=== PATIENT | female | born 1945 | race Caucasian/White ===

== ENCOUNTER → 2020-04-13 13:41 | Outpatient (BNVA) | payer MEDICARE, SELFPAY | PROVIDERS: PCP Internal Medicine; Visit Provider Surgery | DX: K81.1 Chronic cholecystitis (principal) | CPT/HCPCS: 99203 ==

== ENCOUNTER 2020-04-15 09:53 | Outpatient (REF) | payer MEDICARE, SELFPAY ==
--- NOTE | 2020-04-15 | US_ITS ---
EXAMINATION: US THYROID CLINICAL INFORMATION: Nontoxic multinodular goiter. COMPARISON: Ultrasound soft tissue head/neck thyroid dated 02/13/2019 and 07/10/2017. TECHNIQUE: Linear transducer valencia-scale and color Doppler examination with attention to the region of the thyroid. FINDINGS: SIZE: Measurements of the thyroid lobes and nodules are given in sagittal, anteroposterior and transverse dimensions respectively. Right Thyroid Lobe: 4.3 x 1.2 x 1.2 cm, volume 3.4 mL. Previously 4.1 x 1.2 x 1.6 cm, volume 4.1 mL. Parenchyma: The gland echotexture is slightly heterogeneous. Thyroid vascularity is normal. Left Thyroid Lobe: 6.8 x 2.2 x 2.5 cm, volume 19.7 mL. Previously 6.1 x 2.1 x 2.3 cm, volume 15.4 mL. Parenchyma: The gland echotexture is heterogeneous. Thyroid vascularity is increased. Isthmus: 0.1 cm in maximum AP dimension. Previously 0.1 cm. RIGHT THYROID LOBE: There are 3 nodules seen. 1. Location: Middle. Size: 0.8 x 0.3 x 0.4 cm. Previous: 0.8 x 0.3 x 0.3 cm. Nodule characteristics: Calcification. 2. Location: Inferior. Size: 0.6 x 0.3 x 0.3 cm. Previous: 0.6 x 0.3 x 0.3 cm. Nodule characteristics: Hyperechoic, irregular margin, no calcification and positive intranodular flow.. 3. Location: Inferior. Size: 0.7 x 0.4 x 0.6 cm. Previous: 0.7 x 0.4 x 0.6 cm. Nodule characteristics: Hyperechoic, smooth margin, no calcification and positive intranodular flow. ISTHMUS: No nodules. LEFT THYROID LOBE: There are 3 nodules seen. 1. Location: Middle. Size: 2.8 x 1.8 x 2.2 cm. Previous: 2.6 x 1.5 x 2.1 cm. Nodule characteristics: Hyperechoic and predominately solid with small cystic component, smooth margin, no calcification and positive intranodular flow. 2. Location: Inferior. Size: 2.4 x 1.6 x 2.5 cm. Previous: 3.5 x 1.6 x 2.4 cm. Nodule characteristics: Isoechoic, smooth margin, no calcification and positive intranodular flow. This appears decreased in size from previous exam. 3. Location: Inferior. Size: 0.3 x 0.1 x 0.5 cm. Previous: 0.8 x 0.3 x 0.6 cm. Nodule characteristics: Calcification. NODES: No lymphadenopathy is seen in the tissue surrounding the thyroid gland. IMPRESSION: Heterogeneous thyroid gland with enlarged left lobe. Interval decrease in size in the heterogeneous nodule in the inferior left lobe. Otherwise bilateral thyroid nodules do not appear appreciably changed..
== END 2020-04-15 09:54 | disposition home or self-care (01) ==
LOC: HO.US 09:53
PROVIDERS: Visit Provider Internal Medicine Endocrinology, Diabetes & Metabolism
DX: E04.2 Nontoxic multinodular goiter (principal)
CPT/HCPCS: 76536

== ENCOUNTER → 2020-04-30 11:25 | Outpatient (BNVA) | payer MEDICARE, SELFPAY | PROVIDERS: PCP Internal Medicine; Referring Provider Internal Medicine; Visit Provider Internal Medicine Endocrinology, Diabetes & Metabolism | DX: E04.2 Nontoxic multinodular goiter (principal); E06.3 Autoimmune thyroiditis | CPT/HCPCS: 99214 ==

== ENCOUNTER → 2020-07-23 10:36 | Outpatient (BNVA) | payer MEDICARE, SELFPAY | PROVIDERS: PCP Internal Medicine; Visit Provider Internal Medicine Gastroenterology | DX: K80.20 Calculus of gallbladder without cholecystitis without obstruction (principal); R94.5 Abnormal results of liver function studies; R63.4 Abnormal weight loss | CPT/HCPCS: 99212 ==

== ENCOUNTER 2020-12-17 10:15 | Outpatient (REF) | payer MEDICARE, SELFPAY ==
[2020-12-17 11:45] LABS: MANUAL DIFF FLAG NO
[2020-12-17 11:50] LABS: Basophils Percent Auto 0.4 % (0-2); Eosinophils Absolute Auto 0.1 X10*3/uL (0.0-0.4); Eosinophils Percent Auto 2.5 % (0-4); Hematocrit 40.3 % (37-47); Hemoglobin 12.9 g/dl (12.0-16.0); Imm Gran Abs Auto 0.01 X10*3/uL (0.00-0.03); Imm Gran Pct Auto 0.2 % (0.0-0.4); Lymphocytes Absolute Auto 1.7 X10*3/uL (1.2-4.9); Lymphocytes Percent Auto 30.1 % (20-40); Mean Corpuscular Hemoglobin 29.1 pg (27.0-33.0); Mean Corpuscular Volume 90.8 fL (80-98); Mean Platelet Volume 10.3 fL (9.4-12.3); Monocytes Absolute Auto 0.7 X10*3/uL (0.1-1.2); Monocytes Percent Auto 11.8 % (2-11); Platelet Count 263 X10*3/uL (160-400); Red Blood Count 4.44 X10*6/uL (4.20-5.50); White Blood Count 5.5 X10*3/uL (4.8-10.8)
[2020-12-17 13:25] LABS: Alanine Aminotransferase 9 U/L (0-31); Albumin Level 4.3 g/dL (3.5-5.0); Alkaline Phosphatase 131 U/L (39-117); Anion Gap 13 (12-20); Aspartate Amino Transferase 20 U/L (5-31); Bilirubin Total 0.5 mg/dL (0.0-1.0); Blood Urea Nitrogen 18 mg/dL (9-16); Calcium 9.7 mg/dL (8.4-10.2); Carbon Dioxide 29 mmol/L (22-29); Chloride 103 mmol/L (96-108); Estimated Glomerular Filt Rate > 60; Gamma Glutamyl Transpeptidase 19 U/L (7-33); Glucose Random 92 mg/dL (60-115); Potassium 4.6 mmol/L (3.3-5.1); Sodium 140 mmol/L (135-145); Total Protein 7.1 g/dL (6.5-8.0)
== END 2020-12-17 10:16 | disposition home or self-care (01) ==
LOC: HO.LAB 10:15
PROVIDERS: PCP Internal Medicine; Referring Provider Internal Medicine; Visit Provider Internal Medicine Gastroenterology
DX: K75.81 Nonalcoholic steatohepatitis (NASH) (principal); R63.4 Abnormal weight loss; R94.5 Abnormal results of liver function studies; K80.20 Calculus of gallbladder without cholecystitis without obstruction
CPT/HCPCS: 36415; 80053; 82977; 85025; 85610; 99212

== ENCOUNTER → 2021-03-18 09:39 | Outpatient (BNVA) | payer MEDICARE, SELFPAY | PROVIDERS: PCP Internal Medicine; Referring Provider Internal Medicine; Visit Provider Internal Medicine Gastroenterology | DX: K80.20 Calculus of gallbladder without cholecystitis without obstruction (principal); R94.5 Abnormal results of liver function studies; Z23 Encounter for immunization | CPT/HCPCS: 90471; 90472; 90632; 90746; 99212 ==

== ENCOUNTER 2021-03-19 09:56 | Outpatient (REF) | payer MEDICARE, SELFPAY ==
[2021-03-19 10:27] LABS: MANUAL DIFF FLAG NO
[2021-03-19 10:33] LABS: Basophils Percent Auto 0.5 % (0-2); Eosinophils Absolute Auto 0.2 X10*3/uL (0.0-0.4); Eosinophils Percent Auto 2.7 % (0-4); Hematocrit 38.4 % (37-47); Imm Gran Abs Auto 0.01 X10*3/uL (0.00-0.03); Imm Gran Pct Auto 0.2 % (0.0-0.4); Lymphocytes Absolute Auto 1.8 X10*3/uL (1.2-4.9); Lymphocytes Percent Auto 29.9 % (20-40); Mean Corpuscular HGB Conc 33.9 g/dl (31.0-35.0); Mean Corpuscular Hemoglobin 30.3 pg (27.0-33.0); Mean Corpuscular Volume 89.5 fL (80-98); Mean Platelet Volume 10.3 fL (9.4-12.3); Monocytes Absolute Auto 0.7 X10*3/uL (0.1-1.2); Monocytes Percent Auto 11.9 % (2-11); Neutrophils Absolute Auto 3.2 X10*3/uL (2.0-8.3); Neutrophils Percent Auto 54.8 % (45-73); Platelet Count 243 X10*3/uL (160-400); Red Blood Count 4.29 X10*6/uL (4.20-5.50); Red Cell Distribution Width 12.5 % (11.0-16.0); White Blood Count 5.9 X10*3/uL (4.8-10.8)
[2021-03-19 10:54] LABS: Alanine Aminotransferase 10 U/L (0-31); Albumin Level 4.3 g/dL (3.5-5.0); Alkaline Phosphatase 111 U/L (39-117); Anion Gap 10 (12-20); Aspartate Amino Transferase 21 U/L (5-31); Bilirubin Direct 0.3 mg/dL (0.0-0.5); Bilirubin Total 0.6 mg/dL (0.0-1.0); Blood Urea Nitrogen 15 mg/dL (9-16); Calcium 9.9 mg/dL (8.4-10.2); Carbon Dioxide 29 mmol/L (22-29); Chloride 101 mmol/L (96-108); Estimated Glomerular Filt Rate > 60; Gamma Glutamyl Transpeptidase 16 U/L (7-33); Glucose Random 89 mg/dL (60-115); Potassium 3.8 mmol/L (3.3-5.1); Sodium 136 mmol/L (135-145); Total Protein 7.1 g/dL (6.5-8.0)
[2021-03-19 11:14] LABS: Ferritin 196 ng/mL (10-250); Vitamin D 25-OH Total 72.8 ng/mL (>30)
[2021-03-19 11:33] LABS: Prothrombin Time 11.3 SEC (9.9-13.0)
[2021-03-21 09:46] LABS: Folate 11.9 ng/mL (> or = 4.0); Vitamin B12 642 pg/mL (200-900)
[2021-03-21 13:46] LABS: Immunoglobulin G 1060 mg/dL (600-1540)
[2021-03-22 06:05] LABS: Zinc 75 mcg/dL (60-130)
[2021-03-24 21:57] LABS: Alk.Phos Iso. Macrohepatic 0 % (<=0); Alk.Phos Isoenzymes Bone 32 % (28-66); Alk.Phos Isoenzymes Intest 0 % (1-24); Alk.Phos Isoenzymes Liver 68 % (25-69); Alk.Phos Isoenzymes Placental 0 % (<=0); Alk.Phos Isoenzymes Total 106 U/L (37-153)
== END 2021-03-19 09:57 | disposition home or self-care (01) ==
LOC: HO.LAB 09:56
PROVIDERS: PCP Internal Medicine; Visit Provider Internal Medicine Gastroenterology
DX: R94.5 Abnormal results of liver function studies (principal); K80.20 Calculus of gallbladder without cholecystitis without obstruction; K52.839 Microscopic colitis, unspecified; K75.81 Nonalcoholic steatohepatitis (NASH)
CPT/HCPCS: 36415; 80053; 82248; 82306; 82607; 82728; 82746; 82784; 82977; 84080; 84630; 85025; 85610

== ENCOUNTER 2021-04-19 08:07 | Outpatient (REF) | payer MEDICARE, SELFPAY ==
--- NOTE | ~2021-04-19 | US_ITS ---
EXAMINATION: US THYROID CLINICAL INFORMATION: Nontoxic multinodular goiter. COMPARISON: Ultrasound soft tissue head/neck thyroid dated 04/15/2020 and 02/13/2019. TECHNIQUE: Linear transducer valencia-scale and color Doppler examination with attention to the region of the thyroid. FINDINGS: SIZE: Measurements of the thyroid lobes and nodules are given in sagittal, anteroposterior and transverse dimensions respectively. Right Thyroid Lobe: 4.2 x 1.2 x 1.4 cm, volume 3.4 mL. Previously 4.3 x 1.2 x 1.2 cm, volume 3.4 mL. Parenchyma: The gland echotexture is homogeneous. Thyroid vascularity is increased. Left Thyroid Lobe: 5.6 x 2.1 x 2.3 cm, volume 13.9 mL. Previously 6.8 x 2.2 x 2.5 cm, volume 19.7 mL. Parenchyma: The gland echotexture is homogeneous. Thyroid vascularity is increased. Isthmus: 0.2 cm in maximum AP dimension. Previously 0.1 cm. Estimated total number of nodules greater than or equal to 1 cm: 3. Control Analyst nodules are described as follows: 1. Location: Left inferior. Size: 0.8 x 1.1 x 0.4 cm, volume 0.18 mL. Previously: 0.3 x 0.1 x 0.5 cm, volume 0.01 mL. Nodule characteristics: Composition: Solid (2). Echogenicity: Hyperechoic (1). Shape: Not taller than wide (0). Margins: Cannot be determined (0). Echogenic Foci: Macrocalcifications (1). ACR TI-RADS total points: 4 ACR TI-RADS category: 4 Significant change in size (>/= 20% in 2 dimensions and minimal increase of 2 mm or 50% or greater increase in volume): Yes Change in features: None Change in ACR TI-RADS risk category: Not applicable 2. Location: Left inferior. Size: 1.5 x 2.0 x 1.6 cm, volume 2.44 mL. Previously: 2.4 x 1.6 x 2.5 cm, volume 5.02 mL. Nodule characteristics: Composition: Solid (2). Echogenicity: Isoechoic (1). Shape: Not taller than wide (0). Margins: Smooth (0). Echogenic Foci: None (0). ACR TI-RADS total points: 3 ACR TI-RADS category: 3 Significant change in size (>/= 20% in 2 dimensions and minimal increase of 2 mm or 50% or greater increase in volume): None Change in features: None Change in ACR TI-RADS risk category: Not applicable 3. Location: Left mid. Size: 2.7 x 2.2 x 1.8 cm, volume 5.5 mL. Previously: 2.8 x 1.8 x 2.2 cm, volume 5.8 mL. Nodule characteristics: Composition: Solid (2). Echogenicity: Isoechoic (1). Shape: Not taller than wide (0). Margins: Smooth (0). Echogenic Foci: None (0). ACR TI-RADS total points: 3 ACR TI-RADS category: 3 Significant change in size (>/= 20% in 2 dimensions and minimal increase of 2 mm or 50% or greater increase in volume): None Change in features: None Change in ACR TI-RADS risk category: Not applicable 4. Location: Right inferior. Size: 0.7 x 0.5 x 0.3 cm, volume 0.07 mL. Previously: 0.8 x 0.3 x 0.4 cm, volume 0.05 mL. Nodule characteristics: Composition: Solid (2). Echogenicity: Hyperechoic (1). Shape: Not taller than wide (0). Margins: Smooth (0). Echogenic Foci: None (0). ACR TI-RADS total points: 3 ACR TI-RADS category: 3 Significant change in size (>/= 20% in 2 dimensions and minimal increase of 2 mm or 50% or greater increase in volume): None Change in features: None Change in ACR TI-RADS risk category: Not applicable NODES: No lymphadenopathy is seen in the tissue surrounding the thyroid gland. US/US thyroid IMPRESSION: Multiple thyroid nodules nonsuspicious. The largest thyroid nodule midpole left lobe is stable. Recommend continued followup. ACR TI-RADS RECOMMENDATION REFERENCE: Ultrasound-guided fine-needle aspiration, followup ultrasound, no further followup. * TR1 (0 point) and TR 2 (2 points): No FNA or followup. * TR3 (3 points): FNA if more than or equal to 2.5 cm in maximum dimension, followup ultrasound in 1, 3 and 5 years if 1.5 to 2.4 cm in maximum dimension. * TR4 (4-6 points): FNA if more than or equal to 1.5 cm in maximum dimension, followup ultrasound in 1, 2, 3 and 5 years if 1 to 1.4 cm in maximum dimension. * TR5 (more than or equal to 7 points): FNA if more than or equal to 1 cm in maximum dimension, followup ultrasound every year for 5 years if 0.5 to 0.9 cm in maximum dimension. * TR3, TR4 or TR5 nodules that are below the size threshold for followup receive no followup.
== END 2021-04-19 08:08 | disposition home or self-care (01) ==
LOC: HO.US 08:07
PROVIDERS: PCP Internal Medicine; Visit Provider Internal Medicine
DX: E04.2 Nontoxic multinodular goiter (principal)
CPT/HCPCS: 76536

== ENCOUNTER → 2021-04-22 08:11 | Outpatient (BNVA) | payer MEDICARE, SELFPAY | PROVIDERS: PCP Internal Medicine; Visit Provider Internal Medicine Gastroenterology | DX: Z23 Encounter for immunization (principal) | CPT/HCPCS: 90471; 90746 ==

== ENCOUNTER 2021-09-12 21:14 | Inpatient (IN) | payer MEDICARE, SELFPAY ==
--- NOTE | 2021-09-12 | ECG_ITS ---
Test Reason : ABDOMINAL PAIM Blood Pressure : / mmHG Vent. Rate : 089 BPM Atrial Rate : 089 BPM P-R Int : 184 ms QRS Dur : 088 ms QT Int : 366 ms P-R-T Axes : 074 026 059 degrees QTc Int : 445 ms Sinus rhythm with occasional Premature ventricular complexes and Premature atrial complexes Otherwise normal ECG When compared with ECG of 08-OCT-2019 21:54, Premature ventricular complexes are now Present Premature atrial complexes are now Present Referred By: Generic ED Physician Electronically Signed By:MILADY CELIS MD
--- NOTE | ~2021-09-12 | CT_ITS ---
EXAMINATION: CT ANGIOGRAM OF THE CHEST WITH AND WITHOUT CONTRAST (CT PULMONARY ANGIOGRAM FOR PE) CLINICAL INFORMATION: Reason for Exam syncope, chest pain COMPARISON: CT chest 02/21/2017 TECHNIQUE: Prior to contrast administration, noncontrast localization images were obtained. Subsequently, multidetector volumetric imaging was performed from the thoracic inlet to below the diaphragms following the administration of 55 mL Omnipaque 350 intravenous contrast. No contrast reaction reported Sagittal, coronal, and MIP oblique sagittal reformatted images were obtained on the CT workstation, uploaded to PACS, and reviewed. This CT examination was performed using dose optimization techniques as appropriate, variously including the following: *Automated exposure control *Adjustment of mA and/or kV according to patient size (this includes techniques or standardized protocols for targeted exams where dose is matched to indication/reason for exam; i.e. extremities or head) *Use of iterative reconstruction technique Total exam dose-length product 226 mGy-cm FINDINGS: QUALITY OF STUDY/CONTRAST BOLUS: Satisfactory. PULMONARY ARTERIES: No central or segmental pulmonary emboli. THORACIC AORTA: No aneurysm or dissection. There is a three-vessel branching pattern with common trunk involving the innominate and left carotid. The left vertebral has a separate origin from the aorta. LUNGS AND PLEURA: Biapical pleural-parenchymal scarring is present. Some mosaic areas of air trapping are present at the lung bases. No infiltrates or suspicious lung masses are seen. No pleural effusions. MEDIASTINUM: Normal heart size. No pericardial effusion. No hilar or mediastinal lymphadenopathy. No evidence of septal bowing or right heart strain. CHEST WALL/AXILLA: No axillary or internal mammary lymphadenopathy. OSSEOUS STRUCTURES: No acute or suspicious osseous abnormality. UPPER ABDOMEN: Unremarkable. No reflux of contrast into the hepatic veins to suggest elevated right heart pressures. CT/CT angio chest PE protocol IMPRESSION: No evidence of pulmonary emboli. No aortic dissection seen. No acute intrathoracic disease. VTE: negative
[2021-09-12 21:33] VITALS: BP 150/76; BP 182/71; PULSE 82; PULSE 90; RESP 16; TEMP 37; O2SAT 100; BMI 23.2
--- NOTE | 2021-09-12 21:43 | ED_ITS ---
HPI - Syncope General Chief Complaint: Abdominal Pain Stated Complaint: SYNCOPAL EPISODE PER EMS Time Seen by Provider: 09/12/21 21:36 Source: patient Mode of arrival: EMS History of Present Illness HPI narrative: Patient is 76 years old with no known coronary disease has history of goiter and hypokalemia was at her usual health today came home after meeting around 20 30 suddenly noticed epigastric pain with nausea with cold sweats went to bathroom to attempt to vomit but was unsuccessful then sat down on the chair and had a syncope episode per family patient had a blank stare and slumped to the side after arrival patient denies any pain no shortness of breath feels slight discomfort retrosternal Related Data Home Medications Medication Instructions Recorded Confirmed chlorthalidone 25 mg tablet 25 mg PO QAM 04/10/20 04/30/20 cholecalciferol (vitamin D3) 25 25 mcg PO DAILY 04/10/20 04/30/20 mcg (1,000 unit) capsule potassium chloride 20 mEq 20 meq PO BID 04/10/20 04/30/20 tablet,extended release(part/cryst) polyethylene glycol 3350 17 17 g PO BID 12/17/20 gram/dose oral powder (Miralax) Previous Rx's Medication Instructions Recorded ursodiol 500 mg tablet 500 mg PO BID 90 Days #180 tab 08/10/21 Allergies Allergy/AdvReac Type Severity Reaction Status Date / Time celecoxib [From CELEBREX] Allergy Intermediate RASH Verified 09/12/21 21:31 Sulfa (Sulfonamide Allergy Intermediate RASH Verified 09/12/21 21:31 Antibiotics) tomato Allergy Rash Verified 09/12/21 21:31 From PERCOCET Allergy Intermediate RASH Uncoded 09/12/21 21:31 Review of Systems Review of Systems: Yes all other systems are reviewed and are negative [facility] Past Medical History Medical History Chronic cholecystitis Essential hypertension Rika's disease Nontoxic multinodular goiter Primary osteoarthritis of left knee Surgical History History of back surgery History of bilateral knee arthroplasty History of colonoscopy History of esophagogastroduodenoscopy (EGD) History of thyroid surgery History of tonsillectomy Family History Family History Father No problems noted. Mother No problems noted. Social History Social History Alcohol intake: never Advance Directives: No Advance Directives Information Provided: Yes Physical Exam Vital Signs: Vital Signs: Last Vital Signs Temp 97.7 F 09/12/21 23:23 Pulse 76 09/12/21 23:23 Resp 15 09/12/21 23:23 BP 164/83 H 09/12/21 23:23 Pulse Ox 97 09/12/21 23:23 BMI result Body Mass Index 23.2 Appearance: Alert. Oriented X3. No acute distress. Eyes: No pallor/icterus ENT: Pharynx normal. Oral Mucosa moist Neck: Normal inspection. Neck supple. CVS: Normal heart rate and rhythm. Pulses normal. No murmur rub or gallop Respiratory: No respiratory distress. Equal air entry bilateral, no wheezing/rales/rhonchi Abdomen: Soft and nontender. Bowel sounds are present, no mass palpable, no CVA tenderness Skin: Skin warm and dry. Normal skin color. Normal skin turgor. Extremities: No lower extremity edema. No calf tenderness Neuro: Oriented X 3. No motor deficit. No sensory deficit.No cerebellar signs , cranial nerves II-XII intact MDM - Syncope MDM Narrative Medical decision making narrative: Patient with epigastric pain with syncope episode etiology not clear 2 sets of high sensitive troponin negative no acute ischemic changes. Will admit patient for rule out ACS and syncope Lab Data Attestation: I reviewed the patient's lab results. Result diagrams: 09/12/21 21:52 09/12/21 21:52 Labs: Lab Results 09/12/21 09/12/21 09/12/21 Range/Units 21:52 21:52 21:52 WBC 7.5 (4.8-10.8) X10*3/uL RBC 4.32 (4.20-5.50) X10*6/uL Hgb 12.6 (12.0-16.0) g/dl Hct 38.9 (37.0-47.0) % MCV 90.0 (80.0-98.0) fL MCH 29.2 (27.0-33.0) pg MCHC 32.4 (31.0-35.0) g/dl RDW 12.8 (11.0-16.0) % Plt Count 232 (160-400) X10*3/uL MPV 10.1 (9.4-12.3) fL Immature Gran % (Auto) 0.1 (0.0-0.4) % Neut % (Auto) 54.6 (45-73) % Lymph % (Auto) 29.5 (20-40) % Crook % (Auto) 12.1 H (2-11) % Eos % (Auto) 3.2 (0-4) % Baso % (Auto) 0.5 (0-2) % Lymph # (Auto) 2.2 (1.2-4.9) X10*3/uL Crook # (Auto) 0.9 (0.1-1.2) X10*3/uL Eos # (Auto) 0.2 (0.0-0.4) X10*3/uL Baso # (Auto) 0.0 (0.0-0.2) X10*3/uL Abs Immat Gran (auto) 0.01 (0.00-0.03) X10*3/uL Absolute Neuts (auto) 4.1 (2.0-8.3) x10*3/uL Absolute Nucleated RBC 0.000 (0.0-0.012) X10*3/uL Nucleated RBC % (auto) 0.0 (0.0-0.2) /100WBC PT 10.9 (9.9-13.0) SEC INR 1.0 (0.9-1.1) APTT 32.4 (24.1-38.0) SEC Sodium 141 (135-145) mmol/L Potassium 3.2 L (3.3-5.1) mmol/L Chloride 103 (96-108) mmol/L Carbon Dioxide 30 H (22-29) mmol/L Anion Gap 11 L (12-20) BUN 16 (9-16) mg/dL Creatinine 0.77 (0.5-1.4) mg/dL Estim Creat Clear Calc 50.6 Estimated GFR > 60 Random Glucose 120 H (60-115) mg/dL Lactic Acid (0.5-2.0) mmol/L Calcium 10.0 (8.4-10.2) mg/dL Total Bilirubin 0.2 (0.0-1.0) mg/dL AST 19 (5-31) U/L ALT 7 (0-31) U/L Alkaline Phosphatase 110 (39-117) U/L Troponin I High Sens (<3.5-17.0) ng/L Total Protein 6.8 (6.5-8.0) g/dL Albumin 4.1 (3.5-5.0) g/dL Urine Color Urine Appearance Urine pH (5.0-8.0) Ur Specific [place] (1.005-1.025) Urine Protein (NEG-TRACE) MG/DL Urine Glucose (UA) (NEG) MG/DL Urine Ketones (NEG) MG/DL Urine Blood (NEG) Urine Nitrite (NEG) Ur Leukocyte Esterase (NEG) Urine RBC (0) /HPF Urine WBC (0-4) /HPF Ur Squamous Epith Cells /LPF Urine Bacteria /LPF COVID-19 ([place]) (Negative) COVID-19 Clin Com 09/12/21 09/12/21 09/12/21 Range/Units 21:52 21:53 22:13 WBC (4.8-10.8) X10*3/uL RBC (4.20-5.50) X10*6/uL Hgb (12.0-16.0) g/dl Hct (37.0-47.0) % MCV (80.0-98.0) fL MCH (27.0-33.0) pg MCHC (31.0-35.0) g/dl RDW (11.0-16.0) % Plt Count (160-400) X10*3/uL MPV (9.4-12.3) fL Immature Gran % (Auto) (0.0-0.4) % Neut % (Auto) (45-73) % Lymph % (Auto) (20-40) % Crook % (Auto) (2-11) % Eos % (Auto) (0-4) % Baso % (Auto) (0-2) % Lymph # (Auto) (1.2-4.9) X10*3/uL Crook # (Auto) (0.1-1.2) X10*3/uL Eos # (Auto) (0.0-0.4) X10*3/uL Baso # (Auto) (0.0-0.2) X10*3/uL Abs Immat Gran (auto) (0.00-0.03) X10*3/uL Absolute Neuts (auto) (2.0-8.3) x10*3/uL Absolute Nucleated RBC (0.0-0.012) X10*3/uL Nucleated RBC % (auto) (0.0-0.2) /100WBC PT (9.9-13.0) SEC INR (0.9-1.1) APTT (24.1-38.0) SEC Sodium (135-145) mmol/L Potassium (3.3-5.1) mmol/L Chloride (96-108) mmol/L Carbon Dioxide (22-29) mmol/L Anion Gap (12-20) BUN (9-16) mg/dL Creatinine (0.5-1.4) mg/dL Estim Creat Clear Calc Estimated GFR Random Glucose (60-115) mg/dL Lactic Acid (0.5-2.0) mmol/L Calcium (8.4-10.2) mg/dL Total Bilirubin (0.0-1.0) mg/dL AST (5-31) U/L ALT (0-31) U/L Alkaline Phosphatase (39-117) U/L Troponin I High Sens 5.4 (<3.5-17.0) ng/L Total Protein (6.5-8.0) g/dL Albumin (3.5-5.0) g/dL Urine Color STRAW Urine Appearance HAZY Urine pH 6.5 (5.0-8.0) Ur Specific [place] 1.010 (1.005-1.025) Urine Protein NEG (NEG-TRACE) MG/DL Urine Glucose (UA) NEG (NEG) MG/DL Urine Ketones NEG (NEG) MG/DL Urine Blood TRACE (NEG) Urine Nitrite POS H (NEG) Ur Leukocyte Esterase 3+ H (NEG) Urine RBC 0-2 (0) /HPF Urine WBC 10-14 H (0-4) /HPF Ur Squamous Epith Cells TRACE /LPF Urine Bacteria 1+ /LPF COVID-19 ([place]) Negative (Negative) COVID-19 Clin Com See Note 09/13/21 09/13/21 Range/Units 00:02 00:02 WBC (4.8-10.8) X10*3/uL RBC (4.20-5.50) X10*6/uL Hgb (12.0-16.0) g/dl Hct (37.0-47.0) % MCV (80.0-98.0) fL MCH (27.0-33.0) pg MCHC (31.0-35.0) g/dl RDW (11.0-16.0) % Plt Count (160-400) X10*3/uL MPV (9.4-12.3) fL Immature Gran % (Auto) (0.0-0.4) % Neut % (Auto) (45-73) % Lymph % (Auto) (20-40) % Crook % (Auto) (2-11) % Eos % (Auto) (0-4) % Baso % (Auto) (0-2) % Lymph # (Auto) (1.2-4.9) X10*3/uL Crook # (Auto) (0.1-1.2) X10*3/uL Eos # (Auto) (0.0-0.4) X10*3/uL Baso # (Auto) (0.0-0.2) X10*3/uL Abs Immat Gran (auto) (0.00-0.03) X10*3/uL Absolute Neuts (auto) (2.0-8.3) x10*3/uL Absolute Nucleated RBC (0.0-0.012) X10*3/uL Nucleated RBC % (auto) (0.0-0.2) /100WBC PT (9.9-13.0) SEC INR (0.9-1.1) APTT (24.1-38.0) SEC Sodium (135-145) mmol/L Potassium (3.3-5.1) mmol/L Chloride (96-108) mmol/L Carbon Dioxide (22-29) mmol/L Anion Gap (12-20) BUN (9-16) mg/dL Creatinine (0.5-1.4) mg/dL Estim Creat Clear Calc Estimated GFR Random Glucose (60-115) mg/dL Lactic Acid 0.7 (0.5-2.0) mmol/L Calcium (8.4-10.2) mg/dL Total Bilirubin (0.0-1.0) mg/dL AST (5-31) U/L ALT (0-31) U/L Alkaline Phosphatase (39-117) U/L Troponin I High Sens 5.3 (<3.5-17.0) ng/L Total Protein (6.5-8.0) g/dL Albumin (3.5-5.0) g/dL Urine Color Urine Appearance Urine pH (5.0-8.0) Ur Specific [place] (1.005-1.025) Urine Protein (NEG-TRACE) MG/DL Urine Glucose (UA) (NEG) MG/DL Urine Ketones (NEG) MG/DL Urine Blood (NEG) Urine Nitrite (NEG) Ur Leukocyte Esterase (NEG) Urine RBC (0) /HPF Urine WBC (0-4) /HPF Ur Squamous Epith Cells /LPF Urine Bacteria /LPF COVID-19 ([place]) (Negative) COVID-19 Clin Com ECG Data Attestation: I personally reviewed and interpreted this ECG as follows: Interpretation: Heart rate 89 beats per minute sinus rhythm with question premature ventricular complexes normal axis normal intervals no acute ST-T changes no acute ischemia Critical Care Time Critical Care Time Critical Care Time: Yes Total Critical Care Time: 50 Attestation: I spent 50 minutes of critical care, with interventions, assessments, speaking to patient, consultants, Discharge Plan Discharge Clinical Impression: Syncope and collapse, Chest pain Patient Disposition: Admitted As Inpatient
[2021-09-12 21:58] LABS: MANUAL DIFF FLAG NO
[2021-09-12 22:00] LABS: Basophils Percent Auto 0.5 % (0-2); Eosinophils Absolute Auto 0.2 X10*3/uL (0.0-0.4); Eosinophils Percent Auto 3.2 % (0-4); Hematocrit 38.9 % (37.0-47.0); Hemoglobin 12.6 g/dl (12.0-16.0); Imm Gran Abs Auto 0.01 X10*3/uL (0.00-0.03); Imm Gran Pct Auto 0.1 % (0.0-0.4); Lymphocytes Absolute Auto 2.2 X10*3/uL (1.2-4.9); Lymphocytes Percent Auto 29.5 % (20-40); Mean Corpuscular HGB Conc 32.4 g/dl (31.0-35.0); Mean Corpuscular Hemoglobin 29.2 pg (27.0-33.0); Mean Platelet Volume 10.1 fL (9.4-12.3); Monocytes Absolute Auto 0.9 X10*3/uL (0.1-1.2); Monocytes Percent Auto 12.1 % (2-11); Neutrophils Absolute Auto 4.1 x10*3/uL (2.0-8.3); Neutrophils Percent Auto 54.6 % (45-73); Platelet Count 232 X10*3/uL (160-400); Red Blood Count 4.32 X10*6/uL (4.20-5.50); Red Cell Distribution Width 12.8 % (11.0-16.0); White Blood Count 7.5 X10*3/uL (4.8-10.8)
[2021-09-12 22:05] LABS: Prothrombin Time 10.9 SEC (9.9-13.0)
[2021-09-12 22:08] LABS: Partial Thromboplastin Time 32.4 SEC (24.1-38.0)
[2021-09-12 22:16] LABS: Alanine Aminotransferase 7 U/L (0-31); Albumin Level 4.1 g/dL (3.5-5.0); Alkaline Phosphatase 110 U/L (39-117); Aspartate Amino Transferase 19 U/L (5-31); Bilirubin Total 0.2 mg/dL (0.0-1.0); Blood Urea Nitrogen 16 mg/dL (9-16); Creatinine Clr Calc Pharmacy 50.6; Estimated Glomerular Filt Rate > 60; Glucose Random 120 mg/dL (60-115); Total Protein 6.8 g/dL (6.5-8.0)
[2021-09-12 22:20] LABS: Appearance Urine HAZY; Color Urine STRAW; Glucose Urine UA NEG (NEG); Leukocyte Esterase Urine 3+ (NEG); Nitrite Urine POS (NEG); PH 6.5 (5.0-8.0); UACC Culture Trigger YES; Urine Blood TRACE (NEG); Urine Ketones NEG (NEG); Urine Protein NEG (NEG-TRACE)
[2021-09-12 22:20] LABS: Troponin-I High Sensitivity 5.4 ng/L (<3.5-17.0)
[2021-09-12 22:25] LABS: Bacteria Urine 1+ /LPF; RBC Urine 0-2 /HPF (0); Squamous Epithelial Cell Urine TRACE /LPF
[2021-09-12 22:26] LABS: Anion Gap 11 (12-20); Carbon Dioxide 30 mmol/L (22-29); Chloride 103 mmol/L (96-108); Potassium 3.2 mmol/L (3.3-5.1); Sodium 141 mmol/L (135-145)
[2021-09-12 22:27] LABS: COVID-19 Test Negative (Negative)
[2021-09-12] MEDS: iohexoL 350 MG/ML 100 ML INFUS..BTL IV (22:52)
[2021-09-12 23:23] VITALS: BP 164/83; PULSE 76; RESP 15; TEMP 36.5; O2SAT 97
[2021-09-13] MEDS: cefTRIAXone sodium 1 GM in 0.9 % Sodium Chloride 50 ML IV ×2 (00:14→21:43)
[2021-09-13] MEDS: Potassium Chloride Packet 20 MEQ PACKET 40 MEQ PO (00:14)
[2021-09-13 00:30] LABS: Lactic Acid 0.7 mmol/L (0.5-2.0)
[2021-09-13 00:39] LABS: Troponin-I High Sensitivity 5.3 ng/L (<3.5-17.0)
--- NOTE | 2021-09-13 01:50 | P.HPHOSP_ITS ---
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 Patient reports that she was at a meeting earlier that lasted about an hour, she came home, was in her usual state of health, standing in the kitchen talking to her family when all of a sudden she experienced significant epigastric pain radiating bilaterally, then she developed dizziness, she went to sit down and it appears to have had a syncopal episode for less than a minute while sitting down. Patient's family were present in the witness the episode. She apparently was gazing out and not responding to them calling her. Patient does not remember that episode. Patient reports that she has had increased confusion for the past 1 month, and even today while giving history she seemed to be slightly confused. When asked about review of system patient denies any headache, no change in vision, no chest pain, no palpitations, no nausea or vomiting, no diarrhea constipation. Patient does report urinary symptoms including burning and frequency that started few days ago. She has no lower extremity edema. No fever or chills. On arrival to the ED patient hemodynamically stable with no significant abnormal vitals Labs are significant for WBC count of 7.5, potassium of 3.2, UA positive for urine nitrite, LE and WBC . troponin negative. EKG shows sinus rhythm with PVCs, T-wave inversion in lead V1, which is present any previous EKG, no other ST T wave abnormality. Patient started on IV antibiotics and will be admitted for further management Review of Systems Review of Systems: Yes all other systems are reviewed and are negative [facility] Medical History Chronic cholecystitis Essential hypertension Rika's disease Nontoxic multinodular goiter Primary osteoarthritis of left knee Family History Father No problems noted. Mother No problems noted. Surgical History History of back surgery History of bilateral knee arthroplasty History of colonoscopy History of esophagogastroduodenoscopy (EGD) History of thyroid surgery History of tonsillectomy Social History (Updated 09/13/21 @ 06:40 by Panfilo Lucas MD) Alcohol intake: never Patient Tobacco Use Status: Former Tobacco user Use of substances other than those prescribed or required for medical reasons: No Advance Directives: No Advance Directives Information Provided: Yes Meds Allergies Allergy/AdvReac Type Severity Reaction Status Date / Time celecoxib [From CELEBREX] Allergy Intermediate RASH Verified 09/12/21 21:31 Sulfa (Sulfonamide Allergy Intermediate RASH Verified 09/12/21 21:31 Antibiotics) tomato Allergy Rash Verified 09/12/21 21:31 From PERCOCET Allergy Intermediate RASH Uncoded 09/12/21 21:31 Home Medications Medication Instructions Recorded Confirmed Last Taken Type chlorthalidone 25 mg tablet 25 mg PO QAM 04/10/20 04/30/20 Unknown History cholecalciferol (vitamin D3) 25 25 mcg PO DAILY 04/10/20 04/30/20 Unknown History mcg (1,000 unit) capsule potassium chloride 20 mEq 20 meq PO BID 04/10/20 04/30/20 Unknown History tablet,extended release(part/cryst) polyethylene glycol 3350 17 17 g PO BID 12/17/20 Unknown History gram/dose oral powder (Miralax) Physical Exam Vital Signs and Narrative: Vital Signs: Last Vital Signs Temp 97.7 F 09/12/21 23:23 Pulse 76 09/12/21 23:23 Resp 15 09/12/21 23:23 BP 164/83 H 09/12/21 23:23 Pulse Ox 97 09/12/21 23:23 BMI result Body Mass Index 23.2 Results Labs CBC and Chem 7: 09/12/21 21:52 09/12/21 21:52 Labs: Laboratory Results - last 24 hr 09/12/21 09/12/21 09/12/21 21:52 21:52 21:52 MCV 90.0 MCH 29.2 MCHC 32.4 RDW 12.8 Plt Count 232 MPV 10.1 Immature Gran % (Auto) 0.1 Neut % (Auto) 54.6 Lymph % (Auto) 29.5 [place] % (Auto) 12.1 H Eos % (Auto) 3.2 Baso % (Auto) 0.5 Lymph # (Auto) 2.2 [place] # (Auto) 0.9 Eos # (Auto) 0.2 Baso # (Auto) 0.0 Abs Immat Gran (auto) 0.01 Absolute Neuts (auto) 4.1 Absolute Nucleated RBC 0.000 Nucleated RBC % (auto) 0.0 PT 10.9 INR 1.0 APTT 32.4 Anion Gap 11 L Estim Creat Clear Calc 50.6 Estimated GFR > 60 Random Glucose 120 H Lactic Acid Calcium 10.0 Total Bilirubin 0.2 AST 19 ALT 7 Alkaline Phosphatase 110 Total Protein 6.8 Albumin 4.1 Urine Color Urine Appearance Urine pH Ur Specific [place] Urine Protein Urine Glucose (UA) Urine Ketones Urine Blood Urine Nitrite Ur Leukocyte Esterase Urine RBC Urine WBC Ur Squamous Epith Cells Urine Bacteria COVID-19 ([place]) COVID-19 Clin Com 09/12/21 09/12/21 09/13/21 21:53 22:13 00:02 MCV MCH MCHC RDW Plt Count MPV Immature Gran % (Auto) Neut % (Auto) Lymph % (Auto) [place] % (Auto) Eos % (Auto) Baso % (Auto) Lymph # (Auto) [place] # (Auto) Eos # (Auto) Baso # (Auto) Abs Immat Gran (auto) Absolute Neuts (auto) Absolute Nucleated RBC Nucleated RBC % (auto) PT INR APTT Anion Gap Estim Creat Clear Calc Estimated GFR Random Glucose Lactic Acid 0.7 Calcium Total Bilirubin AST ALT Alkaline Phosphatase Total Protein Albumin Urine Color STRAW Urine Appearance HAZY Urine pH 6.5 Ur Specific [place] 1.010 Urine Protein NEG Urine Glucose (UA) NEG Urine Ketones NEG Urine Blood TRACE Urine Nitrite POS H Ur Leukocyte Esterase 3+ H Urine RBC 0-2 Urine WBC 10-14 H Ur Squamous Epith Cells TRACE Urine Bacteria 1+ COVID-19 ([place]) Negative COVID-19 Clin Com See Note Imaging Radiologist's Impressions: Impressions Chest CTA 09/12/21 22:52 IMPRESSION: No evidence of pulmonary emboli. No aortic dissection seen. No acute intrathoracic disease. VTE: negative Assessment and Plan (1) Syncope and collapse: Status: Acute (2) Epigastric pain: Status: Acute (3) UTI (urinary tract infection): Status: Acute (4) Hypokalemia: Status: Acute Plan 76-year-old female with history of hypertension, presents to the hospital with complaints of epigastric pain and syncopal episode # syncope - unclear etiology, possibly in the acute infection versus vasovagal due to severe pain - EKG shows no acute changes - will admit to telemetry - will treat UTI # epigastric abdominal pain - possibly GERD versus esophageal spasm versus other etiology including galls tones given her history of gallstones - does not appear to be cardiac as no EKG changes, troponin negative x2 - will obtain abdominal ultrasound - supportive measures # UTI - symptomatic - will treat with IV antibiotic - follow culture # hypertension - stable - continue home medications # Hypokalemia - repleted - continue home supplement - monitor bmp DVT prophylaxis: Lovenox Quality Stroke Does the patient have a stroke diagnosis?: No VTE Prior VTE?: No VTE Risk Level:: Medical - moderate - high VTE Device Contraindication: Treatment Not Indicated VTE Drug Contraindication: N/A - Med Ordered
[2021-09-13 06:32] LABS: MANUAL DIFF FLAG NO
[2021-09-13] MEDS: Enoxaparin Sodium 40 MG/0.4 ML SYRINGE SUBCUT (06:38)
[2021-09-13 06:39] LABS: Basophils Percent Auto 0.4 % (0-2); Eosinophils Absolute Auto 0.1 X10*3/uL (0.0-0.4); Eosinophils Percent Auto 1.9 % (0-4); Hematocrit 38.7 % (37.0-47.0); Hemoglobin 12.8 g/dl (12.0-16.0); Imm Gran Abs Auto 0.04 X10*3/uL (0.00-0.03); Imm Gran Pct Auto 0.5 % (0.0-0.4); Lymphocytes Absolute Auto 1.6 X10*3/uL (1.2-4.9); Lymphocytes Percent Auto 21.8 % (20-40); Mean Corpuscular HGB Conc 33.1 g/dl (31.0-35.0); Mean Corpuscular Hemoglobin 29.6 pg (27.0-33.0); Mean Corpuscular Volume 89.6 fL (80.0-98.0); Mean Platelet Volume 10.4 fL (9.4-12.3); Monocytes Absolute Auto 0.8 X10*3/uL (0.1-1.2); Monocytes Percent Auto 10.6 % (2-11); Neutrophils Absolute Auto 4.8 x10*3/uL (2.0-8.3); Neutrophils Percent Auto 64.8 % (45-73); Platelet Count 253 X10*3/uL (160-400); Red Blood Count 4.32 X10*6/uL (4.20-5.50); Red Cell Distribution Width 12.8 % (11.0-16.0); White Blood Count 7.4 X10*3/uL (4.8-10.8)
[2021-09-13 06:45] LABS: Anion Gap 12 (12-20); Blood Urea Nitrogen 12 mg/dL (9-16); Calcium 9.7 mg/dL (8.4-10.2); Carbon Dioxide 26 mmol/L (22-29); Chloride 108 mmol/L (96-108); Creatinine Clr Calc Pharmacy 58.1; Estimated Glomerular Filt Rate > 60; Glucose Random 99 mg/dL (60-115); Potassium 3.6 mmol/L (3.3-5.1); Sodium 142 mmol/L (135-145)
--- NOTE | 2021-09-13 07:28 | PHA.MEDREC ---
Pharmacy Consult ? Medication Reconciliation Pharmacy has completed the medication reconciliation. There are no remarkable issues for provider's attention. Jyothi Castillo, SenaD
[2021-09-13] MEDS: 0.9 % Sodium Chloride Flush 3 ML SYRINGE IVFLUSH ×2 (07:40→15:14)
[2021-09-13 11:45] VITALS: BP 146/70; PULSE 70; RESP 18; TEMP 36.1; O2SAT 99
--- NOTE | 2021-09-13 12:15 | MHC.CM.PN ---
met with pt in ed pt reports livivng with her michelbsand she has no servceis she reports being vax x 3 hcp filed and will be placed on emr when pt is transferred to floor dc plan home with family pt arranging own [facility] home
[2021-09-13 16:00] VITALS: BP 152/60; PULSE 72; RESP 16; TEMP 36.5; O2SAT 99
--- NOTE | 2021-09-13 16:35 | PC.NURSE ---
Patient seemed to be confused. Spoke to about confusion that has increased over the past year or so. Scheduled for appointment for confusion to be addressed in October at [facility].
--- NOTE | 2021-09-13 16:40 | PM.EVENT ---
Event Note Date of Service: 09/13/21 Event Note: Patient already seen and examined with the hospitalist team this morning She has intermittent epigastric pain difficult to localize, currently resolved. ? Unclear about urinary complaints Physical exam: Please see H&P note. Assessment and plan already coordinated in H&P note. syncope : possible vasovagal troponins neg orthostatic ordered telemtry epigastric abdominal pain: seems resolved Previous abdominal ultrasound in 2019 showed gallstones. Currently asymptomatic Will check with the surgery in the morning UTI: Continue IV antibiotics, hypokalemia resolved
[2021-09-13 16:48] VITALS: BP 140/61; PULSE 84
[2021-09-13 16:50] VITALS: BP 133/73; PULSE 81
[2021-09-13 16:52] VITALS: BP 127/71; PULSE 100
[2021-09-13 21:40] VITALS: BP 138/67; PULSE 77; RESP 18; TEMP 36.4; O2SAT 97
[2021-09-14 01:14] VITALS: BP 152/69; PULSE 78; RESP 16; O2SAT 99
[2021-09-14 05:20] LABS: Alanine Aminotransferase 8 U/L (0-31); Albumin Level 3.5 g/dL (3.5-5.0); Alkaline Phosphatase 99 U/L (39-117); Aspartate Amino Transferase 16 U/L (5-31); Bilirubin Direct 0.2 mg/dL (0.0-0.5); Bilirubin Total 0.5 mg/dL (0.0-1.0)
[2021-09-14 06:09] VITALS: BP 160/55; PULSE 83; RESP 16; TEMP 36; O2SAT 98
--- NOTE | 2021-09-14 07:30 | CA_ITS ---
Transthoracic Echocardiogram Patient (Last, First, Middle): Whit Fish J Gender: Female Date of : 1945 Age: 76 Procedure Date: 09/14/2021 Procedure Type: Transthoracic Echocardiogram Location: [facility] Height: 160.02 cm Weight: 59.42 kg BSA: 1.62 m2 Heart Rate: bpm BP: 164 / 83 mmHg Credit Charge Authorizer: Referring MD: Mayela Beard MD Cementer Machine: Wally Rudd MD Symptoms: chest pain/syncope Study Quality: Fair ECG Rhythm: Sinus Conclusions: - 1. Normal LV systolic function with impaired relaxation filling pattern 2. Trivial aortic and mild mitral regurgitation 3. Normal RV systolic pressure 4. No pericardial effusion Findings Left Ventricle Normal left ventricular size, thickness, and systolic function. The visually estimated ejection fraction is between 60-65%. Spectral Doppler is indicative of an impaired relaxation filling pattern. E/E prime ratio is between 8 and 15 consistent with indeterminate filling pressures. Right Ventricle Normal right ventricular cavity size and systolic function. Atria Both atria are normal in size. There is a mobile atrial septum noted. Interatrial shunt cannot be excluded. Aortic Valve Normal aortic valve structure and function. There is mild calcification of the aortic valve. There is no aortic valve stenosis. There is trace (trivial) aortic valve regurgitation. Mitral Valve Normal mitral valve structure and function. There is mild mitral valve regurgitation. There is no mitral valve stenosis. Pulmonic Valve The pulmonic valve was not well visualized. Tricuspid Valve Likely normal tricuspid valve structure and function. There is trace tricuspid valve regurgitation. The right ventricular systolic pressure is normal. The right ventricular systolic pressure is 22 mmHg. Normal right atrial pressure. There is no evidence of pulmonary hypertension. Great Vessels All visible segments of the aorta are normal in size. The pulmonary artery was not well visualized. Venous The inferior vena cava is normal in size and collapses greater than 50% with inspiration. Pericardium/Pleural There is no evidence of pericardial effusion. Prior Study Comparison No significant change compared to prior study dated: 08/14/2018. Measurements 2D Linear Measurements IVSd: 1.07 0.6-0.9/0.6-1.0 cm LVIDd: 3.51 3.9-5.3/4.2-5.9 cm LVIDd Index: 2.17 2.4-3.2/2.2-3.1 cm/m2 LVIDs: 2.17 2.0-3.6 cm LVPWd: 1.08 0.7-1.1 cm LA Diam: 2.50 2.7-3.8/3.0-4.0 cm LAIDs Index: 1.54 1.5-2.3 cm/m2 LV Mass: 143.60 67-162/88-224 g LV Mass Index: 88.64 43-95/49-115 g/m2 LVOT Diam: 2.00 3.0+(-)1.3 cm 2D Systolic Function EF 4C: 66.90 >55% EF 2C: 61.00 >55% EF BiP: 63.70 >55% Mitral Valve MV Pk E: 0.69 MV PK A: 1.14 MV Decel Time: 137.00 E/A: 0.60 E'Lateral: 6.42 E'Medial: 5.22 E/E' Med: 13.30 E/E' Lat: 10.80 PHT: 40.00 MVA PHT: 5.50 Decel Wilcox: 5.06 Aortic Valve AoV Pk Ronald: 1.71 AoV Mn Ronald: 1.13 AoV VTI: 0.39 AoV Pk Grad: 12.00 Aov Mn Grad: 6.00 MAURO Cont.VTI: 1.74 LVOT LVOT Pk Ronald: 0.82 LVOT Mn Ronald: 0.56 LVOT VTI: 0.22 LVOT Pk Grad: 3.00 LVOT Mn Grad: 1.00 LVOT Diam: 2.00 LVOT Area: 3.14 Diastolic Function MV Pk E: 0.69 MV Pk A: 1.14 E/A: 0.60 E'Medial: 5.22 E/E' Med: 13.30 E' Laterial: 6.42 E/E' Lat: 10.80 Right Ventricle TAPSE (mm): 26.00 TVS' Ronald: 15.00 Tricuspid Valve TR Pk Ronald: 2.20 TR Pk Grad: 19.00 RA Press: 3.00 RVSP: 22.00 Great Vessels Aorta Ao Asc: 3.10 2.1-3.4 cm Pulmonary Valve PV Pk Ronald: 0.83 Peak PV Grad: 3.00 Updated in Other Vendor System with Status of Final Wally Rudd MD electronically signed on 09/14/2021 12:20:07 PM with status of Final
--- NOTE | 2021-09-14 09:06 | PC.NURSE ---
Pt A&Ox2, unaware of date and situation. confused but easily redirectable. Ambulates independently with steady gait. NSR on monitor, denies any pain or dizziness at this time. Call owens within reach, report to the floor. IV established in R forearm.
[2021-09-14 09:32] VITALS: BP 170/70; PULSE 72; RESP 18; TEMP 36.4; O2SAT 97
[2021-09-14] MEDS: 0.9 % Sodium Chloride Flush 3 ML SYRINGE IVFLUSH (09:50)
[2021-09-14 11:22] VITALS: BP 148/67; PULSE 72; RESP 18; TEMP 37.1; O2SAT 98
--- NOTE | 2021-09-14 11:31 | PM.DS ---
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 Patient reports that she was at a meeting earlier that lasted about an hour, she came home, was in her usual state of health,? standing in the kitchen talking to her family when all of a sudden she experienced significant epigastric pain radiating bilaterally, then she developed dizziness, she went to sit down and it appears to have? had a syncopal episode for less than a minute while sitting down.? Patient's family were present in the witness the episode.? She apparently was gazing out and not responding to them calling her.? Patient does not remember that episode.? Patient reports that she has had increased confusion for the past 1 month, and even today while? giving history she seemed to be slightly confused.? When asked about review of system patient denies any headache, no change in vision, no chest pain, no palpitations, no nausea or vomiting,? no diarrhea constipation.? Patient does report urinary symptoms including burning and frequency that started few days ago.? She has no lower extremity edema.? No fever or chills.? On arrival to the ED patient hemodynamically stable with no significant abnormal vitals Labs are significant for? WBC count of 7.5, potassium of 3.2, UA positive for urine nitrite,? LE and WBC .? troponin negative.? EKG shows? sinus rhythm with PVCs, T-wave inversion in lead V1,? which is present any previous EKG, no other ST T wave abnormality. Hospital course: Patient was admitted for UTI: Started on IV antibiotics seems to be improving urine cultures reviewed preliminary with microlab-coagulase negative Staph aureus, blood culture preliminary negative at 24 hours. Patient is asymptomatic: Going home with p.o. Augmentin, please complete the course. Patient has possible episode of syncope: UTI might have contributed, also decreased oral intake: Encouraged for p.o. hydration, complete antibiotic, echo seems ef fine ( please see below in imaging section) Orthostasis negative. Above management discussed with the patient in detail length with her and her Mr Forbes -they understand and in agreement with the above plan, time spent 50 minutes and 50% time spent on counseling. Significant findings: As above. Procedures performed: None. Treatment and response: As above. Complications: None. Time Spent with Patient Time attestation: Total time spent providing and/or coordinating discharge services: Discharge coordination time: Greater than 30 minutes Quality: Stroke Does the patient have a stroke diagnosis?: No Physical Exam Vital Signs: Vital Signs: Last Vital Signs Temp 98.8 F 09/14/21 11:22 Pulse 72 09/14/21 11:22 Resp 18 09/14/21 11:22 BP 148/67 H 09/14/21 11:22 Pulse Ox 98 09/14/21 11:22 BMI result Body Mass Index 23.2 Appearance: Alert.? Oriented X3.? not in distress.? Eyes: Pupils equal, round and reactive to light.? Sclera nonicteric.? ENT: Pharynx normal.? Moist mucous membranes. cvs: rrr, [id number] . res: clear to auscultation ,no rhonchii or wheezing abd: no rebound or guarding ,nt, bs present. ext pulses present , no cyanosis . neuro: axo3 , nonfocal. DS: Data Data Completed and Pending Labs on day of discharge: Laboratory Results - last 24 hr 09/14/21 04:10 Total Bilirubin 0.5 Direct Bilirubin 0.2 AST 16 ALT 8 Alkaline Phosphatase 99 Total Protein 6.0 L Albumin 3.5 Preliminary micro results at discharge 09/12/21 22:22 Urine Culture - Preliminary Urine clean catch - Urine valencia top Staphylococcus species 09/13/21 02:26 Blood Culture - Preliminary Blood - Venous No growth after 24 hours. 09/13/21 02:49 Blood Culture - Preliminary Blood - Venous No growth after 24 hours. Additional Comments Additional comments: CT/CT angio chest PE protocol IMPRESSION: No evidence of pulmonary emboli. No aortic dissection seen. No acute intrathoracic disease. ? VTE: negative echo: Conclusions: - 1.? Normal LV systolic function with impaired relaxation ? ? ? filling pattern? 2. Trivial aortic and mild mitral regurgitation? 3.? Normal RV systolic pressure? 4.? No pericardial effusion? Findings Left Ventricle Normal left ventricular size, thickness, and systolic function. The visually estimated ejection fraction is between 60-65%.? Spectral Doppler is indicative of an impaired relaxation filling pattern.? E/E prime ratio is between 8 and 15 consistent with indeterminate filling pressures. Discharge Plan Discharge Patient Disposition: Home, Self-Care Discharge Diagnosis: uti, possible vasovagal syncope. Referrals: Juma Gong MD [Primary Care Provider] - 1 Week Discharge Medications: New amoxicillin-pot clavulanate [Augmentin] 500-125 mg tablet 1 tab PO BID Qty: 10 0RF Continued ursodiol 500 mg tablet 500 mg PO BID 90 Days Qty: 180 1RF chlorthalidone 25 mg tablet 25 mg PO QAM 0RF potassium chloride 20 mEq tablet,ER particles/crystals 20 meq PO BID 0RF cholecalciferol (vitamin D3) 25 mcg (1,000 unit) capsule 25 mcg PO ANTON 0RF polyethylene glycol 3350 [Miralax] 17 gram/dose powder 17 g PO BID 0RF Discharge Orders: Discharge Order (Routine); Ordered 09/14/21 Ordered By: Mayela Beard Diet: advance to usual diet, low fat, low cholesterol and low salt diet Activity on Discharge: As tolerated Stand Alone Forms: Patient Portal Discharge page Care Plan Goals: Patient was admitted for UTI: Started on IV antibiotics seems to be improving urine cultures reviewed preliminary, blood culture preliminary negative at 24 hours. Patient is asymptomatic: Going home with p.o. Augmentin, please complete the course. Patient has possible episode of syncope: UTI might have contributed, also decreased oral intake: Encouraged for p.o. hydration, complete antibiotic, her echo seems fine , telemetry is also fine. Further syncope workup outpatient with PCP. Health Concerns: As above. Plan of Treatment: As above. Assessment: As above.
--- NOTE | 2021-09-14 12:32 | MHC.CM.PN ---
Patient has been medically cleared for dc to home today, no services. Last IMM addressed yesterday.
[2021-09-14] MEDS: polyethylene glycoL 3350 17 GM POWD.PACK PO (13:46)
[2021-09-14] MEDS: Amoxicillin/Potassium Clav 500 MG TABLET PO (13:46)
== END 2021-09-14 14:11 | disposition home or self-care (01) | DRG 690 ==
LOC: HO.ED 22:37 → HO.EDOVER 09-13 01:56 → HO.IMC 09-14 07:53
PROVIDERS: Admitting Provider Internal Medicine; Emergency Provider Internal Medicine; PCP Internal Medicine; Visit Provider Internal Medicine
DX: N39.0 Urinary tract infection, site not specified (principal); E87.6 Hypokalemia; R55 Syncope and collapse; I10 Essential (primary) hypertension; Z20.822 Contact with and (suspected) exposure to COVID-19; Z88.2 Allergy status to sulfonamides; Z88.5 Allergy status to narcotic agent; Z88.6 Allergy status to analgesic agent; Z79.899 Other long term (current) drug therapy
CPT/HCPCS: 36415; 71275; 80048; 80053; 80076; 81001; 83605; 84484; 85025; 85610; 85730; 87040; 87086; 87088; 87186; 87635; 93005; 93306; 99285; J0696; J1650; Q9967

== ENCOUNTER → 2021-09-16 09:06 | Outpatient (BNVA) | payer MEDICARE, SELFPAY | PROVIDERS: PCP Internal Medicine; Visit Provider Internal Medicine Gastroenterology | DX: Z23 Encounter for immunization (principal); R10.11 Right upper quadrant pain; K59.00 Constipation, unspecified | CPT/HCPCS: 90471; 90472; 90632; 90746; 99212 ==

== ENCOUNTER → 2021-10-12 13:51 | Outpatient (BNVA) | payer MEDICARE, SELFPAY | PROVIDERS: PCP Internal Medicine; Visit Provider Internal Medicine Endocrinology, Diabetes & Metabolism | DX: E04.2 Nontoxic multinodular goiter (principal) | CPT/HCPCS: 99212 ==

== ENCOUNTER 2022-03-20 08:51 | Outpatient (REF) | payer MEDICARE, SELFPAY ==
[2022-03-20 09:57] LABS: MANUAL DIFF FLAG NO
[2022-03-20 10:27] LABS: Basophils Percent Auto 0.6 % (0-2); Eosinophils Absolute Auto 0.1 X10*3/uL (0.0-0.4); Eosinophils Percent Auto 1.5 % (0-4); Hematocrit 38.3 % (37.0-47.0); Hemoglobin 12.6 g/dl (12.0-16.0); Imm Gran Abs Auto 0.01 X10*3/uL (0.00-0.03); Imm Gran Pct Auto 0.2 % (0.0-0.4); Lymphocytes Absolute Auto 1.4 X10*3/uL (1.2-4.9); Lymphocytes Percent Auto 27.5 % (20-40); Mean Corpuscular HGB Conc 32.9 g/dl (31.0-35.0); Mean Corpuscular Hemoglobin 29.6 pg (27.0-33.0); Mean Corpuscular Volume 90.1 fL (80.0-98.0); Mean Platelet Volume 10.9 fL (9.4-12.3); Monocytes Absolute Auto 0.5 X10*3/uL (0.1-1.2); Monocytes Percent Auto 9.9 % (2-11); Neutrophils Absolute Auto 3.1 x10*3/uL (2.0-8.3); Neutrophils Percent Auto 60.3 % (45-73); Platelet Count 231 X10*3/uL (160-400); Red Blood Count 4.25 X10*6/uL (4.20-5.50); Red Cell Distribution Width 13.1 % (11.0-16.0); White Blood Count 5.2 X10*3/uL (4.8-10.8)
[2022-03-20 10:33] LABS: Prothrombin Time 11.1 SEC (10.0-13.1)
[2022-03-20 10:41] LABS: Alanine Aminotransferase 14 U/L (0-31); Albumin Level 4.3 g/dL (3.5-5.0); Alkaline Phosphatase 103 U/L (39-117); Anion Gap 12 (12-20); Aspartate Amino Transferase 21 U/L (5-31); Bilirubin Total 0.6 mg/dL (0.0-1.0); Blood Urea Nitrogen 13 mg/dL (9-16); Calcium 9.7 mg/dL (8.4-10.2); Carbon Dioxide 30 mmol/L (22-29); Chloride 103 mmol/L (96-108); Estimated Glomerular Filt Rate > 60; Glucose Random 81 mg/dL (60-115); Potassium 3.7 mmol/L (3.3-5.1); Sodium 141 mmol/L (135-145); Total Protein 7.2 g/dL (6.5-8.0)
[2022-03-20 11:04] LABS: Vitamin D 25-OH Total 71.3 ng/mL (>30)
[2022-03-20 11:26] LABS: Folate > 20.0 ng/mL (> or = 4.0); Vitamin B12 727 pg/mL (200-900)
[2022-03-23 06:26] LABS: Zinc 90 mcg/dL (60-130)
[2022-03-24 02:36] LABS: Vitamin A 41 mcg/dL (38-98)
[2022-03-25 22:47] LABS: Nicotinamide <20 ng/mL; Vit B3 - Nicotinic Acid <20 ng/mL
== END 2022-03-20 08:52 | disposition home or self-care (01) ==
LOC: HO.LAB 08:51
PROVIDERS: PCP Internal Medicine; Visit Provider Internal Medicine Gastroenterology
DX: K75.81 Nonalcoholic steatohepatitis (NASH) (principal); R94.5 Abnormal results of liver function studies; K80.20 Calculus of gallbladder without cholecystitis without obstruction; R63.4 Abnormal weight loss
CPT/HCPCS: 36415; 80053; 82306; 82607; 82746; 84590; 84591; 84630; 85025; 85610; 99212

== ENCOUNTER 2022-07-08 17:26 | Observation (INO) | payer MEDICARE, SELFPAY ==
--- NOTE | ~2022-07-08 | CT_ITS ---
CT head/brain wo IV con CLINICAL INFORMATION: Reason for Exam fall COMPARISON: No prior CT scan available for comparison. TECHNIQUE: Department standard protocol. This CT examination was performed using dose optimization techniques as appropriate, variously including the following: *Automated exposure control *Adjustment of mA and/or kV according to patient size (this includes techniques or standardized protocols for targeted exams where dose is matched to indication/reason for exam; i.e. extremities or head) *Use of iterative reconstruction technique DLP: 956 mGy-cm FINDINGS: CEREBRAL HEMISPHERES: There is no evidence of intra-axial or extra-axial mass, hemorrhage or acute infarct. BRAIN PARENCHYMA: Normal valencia-white matter differentiation. SUBDURAL SPACE: No bleed. BASAL GANGLIA AND PINEAL GLAND: Unremarkable VENTRICLES: Symmetric and normal in size. CEREBELLUM AND BRAINSTEM: No space-occupying mass, hemorrhage or acute infarct. CEREBELLOPONTINE ANGLES: No lesion found. ORBITS: No intraorbital mass. VESSELS: Unremarkable SKULL BASE: Unremarkable INCLUDED SINUSES AT SKULL BASE: Clear SKULL AND SKIN: Subcutaneous soft tissue structure right parieto-occipital region 0.9 cm likely sebaceous cyst. Bony calvarium is intact. CT/CT head/brain wo IV con IMPRESSION: No CT evidence of intracranial space-occupying mass, bleed or infarct.
--- NOTE | ~2022-07-08 | CT_ITS ---
EXAMINATION: CT CERVICAL SPINE noncontrasted study. CLINICAL INFORMATION: Reason for Exam right sided neck pain s/p fall COMPARISON: Status post fall, right-sided neck pain. TECHNIQUE: Computed axial sagittal and coronal images acquired using department's standard protocol. This CT examination was performed using dose optimization techniques as appropriate, variously including the following: *Automated exposure control *Adjustment of mA and/or kV according to patient size (this includes techniques or standardized protocols for targeted exams where dose is matched to indication/reason for exam; i.e. extremities or head) *Use of iterative reconstruction technique CONTRAST: None DLP: 956 mGy-cm FINDINGS: SKULL BASE: Visualized structures at skull base are normal, Included facial sinuses are clear, CERVICAL VERTEBRAE: Seven cervical vertebrae identified maintaining proper height and alignment, DISCS: Loss of disc height suggest underlying degenerative disc disease at C2-C3 through C6-C7. C1-C2: There is no CT evidence of significant osseous narrowing of the central canal or neural foramen. C2-C3: There is no CT evidence of significant osseous narrowing of the central canal or neural foramen. C3-C4: Developed osteophyte from the edges of endplates encroaching on the right foramen causing right foraminal stenosis at this level. There is no central stenosis. C4-C5: Developed osteophyte from the edges of endplates protruding into the neural foramen causing foraminal stenosis on the right. Left foramen and central canal are patent. C5-C6: There is no CT evidence of significant osseous narrowing of the central canal or neural foramen. C6-C7: There is no CT evidence of significant osseous narrowing of the central canal or neural foramen. C7-T1: There is no CT evidence of significant osseous narrowing of the central canal or neural foramen. PARAVERTEBRAL SOFT TISSUE: There is left thyroid hypodense area 1.6 cm concerning for left thyroid nodule. This was better visualized and described on prior ultrasound from April 2021. At the margin of the study there is nodule in the left upper lobe 0.8 cm this is more prominent on today's exam compared to prior study of 09/12/2021. Correlation with follow-up chest CT recommended. CT/CT cervical spine wo IV con IMPRESSION: * No CT evidence of cervical spine fracture. * Loss of disc height suggest underlying degenerative disc disease at multiple levels. * Developed osteophytes developed from the edges of endplates encroaching on the neural foramen on the right at C3-C4 and C4-C5 causing foraminal stenosis. * Left thyroid nodule better visualized and described on prior ultrasound from April 2021. * At the margin of the study there is a 0.8 cm long nodule in the left upper lobe more prominent on today's exam compared to prior study of 09/12/2021. Attention to follow-up CT scan chest recommended. (Referring physician staff is being called, to be alerted of the above findings and recommendations.) PSA Tc
--- NOTE | 2022-07-08 17:37 | ED.SYNCOPE ---
HPI - Syncope General Chief Complaint: Syncope Stated Complaint: syncope Time Seen by Provider: 07/08/22 17:37 Source: patient, EMS, RN notes reviewed and old records reviewed Mode of arrival: EMS Limitations: no limitations History of Present Illness HPI narrative: 77 yo female with history of HTN, Rika's disease, UTI, hypokalemia, hx syncope (admitted last September for it) who presents to the ER from home via EMS for evaluation of a syncopal episode. She states she was at [employer] today, standing up at the [employer] when she states she was staring at the roller operator and feeling like she did when she last passed out. She was lightheaded. She says her daughter sat her down and she passed out for an unknown amount of time. She does not remember losing consciousness. She denies any changes in vision or hearing prior to the event. No chest pain or SOB. She did not hit her head or actually fall down. Earlier today when the patient was walking down the stairs with her bathroom she missed the last step and fell down. She hit the right side of her neck and has and had some pain at the base of her skull in her right neck since then. She denies losing consciousness. She is not on anticoagulation. MD complaint: loss of consciousness and felt faint Onset (ago): minute(s) -: second(s) Description of event: post-event confusion Prodromal symptoms: lightheaded Witnessed: Yes - by Bystander Context: standing up Injuries sustained associated with event: none Current symptoms: back to baseline History: previous syncopal episode Treatments prior to arrival: none Related Data Home Medications Medication Instructions Recorded Confirmed chlorthalidone 25 mg tablet 25 mg PO QAM 04/10/20 10/12/21 cholecalciferol (vitamin D3) 25 25 mcg PO ANTON 04/10/20 10/12/21 mcg (1,000 unit) capsule potassium chloride 20 mEq 20 meq PO BID 04/10/20 10/12/21 tablet,extended release(part/cryst) polyethylene glycol 3350 17 17 g PO BID 12/17/20 10/12/21 gram/dose oral powder (Miralax) donepezil 5 mg tablet 5 mg PO BEDTIME 03/20/22 Previous Rx's Medication Instructions Recorded ursodiol 500 mg tablet 500 mg PO BID #180 tabs 03/21/22 Allergies Allergy/AdvReac Type Severity Reaction Status Date / Time celecoxib [From CELEBREX] Allergy Intermediate RASH Verified 03/20/22 08:56 Sulfa (Sulfonamide Allergy Intermediate RASH Verified 03/20/22 08:56 Antibiotics) tomato Allergy Rash Verified 03/20/22 08:56 From PERCOCET Allergy Intermediate RASH Uncoded 03/20/22 08:56 Review of Systems Review of Systems: Constitutional: No Fever, No Chills ENT/Mouth: No sore throat, No Rhinorrhea, No Swallowing Difficulty Eyes: No Eye Pain, No Swelling, No Redness, No vision changes Cardiovascular: No Chest Pain, No SOB, No Orthopnea, No Edema Respiratory: No Cough, No Sputum, No Wheezing, No dyspnea Gastrointestinal: No Nausea, No Vomiting, No Diarrhea, No abdominal Pain Genitourinary: No Dysuria, No Urinary Frequency, No Hematuria Musculoskeletal: No joint pain, + Myalgias Skin: No Skin Lesions, No rash Neuro: No Weakness, No Numbness, + Dizziness, No Headache Psych: No Anxiety/Panic, No Depression Heme/Lymph: No Bruising, No Lymphadenopathy PMFSH Past Medical History Medical History Chronic cholecystitis Essential hypertension Rika's disease Nontoxic multinodular goiter Primary osteoarthritis of left knee Surgical History History of back surgery History of bilateral knee arthroplasty History of colonoscopy History of esophagogastroduodenoscopy (EGD) History of thyroid surgery History of tonsillectomy Family History Family History Father No problems noted. Mother No problems noted. Social History Social History Household Members: Spouse Housing: House Do you presently have visiting nurse or other home services: No Alcohol intake: former Patient Tobacco Use Status: Former Tobacco user Smoked in Last 30 Days: No Use of substances other than those prescribed or required for medical reasons: No Advance Directives: No Advance Directives Information Provided: No service: No Physical Exam Vital Signs: Vital Signs: Last Vital Signs Temp 98.0 F 07/08/22 20:20 Pulse 80 07/08/22 20:20 Resp 16 07/08/22 20:20 BP 114/43 L 07/08/22 20:20 Pulse Ox 96 07/08/22 20:20 O2 Del Method 07/08/22 20:20 BMI result Body Mass Index 19.3 Appearance: Alert. Oriented X3. No acute distress. Head: normocephalic atraumatic. Eyes: Pupils equal, round and reactive to light. ENT: Pharynx normal. Neck: Normal inspection. Neck supple. soft tissue tenderness on the right lateral neck and base of the skull on the right. CVS: Normal heart rate and rhythm. Pulses normal. Respiratory: No respiratory distress. Breath sounds normal. Abdomen: Soft and nontender. +BS x4 Skin: Skin warm and dry. Normal skin color. Normal skin turgor. No rashes. Extremities: No lower extremity edema. Atraumatic x4. Neuro: Oriented X 3. No motor deficit. No sensory deficit. Course Course Course Narrative: 77-year-old female with a history of HTN, Rika's disease, UTI, hypokalemia, hx syncope (admitted last September for it) who presents with syncopal episode while at [employer]. No fall but did have a mechanical fall earlier today and c/o neck pain. VSS on arrival. Will get CT scan head/neck, orthostatic VS, labs, UA. Anticipate admission. Reevaluation(s) Reevaluation #1: CBC normal. Electrolytes showing hypokalemia with potassium of 2.8. EKG with first-degree AV block (new). Given oral and IV replacement of her potassium. She is found to be COVID positive. She has minimal symptoms. No cough or respiratory complaints. She is vaccinated, unknown how many vaccines she did receive. Orthostatics are negative. Will plan to admit for further management and workup. ECHO 09/27: 1.? Normal LV systolic function with impaired relaxation filling pattern? 2. Trivial aortic and mild mitral regurgitation? 3.? Normal RV systolic pressure? 4.? No pericardial effusion? Medications Administered Generic Name Dose Route Start Last Admin Trade Name Freq PRN Reason Stop Dose Admin Potassium Chloride 10 meq in 100 mls @ 100 mls/hr 07/08/22 19:45 07/08/22 20:26 Potassium Chloride/H20 IV 07/08/22 21:44 100 mls/hr Q1H [facility] Administration Discontinued Medications Generic Name Dose Route Start Last Admin Trade Name Fredanie PRN Reason Stop Dose Admin Sodium Chloride 1,000 mls @ 999 mls/hr 07/08/22 18:00 07/08/22 19:03 Ns IVCONT 07/08/22 19:00 Infused .Q1H1M MOSHE Infusion Potassium Chloride 40 meq 07/08/22 19:24 07/08/22 20:21 Potassium Chloride Er 20 Meq Tab.Er.Prt PO 07/08/22 19:25 40 meq ONCE ONE Administration Medical Decision Making Differential Diagnosis Differential Diagnoses: The differential diagnosis associated with the presentation includes vasovagal syncope, dehydration, anemia, electrolyte abnormality, orthostatic hypotension, arrhythmia Admission/Observation Consideration of admission/observation: Escalation of care including admission/observation considered admit for syncope Consult Healthcare Provider Management of the patient was discussed with: Hospitalist admit for recurrent syncope Lab Data MDM Lab Attestation statement: I reviewed the patient's lab results. Result Diagrams: 07/08/22 18:54 07/08/22 18:54 Labs: Lab Results 07/08/22 07/08/22 07/08/22 Range/Units 18:54 18:54 18:54 WBC 10.2 (4.8-10.8) X10*3/uL RBC 4.21 (4.20-5.50) X10*6/uL Hgb 12.5 (12.0-16.0) g/dl Hct 38.0 (37.0-47.0) % MCV 90.3 (80.0-98.0) fL MCH 29.7 (27.0-33.0) pg MCHC 32.9 (31.0-35.0) g/dl RDW 12.8 (11.0-16.0) % Plt Count 221 (160-400) X10*3/uL MPV 10.2 (9.4-12.3) fL Immature Gran % (Auto) 0.4 (0.0-0.4) % Neut % (Auto) 78.5 H (45-73) % Lymph % (Auto) 10.8 L (20-40) % Butts % (Auto) 9.3 (2-11) % Eos % (Auto) 0.7 (0-4) % Baso % (Auto) 0.3 (0-2) % Lymph # (Auto) 1.1 L (1.2-4.9) X10*3/uL Butts # (Auto) 1.0 (0.1-1.2) X10*3/uL Eos # (Auto) 0.1 (0.0-0.4) X10*3/uL Baso # (Auto) 0.0 (0.0-0.2) X10*3/uL Abs Immat Gran (auto) 0.04 H (0.00-0.03) X10*3/uL Absolute Neuts (auto) 8.0 (2.0-8.3) x10*3/uL Absolute Nucleated RBC 0.000 (0.0-0.012) X10*3/uL Nucleated RBC % (auto) 0.0 (0.0-0.2) /100WBC Sodium 139 (135-145) mmol/L Potassium 2.8 L D (3.3-5.1) mmol/L Chloride 104 (96-108) mmol/L Carbon Dioxide 25 (22-29) mmol/L Anion Gap 13 (12-20) BUN 13 (9-16) mg/dL Creatinine 0.74 (0.5-1.4) mg/dL Estim Creat Clear Calc 53.8 Estimated GFR > 60 Random Glucose 109 (60-115) mg/dL Calcium 9.0 D (8.4-10.2) mg/dL Magnesium 1.9 (1.6-2.6) mg/dL Total Bilirubin 0.4 (0.0-1.0) mg/dL Direct Bilirubin < 0.2 (0.0-0.5) mg/dL AST 21 (5-31) U/L ALT 11 (0-31) U/L Alkaline Phosphatase 105 (39-117) U/L Troponin I High Sens 6.8 (<3.5-17.0) ng/L Total Protein 6.3 L (6.5-8.0) g/dL Albumin 3.9 (3.5-5.0) g/dL COVID-19 ([place]) (Negative) COVID-19 Clin Com 07/08/22 Range/Units 18:54 WBC (4.8-10.8) X10*3/uL RBC (4.20-5.50) X10*6/uL Hgb (12.0-16.0) g/dl Hct (37.0-47.0) % MCV (80.0-98.0) fL MCH (27.0-33.0) pg MCHC (31.0-35.0) g/dl RDW (11.0-16.0) % Plt Count (160-400) X10*3/uL MPV (9.4-12.3) fL Immature Gran % (Auto) (0.0-0.4) % Neut % (Auto) (45-73) % Lymph % (Auto) (20-40) % Butts % (Auto) (2-11) % Eos % (Auto) (0-4) % Baso % (Auto) (0-2) % Lymph # (Auto) (1.2-4.9) X10*3/uL Butts # (Auto) (0.1-1.2) X10*3/uL Eos # (Auto) (0.0-0.4) X10*3/uL Baso # (Auto) (0.0-0.2) X10*3/uL Abs Immat Gran (auto) (0.00-0.03) X10*3/uL Absolute Neuts (auto) (2.0-8.3) x10*3/uL Absolute Nucleated RBC (0.0-0.012) X10*3/uL Nucleated RBC % (auto) (0.0-0.2) /100WBC Sodium (135-145) mmol/L Potassium (3.3-5.1) mmol/L Chloride (96-108) mmol/L Carbon Dioxide (22-29) mmol/L Anion Gap (12-20) BUN (9-16) mg/dL Creatinine (0.5-1.4) mg/dL Estim Creat Clear Calc Estimated GFR Random Glucose (60-115) mg/dL Calcium (8.4-10.2) mg/dL Magnesium (1.6-2.6) mg/dL Total Bilirubin (0.0-1.0) mg/dL Direct Bilirubin (0.0-0.5) mg/dL AST (5-31) U/L ALT (0-31) U/L Alkaline Phosphatase (39-117) U/L Troponin I High Sens (<3.5-17.0) ng/L Total Protein (6.5-8.0) g/dL Albumin (3.5-5.0) g/dL COVID-19 ([place]) Positive A (Negative) COVID-19 Clin Com See Note Independent Interpretation I performed an independent interpretation of an: EKG Interpretation: sinus rhythm, 1st degree AV block, MA interval prolonged 220ms, no ST segment elevations or depressions. 1st degree AV block is new Discharge Plan Discharge Clinical Impression: Syncope, Acute hypokalemia, COVID-19 Patient Disposition: Admitted As Inpatient
[2022-07-08 17:38] VITALS: BP 128/78; PULSE 78; RESP 18; TEMP 36.7; O2SAT 99; BMI 19.3
[2022-07-08 17:40] VITALS: O2SAT 98
--- NOTE | 2022-07-08 17:42 | PC.NURSE ---
77 y/o F BIBA from [employer] s/p syncopal episode in [employer]. daughter caught patient. -HS, -LOC. VSS, pt denies any sx at this time. awaiting recs
--- NOTE | 2022-07-08 17:47 | ECG_ITS ---
Test Reason : SYNCOPY Blood Pressure : / mmHG Vent. Rate : 081 BPM Atrial Rate : 081 BPM P-R Int : 220 ms QRS Dur : 094 ms QT Int : 412 ms P-R-T Axes : 073 013 065 degrees QTc Int : 478 ms Sinus rhythm with 1st degree A-V block Septal infarct , age undetermined Abnormal ECG When compared with ECG of 12-SEP-2021 21:36, Premature ventricular complexes are no longer Present Premature atrial complexes are no longer Present AK interval has increased Referred By: Maryam Guerra Electronically Signed By:MILADY CELIS MD
[2022-07-08] MEDS: 0.9 % Sodium Chloride 1,000 ML 999 ML IVCONT (18:02)
[2022-07-08 18:58] VITALS: BP 144/68; PULSE 78; RESP 18; TEMP 36.7; O2SAT 99
[2022-07-08 19:01] LABS: MANUAL DIFF FLAG NO
[2022-07-08 19:11] LABS: Basophils Percent Auto 0.3 % (0-2); Eosinophils Absolute Auto 0.1 X10*3/uL (0.0-0.4); Eosinophils Percent Auto 0.7 % (0-4); Hemoglobin 12.5 g/dl (12.0-16.0); Imm Gran Abs Auto 0.04 X10*3/uL (0.00-0.03); Imm Gran Pct Auto 0.4 % (0.0-0.4); Lymphocytes Absolute Auto 1.1 X10*3/uL (1.2-4.9); Lymphocytes Percent Auto 10.8 % (20-40); Mean Corpuscular HGB Conc 32.9 g/dl (31.0-35.0); Mean Corpuscular Hemoglobin 29.7 pg (27.0-33.0); Mean Corpuscular Volume 90.3 fL (80.0-98.0); Mean Platelet Volume 10.2 fL (9.4-12.3); Monocytes Percent Auto 9.3 % (2-11); Neutrophils Percent Auto 78.5 % (45-73); Platelet Count 221 X10*3/uL (160-400); Red Blood Count 4.21 X10*6/uL (4.20-5.50); Red Cell Distribution Width 12.8 % (11.0-16.0); White Blood Count 10.2 X10*3/uL (4.8-10.8)
[2022-07-08 19:19] LABS: Alanine Aminotransferase 11 U/L (0-31); Albumin Level 3.9 g/dL (3.5-5.0); Alkaline Phosphatase 105 U/L (39-117); Anion Gap 13 (12-20); Aspartate Amino Transferase 21 U/L (5-31); Bilirubin Direct < 0.2 mg/dL (0.0-0.5); Bilirubin Total 0.4 mg/dL (0.0-1.0); Blood Urea Nitrogen 13 mg/dL (9-16); COVID-19 Test Positive (Negative); Carbon Dioxide 25 mmol/L (22-29); Chloride 104 mmol/L (96-108); Creatinine Clr Calc Pharmacy 53.8; Estimated Glomerular Filt Rate > 60; Glucose Random 109 mg/dL (60-115); IDNOW Serial# 55D5AD1C; Magnesium 1.9 mg/dL (1.6-2.6); Potassium 2.8 mmol/L (3.3-5.1); Sodium 139 mmol/L (135-145); Total Protein 6.3 g/dL (6.5-8.0)
[2022-07-08 19:44] VITALS: BP 127/43; BP 136/66; BP 141/55; PULSE 71; PULSE 77; PULSE 89
[2022-07-08 19:53] LABS: Troponin-I High Sensitivity 6.8 ng/L (<3.5-17.0)
[2022-07-08 20:20] VITALS: BP 114/43; PULSE 80; RESP 16; TEMP 36.7; O2SAT 96
[2022-07-08] MEDS: Potassium Chloride ER 20 MEQ TAB.ER.PRT 40 MEQ PO (20:21)
[2022-07-08] MEDS: Potassium Chloride/H20 10 MEQ/100 ML PIGGYBACK 100 MEQ IV ×2 (20:26→22:39)
--- NOTE | 2022-07-08 20:40 | PM.IMHP ---
History of Present Illness Date of Service: 07/08/22 Chief Complaint: passed out 77-year-old female with past medical history of HTN, chronic hypokalemia, hypothyroidism, nontoxic multinodular goiter, and chronic cholecystitis presents to the hospital with complaints of episodes of passing out. Patient reports that she was at [employer], he was at the end of mass, she was standing for about 5 minutes, felt hot and sweaty, and her daughter reported to her that she passed out. Her daughter sat her down, she had no head trauma. This lasted few seconds, and patient regained consciousness with no postictal symptoms. Patient herself reports that she did not feel like she passed out although her daughter was very adamant that she syncopized. Patient reports no palpitations, no chest pain, reports that she had a fall at home earlier after missing 1 step of her stairs, did not have any head trauma, but pulled a muscle in her neck otherwise reports no recent acute illness, denies any nausea or vomiting, no decreased appetite, no diarrhea constipation, no urinary symptoms and no lower extremity edema. Patient had 1 syncopal episode in September of this year which was thought to be secondary to UTI. On arrival to the ED vitals are unremarkable Labs are significant for WBC count of 10.2, labs otherwise unremarkable, potassium 2.8 Troponin negative Urine shows trace leukocyte Estrace some WBC patient asymptomatic. COVID-19 positive, patient asymptomatic EKG shows first-degree AV block which is new, Orthostatic vitals negative Review of Systems Review of Systems: Yes all other systems are reviewed and are negative FOR[facility]LY [facility] Medical History Chronic cholecystitis Essential hypertension Rika's disease Nontoxic multinodular goiter Primary osteoarthritis of left knee Family History Father No problems noted. Mother No problems noted. Surgical History History of back surgery History of bilateral knee arthroplasty History of colonoscopy History of esophagogastroduodenoscopy (EGD) History of thyroid surgery History of tonsillectomy Social History Household Members: Spouse Housing: House Do you presently have visiting nurse or other home services: No Alcohol intake: former Patient Tobacco Use Status: Former Tobacco user Smoked in Last 30 Days: No Use of substances other than those prescribed or required for medical reasons: No Advance Directives: No Advance Directives Information Provided: No service: No Meds Allergies Allergy/AdvReac Type Severity Reaction Status Date / Time celecoxib [From CELEBREX] Allergy Intermediate RASH Verified 03/20/22 08:56 Sulfa (Sulfonamide Allergy Intermediate RASH Verified 03/20/22 08:56 Antibiotics) tomato Allergy Rash Verified 03/20/22 08:56 From PERCOCET Allergy Intermediate RASH Uncoded 03/20/22 08:56 Active Medications: Current Medications Acetaminophen (Acetaminophen 325 Mg Tablet) 650 mg PO Q6H PRN PRN Reason: Pain, Mild (Pain Scale 1-3) Docusate Sodium (Docusate Sodium 100 Mg Capsule) 100 mg PO DAILY PRN PRN Reason: Constipation Potassium Chloride (Potassium Chloride/H20) 10 meq in 100 mls @ 100 mls/hr IV Q1H [facility] Stop: 07/08/22 21:44 Last Admin: 07/08/22 20:26 Dose: 100 mls/hr Ondansetron HCl (Ondansetron Hcl 4 Mg/2 Ml Vial) 4 mg IVPUSH Q8H PRN PRN Reason: Nausea and Vomiting Pharmacy Consult (Consult Rx Perform Med Rec) 1 each MISCELLANE ONCE PRN PRN Reason: Consult order Sodium Chloride (0.9 % Sodium Chloride Flush 3 Ml Syringe) 3 ml IVFLUSH QSHIFT [facility] Home Medications Medication Instructions Recorded Confirmed Last Taken Type chlorthalidone 25 mg tablet 25 mg PO QAM 04/10/20 10/12/21 Unknown History cholecalciferol (vitamin D3) 25 25 mcg PO ANTON 04/10/20 10/12/21 Unknown History mcg (1,000 unit) capsule potassium chloride 20 mEq 20 meq PO BID 04/10/20 10/12/21 Unknown History tablet,extended release(part/cryst) polyethylene glycol 3350 17 17 g PO BID 12/17/20 10/12/21 Unknown History gram/dose oral powder (Miralax) donepezil 5 mg tablet 5 mg PO BEDTIME 03/20/22 Unknown History Physical Exam Vital Signs and Narrative: Vital Signs: Last Vital Signs Temp 98.0 F 07/08/22 20:20 Pulse 80 07/08/22 20:20 Resp 16 07/08/22 20:20 BP 114/43 L 07/08/22 20:20 Pulse Ox 96 07/08/22 20:20 O2 Del Method 07/08/22 20:20 BMI result Body Mass Index 19.3 Const: General: cooperative and no acute distress Orientation/consciousness: patient oriented x3 Eyes: General: appearance normal, both eyes and all related structures Resp: Effort & Inspection: normal respiratory effort Auscultation: clear to auscultation bilaterally Cardio: Rate: regular rate Rhythm: regular rhythm GI: Palpation (GI): Soft to palpation Auscultation: normal bowel sounds Skin: General skin exam: no rashes or lesions noted Neuro: General: patient oriented x3 Cognition (Neuro): normal cognition Extrem: General: Yes normal to inspection and Yes no pedal edema Results Labs CBC and Chem 7: 07/08/22 18:54 07/08/22 18:54 Labs: Laboratory Results - last 24 hr 07/08/22 07/08/22 07/08/22 18:54 18:54 18:54 MCV 90.3 MCH 29.7 MCHC 32.9 RDW 12.8 Plt Count 221 MPV 10.2 Immature Gran % (Auto) 0.4 Neut % (Auto) 78.5 H Lymph % (Auto) 10.8 L [place] % (Auto) 9.3 Eos % (Auto) 0.7 Baso % (Auto) 0.3 Lymph # (Auto) 1.1 L [place] # (Auto) 1.0 Eos # (Auto) 0.1 Baso # (Auto) 0.0 Abs Immat Gran (auto) 0.04 H Absolute Neuts (auto) 8.0 Absolute Nucleated RBC 0.000 Nucleated RBC % (auto) 0.0 Anion Gap 13 Estim Creat Clear Calc 53.8 Estimated GFR > 60 Random Glucose 109 Calcium 9.0 D Magnesium 1.9 Total Bilirubin 0.4 Direct Bilirubin < 0.2 AST 21 ALT 11 Alkaline Phosphatase 105 Troponin I High Sens 6.8 Total Protein 6.3 L Albumin 3.9 COVID-19 ([place]) COVID-19 Clin Com 07/08/22 18:54 MCV MCH MCHC RDW Plt Count MPV Immature Gran % (Auto) Neut % (Auto) Lymph % (Auto) [place] % (Auto) Eos % (Auto) Baso % (Auto) Lymph # (Auto) [place] # (Auto) Eos # (Auto) Baso # (Auto) Abs Immat Gran (auto) Absolute Neuts (auto) Absolute Nucleated RBC Nucleated RBC % (auto) Anion Gap Estim Creat Clear Calc Estimated GFR Random Glucose Calcium Magnesium Total Bilirubin Direct Bilirubin AST ALT Alkaline Phosphatase Troponin I High Sens Total Protein Albumin COVID-19 ([place]) Positive A COVID-19 Clin Com See Note Imaging Radiologist's Impressions: Impressions Cervical Spine CT 07/08/22 19:01 IMPRESSION: * No CT evidence of cervical spine fracture. * Loss of disc height suggest underlying degenerative disc disease at multiple levels. * Developed osteophytes developed from the edges of endplates encroaching on the neural foramen on the right at C3-C4 and C4-C5 causing foraminal stenosis. * Left thyroid nodule better visualized and described on prior ultrasound from April 2021. * At the margin of the study there is a 0.8 cm long nodule in the left upper lobe more prominent on today's exam compared to prior study of 09/12/2021. Attention to follow-up CT scan chest recommended. (Referring physician staff is being called, to be alerted of the above findings and recommendations.) PSA Tc Head CT 07/08/22 19:01 IMPRESSION: No CT evidence of intracranial space-occupying mass, bleed or infarct. Assessment and Plan (1) Syncope: Status: Acute (2) COVID-19: Status: Acute (3) Acute hypokalemia: Status: Acute (4) UTI (urinary tract infection): Status: Acute Plan 77-year-old female with past medical history of hypokalemia on potassium supplement presents to the hospital with syncopal episode # syncope - vasovagal versus cardiogenic less likely - EKG shows first-degree AV block - patient also hypokalemic - potassium repleted - has evidence of UTI although similar episode about a year ago with positive UA will admit to telemetry - cardiology concert to it given recurrent episodes and age as well as new AV block # hypokalemia - repleted - continue home supplement - follow BMP # COVID-19 infection - asymptomatic - reports vaccinated but does not remember which vaccine - monitor for symptoms # UTI - asymptomatic - previously grew Staph epidermidis - will treat with p.o. antibiotics - follow cultures # hypertension - continue antihypertensives DVT prophylaxis: early ambulation Time Spent With Patient Time: Total time managing care of this patient today ____ minutes. Quality Stroke Does the patient have a stroke diagnosis?: No VTE Prior VTE?: No VTE Risk Level:: Medical - low VTE Device Contraindication: Treatment Not Indicated VTE Drug Contraindication: Treatment Not Indicated
--- OUTSIDE RECORDS SUMMARY | 2022-07-08 20:48 | XMS_ITS ---
:1945 Author Name Juma Gong Care Team Providers Name Role Phone Juma Gong Unavailable Unavailable PROBLEMS Type Condition ICD9-CM Code AMV29-PE Code Onset Condition SNO MED Code Dates Status Problem Tinea unguium B35.1 Active 265576 005 Problem Plantar wart B07.0 Active 0400668 8 ALLERGIES Substance Reaction Event Type Date Status Bactrim rash Drug Allergy Apr, Active Peanut (Diagnostic) ichtyness Drug Allergy Apr, Active Tomatoes ichtyness Drug Allergy Apr, Active ENCOUNTERS Encounter Location Date Diagnosis [address] Apr, Tin ea unguium B35.1 ; [facility] [place] Pain in right t oe(s) [address] M79.674 ; Pain i n left toe(s) M79.675 ; Plantar wart B07.0 and P ain in left foot M79.67 2 [facility] [address] Jan, Tin ea unguium B35.1 ; [place]ost [place] Pain in right t oe(s) [address] M79.674 ; Pain i n left toe(s) M79.675 ; Plantar wart B07.0 and P ain in left foot M79.67 2 [facility] [address] Oct, Tin ea unguium B35.1 ; [place] Pain in right t oe(s) [address] M79.674 ; Pain i n left toe(s) M79.675 ; Plantar wart B07.0 and P ain in left foot M79.67 2 [facility] [address] Jun, Tin ea unguium B35.1 ; [place] Pain in right t oe(s) [address] M79.674 ; Pain i n left toe(s) M79.675 ; Plantar wart B07.0 and P ain in left foot M79.67 2 [facility] [address] Apr, [place] [address] Jan, Tin ea unguium B35.1 ; [place]ost [place] Pain in right t oe(s) [address] M79.674 and Pain in left toe(s) M79.[address] [facility] Oct, Tin ea unguium B35.1 ; [place]ost [place] Pain in right t oe(s) [address] M79.674 and Pain in left toe(s) M79.[address] Oct, [place] [address] Aug, [place] [address] [facility] [address] Jul, [place] [address] Jul, Tin ea unguium B35.1 ; [facility] [place]ost [place] Pain in right t oe(s) [address] M79.674 and Pain in left toe(s) M79.[address] [facility] Apr, Tin ea unguium B35.1 ; [place] Pain in right t oe(s) [address] M79.674 and Pain in left toe(s) M79.[address] Apr, [place] [address] [facility] [address] November, Tin ea unguium B35.1 ; [place] Pain in right t oe(s) [address] M79.674 and Pain in left toe(s) M79.[address] Aug, Tin ea unguium B35.1 ; [place] Pain in right t oe(s) [address] M79.674 and Pain in left toe(s) M79.[address] May, Tin ea unguium B35.1 ; [place] Pain in [place] t oe(s) [address] M79.674 and Pain in left toe(s) M79.[address] Feb, Tin ea unguium B35.1 ; [place] Pain in [place] t oe(s) [address] M79.674 and Pain in left toe(s) M79.[address] November, Ing rowing nail L60.0 ; [place]ost [place] Tinea unguium B 35.1 ; [address] Pain in right to e(s) M79.674 and Pain in left toe(s) M79.[address] Aug, Tin ea unguium B35.1 ; [place] Pain in [place] t oe(s) [address] M79.674 and Pain in left toe(s) M79.[address] Mar, Tin ea unguium B35.1 ; [place] Pain in [place] t oe(s) [address] M79.674 and Pain in left toe(s) M79.[address] Jan, [place] [address] Dec, Tin ea unguium B35.1 ; [facility] [place] Pain in right t oe(s) [address] M79.674 and Pain in left toe(s) M79.[address] Sep, Tin ea unguium B35.1 ; [place] Pain in right t oe(s) [address] M79.674 and Pain in left toe(s) M79.[address] [facility] Jun, Tin ea unguium B35.1 ; [place] Pain in right t oe(s) [address] M79.674 and Pain in left toe(s) M79.[address] [facility] Mar, Tin ea unguium B35.1 ; [place] Pain in right t oe(s) [address] M79.674 and Pain in left toe(s) M79.[address] [facility] November, Tin ea unguium B35.1 ; [place] Pain in right t oe(s) [address] M79.674 and Pain in left toe(s) M79.[address] November, [place] [address] Aug, Tin ea unguium B35.1 ; [place] [place] Other viral war ts B07.8 ; [address] Pain in right to e(s) M79.674 ; Pain i n right foot M79.671 and Pain in left toe(s) M79. 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 ; [facility] [place] Ingrowing Nail 703.0 and [address] Pain in Limb 729 .5 [facility] [address] Dec, 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 and [facility] [place] Pain in Limb 72 9.5 [address] [facility] [address] Aug, 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 and [facility] [place] [facility] Limb 72 9.5 [address] [facility] [address] May, 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 and [facility] [place] [facility] 72 9.5 [address] [facility] [address] Apr, [place] [address] [facility] [address] Jan, 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 and [facility] [place] Pain in Limb 72 9.5 [address] [facility] [address] Oct, 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 and [facility] [place] Pain in Limb 72 9.5 [address] [facility] [address] Jul, 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 ; [facility] [place] [facility] 72 9.5 and [address] Ingrowing Nail 7 03.0 [facility] [address] May, 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 ; [facility] [place] Pain in Limb 72 9.5 and [address] Ingrowing Nail 7 03.0 [facility] [address] Feb, 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 and [facility] Pain in Limb 72 9.5 [address] 11 Nov, 2011 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 ; [facility] [place] Pain in Limb 72 9.5 [place] [address] Foot [address]25[address] 10 Aug, 2011 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 and [facility] Pain in Limb 72 9.5 [address] 11 May, 2011 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 and [facility] Pain in Limb 72 9.5 [address] IMMUNIZATIONS Vaccine Route Administration Date Status COVID-19 Pfizer BioNTech Vaccine Unknown May 09, 2021 Administered Influenza Unknown May 13, 2021 Administered SOCIAL HISTORY Qualifiers Date Former Smoker REASON FOR REFERRAL FUNCTIONAL STATUS PLAN OF CARE Activity Details Follow Up prn Reason: Future Appointment Provider Name:Ambrocio Weaver , 2022-07-21 12:30:00 AM, [address] [place] [address], [address], Pending Test X ray : Foot, right 3V Future/Pending Procedure 39517-SHOYYFK NAIL, 6 OR MOR E Future/Pending Procedure 19908-Mzib Destruction, 1-14 Future/Pending Procedure 91179-QYFAGTU NAIL, 6 OR MOR E Future/Pending Procedure 04797-Yogl Destruction, 1-14 Future/Pending Procedure 36870-JCOPXYZ NAIL, 6 OR MOR E Future/Pending Procedure 78407-Rgav Destruction, 1-14 Future/Pending Procedure 18128-AICTLAH NAIL, 6 OR MOR E Future/Pending Procedure 31650-Rvjv Destruction, 1-14 Future/Pending Procedure 84521-YFTDSTX NAIL, 6 OR MOR E Future/Pending Procedure 47070-AXYMWFV NAIL, 6 OR MOR E Future/Pending Procedure 89659-HYUMKTO NAIL, 6 OR MOR E Future/Pending Procedure 23963-VHLUUMQ NAIL, 6 OR MOR E Future/Pending Procedure 21754-QXXEGQH NAIL, 6 OR MOR E Future/Pending Procedure 53680-WSNVLZW NAIL, 6 OR MOR E Future/Pending Procedure 14052-WRDFYDP NAIL, 6 OR MOR E Future/Pending Procedure 53026-ZCZYSXS NAIL, 6 OR MOR E Future/Pending Procedure 41707-DRHJOUF NAIL, 6 OR MOR E Future/Pending Procedure 40478-Vqclgajt Plate Future/Pending Procedure 32517-BDLQIGI NAIL, 6 OR MOR E Future/Pending Procedure 03703-YAMBYCM NAIL, 6 OR MOR E Future/Pending Procedure 16776-OLTWCRK NAIL, 6 OR MOR E Future/Pending Procedure 81458-PVCFVOP NAIL, 6 OR MOR E Future/Pending Procedure 90415-PCEWXLQ NAIL, 6 OR MOR E Future/Pending Procedure 48889-IQMLHCV NAIL, 6 OR MOR E Future/Pending Procedure 05865-VOYQFTK NAIL, 6 OR MOR E Future/Pending Procedure 17126-YUQZODJ NAIL, 6 OR MOR E Future/Pending Procedure 04037-Copv Destruction, 1-14 Future/Pending Procedure 32618-LVLXESV NAIL, 6 OR MOR E Future/Pending Procedure 55766-APTHBYR NAIL, 6 OR MOR E Future/Pending Procedure 51402-SFYXQXC NAIL, 6 OR MOR E Future/Pending Procedure 79961-LEJFQUH NAIL, 6 OR MOR E Future/Pending Procedure 90771-Ejbglsmr Plate Future/Pending Procedure 26908-PKHALZI NAIL, 6 OR MOR E Future/Pending Procedure 00096-YVFZKAK NAIL, 6 OR MOR E Future/Pending Procedure 12368-BNLZVSP NAIL, 6 OR MOR E Future/Pending Procedure 74627-JFGIGYL NAIL, 6 OR MOR E Future/Pending Procedure 29271-QCOZTWQ NAIL, 6 OR MOR E Future/Pending Procedure 82838-MPHRVGZ NAIL, 6 OR MOR E Future/Pending Procedure 99291-Uptrolbq Plate Future/Pending Procedure 28594-FZHYKVJ NAIL, 6 OR MOR E Future/Pending Procedure 62700-Bmhzdqiy Plate Future/Pending Procedure 33356-FCSZWAH NAIL, 6 OR MOR E Future/Pending Procedure 86353-FESVQBU NAIL, 6 OR MOR E Future/Pending Procedure 88806-UJUWHHD NAIL, 6 OR MOR E Future/Pending Procedure 06562-HMLIFBP NAIL, 6 OR MOR E VITAL SIGNS Height 5 ft 6 in in 2022-04-14 Weight 122 lbs 2022-04-14 BMI 19.69 kg/m2 2022-04-14 Heart Rate 81 /min 2018-11-29 Temperature 97.3 degrees Fahrenheit 2020-10-26 Blood pressure systolic 120 mm Hg 2022-04-14 Blood pressure diastolic 69 mm Hg 2022-04-14 MEDICATIONS Medication Instructions Dosage Frequency Start End Duration Statu s Date Date Potassium 75 MG Orally Once a 1 tablet 24h N ot-Taki day ng Ibuprofen 200 MG Orally every 6 1 tablet 6h Not-Taki hrs as needed ng Ursodiol 500 MG TAKE 1 30 Active TABLET BY MOUTH TWICE DAILY Vitamin D Active Ivermectin 3 MG 2 Active Klor-Con Active Potassium TAKE 1 90 Active Chloride Shakira ER TABLET BY 20 MEQ MOUTH TWICE DAILY Mupirocin 2 % APPLY TO 10 Active BIOPSY SITE TWICE DAILY UNTIL HEALED Aleve Not-Taki ng Chlorthalidone Orally Once a 1 tablet 24h 30 day(s) Active 100 MG day in the morning Triamcinolone 14 Active Acetonide 0.1 % PROCEDURES Procedure Date Ordered Result Body Site DEBRIDE NAIL, 6 OR MORE Aug 05, 2019 DEBRIDE NAIL, 6 OR MORE Jun 16, 2016 DEBRIDE NAIL, 6 OR MORE November 29, 2018 DEBRIDE NAIL, 6 OR MORE Apr 29, 2019 DEBRIDE NAIL, 6 OR MORE November 01, 2012 DEBRIDE NAIL, 6 OR MORE Aug 23, 2018 DEBRIDE NAIL, 6 OR MORE Feb 20, 2012 DEBRIDE NAIL, 6 OR MORE Feb 12, 2018 DEBRIDE NAIL, 6 OR MORE January 31, 2013 DEBRIDE NAIL, 6 OR MORE Aug 21, 2017 DEBRIDE NAIL, 6 OR MORE Apr 14, 2022 DEBRIDE NAIL, 6 OR MORE November 20, 2017 DEBRIDE NAIL, 6 OR MORE December 22, 2016 DEBRIDE NAIL, 6 OR MORE October 07, 2021 Avulsion Plate November 20, 2017 DEBRIDE NAIL, 6 OR MORE Mar 17, 2016 DEBRIDE NAIL, 6 OR MORE January 28, 2021 DEBRIDE NAIL, 6 OR MORE Jun 17, 2021 DEBRIDE NAIL, 6 OR MORE December 07, 2015 DEBRIDE NAIL, 6 OR MORE October 26, 2020 DEBRIDE NAIL, 6 OR MORE September 22, 2016 DEBRIDE NAIL, 6 OR MORE May 30, 2013 X-RAY EXAM OF RIGHT FOOT 3V November 17, 2011 DEBRIDE NAIL, 6 OR MORE Aug 18, 2011 Wart Destruction, 1-14 Jun 17, 2021 DEBRIDE NAIL, 6 OR MORE May 19, 2011 Wart Destruction, 1-14 October 07, 2021 DEBRIDE NAIL, 6 OR MORE 2015 DEBRIDE NAIL, 6 OR MORE November 27, 2014 Avulsion Plate May 21, 2012 DEBRIDE NAIL, 6 OR MORE May 17, 2018 Avulsion Plate Mar 24, 2014 DEBRIDE NAIL, 6 OR MORE Mar 24, 2014 Wart Destruction, -Aug 17, 2015 DEBRIDE NAIL, 6 OR MORE December 12, 2013 Avulsion Plate Jul 30, 2012 Wart Destruction, -January 13, 2022 DEBRIDE NAIL, 6 OR MORE January 13, 2022 AT LEAST 1 RX TRANSMIT ERX SYS November 17, 2011 DEBRIDE NAIL, 6 OR MORE May 21, 2012 DEBRIDE NAIL, 6 OR MORE Jul 30, 2012 Wart Destruction, -Apr 14, 2022 DEBRIDE NAIL, 6 OR MORE Aug 17, 2015 DEBRIDE NAIL, 6 OR MORE November 17, 2011 DEBRIDE NAIL, 6 OR MORE Sep 05, 2013 DEBRIDE NAIL, 6 OR MORE Jun 23, 2014 DEBRIDE NAIL, 6 OR MORE Mar 30, 2017 PT VISIT DOCUM W/NON-CCHIT C November 17, 2011 RESULTS No Results REASON FOR VISIT Insurance Providers [facility] Member Patient Patient Patient Patient Patient Subscriber Subscriber Subscriber Group Insurance Plan Plan Plan Plan ID Relationship Address Phone Name Date of ID Name Date of No Type Insurance Insurance Insurance Coverage to Subscriber Address Phone Name Dates Medicare National [id number] Medicare self Whit [id number] [facility] [address] [facility] [address] [place] [address] [employer] [phone] [employer] self Whit [phone] [id number] [facility] [phone] [address] MEDICAL (GENERAL) HISTORY Type Description Date Medical History chicken pox Medical History sciatica Medical History hypertension Medical History back, hip, knee pain Medical History Arthritis Medical History reflux Surgical History thyroidectomy Surgical History tonsillectomy Surgical History back surgery 1990 Surgical History bunionectomy 1991 Surgical History right knee arthroscopy 2006 Surgical History left knee arthroscopy 2008 Surgical History endoscopy 2020 Surgical History colonoscopy 2020 Hospitalization History [facility], passed out due to low po tassium 10/2014 Hospitalization History [facility] [place] 08/2015 Hospitalization History [facility] [place] Fell stitches on chin 7 Hospitalization History [facility] [place] chest pain 07/2018 Hospitalization History [facility] [place] - Fainted - infection/Back pain 3 days 08/2021
[2022-07-08 21:02] LABS: Appearance Urine Clear; Color Urine Yellow; Glucose Urine UA Negative (Negative); Leukocyte Esterase Urine Trace (Negative); Nitrite Urine Negative (Negative); Specific Gravity - Urine <= 1.005 (1.005-1.025); UMIC TRIGGER UACC YES; Urine Blood Negative (Negative); Urine Ketones Negative (Negative); Urine Protein Negative (Neg-Trace)
[2022-07-08 21:11] LABS: Bacteria Urine None Seen (None Seen); Hyaline Casts Urine 0-2 /LPF (0-2); RBC Urine 0-2 /HPF (0-2); Squamous Epithelial Cell Urine 0-2 /HPF (0-2); WBC Urine 0-5 /HPF (0-5)
--- NOTE | 2022-07-08 22:15 | PC.NURSE ---
Rounds: Pt's K+is still running slow d/t pts arm movement.
[2022-07-08 23:49] VITALS: BP 141/60; PULSE 75; RESP 18; TEMP 36.8; O2SAT 98
[2022-07-09 07:28] LABS: Alanine Aminotransferase 10 U/L (0-31); Anion Gap 10 (12-20); Aspartate Amino Transferase 18 U/L (5-31); Blood Urea Nitrogen 10 mg/dL (9-16); Carbon Dioxide 25 mmol/L (22-29); Chloride 111 mmol/L (96-108); Creatinine Clr Calc Pharmacy 61.3; Estimated Glomerular Filt Rate > 60; Glucose Random 98 mg/dL (60-115); Potassium 3.5 mmol/L (3.3-5.1); Sodium 142 mmol/L (135-145); Total Protein 5.8 g/dL (6.5-8.0)
[2022-07-09 07:29] LABS: Albumin Level 3.6 g/dL (3.5-5.0); Alkaline Phosphatase 96 U/L (39-117)
[2022-07-09 08:04] VITALS: BP 130/56; PULSE 92; RESP 16; TEMP 36.7; O2SAT 98
--- NOTE | 2022-07-09 09:55 | PHA.MEDREC ---
Pharmacy Consult ? Medication Reconciliation Pharmacy has completed the medication reconciliation.
[2022-07-09] MEDS: 0.9 % Sodium Chloride Flush 3 ML SYRINGE IVFLUSH ×2 (10:06)
--- NOTE | 2022-07-09 10:21 | PC.NURSE ---
Pt ambulating with steady gait to bathroom. Alert and oriented
--- NOTE | 2022-07-09 11:21 | MHC.CM.PN ---
spoke with pyts with whom she lives they had no servceisprior to admisison is [place] x 5 [place] home no servcies
--- NOTE | 2022-07-09 11:27 | PM.DS ---
DS: Providers Provider Date of Service: 07/09/22 Date of admission: 07/08/22 20:33 Primary care physician: Hollis Gong MD Consults: 07/08/22 20:33 Consult to Cardiology Routine Consulting Provider: Wally Rudd Reason for consultation: Syncope Has provider been notified: No DS: Diagnosis Discharge Diagnosis (1) Syncope: Status: Acute (2) COVID-19: Status: Acute (3) Acute hypokalemia: Status: Acute (4) UTI (urinary tract infection): Status: Acute DS: Summary Hospital Course Hospital Course: Date of Service: 07/08/22 Chief Complaint:? passed out ?77-year-old female with past medical history of HTN, chronic hypokalemia, hypothyroidism, nontoxic multinodular goiter, and chronic cholecystitis presents to the hospital with complaints of episodes of passing out.? Patient reports that she was at buddhist, he was at the end of mass, she was standing for about 5 minutes, felt hot and sweaty, and her daughter reported to her that she passed out.? Her daughter sat her down, she had no head trauma.? This lasted few seconds, and patient regained consciousness with no postictal symptoms.? Patient herself reports that she did not feel like she passed out although her daughter was very adamant that she syncopized.? Patient reports no palpitations, no chest pain, reports that she had a fall at home earlier after missing 1 step of her stairs, did not have any head trauma, but pulled a muscle in her neck otherwise reports no recent acute illness, denies any nausea or vomiting, no decreased appetite, no diarrhea constipation, no urinary symptoms and no lower extremity edema.? Patient? had 1 syncopal episode in September of this year which was thought to be secondary to UTI. On arrival to the ED vitals are unremarkable Labs are significant? for WBC count of 10.2, labs otherwise unremarkable, potassium 2.8 Troponin negative Urine shows trace leukocyte Estrace some WBC patient asymptomatic.? COVID-19 positive, patient asymptomatic EKG shows first-degree AV block which is new, Orthostatic vitals negative Hospital course Patient admitted with brief episode of near-syncope/syncope all workup in the ED unremarkable as above, CT head and CT cervical spine negative patient admitted to telemetry to rule out arrhythmia, during course of hospitalization patient remained stable, denies chest pain, no palpitation seen by personnel coordinator Dr. Arriaza syncope was likely vasovagal, with history of similar episodes at a younger age, personnel coordinator recommend outpatient Holter monitor, no evidence of UTI , however patient noted to have COVID infection likely contributing to weakness, since patient is hemodynamically stable she is being discharged home, in regard to hypokalemia patient noted to be and chlorthalidone likely contributing to low-potassium therefore chlorthalidone discontinued and replaced by lisinopril 5 mg by mouth daily. Patient also has dementia on Aricept can reduce dose of Aricept down to 5 mg since it can also contribute to syncope. Time Spent with Patient Time attestation: Total time managing care of this patient today ____ minutes. Discharge coordination time: Greater than 30 minutes Quality: Safe Use of Opioids Does Pt have an Active Cancer Diagnosis on the Problem List?: No Quality: Stroke Does the patient have a stroke diagnosis?: No Physical Exam Vital Signs: Vital Signs: Last Vital Signs Temp 98.1 F 07/09/22 08:04 Pulse 92 07/09/22 08:04 Resp 16 07/09/22 08:04 BP 130/56 L 07/09/22 08:04 Pulse Ox 98 07/09/22 08:04 O2 Del Method 07/09/22 08:04 BMI result Body Mass Index 19.3 Const: Other: General patient resting comfortably in no acute distress. Neck supple no JVD. CVS regular rate rhythm, Respiratory lungs clear to auscultation, no respiratory distress, no wheeze, no rhonchi. Gastrointestinal abdomen soft, nontender, bowel sounds audible, no guarding , no rigidity. Extremities no clubbing cyanosis or edema. Neuro nonfocal patient moving all 4 extremity speech clear. Skin no rash Psych appropriate affect DS: Data Data Completed and Pending Labs on day of discharge: Laboratory Results - last 24 hr 07/08/22 07/08/22 07/08/22 18:54 18:54 18:54 WBC 10.2 RBC 4.21 Hgb 12.5 Hct 38.0 MCV 90.3 MCH 29.7 MCHC 32.9 RDW 12.8 Plt Count 221 MPV 10.2 Immature Gran % (Auto) 0.4 Neut % (Auto) 78.5 H Lymph % (Auto) 10.8 L [place] % (Auto) 9.3 Eos % (Auto) 0.7 Baso % (Auto) 0.3 Lymph # (Auto) 1.1 L [place] # (Auto) 1.0 Eos # (Auto) 0.1 Baso # (Auto) 0.0 Abs Immat Gran (auto) 0.04 H Absolute Neuts (auto) 8.0 Absolute Nucleated RBC 0.000 Nucleated RBC % (auto) 0.0 Sodium 139 Potassium 2.8 L D Chloride 104 Carbon Dioxide 25 Anion Gap 13 BUN 13 Creatinine 0.74 Estim Creat Clear Calc 53.8 Estimated GFR > 60 Random Glucose 109 Calcium 9.0 D Magnesium 1.9 Total Bilirubin 0.4 Direct Bilirubin < 0.2 AST 21 ALT 11 Alkaline Phosphatase 105 Troponin I High Sens 6.8 Total Protein 6.3 L Albumin 3.9 Urine Color Urine Appearance Urine pH Ur Specific [place] Urine Protein Urine Glucose (UA) Urine Ketones Urine Blood Urine Nitrite Ur Leukocyte Esterase Urine RBC Urine WBC Ur Squamous Epith Cells Urine Bacteria Hyaline Casts COVID-19 ([place]) COVID-19 [employer] 07/08/22 07/08/22 07/09/22 18:54 20:54 06:23 WBC RBC Hgb Hct MCV MCH MCHC RDW Plt Count MPV Immature Gran % (Auto) Neut % (Auto) Lymph % (Auto) [place] % (Auto) Eos % (Auto) Baso % (Auto) Lymph # (Auto) [place] # (Auto) Eos # (Auto) Baso # (Auto) Abs Immat Gran (auto) Absolute Neuts (auto) Absolute Nucleated RBC Nucleated RBC % (auto) Sodium 142 Potassium 3.5 D Chloride 111 H Carbon Dioxide 25 Anion Gap 10 L BUN 10 Creatinine 0.65 Estim Creat Clear Calc 61.3 Estimated GFR > 60 Random Glucose 98 Calcium 9.0 Magnesium Total Bilirubin 1.0 Direct Bilirubin AST 18 ALT 10 Alkaline Phosphatase 96 Troponin I High Sens Total Protein 5.8 L Albumin 3.6 Urine Color Yellow Urine Appearance Clear Urine pH 6.0 Ur Specific [place] <= 1.005 Urine Protein Negative Urine Glucose (UA) Negative Urine Ketones Negative Urine Blood Negative Urine Nitrite Negative Ur Leukocyte Esterase Trace H Urine RBC 0-2 Urine WBC 0-5 Ur Squamous Epith Cells 0-2 Urine Bacteria None Seen Hyaline Casts 0-2 COVID-19 ([place]) Positive A COVID-19 Clin Com See Note Discharge Plan Discharge Patient Disposition: Home, Self-Care Discharge Diagnosis: Syncope Hypokalemia Referrals: Hollis Gong MD [Primary Care Provider] - 1 Week Discharge Medications: New lisinopril 5 mg tablet 5 mg PO DAILY Qty: 30 0RF Continued ursodiol 500 mg tablet 500 mg PO BID Qty: 180 0RF multivitamin Tablet 1 tab PO DAILY donepezil 10 mg tablet 1 tab PO BEDTIME acetaminophen 500 mg Tablet 1,000 mg PO Q6H PRN (Reason: Headache) sertraline 25 mg tablet 1 tab PO DAILY Rx Instructions: administer with food cholecalciferol (vitamin D3) 25 mcg (1,000 unit) capsule 25 mcg PO DAILY Discontinued chlorthalidone 25 mg tablet 25 mg PO DAILY potassium chloride 20 mEq tablet,ER particles/crystals 20 meq PO BID Discharge Orders: Discharge Order (Routine); Ordered 07/09/22 Ordered By: Josue Roa Diet: Advance to usual diet Activity on Discharge: As tolerated Stand Alone Forms: Patient Portal Discharge page Care Plan Goals: Syncope likely vasovagal Hypokalemia resolved, stop using chlorthalidone and potassium replacement, started on lisinopril 5 mg daily for blood pressure control, follow blood pressure closely Consider lowering dose of Aricept to 5 mg daily discuss with primary care physician Health Concerns: Take all other home medications as before Plan of Treatment: Outpatient follow-up with PCP Assessment: As above
--- NOTE | 2022-07-09 11:30 | MHC.CM.PN ---
pt expected to dc home today no servceis
--- NOTE | 2022-07-09 11:44 | MHC.CM.PN ---
pt dcd home no skilled servceis ordered by
--- NOTE | 2022-07-09 13:41 | PM.CNCAR ---
History of Present Illness History of Present Illness Date of Service: 07/09/22 Requesting physician: Josue Roa Consult reason: other (Syncope) Chief complaint: Syncope Narrative: I was consulted to see Whit in cardiology consultation today as she passed out yesterday. She was in usual state of health yesterday went to the congregation which usually does. She was standing in the PCU and she was wearing heavy clothing and felt warm and lightheaded and the next thing she knows she passed out. This was witnessed by her daughter was at her side. She said her down and subsequently she came back around. She had no postictal symptoms. No neurologic symptoms. She says she has not been particularly dehydrated. No systemic illness. She came in and was diagnosed with COVID on regular testing. She says she has had no viral symptoms whatsoever. She denies any symptoms of chest pain or shortness of breath. She says when she was much younger in her 29 she had multiple episodes of syncope at that point time. Similar episodes. She also has history of hypokalemia for long time and she is currently on chlorthalidone therapy. Came in with hypokalemia. This has been corrected Review of Systems Review of Systems: Yes all other systems are reviewed and are negative COUNTS INCLUDE 234 BEDS AT THE [facility] Past Medical History Medical History Chronic cholecystitis Essential hypertension Rika's disease Nontoxic multinodular goiter Primary osteoarthritis of left knee Family History Family History Father No problems noted. Mother No problems noted. Surgical History Surgical History History of back surgery History of bilateral knee arthroplasty History of colonoscopy History of esophagogastroduodenoscopy (EGD) History of thyroid surgery History of tonsillectomy Social History Social History Household Members: Spouse Housing: House Do you presently have visiting nurse or other home services: No Alcohol intake: former Patient Tobacco Use Status: Former Tobacco user service: No Meds Allergies Allergy/AdvReac Type Severity Reaction Status Date / Time celecoxib [From CELEBREX] Allergy Intermediate RASH Verified 03/20/22 08:56 Sulfa (Sulfonamide Allergy Intermediate RASH Verified 03/20/22 08:56 Antibiotics) tomato Allergy Rash Verified 03/20/22 08:56 From PERCOCET Allergy Intermediate RASH Uncoded 03/20/22 08:56 Home Medications Medication Instructions Recorded Confirmed Last Taken Type cholecalciferol (vitamin D3) 25 25 mcg PO DAILY 04/10/20 07/09/22 07/08/22 History mcg (1,000 unit) capsule acetaminophen 500 mg tablet 1,000 mg PO Q6H PRN Headache 07/09/22 07/09/22 Unknown History donepezil 10 mg tablet 1 tab PO BEDTIME 07/09/22 07/09/22 07/08/22 History multivitamin 1 tab PO DAILY 07/09/22 07/09/22 07/08/22 History sertraline 25 mg tablet 1 tab PO DAILY 07/09/22 07/09/22 07/08/22 History Physical Exam Vital Signs: Vital Signs: Last Vital Signs Temp 98.1 F 07/09/22 08:04 Pulse 92 07/09/22 08:04 Resp 16 07/09/22 08:04 BP 130/56 L 07/09/22 08:04 Pulse Ox 98 07/09/22 08:04 O2 Del Method 07/09/22 08:04 BMI result Body Mass Index 19.3 Const: General: cooperative, comfortable, no acute distress, alert, awake and Physically active Nutritional Appearance: thin Orientation/consciousness: patient oriented x3 Limitations: no limitations HEENT: Head: Yes normocephalic and Yes atraumatic Neck: Neck: Yes trachea midline, Yes supple and Yes no JVD Resp: Effort & Inspection: normal respiratory effort Auscultation: clear to auscultation bilaterally Cardio: Jugular venous distension: no JVD Palpation: normal PMI Rate: regular rate Rhythm: regular rhythm Heart sounds: S1 normal heart sound present, S2 normal heart sound present, no click, no gallops, no murmurs and no rubs GI: Auscultation: normal bowel sounds Skin: General skin exam: no rashes or lesions noted Neuro: General: patient oriented x3 and no focal motor deficits Extrem: General: Yes no clubbing, cyanosis or edema Objective Labs and Meds Result diagrams: 07/08/22 18:54 07/09/22 06:23 Lab results: Laboratory Results - last 24 hr 07/08/22 07/08/22 07/08/22 18:54 18:54 18:54 WBC 10.2 RBC 4.21 Hgb 12.5 Hct 38.0 MCV 90.3 MCH 29.7 MCHC 32.9 RDW 12.8 Plt Count 221 MPV 10.2 Immature Gran % (Auto) 0.4 Neut % (Auto) 78.5 H Lymph % (Auto) 10.8 L [place] % (Auto) 9.3 Eos % (Auto) 0.7 Baso % (Auto) 0.3 Lymph # (Auto) 1.1 L [place] # (Auto) 1.0 Eos # (Auto) 0.1 Baso # (Auto) 0.0 Abs Immat Gran (auto) 0.04 H Absolute Neuts (auto) 8.0 Absolute Nucleated RBC 0.000 Nucleated RBC % (auto) 0.0 Sodium 139 Potassium 2.8 L D Chloride 104 Carbon Dioxide 25 Anion Gap 13 BUN 13 Creatinine 0.74 Estim Creat Clear Calc 53.8 Estimated GFR > 60 Random Glucose 109 Calcium 9.0 D Magnesium 1.9 Total Bilirubin 0.4 Direct Bilirubin < 0.2 AST 21 ALT 11 Alkaline Phosphatase 105 Troponin I High Sens 6.8 Total Protein 6.3 L Albumin 3.9 Urine Color Urine Appearance Urine pH Ur Specific [place] Urine Protein Urine Glucose (UA) Urine Ketones Urine Blood Urine Nitrite Ur Leukocyte Esterase Urine RBC Urine WBC Ur Squamous Epith Cells Urine Bacteria Hyaline Casts COVID-19 ([place]) COVID-19 Clin Com 07/08/22 07/08/22 07/09/22 18:54 20:54 06:23 WBC RBC Hgb Hct MCV MCH MCHC RDW Plt Count MPV Immature Gran % (Auto) Neut % (Auto) Lymph % (Auto) [place] % (Auto) Eos % (Auto) Baso % (Auto) Lymph # (Auto) [place] # (Auto) Eos # (Auto) Baso # (Auto) Abs Immat Gran (auto) Absolute Neuts (auto) Absolute Nucleated RBC Nucleated RBC % (auto) Sodium 142 Potassium 3.5 D Chloride 111 H Carbon Dioxide 25 Anion Gap 10 L BUN 10 Creatinine 0.65 Estim Creat Clear Calc 61.3 Estimated GFR > 60 Random Glucose 98 Calcium 9.0 Magnesium Total Bilirubin 1.0 Direct Bilirubin AST 18 ALT 10 Alkaline Phosphatase 96 Troponin I High Sens Total Protein 5.8 L Albumin 3.6 Urine Color Yellow Urine Appearance Clear Urine pH 6.0 Ur Specific [place] <= 1.005 Urine Protein Negative Urine Glucose (UA) Negative Urine Ketones Negative Urine Blood Negative Urine Nitrite Negative Ur Leukocyte Esterase Trace H Urine RBC 0-2 Urine WBC 0-5 Ur Squamous Epith Cells 0-2 Urine Bacteria None Seen Hyaline Casts 0-2 COVID-19 ([place]) Positive A COVID-19 Clin Com See Note EKG shows normal sinus rhythm first-degree AV block with QS pattern in lead V1 and V2. Imaging Radiologist's impression: Impressions Cervical Spine CT 07/08/22 19:01 IMPRESSION: * No CT evidence of cervical spine fracture. * Loss of disc height suggest underlying degenerative disc disease at multiple levels. * Developed osteophytes developed from the edges of endplates encroaching on the neural foramen on the right at C3-C4 and C4-C5 causing foraminal stenosis. * Left thyroid nodule better visualized and described on prior ultrasound from April 2021. * At the margin of the study there is a 0.8 cm long nodule in the left upper lobe more prominent on today's exam compared to prior study of 09/12/2021. Attention to follow-up CT scan chest recommended. (Referring physician staff is being called, to be alerted of the above findings and recommendations.) PSA Tc Head CT 07/08/22 19:01 IMPRESSION: No CT evidence of intracranial space-occupying mass, bleed or infarct. Assessment and Plan (1) Syncope: Status: Acute Syncope which appears to be highly consistent with vasovagal/reflex syncope from her symptoms. She had the symptoms when she was much younger. They are not recurred for a long time. We discussed about pathophysiology of vasovagal syncope. However given her age I would suggest her to undergo a Holter monitor and with first-degree block to assess for any Tony cardia. Will schedule that as outpatient. Will also advise an echocardiogram to evaluate for cardiac structure and function. Importance of adequate hydration was discussed. I would avoid hydrochlorothiazide/chlorthalidone in her given hypokalemia. Advise potassium rich food. Can switch lisinopril/Diovan as outpatient. Advised to monitor blood pressure at home and maintain a log. Orthostatic precautions and identifying or symptoms early was discussed with her. She understands agrees. Will follow up in the clinic after above-mentioned test. Patient can be discharged home today. Time Spent With Patient Time: Total time managing care of this patient today ____ minutes. Procedures Date of Service Date of Service: 07/09/22
== END 2022-07-09 11:57 | disposition home or self-care (01) ==
LOC: HO.ED 20:22 → HO.EDOVER 20:39 → HO.IMC 07-09 11:28 → HO.EDOVER 07-09 11:36
PROVIDERS: Physician Assistant; Admitting Provider Internal Medicine; Emergency Provider Internal Medicine; PCP Radiology Diagnostic Radiology; Visit Provider Hospitalist
DX: U07.1 COVID-19 (principal); R55 Syncope and collapse; N39.0 Urinary tract infection, site not specified; E87.6 Hypokalemia; M54.2 Cervicalgia; Z79.899 Other long term (current) drug therapy
CPT/HCPCS: 36415; 70450; 72125; 80048; 80053; 80076; 81001; 81003; 83735; 84484; 85025; 87635; 93005; 96361; 96374; 99219; 99222; 99285

== ENCOUNTER → 2022-07-27 12:58 | Outpatient (REF) | payer MEDICARE, SELFPAY ==
--- NOTE | 2022-07-27 13:13 | HM_ITS ---
* Total monitoring time about 7 days. * Underlying rhythm is sinus. Average ventricular rate 76/Min. Range 51 to 124/Min. * Frequent PACs. Walters 1%. * Occasional PVCs. [place] of less than 1%. 2 morphologies. Short runs noted. 28 episodes. Longest run 5 beats. * No significant pauses or AV blocks. * No patient diary. No markers. MTDD
--- NOTE | 2022-07-27 13:13 | CA_ITS ---
Transthoracic Echocardiogram Patient (Last, First, Middle): Whit Fish J Gender: Female Date of : 1945 Age: 77 Procedure Date: 07/27/2022 Procedure Type: Transthoracic Echocardiogram Location: OP Height: 160.02 cm Weight: 54.43 kg BSA: 1.56 m2 Heart Rate: bpm BP: 148 / 68 mmHg [employer] Senior Manager: KRISTAL Referring MD: Wally Rudd MD Zipper Machine Operator: Wally Rudd MD Symptoms: R55 - Syncope and collapse Study Quality: Adequate ECG Rhythm: Sinus Conclusions: - 1. Normal LV systolic function with impaired relaxation filling pattern 2. Mild aortic regurgitation 3. Normal RV systolic pressure 4. No gross pericardial effusion Findings Left Ventricle Normal left ventricular size, thickness, and systolic function. The visually estimated ejection fraction is between 60-65%. Spectral Doppler is indicative of an impaired relaxation filling pattern. E/E prime ratio is between 8 and 15 consistent with indeterminate filling pressures. Peak GLS is -18.7%, within normal limits. Right Ventricle Normal right ventricular cavity size and systolic function. Atria Both atria are normal in size. Interatrial shunt cannot be excluded. Aortic Valve There is mild calcification of the aortic valve. There is mild aortic valve regurgitation. Mitral Valve There is mild anterior and posterior mitral leaflet thickening. There is mild mitral annular calcification. There is trace mitral valve regurgitation. There is no mitral valve stenosis. Pulmonic Valve The pulmonic valve was not well visualized. Tricuspid Valve Likely normal tricuspid valve structure and function. There is trace tricuspid valve regurgitation. The right ventricular systolic pressure is normal. The right ventricular systolic pressure is 24 mmHg. Normal right atrial pressure. There is no evidence of pulmonary hypertension. Great Vessels All visible segments of the aorta are normal in size. The pulmonary artery was not well visualized. Venous The inferior vena cava is normal in size and collapses greater than 50% with inspiration. Pericardium/Pleural There is no evidence of pericardial effusion. Prior Study Comparison No significant change compared to prior study dated: 09/14/2021. Measurements 2D Linear Measurements IVSd: 1.07 0.6-0.9/0.6-1.0 cm LVIDd: 3.36 3.9-5.3/4.2-5.9 cm LVIDd Index: 2.15 2.4-3.2/2.2-3.1 cm/m2 LVIDs: 2.22 2.0-3.6 cm LVPWd: 1.06 0.7-1.1 cm LA Diam: 2.10 2.7-3.8/3.0-4.0 cm LAIDs Index: 1.35 1.5-2.3 cm/m2 LV Mass: 132.64 67-162/88-224 g LV Mass Index: 85.02 43-95/49-115 g/m2 LVOT Diam: 2.10 3.0+(-)1.3 cm 2D Systolic Function EF 4C: 55.40 >55% EF 2C: 61.90 >55% EF BiP: 60.20 >55% Mitral Valve MV Pk E: 0.92 MV PK A: 1.19 MV Decel Time: 268.00 E/A: 0.80 E'Lateral: 8.81 E'Medial: 5.66 E/E' Med: 16.20 E/E' Lat: 10.40 PHT: 78.00 MVA PHT: 2.82 Decel [place]: 3.43 Aortic Valve AoV Pk Ronald: 1.70 AoV Mn Ronald: 1.15 AoV VTI: 0.37 AoV Pk Grad: 12.00 Aov Mn Grad: 6.00 MAURO Cont.VTI: 2.03 AI Pk Ronald: 4.33 AI [place]: 2.76 LVOT LVOT Pk Ronald: 0.93 LVOT Mn Ronald: 0.57 LVOT VTI: 0.22 LVOT Pk Grad: 3.00 LVOT Mn Grad: 2.00 LVOT Diam: 2.10 LVOT Area: 3.46 Diastolic Function MV Pk E: 0.92 MV Pk A: 1.19 E/A: 0.80 E'Medial: 5.66 E/E' Med: 16.20 E' Laterial: 8.81 E/E' Lat: 10.40 Right Ventricle TAPSE (mm): 23.30 TVS' Ronald: 16.00 Tricuspid Valve TR Pk Ronald: 2.28 TR Pk Grad: 21.00 RA Press: 3.00 RVSP: 24.00 Great Vessels Aorta Sinus of Valsalva: 3.19 2.0-3.[address] [place]: 2.13 1.7-3.4 cm Ao Asc: 2.90 2.1-3.4 cm Updated in Other Vendor System with Status of Final Wally Rudd MD electronically signed on 07/28/2022 9:31:39 AM with status of Final
== END ==
LOC: HO.CARD 12:58
PROVIDERS: PCP Radiology Diagnostic Radiology; Visit Provider Internal Medicine Cardiovascular Disease
DX: R55 Syncope and collapse (principal)
CPT/HCPCS: 93242; 93306; 93356

== ENCOUNTER → 2022-08-17 14:37 | Outpatient (BNVA) | payer MEDICARE, SELFPAY | PROVIDERS: PCP Radiology Diagnostic Radiology; Referring Provider Radiology Diagnostic Radiology; Visit Provider Nurse Practitioner Family | DX: I10 Essential (primary) hypertension (principal); R55 Syncope and collapse; E87.6 Hypokalemia; U07.1 COVID-19; Z09 Encounter for follow-up examination after completed treatment for conditions other than malignant neoplasm | CPT/HCPCS: 99212 ==

== ENCOUNTER → 2022-09-11 08:59 | Outpatient (BNVA) | payer MEDICARE, SELFPAY | PROVIDERS: PCP Internal Medicine; Visit Provider Internal Medicine Gastroenterology | DX: M81.0 Age-related osteoporosis without current pathological fracture (principal); R94.5 Abnormal results of liver function studies; R63.4 Abnormal weight loss | CPT/HCPCS: 99212 ==

== ENCOUNTER 2022-10-16 08:19 | Outpatient (REF) | payer MEDICARE, SELFPAY | END 2022-10-16 08:20 | disposition home or self-care (01) | LOC: HO.US 08:19 | PROVIDERS: PCP Internal Medicine; Visit Provider Internal Medicine Gastroenterology | DX: Z13.89 Encounter for screening for other disorder (principal) ==

== ENCOUNTER 2022-10-20 07:41 | Outpatient (REF) | payer MEDICARE, SELFPAY ==
--- NOTE | ~2022-10-20 | US_ITS ---
EXAMINATION: US ABDOMEN LIMITED WITH LIVER ELASTOGRAPHY CLINICAL INFORMATION: [place] COMPARISON: Previous CT and abdominal ultrasound February 2020 TECHNIQUE: Real-time imaging of the abdominal viscera. Noninvasive ultrasound liver fibrosis assessment is performed using Mohan ElastPQ point quantification shear wave elastography (2D-SWE) with a C5-2 MHz transducer. Multiple elastography samples are obtained. FINDINGS: PANCREAS: Normal. LIVER: Normal. The liver demonstrates normal size, contour and echogenicity. No focal lesion or intrahepatic biliary duct dilatation. The right lobe measures 12 cm in length. The left lobe measures 8 cm in length. Portal flow is normal Shear wave liver elastography median stiffness is 1.5 m/s (reference: normal median stiffness is 1.3 m/s or less). IQR/median stiffness to assess sampling precision is 0.17 (reference: good quality data set is IQR/median stiffness of 0.15 or less). GALLBLADDER: Wall echo shadow complex suggestive of gallbladder filled with gallstones. COMMON BILE DUCT: Normal in caliber measuring 0.5 cm in diameter. RIGHT KIDNEY: Lower pole cyst measuring 9 x 5 x 11 mm. No hydronephrosis. No renal calculi or suspicious focal parenchymal lesions. The kidney measures 9.6 cm in maximum dimension. FREE FLUID: None. US/US abdomen mclean w elastography IMPRESSION: 1. Impression: Normal-appearing liver. Wall echo shadow complex suggestive of gallbladder filled with gallstones. Small right renal cyst. 2. Liver elastography: Adequate liver sampling. In the absence of other known clinical signs, rules out compensated advanced chronic liver disease. Findings similar to 2020 exam. REFERENCE: Society of Radiologists in Ultrasound Liver Stiffness Thresholds (2020): LIVER STIFFNESS THRESHOLDS: *Liver Stiffness equal or less than 1.3 m/s: High probability of being normal. *Liver Stiffness less than 1.7 m/s: In the absence of other known clinical signs, rules out compensated advanced chronic liver disease. *Liver Stiffness 1.7-2.1 m/s: Suggestive of compensated advanced chronic liver disease but need further test for confirmation. *Liver Stiffness over 2.1 m/s: Rules in compensated advanced chronic liver disease. *Liver Stiffness over 2.4 m/s: Suggestive of clinically significant portal hypertension. QUALITY OF DATA SET: *IQR/Median value equal or less than 0.15 implies a quality data set. *IQR/Median value over 0.15 implies a poor quality data set. SIGNIFICANT CHANGE FROM PRIOR EXAM: Significant change if liver stiffness measurement is 10% or greater from prior exam. OTHER CONSIDERATIONS: The stage of liver fibrosis may be overestimated in the setting of acute hepatitis, liver inflammation, elevated liver function tests, hepatic vascular congestion, obstructive cholestasis, non-fasting state, and infiltrative diseases such as amyloidosis and lymphoma. In some patients with NAFLD, the liver stiffness thresholds for compensated advanced chronic liver disease may be lower. In causes other than viral hepatitis and NAFLD, liver stiffness thresholds are not well established.
== END 2022-10-20 07:42 | disposition home or self-care (01) ==
LOC: HO.US 07:41
PROVIDERS: PCP Internal Medicine; Visit Provider Internal Medicine Gastroenterology
DX: K75.81 Nonalcoholic steatohepatitis (NASH) (principal); K74.60 Unspecified cirrhosis of liver
CPT/HCPCS: 76705; 76981

== ENCOUNTER 2022-11-17 08:39 | Outpatient (REF) | payer MEDICARE, SELFPAY ==
--- NOTE | ~2022-11-17 | CT_ITS ---
EXAMINATION: CT HEAD WITHOUT CONTRAST CLINICAL INFORMATION: Skull mass. COMPARISON: None available. TECHNIQUE: Contiguous axial imaging was performed from the skull base to vertex without intravenous administration of contrast. This CT examination was performed using dose optimization techniques as appropriate, variously including the following: *Automated exposure control *Adjustment of mA and/or kV according to patient size (this includes techniques or standardized protocols for targeted exams where dose is matched to indication/reason for exam; i.e. extremities or head) *Use of iterative reconstruction technique DLP: 797 mGy-cm FINDINGS: There is no acute intra-axial, extra-axial bleed, masses or midline shift. There is no acute infarction evolution. There is no edema. There is mild periventricular hypodensity in both cerebral hemispheres suggestive of chronic small vessel ischemic changes. The lateral ventricles are symmetrical in size and configuration without enlargement. Bone windows reveal no calvarial abnormality. There is small mucosal polyp or retention cyst right maxillary sinus. Rest of the paranasal sinuses and mastoid air cells are well-aerated. CT/CT head/brain wo IV con IMPRESSION: No acute intracranial process seen.
== END 2022-11-17 08:40 | disposition home or self-care (01) ==
LOC: HO.CT 08:39
PROVIDERS: PCP Internal Medicine; Visit Provider Internal Medicine
DX: M89.8X8 Other specified disorders of bone, other site (principal)
CPT/HCPCS: 70450

== ENCOUNTER → 2022-12-19 13:26 | Outpatient (BNVA) | payer MEDICARE, SELFPAY | PROVIDERS: PCP Internal Medicine; Referring Provider Internal Medicine; Visit Provider Nurse Practitioner Family | DX: R55 Syncope and collapse (principal); E87.6 Hypokalemia | CPT/HCPCS: 99212 ==

== ENCOUNTER 2023-02-19 09:37 | Outpatient (REF) | payer MEDICARE, SELFPAY ==
--- NOTE | ~2023-02-19 | XR_ITS ---
EXAMINATION: XR CHEST CLINICAL INFORMATION: Abnormal weight loss Unintended weight loss, ex-smoker COMPARISON: Chest 02/21/2017 TECHNIQUE: 2 views of the chest were obtained. FINDINGS: Stable mild biapical pleural thickening. The lungs are hyperinflated. There is minimal atelectasis and/or pneumonia in the left lung base. No significant abnormality is noted involving the heart, mediastinum or soft tissues. No acute osseous abnormality. XR/XR chest 2V IMPRESSION: Minimal left lower lobe atelectasis and/or pneumonia.
[2023-02-19 10:26] LABS: MANUAL DIFF FLAG NO
[2023-02-19 10:40] LABS: Basophils Percent Auto 0.6 % (0-2); Eosinophils Absolute Auto 0.1 X10*3/uL (0.0-0.4); Eosinophils Percent Auto 2.1 % (0-4); Hematocrit 37.1 % (37.0-47.0); Imm Gran Abs Auto 0.01 X10*3/uL (0.00-0.03); Imm Gran Pct Auto 0.2 % (0.0-0.4); Lymphocytes Absolute Auto 1.5 X10*3/uL (1.2-4.9); Lymphocytes Percent Auto 27.5 % (20-40); Mean Corpuscular HGB Conc 32.3 g/dl (31.0-35.0); Mean Corpuscular Hemoglobin 29.9 pg (27.0-33.0); Mean Corpuscular Volume 92.3 fL (80.0-98.0); Monocytes Absolute Auto 0.6 X10*3/uL (0.1-1.2); Monocytes Percent Auto 11.4 % (2-11); Neutrophils Absolute Auto 3.1 x10*3/uL (2.0-8.3); Neutrophils Percent Auto 58.2 % (45-73); Platelet Count 219 X10*3/uL (160-400); Red Blood Count 4.02 X10*6/uL (4.20-5.50); Red Cell Distribution Width 13.2 % (11.0-16.0); White Blood Count 5.3 X10*3/uL (4.8-10.8)
[2023-02-19 10:45] LABS: INTERNATIONAL NORM RATIO 0.9 (0.9-1.1); Prothrombin Time 11.3 SEC (11.1-13.3)
[2023-02-19 11:43] LABS: Alanine Aminotransferase 10 U/L (0-31); Albumin Level 4.3 g/dL (3.5-5.0); Alkaline Phosphatase 88 U/L (39-117); Anion Gap 9 (12-20); Aspartate Amino Transferase 17 U/L (5-31); Bilirubin Total 0.6 mg/dL (0.0-1.0); Blood Urea Nitrogen 14 mg/dL (9-16); C Reactive Protein < 0.10 mg/dL (< or = 0.50); Carbon Dioxide 30 mmol/L (22-29); Chloride 105 mmol/L (96-108); Estimated Glomerular Filt Rate 54; Glucose Random 91 mg/dL (60-115); Sodium 140 mmol/L (135-145); Total Protein 7.3 g/dL (6.5-8.0)
[2023-02-19 12:11] LABS: Ferritin 318 ng/mL (10-250); TSH reflex Free T4 0.83 uIU/mL (0.32-4.0)
[2023-02-19 12:16] LABS: Folate 15.8 ng/mL (> or = 4.0); Vitamin B12 1482 pg/mL (200-900)
== END 2023-02-19 09:38 | disposition home or self-care (01) ==
LOC: HO.XRAY 09:37
PROVIDERS: PCP Internal Medicine; Visit Provider Internal Medicine Gastroenterology
DX: K80.20 Calculus of gallbladder without cholecystitis without obstruction (principal); R11.0 Nausea; R63.4 Abnormal weight loss; R94.5 Abnormal results of liver function studies; K75.81 Nonalcoholic steatohepatitis (NASH); M81.0 Age-related osteoporosis without current pathological fracture
CPT/HCPCS: 36415; 71046; 80053; 82607; 82728; 82746; 84443; 85025; 85610; 86140; 99212

== ENCOUNTER 2023-02-19 09:37 | Outpatient (AMB) | payer MEDICARE, SELFPAY ==
--- NOTE | 2023-02-19 09:43 | A.OFFVIS_ITS ---
Intake Vital Signs 02/19/23 09:44 Height 5 ft 2 in Weight 97 lb 0.054 oz BMI 17.7 BP 145/65 H Blood Pressure Location Lt brachial Position Sitting Pulse 62 Intake Visit Reasons: 5 month follow up Intake Note: Whit presents in the office as a 5 month follow up. CC: Concerned of her weight loss - loss of appetite. Unable to eat and if she eats TOO much she will vomit. She is not sure if it is medications. Allergies celecoxib [From CELEBREX] Allergy (Intermediate, Verified 02/19/23 09:46) RASH Sulfa (Sulfonamide Antibiotics) Allergy (Intermediate, Verified 02/19/23 09:46) RASH tomato Allergy (Verified 02/19/23 09:46) Rash From PERCOCET Allergy (Intermediate, Uncoded 02/19/23 09:46) RASH HPI 5 month follow up HPI Details 78 yr old f with goiter and HTN being seen for f/u?RECAP--seen index visit 07/2019 ? she had good appetite but felt her weight was down unintentionally, 150-->142--->132 --->128#(thinks she was more active as well) ? denied dysphagia don;t know what heartburn feels like ? denied abdominal pain ? did have sudden onset ches tpain last year after dinner, was checked out and cardiac eval was neg incl stress test ? does come on with food every so often, and takes tums which helps ? can get attacks once a month now, lasts until tums kicks in ? joint pain from OA ? she had colonoscopy with randy, ?5 yrs not sure if anything found ? she has left breast nodule and being followed she was referred to Dr Briggs for consideration for cholecystectomy, but she held off as she was feeling better I gave her urosdiol and miralax for her complaints ? TESTS: ? CT 2016--spinal degen, thyroid nodules ? US; 10/2019--stones, sludge GB, liver nml, she was tender over GB ? GES: 01/2020 nml ? CT 02/2020--uterin efibroids, moderate constipation, spondylosis, Gb unremarkable, liver ok ? EGD: 09/2019-mild gastritis, bile refluxate ? colonoscopy 12/2019--adenoma removed US 10/29-- gallstones, nml appearing liver ? LABS: 12/2019-02/2020 ? cbc--nml mild raised eos ? BMP nml ? LFT--nml ? TSH--nml ? CALE- pos 1:320, AMa--pos 1:80 (checked due to intermittent high alk phos) ? SLa, SMA, neg ? LKm-neg ? igG--nml ? hep serologies--neg alk phos minimally elevated to 130 ---12/2020 labs 09/27--- nml LFt, nml HGB ? INTERIM: she is compliant with ursodiol 500 mg only once daily, not taking BID as evening dose makes her go to the bathroom more she has been having ongoing weight loss occ attacks fo nausea and vomiting, poor appetite weight from 112----> 97 kg no skin rash ? no fevers or chills no rectal bleeding, or melena ? EXAM: GENERAL: The patient is thin and nontoxic. VITAL SIGNS:see workflow HEENT: Nonicteric sclerae, PERRLA, EOMI. Oropharynx clear. Moist mucous membranes. Conjunctivae appear well perfused. No thyroid mass. CHEST: Chest wall is nontender. HEART: Regular rate and rhythm without murmurs. LUNGS: Clear to auscultation bilaterally. ABDOMEN: Soft, positive bowel sounds, nontender, no organomegaly.no flank tenderness SKIN: No rash, no excessive bruising, petechiae, or purpura. NEUROLOGIC: Cranial nerves II-XII intact without motor/sensory deficit. PSYCH: normal affect MS: slight kyphotic spine Assessments ? 1. pos AMA, may have PBC- on urosdiol, low level AMA, ursodiol also being used to reduce gallstone formation 2. unintended weight loss, many possibilities, clinically sounds like gastroparesis or GOO, could be from her gallstones as well PLAN: 1/ cont ursodiol-- 2/ cont with Vit D medciation and take a multi vitamin 3/ CT A/P and CXR 4/ labs, incl TSH 5/ if neg then EGD and maybe [facility] Medical History Chronic cholecystitis Essential hypertension Rika's disease Nontoxic multinodular goiter Primary osteoarthritis of left knee UTI (urinary tract infection) Surgical History History of back surgery History of bilateral knee arthroplasty History of colonoscopy History of esophagogastroduodenoscopy (EGD) History of thyroid surgery History of tonsillectomy Family History Father No problems noted. Mother No problems noted. Social History Household Members: Spouse Housing: House Do you presently have visiting nurse or other home services: No Alcohol intake: former Patient Tobacco Use Status: Former Tobacco user service: No Physical Exam Vital Signs: Last Vital Signs Pulse 62 02/19/23 09:44 BP 145/65 H 02/19/23 09:44 BMI result Body Mass Index 17.7 Assessment & Plan Assessment & Plan (1) Weight loss, abnormal: Code(s): R63.4 - Abnormal weight loss (2) Nausea: Code(s): R11.0 - Nausea (3) Gallstones: Code(s): K80.20 - Calculus of gallbladder without cholecystitis without obstruction (4) Abnormal LFTs: Code(s): R94.5 - Abnormal results of liver function studies Orders: Orders CT abdomen pelvis w IV con Today R63.4 - Abnormal weight loss XR chest 2V Today R11.0 - Nausea, R63.4 - Abnormal weight loss Vitamin B12 and Folate Today K80.20 - Calculus of gallbladder without cholecystitis without obstruction, R11.0 - Nausea, R63.4 - Abnormal weight loss, R94.5 - Abnormal results of liver function studies Comprehensive Met. Panel Today K75.81 - Nonalcoholic steatohepatitis ([place]), K80.20 - Calculus of gallbladder without cholecystitis without obstruction, R11.0 - Nausea, R63.4 - Abnormal weight loss, R94.5 - Abnormal results of liver function studies C Reactive Protein Today K80.20 - Calculus of gallbladder without cholecystitis without obstruction, R11.0 - Nausea, R63.4 - Abnormal weight loss, R94.5 - Abnormal results of liver function studies Ferritin Today K80.20 - Calculus of gallbladder without cholecystitis without obstruction, R11.0 - Nausea, R63.4 - Abnormal weight loss, R94.5 - Abnormal results of liver function studies Complete Blood Count Auto Diff Today K80.20 - Calculus of gallbladder without cholecystitis without obstruction, R11.0 - Nausea, R63.4 - Abnormal weight loss, R94.5 - Abnormal results of liver function studies TSH reflex Free T4 Today R63.4 - Abnormal weight loss Coding Level of Care Code Est Pt Level 4 (31774) Diagnoses Weight loss, abnormal R63.4 Nausea R11.0 Gallstones K80.20 Abnormal LFTs R94.5
[2023-02-19 09:44] VITALS: BP 145/65; PULSE 62; BMI 17.7
== END 2023-02-19 10:14 | disposition home or self-care (01) ==
PROVIDERS: PCP Internal Medicine; Visit Provider Internal Medicine Gastroenterology
DX: R63.4 Abnormal weight loss (principal); R11.0 Nausea; K80.20 Calculus of gallbladder without cholecystitis without obstruction; R94.5 Abnormal results of liver function studies
CPT/HCPCS: 99214

== ENCOUNTER 2023-03-10 14:01 | Inpatient (IN) | payer MEDICARE, SELFPAY ==
[2023-03-10] VITALS (11 sets, daily range): BP systolic 90–124; BP diastolic 35–58; PULSE 84–117; RESP 14–27; TEMP 36.6–36.7; O2SAT 94–100; BMI 17.1; BMI 17.4
--- NOTE | ~2023-03-10 | CT_ITS ---
EXAMINATION: CT HEAD WITHOUT CONTRAST CLINICAL INFORMATION: Weakness CT head from 11/17/2022 COMPARISON: None available. TECHNIQUE: Contiguous axial imaging was performed from the skull base to vertex without intravenous administration of contrast. This CT examination was performed using dose optimization techniques as appropriate, variously including the following: *Automated exposure control *Adjustment of mA and/or kV according to patient size (this includes techniques or standardized protocols for targeted exams where dose is matched to indication/reason for exam; i.e. extremities or head) *Use of iterative reconstruction technique DLP: 697 mGy-cm FINDINGS: There is no evidence of acute intracranial hemorrhage or territorial infarction. No abnormal mass effect or midline shift is seen. [place] to white matter differentiation is well preserved. No extra-axial fluid collections are identified. The ventricles are normal in size. There is no abnormal attenuation within the brain parenchyma. Stable soft tissue nodular focus with peripheral calcification overlying the right posterior parietal bone measuring 1.3 cm. The osseous structures and soft tissues are normal. Right maxillary sinus mucosal retention cysts. The mastoid air cells and visualized portions of the paranasal sinuses are well aerated. CT/CT head/brain wo IV con IMPRESSION: No acute intracranial pathology.
--- NOTE | ~2023-03-10 | XR_ITS ---
EXAMINATION: XR CHEST CLINICAL INFORMATION: Cough and weakness COMPARISON: Chest radiograph 02/19/2023 TECHNIQUE: Frontal view of the chest was obtained. FINDINGS: Right middle lobe consolidation. No pleural effusion. The heart is normal in size. No pneumothorax. XR/XR chest 1V IMPRESSION: Right middle lobe consolidation.
--- NOTE | 2023-03-10 14:07 | ECG_ITS ---
Test Reason : WEAKNESS Blood Pressure : / mmHG Vent. Rate : 109 BPM Atrial Rate : 109 BPM P-R Int : 184 ms QRS Dur : 090 ms QT Int : 362 ms P-R-T Axes : 075 023 074 degrees QTc Int : 487 ms Sinus tachycardia with Premature atrial complexes with Aberrant conduction Septal infarct (cited on or before 08-JUL-2022) Abnormal ECG When compared with ECG of 08-JUL-2022 18:45, Aberrant conduction is now Present GA interval has decreased Referred By: Namrata Ragsdale Electronically Signed By:PIETRO SCHULTE
--- NOTE | 2023-03-10 14:20 | ED.WEAKNESS ---
HPI - Weakness General Chief complaint: General Medical Stated complaint: N/V/D weakness Time Seen by Provider: 03/10/23 14:06 Source: patient and EMS Mode of arrival: EMS Limitations: no limitations History of Present Illness HPI Narrative: 78-year-old female with history of dementia, hypertension, Rika's disease presents the ER with multiple complaints. Her son is the patient over the last week has been generally weak, feeling lightheaded and dizzy when she is walking, increased confusion from baseline. She has had a cough and congestion. She tells also had some intermittent nausea and vomiting that seems more around taking her medication. She did have 1 episode of diarrhea today but there has been no associated abdominal pain, urinary symptoms or fevers. She denies any shortness of breath, chest pain, leg swelling or leg pain. She did tell the son a few days ago that her upper vision on her right eye was blurry but states today its been like that a long time. No eye pain, headache, photophobia, discharge. Related Data Home Medications Medication Instructions Recorded Confirmed cholecalciferol (vitamin D3) 25 25 mcg PO DAILY 04/10/20 12/19/22 mcg (1,000 unit) capsule acetaminophen 500 mg tablet 1,000 mg PO Q6H PRN Headache 07/09/22 12/19/22 multivitamin 1 tab PO DAILY 07/09/22 12/19/22 donepezil 10 mg tablet 10 mg PO BEDTIME 08/17/22 12/19/22 sertraline 25 mg tablet 25 mg PO DAILY 08/17/22 12/19/22 chlorthalidone 25 mg tablet 25 mg PO DAILY 09/11/22 12/19/22 potassium chloride 20 mEq 20 meq PO BID 09/11/22 12/19/22 tablet,extended release(part/cryst) (Klor-Con M) memantine 5 mg tablet 5 mg PO BID 02/19/23 Previous Rx's Medication Instructions Recorded ursodiol 500 mg tablet 500 mg PO BID #60 tabs 09/11/22 Allergies Allergy/AdvReac Type Severity Reaction Status Date / Time celecoxib [From CELEBREX] Allergy Intermediate RASH Verified 02/19/23 09:46 Sulfa (Sulfonamide Allergy Intermediate RASH Verified 02/19/23 09:46 Antibiotics) tomato Allergy Rash Verified 02/19/23 09:46 From PERCOCET Allergy Intermediate RASH Uncoded 02/19/23 09:46 Review of Systems Review of Systems: Yes all other systems are reviewed and are negative Constitutional: Constitutional: Reports no additional constitutional complaints, Denies body ache(s), Denies chills, Denies fever(s), Denies headache(s) and Reports weakness Eyes: Eyes: Reports no additional eye complaints and Reports change in vision ENT: Reports system reviewed and no additional complaints, except as documented, Reports dizziness, Denies headache(s), Denies nasal congestion, Denies nasal discharge and Denies neck pain Cardiovascular: Cardiovascular: Reports no additional cardiovascular complaints, Denies chest pain, Denies leg edema and Denies dyspnea Respiratory: Respiratory: Reports no additional respiratory complaints, Reports cough and Denies dyspnea Gastrointestinal: Gastrointestinal: Reports no additional gastrointestinal complaints, Denies abdominal pain, Reports diarrhea, Reports nausea and Reports vomiting Genitourinary: Genitourinary: Reports no additional female genitourinary complaints and Denies urinary incontinence Musculoskeletal: Musculoskeletal: Reports no additional musculoskeletal complaints, Denies back pain, Denies arthralgias, Denies joint swelling, Denies neck pain, Denies numbness and Denies tingling Integumentary/Breasts: Skin/Breast: Reports system reviewed and no additional complaints, except as docu and Denies rash Neurologic: Reports system reviewed and no additional complaints, except as documented, Denies Abnormal speech present, Reports dizziness, Denies headache(s), Denies numbness, Denies tingling and Reports weakness PMFSH Past Medical History Attestation statement: The following information was validated with the patient. Source: old records reviewed and nursing notes reviewed Medical History Chronic cholecystitis Essential hypertension Rika's disease Nontoxic multinodular goiter Primary osteoarthritis of left knee UTI (urinary tract infection) Surgical History History of back surgery History of bilateral knee arthroplasty History of colonoscopy History of esophagogastroduodenoscopy (EGD) History of thyroid surgery History of tonsillectomy Family History Family History Father No problems noted. Mother No problems noted. Social History Social History Household Members: Spouse Housing: House Do you presently have visiting nurse or other home services: No Alcohol intake: former Patient Tobacco Use Status: Former Tobacco user Smoked in Last 30 Days: No Use of substances other than those prescribed or required for medical reasons: No Advance Directives: No Advance Directives Information Provided: No service: No Physical Exam Vital Signs: Vital Signs: Last Vital Signs Temp 98.1 F 03/10/23 14:17 Pulse 106 H 03/10/23 15:49 Resp 14 03/10/23 16:00 BP 95/41 L 03/10/23 15:49 Pulse Ox 94 03/10/23 16:00 O2 Del Method Room Air 03/10/23 16:00 O2 Flow Rate 3 03/10/23 15:24 Oxygen Flow Rate 2 03/10/23 14:17 BMI result Body Mass Index 17.1 Const: General: cooperative, healthy appearing, comfortable and no acute distress Orientation/consciousness: patient oriented x3 Limitations: no limitations HEENT: Head: Yes normal to inspection Ears: hearing grossly normal bilaterally and TM's normal bilaterally General nose exam: Normal external nose present Face and sinus: Yes normal facial exam Mouth: Normal oral and palatal mucosa present Throat: Yes posterior oropharynx normal, Yes tonsils normal and Yes uvula midline Eyes: General: appearance normal, both eyes and all related structures Visual Henderson: normal visual henderson by confrontation Alignment and Position: alignment normal Periorbital: periorbital findings normal Eyelids: Yes eyelids normal Conjunctivae: conjunctivae normal Sclerae: sclerae normal Corneas: corneas normal Pupils: Equal, round and reactive pupils present EOM: EOMs intact bilaterally Direct Ophthalmoscopy: normal light reflex Neck: Neck: Yes normal visual inspection, Yes full ROM, Yes no lymphadenopathy and Yes no meningeal signs Chest: Chest palpation & inspection: normal inspection of the chest Resp: Other: coarse BS Effort & Inspection: normal respiratory effort Auscultation: clear to auscultation bilaterally Cardio: Rate: regular rate Rhythm: regular rhythm Peripheral pulses: Peripheral pulses 2+ throughout GI: Inspection: Yes normal to inspection Palpation (GI): Soft to palpation and nontender Auscultation: normal bowel sounds Back/Spine/Pelvis: Thoracic/Lumbar Spine: thoracic and lumbar spine normal to inspection Skin: General skin exam: no rashes or lesions noted Neuro: General: patient oriented x3, moves all extremities, no meningeal signs, no focal motor deficits, normal sensation to monofilament and Unable to assess gait Cranial nerves: Yes CN's II-XII intact bilaterally, Yes Equal, round and reactive pupils present, Yes Bilaterally intact EOM present, Yes Nystagmus not present and Yes Midline tongue present Cognition (Neuro): normal cognition Speech: No Abnormal speech present Gait exam (Neuro): Unable to assess gait Motor exam (neuro): 5/5 motor strength present throughout Sensory Exam: Normal double simultaneous stimulation for sensation Extrem: General: Yes normal to inspection, Yes no pedal edema and Yes no calf tenderness Course Course Course Narrative: 1550-Orthos +. Will give IVF. Labs show leukocytosis unclear source. At this time infection suspected. Antibiotics ordered. Reevaluation(s) Reevaluation #1: 1630-troponin is indeterminate. No chest pain or EKG changes. Plan for repeat 3 hour troponin. Additional labs show mild hypokalemia otherwise unremarkable. Patient's chest x-ray and CT head are pending. Her orthostatics are positive. Sign out to Maryam REYNOSO pending above Reevaluation #2: Found to have right middle lobe pneumonia. CT head CT is okay. Repeat troponin is pending. Will plan for admission for pneumonia, orthostatic hypotension. Hospitalist arian rivers and who accepts admission. Time: 17:34 Medications Administered Discontinued Medications Generic Name Dose Route Start Last Admin Trade Name Freq PRN Reason Stop Dose Admin Sodium Chloride 1,000 mls @ 999 mls/hr 03/10/23 15:48 03/10/23 17:06 Ns IV 03/10/23 16:48 Infused .Q1H1M STA Infusion Ceftriaxone Sodium 1 gm/ 50 mls @ 100 mls/hr 03/10/23 15:49 03/10/23 17:06 Sodium Chloride IV 03/10/23 16:18 Infused ONCE ONE Infusion Ondansetron HCl 4 mg 03/10/23 14:07 03/10/23 15:17 Ondansetron Hcl 4 Mg/2 Ml Vial IVPUSH 03/10/23 14:08 Not Given ONCE ONE Potassium Chloride 40 meq 03/10/23 15:57 03/10/23 16:04 Potassium Chloride Er 20 Meq Tab.Er.Prt PO 03/10/23 15:58 40 meq ONCE ONE Administration Medical Decision Making Medical Decision Making [facility] Narrative: 78-year-old female with history of dementia, hypertension, Rika's disease presents the ER with multiple complaints.? Her son is the patient over the last week has been generally weak, feeling lightheaded and dizzy when she is walking, increased confusion from baseline.? She has had a cough and congestion.? She tells also had some intermittent nausea and vomiting that seems more around taking her medication.? She did have 1 episode of diarrhea today but there has been no associated abdominal pain, urinary symptoms or fevers.? She denies any shortness of breath, chest pain, leg swelling or leg pain. She did tell the son a few days ago that her upper vision on her right eye was blurry but states today its been like that a long time. No eye pain, headache, photophobia, discharge. Exam patient is alert, oriented. No focal neurological deficits. She has coarse breath sounds. She has a frequent congested cough. Will obtain labs, UA, EKG, chest x-ray, COVID screen, CT head, orthostatics Differential Diagnosis Differential Diagnoses: The differential diagnosis associated with the presentation includes Pneumonia, dehydration, electrolyte abnormality Low concern for PE, ACS, acute abdominal pathology, CVA Admission/Observation Consideration of admission/observation: Escalation of care including admission/observation considered Consult Healthcare Provider Management of the patient was discussed with: Hospitalist Dr. Jil PINTO for admit Lab Data [facility] Lab Attestation statement: I reviewed the patient's lab results. 03/10/23 15:15 03/10/23 15:15 Labs: Lab Results 03/10/23 03/10/23 03/10/23 Range/Units 15:15 15:15 15:15 WBC 17.0 H (4.8-10.8) X10*3/uL RBC 3.98 L (4.20-5.50) X10*6/uL Hgb 11.9 L (12.0-16.0) g/dl Hct 35.3 L (37.0-47.0) % MCV 88.7 (80.0-98.0) fL MCH 29.9 (27.0-33.0) pg MCHC 33.7 (31.0-35.0) g/dl RDW 13.2 (11.0-16.0) % Plt Count 218 (160-400) X10*3/uL MPV 11.1 (9.4-12.3) fL Immature Gran % (Auto) 0.8 H (0.0-0.4) % Neut % (Auto) 82.7 H (45-73) % Lymph % (Auto) 5.9 L (20-40) % Galax % (Auto) 9.9 (2-11) % Eos % (Auto) 0.5 (0-4) % Baso % (Auto) 0.2 (0-2) % Lymph # (Auto) 1.0 L (1.2-4.9) X10*3/uL Galax # (Auto) 1.7 H (0.1-1.2) X10*3/uL Eos # (Auto) 0.1 (0.0-0.4) X10*3/uL Baso # (Auto) 0.0 (0.0-0.2) X10*3/uL Abs Immat Gran (auto) 0.14 H (0.00-0.03) X10*3/uL Absolute Neuts (auto) 14.1 H (2.0-8.3) x10*3/uL Absolute Nucleated RBC 0.000 (0.0-0.012) X10*3/uL Nucleated RBC % (auto) 0.0 (0.0-0.2) /100WBC PT (11.1-13.3) SEC INR (0.9-1.1) Sodium 137 (135-145) mmol/L Potassium 3.2 L (3.3-5.1) mmol/L Chloride 97 (96-108) mmol/L Carbon Dioxide 27 (22-29) mmol/L Anion Gap 16 (12-20) BUN 12 (9-16) mg/dL Creatinine 0.84 (0.5-1.4) mg/dL Estim Creat Clear Calc 40.0 Estimated GFR > 60 Random Glucose 97 (60-115) mg/dL Lactic Acid (0.5-2.0) mmol/L Calcium 10.1 (8.4-10.2) mg/dL Magnesium 2.0 (1.6-2.6) mg/dL Total Bilirubin 1.2 H (0.0-1.0) mg/dL Direct Bilirubin 0.4 (0.0-0.5) mg/dL AST 28 (5-31) U/L ALT 13 (0-31) U/L Alkaline Phosphatase 112 (39-117) U/L Troponin I High Sens 54.4 H* (<3.5-17.0) ng/L Total Protein 7.3 (6.5-8.0) g/dL Albumin 3.8 (3.5-5.0) g/dL COVID-19 ([place]) (Negative) COVID-19 Clin Com 03/10/23 03/10/23 03/10/23 Range/Units 15:15 15:15 15:41 WBC (4.8-10.8) X10*3/uL RBC (4.20-5.50) X10*6/uL Hgb (12.0-16.0) g/dl Hct (37.0-47.0) % MCV (80.0-98.0) fL MCH (27.0-33.0) pg MCHC (31.0-35.0) g/dl RDW (11.0-16.0) % Plt Count (160-400) X10*3/uL MPV (9.4-12.3) fL Immature Gran % (Auto) (0.0-0.4) % Neut % (Auto) (45-73) % Lymph % (Auto) (20-40) % Galax % (Auto) (2-11) % Eos % (Auto) (0-4) % Baso % (Auto) (0-2) % Lymph # (Auto) (1.2-4.9) X10*3/uL [place]ax # (Auto) (0.1-1.2) X10*3/uL Eos # (Auto) (0.0-0.4) X10*3/uL Baso # (Auto) (0.0-0.2) X10*3/uL Abs Immat Gran (auto) (0.00-0.03) X10*3/uL Absolute Neuts (auto) (2.0-8.3) x10*3/uL Absolute Nucleated RBC (0.0-0.012) X10*3/uL Nucleated RBC % (auto) (0.0-0.2) /100WBC PT 14.2 H D (11.1-13.3) SEC INR 1.2 H (0.9-1.1) Sodium (135-145) mmol/L Potassium (3.3-5.1) mmol/L Chloride (96-108) mmol/L Carbon Dioxide (22-29) mmol/L Anion Gap (12-20) BUN (9-16) mg/dL Creatinine (0.5-1.4) mg/dL Estim Creat Clear Calc Estimated GFR Random Glucose (60-115) mg/dL Lactic Acid 2.0 (0.5-2.0) mmol/L Calcium (8.4-10.2) mg/dL Magnesium (1.6-2.6) mg/dL Total Bilirubin (0.0-1.0) mg/dL Direct Bilirubin (0.0-0.5) mg/dL AST (5-31) U/L ALT (0-31) U/L Alkaline Phosphatase (39-117) U/L Troponin I High Sens (<3.5-17.0) ng/L Total Protein (6.5-8.0) g/dL Albumin (3.5-5.0) g/dL COVID-19 ([place]) Negative (Negative) COVID-19 Clin Com See Note Independent Interpretation I performed an independent interpretation of an: EKG, Plain X-Ray and CT Scan Interpretation: I independently reviewed the EKG which shows sinus tachycardia with a rate of 109, normal RI, normal QRS, normal QT Radiology Impression Discussion of test interpretation with radiology: I have reviewed the radiologist's reading. Radiologist Impression: EXAMINATION: CT HEAD WITHOUT CONTRAST CLINICAL INFORMATION: Weakness CT head from 11/17/2022? COMPARISON: None available. TECHNIQUE: Contiguous axial imaging was performed from the skull base to vertex without intravenous administration of contrast. This CT examination was performed using dose optimization techniques as appropriate, variously including the following: *Automated exposure control *Adjustment of mA and/or kV according to patient size (this includes techniques or standardized protocols for targeted exams where dose is matched to indication/reason for exam; i.e. extremities or head) *Use of iterative reconstruction technique DLP: 697 mGy-cm FINDINGS: There is no evidence of acute intracranial hemorrhage or territorial infarction. No abnormal mass effect or midline shift is seen. Dunham to white matter differentiation is well preserved. No extra-axial fluid collections are identified. The ventricles are normal in size. There is no abnormal attenuation within the brain parenchyma. Stable soft tissue nodular focus with peripheral calcification overlying the right posterior parietal bone measuring 1.3 cm. The osseous structures and soft tissues are normal. Right maxillary sinus mucosal retention cysts. The mastoid air cells and visualized portions of the paranasal sinuses are well aerated. ? CT/CT head/brain wo IV con IMPRESSION: No acute intracranial pathology. EXAMINATION: XR CHEST CLINICAL INFORMATION: Cough and weakness COMPARISON: Chest radiograph 02/19/2023 TECHNIQUE: Frontal view of the chest was obtained. FINDINGS: Right middle lobe consolidation. No pleural effusion. The heart is normal in size. No pneumothorax. XR/XR chest 1V IMPRESSION: Right middle lobe consolidation. ? Independent Historian Clinical information obtained from an independent historian. History obtained from or confirmed by: EMS Son at the bedside External Record Review External record reviewed: Inpatient record, Outpatient record and Prior outpatient labs Prescription Management I considered prescription management with: Antibiotic Discharge Plan Discharge Clinical Impression: Orthostatic hypotension, Leukocytosis, Hypokalemia, Right middle lobe pneumonia Patient Disposition: Admitted As Inpatient
[2023-03-10 15:31] LABS: MANUAL DIFF FLAG NO
[2023-03-10 15:33] LABS: Basophils Percent Auto 0.2 % (0-2); Eosinophils Absolute Auto 0.1 X10*3/uL (0.0-0.4); Eosinophils Percent Auto 0.5 % (0-4); Hematocrit 35.3 % (37.0-47.0); Hemoglobin 11.9 g/dl (12.0-16.0); Imm Gran Abs Auto 0.14 X10*3/uL (0.00-0.03); Imm Gran Pct Auto 0.8 % (0.0-0.4); Lymphocytes Percent Auto 5.9 % (20-40); Mean Corpuscular HGB Conc 33.7 g/dl (31.0-35.0); Mean Corpuscular Hemoglobin 29.9 pg (27.0-33.0); Mean Corpuscular Volume 88.7 fL (80.0-98.0); Mean Platelet Volume 11.1 fL (9.4-12.3); Monocytes Absolute Auto 1.7 X10*3/uL (0.1-1.2); Monocytes Percent Auto 9.9 % (2-11); Neutrophils Absolute Auto 14.1 x10*3/uL (2.0-8.3); Neutrophils Percent Auto 82.7 % (45-73); Platelet Count 218 X10*3/uL (160-400); Red Blood Count 3.98 X10*6/uL (4.20-5.50); Red Cell Distribution Width 13.2 % (11.0-16.0); SCAN SMEAR FLAG 1
[2023-03-10 15:52] LABS: Alanine Aminotransferase 13 U/L (0-31); Albumin Level 3.8 g/dL (3.5-5.0); Alkaline Phosphatase 112 U/L (39-117); Anion Gap 16 (12-20); Aspartate Amino Transferase 28 U/L (5-31); Bilirubin Direct 0.4 mg/dL (0.0-0.5); Bilirubin Total 1.2 mg/dL (0.0-1.0); Blood Urea Nitrogen 12 mg/dL (9-16); Calcium 10.1 mg/dL (8.4-10.2); Carbon Dioxide 27 mmol/L (22-29); Chloride 97 mmol/L (96-108); Estimated Glomerular Filt Rate > 60; Glucose Random 97 mg/dL (60-115); Potassium 3.2 mmol/L (3.3-5.1); Sodium 137 mmol/L (135-145); Total Protein 7.3 g/dL (6.5-8.0)
[2023-03-10 15:53] LABS: INTERNATIONAL NORM RATIO 1.2 (0.9-1.1); Prothrombin Time 14.2 SEC (11.1-13.3)
[2023-03-10] MEDS: 0.9 % Sodium Chloride 1,000 ML 999 ML IV (16:00)
[2023-03-10] MEDS: cefTRIAXone sodium 1 GM in 0.9 % Sodium Chloride 50 ML IV (16:00)
[2023-03-10] MEDS: Potassium Chloride ER 20 MEQ TAB.ER.PRT 40 MEQ PO (16:04)
[2023-03-10 16:14] LABS: COVID-19 Test Negative (Negative); IDNOW Serial# 08D9AD1C
--- NOTE | 2023-03-10 16:14 | PC.NURSE ---
pt a&o, with some confusion, hx of dementia. pt changed over to hospital attire, 20G IV placed to the LAC, labs drawn and sent to lab. pt presented to the ED wearing 4L NO2, sating around 98%. pt taken off NC and sating on room air around 89-94%. currently resting quietly on stretcher in no apparent distress, with son at bedside. call owens within reach. rr even/unlabored.
[2023-03-10 16:18] LABS: Troponin-I High Sensitivity 54.4 ng/L (<3.5-17.0)
--- NOTE | 2023-03-10 17:41 | PHA.MEDREC ---
Pharmacy Consult ? Medication Reconciliation Pharmacy has completed the medication reconciliation.
--- NOTE | 2023-03-10 18:07 | P.HPHOSP_ITS ---
History of Present Illness Date of Service: 03/10/23 Attending physician on admission: Lonnie Ley Chief Complaint: cough, confusion, dizziness 78-year-old female his story of Rika's disease, hypertension, chronic cholecystitis, and unspecified dementia presents to the ED via EMS for evaluation of multiple complaints. She reports for the last week, she has had cough, congestion, anorexia, sweats, fatigue. Her son also reports she has been disoriented from baseline. She also had an episode of vomiting and diarrhea this morning. Denies any fevers or chills. No sick contacts known. This morning she also had an episode of near syncope while sitting on her bed and she fell backwards onto the pillows. There is no loss of consciousness. He states these near syncopal episodes have happened in the past. On arrival, blood pressure soft, but otherwise stable. Felice developed mild tachycardia to 106 tachypnea to 25. Orthostatic vital signs were positive. She has a leukocytosis of 17.0. Renal function baseline, electrolyte levels normal except for mild hypokalemia of 3.2. Initial troponin 54.4. Repeat pending. Negative for COVID-19. Head CT negative for any acute intracranial pathology. Chest x-ray shows right middle lobe consolidation. In the ED given 1 L IVF, 1 g IV ceftriaxone, and 40 mEq potassium chloride. Her son, Hollis, is present in the exam room and assists with history. Review of Systems Review of Systems: General: No fevers, malaise, unintentional weight loss HEENT: No sore throat, rhinorrhea, sinus pain, ear pain Cardiovascular: No chest pain, palpitations, or leg edema Respiratory: +cough, +congestion. No shortness of breath, wheezing GI: +vomiting, +diarrhea, +nausea. No abdominal pain, constipation, melena, hematochezia : No dysuria, hematuria, increased urinary frequency, decreased urinary output MSK: No myalgia, back pain Neuro: No headaches, weakness, paresthesias. +near syncope Skin: No rashes or lesions [facility] Medical History Chronic cholecystitis Dementia Essential hypertension Rika's disease Nontoxic multinodular goiter Primary osteoarthritis of left knee UTI (urinary tract infection) Family History Father No problems noted. Mother No problems noted. Surgical History History of back surgery History of bilateral knee arthroplasty History of colonoscopy History of esophagogastroduodenoscopy (EGD) History of thyroid surgery History of tonsillectomy Social History Household Members: Spouse Housing: House Do you presently have visiting nurse or other home services: No Alcohol intake: former Patient Tobacco Use Status: Former Tobacco user Smoked in Last 30 Days: No Use of substances other than those prescribed or required for medical reasons: No Advance Directives: No Advance Directives Information Provided: No service: No Meds Allergies Allergy/AdvReac Type Severity Reaction Status Date / Time celecoxib [From CELEBREX] Allergy Intermediate RASH Verified 02/19/23 09:46 Sulfa (Sulfonamide Allergy Intermediate RASH Verified 02/19/23 09:46 Antibiotics) tomato Allergy Rash Verified 02/19/23 09:46 From PERCOCET Allergy Intermediate RASH Uncoded 02/19/23 09:46 Active Medications: Current Medications Acetaminophen (Acetaminophen 325 Mg Tablet) 650 mg PO Q6H PRN PRN Reason: Pain, Mild (Pain Scale 1-3) Docusate Sodium (Docusate Sodium 100 Mg Capsule) 100 mg PO DAILY PRN PRN Reason: Constipation Donepezil HCl (Donepezil Hcl 10 Mg Tablet) 10 mg PO BEDTIME [facility] Enoxaparin Sodium (Enoxaparin Sodium 40 Mg/0.4 Ml Syringe) 40 mg SUBCUT Q24H [facility] Azithromycin 500 mg/ Sodium (Chloride) 250 mls @ 125 mls/hr IV Q24H [facility] Ceftriaxone Sodium 1 gm/ (Sodium Chloride) 50 mls @ 100 mls/hr IV Q24H [facility] Sodium Chloride (Ns) 1,000 mls @ 100 mls/hr IVCONT .Q10H [facility] Memantine (Memantine Hcl 5 Mg Tablet) 5 mg PO BID [facility] Multivitamins/Vitamin C (Multivitamin Tablet) 1 tab PO DAILY [facility] Non-Formulary Medication (Ursodiol) 500 mg PO DAILY [facility] Ondansetron HCl (Ondansetron Hcl 4 Mg/2 Ml Vial) 4 mg IVPUSH Q8H PRN PRN Reason: Nausea and Vomiting Potassium Chloride (Potassium Chloride Er 20 Meq Tab.Er.Prt) 20 meq PO BID [facility] Sertraline HCl (Sertraline Hcl 25 Mg Tablet) 25 mg PO DAILY [facility] Sodium Chloride (0.9 % Sodium Chloride Flush 3 Ml Syringe) 3 ml IVFLUSH QSHIFT [facility] Vitamin D (Cholecalciferol (Vitamin D3) 25 Mcg Tablet) 25 mcg PO DAILY [facility] Home Medications Medication Instructions Recorded Confirmed Last Taken Type cholecalciferol (vitamin D3) 25 25 mcg PO DAILY 04/10/20 03/10/23 07/08/22 History mcg (1,000 unit) capsule acetaminophen 500 mg tablet 1,000 mg PO Q6H PRN Headache 07/09/22 03/10/23 Unknown History multivitamin 1 tab PO DAILY 07/09/22 03/10/23 07/08/22 History donepezil 10 mg tablet 10 mg PO BEDTIME 08/17/22 03/10/23 Unknown History sertraline 25 mg tablet 25 mg PO DAILY 08/17/22 03/10/23 Unknown History chlorthalidone 25 mg tablet 25 mg PO DAILY 09/11/22 03/10/23 Unknown History potassium chloride 20 mEq 20 meq PO BID 09/11/22 03/10/23 Unknown History tablet,extended release(part/cryst) (Klor-Con M) memantine 5 mg tablet 5 mg PO BID 02/19/23 03/10/23 Unknown History ursodiol 500 mg tablet 500 mg PO DAILY 03/10/23 03/10/23 Unknown History Physical Exam Vital Signs and Narrative: Vital Signs: Last Vital Signs Temp 98.1 F 03/10/23 14:17 Pulse 91 03/10/23 18:00 Resp 27 H 03/10/23 18:00 BP 119/54 L 03/10/23 18:00 Pulse Ox 97 03/10/23 18:00 O2 Del Method Room Air 03/10/23 18:00 O2 Flow Rate 3 03/10/23 15:24 Oxygen Flow Rate 2 03/10/23 14:17 BMI result Body Mass Index 17.1 Constitutional - Awake and Alert, No apparent distress Eyes - PERRLA, EOMI Cardiovascular - S1S2, RRR, No edema Respiratory - Normal lung expansion, Normal respiratory effort, No respiratory distress, Rhonchi RML/RLL, diminished bases bilaterally Gastrointestinal - NT / ND; +BS; No rebound or guarding Extremities - no calf tenderness bilaterally, no swelling Skin - Warm/Dry Neurological - Alert & oriented x3, but requires redirection and answering questions appropriately. CN II-XII in tact, 5/5 strength BUE and BLE Psychological - Appropriate affect Results Labs 03/10/23 15:15 03/10/23 15:15 Labs: Laboratory Results - last 24 hr 03/10/23 03/10/23 03/10/23 15:15 15:15 15:15 MCV 88.7 MCH 29.9 MCHC 33.7 RDW 13.2 Plt Count 218 MPV 11.1 Immature Gran % (Auto) 0.8 H Neut % (Auto) 82.7 H Lymph % (Auto) 5.9 L Mcd[place] % (Auto) 9.9 Eos % (Auto) 0.5 Baso % (Auto) 0.2 Lymph # (Auto) 1.0 L [place]cd[place] # (Auto) 1.7 H Eos # (Auto) 0.1 Baso # (Auto) 0.0 Abs Immat Gran (auto) 0.14 H Absolute Neuts (auto) 14.1 H Absolute Nucleated RBC 0.000 Nucleated RBC % (auto) 0.0 PT 14.2 H D INR 1.2 H Anion Gap 16 Estim Creat Clear Calc 40.0 Estimated GFR > 60 Random Glucose 97 Lactic Acid Calcium 10.1 Magnesium 2.0 Total Bilirubin 1.2 H Direct Bilirubin 0.4 AST 28 ALT 13 Alkaline Phosphatase 112 Total Protein 7.3 Albumin 3.8 COVID-19 ([place]) COVID-19 Clin Com 03/10/23 03/10/23 15:15 15:41 MCV MCH MCHC RDW Plt Count MPV Immature Gran % (Auto) Neut % (Auto) Lymph % (Auto) [place]cd[place] % (Auto) Eos % (Auto) Baso % (Auto) Lymph # (Auto) [place] # (Auto) Eos # (Auto) Baso # (Auto) Abs Immat Gran (auto) Absolute Neuts (auto) Absolute Nucleated RBC Nucleated RBC % (auto) PT INR Anion Gap Estim Creat Clear Calc Estimated GFR Random Glucose Lactic Acid 2.0 Calcium Magnesium Total Bilirubin Direct Bilirubin AST ALT Alkaline Phosphatase Total Protein Albumin COVID-19 ([place]) Negative COVID-19 Clin Com See Note Imaging Radiologist's Impressions: Impressions Head CT 03/10/23 14:55 IMPRESSION: No acute intracranial pathology. Chest X-Ray 03/10/23 14:58 IMPRESSION: Right middle lobe consolidation. Assessment and Plan (1) Orthostatic hypotension: Status: Acute (2) Right middle lobe pneumonia: Status: Acute (3) Sepsis: Status: Acute (4) Acute metabolic encephalopathy: Status: Acute Plan 78-year-old female his story of Rika's disease, hypertension, chronic cholecystitis, and unspecified dementia admitted for pneumonia with sepsis and metabolic encephalopathy #Acute RML pneumonia with sepsis -Leukocytosis 17.0, tachycardic, tachypneic. Lactic acid normal, no end organ damage. No severe sepsis/shock -IV ceftriaxone and IV azithromycin (initiated 03/10) -sputum culture, strep pneumo antigen, Legionella antigen pending -symptomatic management -follow CBC, cultures # acute metabolic encephalopathy -secondary to infection -head CT negative # acute hypokalemia -repleted in the ED, follow BMP # orthostatic hypotension -given 1 L IVF bolus in the ED, continue IVF at 80 mL/hr -repeat orthostatics a.m. #Elevated troponin -Initial 54.4, repeat pending -EKG nonischemic -No anginal chest pain. -Consider echo if needed # hypertension -blood pressure soft -hold antihypertensives in the setting of sepsis # Rika's disease -not on medication # unspecified dementia -continue memantine and donepezil DVT prophylaxis-Lovenox Full code Patient requires inpatient stay at least 2 midnights for management of acute pneumonia with sepsis and metabolic encephalopathy requiring IV antibiotics and close monitoring of vital signs in mentation Time Spent With Patient Time: Total time managing care of this patient today ____ minutes. Quality Stroke Does the patient have a stroke diagnosis?: No VTE Prior VTE?: No VTE Risk Level:: Medical - moderate - high VTE Device Contraindication: Treatment Not Indicated VTE Drug Contraindication: N/A - Med Ordered
--- NOTE | 2023-03-10 18:27 | MHC.EDTECH ---
Spoke to ANGELES Francisco she states only to draw 1800 Troponin. Jasper Sharif R.N. domenic SG
[2023-03-10 18:35] LABS: Troponin-I High Sensitivity 52.3 ng/L (<3.5-17.0)
[2023-03-10] MEDS: 0.9 % Sodium Chloride 1,000 ML 80 ML IVCONT (18:46)
[2023-03-10] MEDS: Enoxaparin Sodium 40 MG/0.4 ML SYRINGE SUBCUT (18:46)
[2023-03-10] MEDS: Azithromycin 500 MG in 0.9 % Sodium Chloride 250 ML 125 MG IV (18:58)
[2023-03-10 19:02] LABS: Troponin-I High Sensitivity 57.1 ng/L (<3.5-17.0)
[2023-03-10] MEDS: Donepezil HCl 10 MG TABLET PO (21:35)
[2023-03-10] MEDS: Memantine HCl 5 MG TABLET PO (21:35)
[2023-03-10] MEDS: Potassium Chloride ER 20 MEQ TAB.ER.PRT PO (21:36)
[2023-03-10] MEDS: 0.9 % Sodium Chloride Flush 3 ML SYRINGE IVFLUSH (21:36)
[2023-03-11] VITALS (7 sets, daily range): BP systolic 112–141; BP diastolic 50–64; PULSE 76–97; RESP 14–22; TEMP 36.6–37.6; O2SAT 94–97
[2023-03-11 01:36] LABS: Appearance Urine Clear; Color Urine Yellow; Glucose Urine UA Negative (Negative); Leukocyte Esterase Urine Trace (Negative); Nitrite Urine Negative (Negative); PH 5.5 (5.0-9.0); Specific Gravity - Urine 1.015 (1.005-1.025); UMIC TRIGGER UACC YES; Urine Blood Negative (Negative); Urine Ketones Trace mg/dL (Negative); Urine Protein Trace mg/dL (Neg-Trace)
[2023-03-11 01:47] LABS: Bacteria Urine None Seen (None Seen); Granular Casts Urine Present; Squamous Epithelial Cell Urine 0-2 /HPF (0-2); WBC Urine 0-5 /HPF (0-5)
[2023-03-11] MEDS: 0.9 % Sodium Chloride 1,000 ML 80 ML IVCONT ×2 (05:47→20:05)
[2023-03-11 06:54] LABS: Basophils Percent Auto 0.2 % (0-2); Hemoglobin 10.6 g/dl (12.0-16.0); Imm Gran Abs Auto 0.08 X10*3/uL (0.00-0.03); Imm Gran Pct Auto 0.5 % (0.0-0.4); Lymphocytes Absolute Auto 1.1 X10*3/uL (1.2-4.9); Lymphocytes Percent Auto 6.7 % (20-40); MANUAL DIFF FLAG SCAN; Mean Corpuscular HGB Conc 33.1 g/dl (31.0-35.0); Mean Corpuscular Hemoglobin 29.9 pg (27.0-33.0); Mean Corpuscular Volume 90.4 fL (80.0-98.0); Mean Platelet Volume 10.9 fL (9.4-12.3); Monocytes Absolute Auto 1.6 X10*3/uL (0.1-1.2); Neutrophils Absolute Auto 13.2 x10*3/uL (2.0-8.3); Neutrophils Percent Auto 82.6 % (45-73); Platelet Count 213 X10*3/uL (160-400); Red Blood Count 3.54 X10*6/uL (4.20-5.50); Red Cell Distribution Width 13.2 % (11.0-16.0); SCAN SMEAR FLAG 1
[2023-03-11 07:16] LABS: Anion Gap 13 (12-20); Blood Urea Nitrogen 12 mg/dL (9-16); Calcium 9.1 mg/dL (8.4-10.2); Carbon Dioxide 23 mmol/L (22-29); Chloride 108 mmol/L (96-108); Creatinine Clr Calc Pharmacy 46.8; Estimated Glomerular Filt Rate > 60; Glucose Random 79 mg/dL (60-115); Potassium 2.8 mmol/L (3.3-5.1); Sodium 141 mmol/L (135-145)
[2023-03-11 07:33] LABS: SLIDE REVIEW VERIFIED
[2023-03-11] MEDS: Cholecalciferol (Vitamin D3) 25 MCG TABLET PO (08:47)
[2023-03-11] MEDS: Memantine HCl 5 MG TABLET PO ×2 (08:47→20:05)
[2023-03-11] MEDS: Potassium Chloride ER 20 MEQ TAB.ER.PRT PO ×2 (08:48→20:05)
[2023-03-11] MEDS: Sertraline HCL 25 MG TABLET PO (08:48)
[2023-03-11] MEDS: Multivitamin TABLET 1 TAB PO (08:48)
--- NOTE | 2023-03-11 09:42 | HO.PM.IMPN ---
Subjective Subjective Date of Service: 03/11/23 Interval History: confused, no complaints Physical Exam Vital Signs: Vital Signs: Last Vital Signs Temp 97.8 F 03/11/23 07:42 Pulse 97 03/11/23 08:26 Resp 14 03/11/23 07:42 BP 132/51 L 03/11/23 08:26 Pulse Ox 96 03/11/23 07:42 O2 Del Method Room Air 03/11/23 07:42 O2 Flow Rate 3 03/10/23 15:24 Oxygen Flow Rate 2 03/10/23 14:17 BMI result Body Mass Index 17.4 General: AO X 1, frail appearing Resp: CTA bilateral, no accessory muscles used CVS: S1,S2,RRR GI: soft, non tender, non distended Neuro: motor grossly intact, alert Psych: appropriate affect, impaired insight Objective Data Active Medications Acetaminophen (Acetaminophen 325 Mg Tablet) 650 mg PO Q6H PRN PRN Reason: Pain, Mild (Pain Scale 1-3) Docusate Sodium (Docusate Sodium 100 Mg Capsule) 100 mg PO DAILY PRN PRN Reason: Constipation Donepezil HCl (Donepezil Hcl 10 Mg Tablet) 10 mg PO BEDTIME [facility] Last Admin: 03/10/23 21:35 Dose: 10 mg Documented By: EVAN Enoxaparin Sodium (Enoxaparin Sodium 40 Mg/0.4 Ml Syringe) 40 mg SUBCUT Q24H [facility] Last Admin: 03/10/23 18:46 Dose: 40 mg Documented By: MILIND Guaifenesin (Guaifenesin 200 Mg/10 Ml 10 Ml Liquid) 10 ml PO Q6H PRN PRN Reason: Cough Azithromycin 500 mg/ Sodium (Chloride) 250 mls @ 125 mls/hr IV Q24H [facility] Last Infusion: 03/10/23 21:06 Dose: 0 mls/hr Documented By: EVAN Ceftriaxone Sodium 1 gm/ (Sodium Chloride) 50 mls @ 100 mls/hr IV Q24H [facility] Sodium Chloride (Ns) 1,000 mls @ 80 mls/hr IVCONT .[id number] [facility] Last Admin: 03/11/23 05:47 Dose: 80 mls/hr Documented By: EVAN Memantine (Memantine Hcl 5 Mg Tablet) 5 mg PO BID [facility] Last Admin: 03/11/23 08:47 Dose: 5 mg Documented By: MATI Multivitamins/Vitamin C (Multivitamin Tablet) 1 tab PO DAILY [facility] Last Admin: 03/11/23 08:48 Dose: 1 tab Documented By: MATI Non-Formulary Medication (Ursodiol) 500 mg PO DAILY [facility] Ondansetron HCl (Ondansetron Hcl 4 Mg/2 Ml Vial) 4 mg IVPUSH Q8H PRN PRN Reason: Nausea and Vomiting Potassium Chloride (Potassium Chloride Er 20 Meq Tab.Er.Prt) 20 meq PO BID [facility] Last Admin: 03/11/23 08:48 Dose: 20 meq Documented By: MATI Sertraline HCl (Sertraline Hcl 25 Mg Tablet) 25 mg PO DAILY [facility] Last Admin: 03/11/23 08:48 Dose: 25 mg Documented By: AMTI Sodium Chloride (0.9 % Sodium Chloride Flush 3 Ml Syringe) 3 ml IVFLUSH QSHIFT [facility] Last Admin: 03/11/23 08:48 Dose: Not Given Documented By: MATI Non-Admin Reason: IV Running Vitamin D (Cholecalciferol (Vitamin D3) 25 Mcg Tablet) 25 mcg PO DAILY [facility] Last Admin: 03/11/23 08:47 Dose: 25 mcg Documented By: MATI Labs 03/11/23 06:30 03/11/23 06:30 Labs: Laboratory Results - last 24 hr 03/10/23 03/10/23 03/10/23 15:15 15:15 15:15 MCV 88.7 MCH 29.9 MCHC 33.7 RDW 13.2 Plt Count 218 MPV 11.1 Immature Gran % (Auto) 0.8 H Neut % (Auto) 82.7 H Lymph % (Auto) 5.9 L [place] % (Auto) 9.9 Eos % (Auto) 0.5 Baso % (Auto) 0.2 Lymph # (Auto) 1.0 L [place] # (Auto) 1.7 H Eos # (Auto) 0.1 Baso # (Auto) 0.0 Abs Immat Gran (auto) 0.14 H Absolute Neuts (auto) 14.1 H Absolute Nucleated RBC 0.000 Nucleated RBC % (auto) 0.0 Smear Tech's Comments PT 14.2 H D INR 1.2 H Anion Gap 16 Estim Creat Clear Calc 40.0 Estimated GFR > 60 Random Glucose 97 Lactic Acid Calcium 10.1 Magnesium 2.0 Total Bilirubin 1.2 H Direct Bilirubin 0.4 AST 28 ALT 13 Alkaline Phosphatase 112 Total Protein 7.3 Albumin 3.8 Urine Color Urine Appearance Urine pH Ur Specific [place] Urine Protein Urine Glucose (UA) Urine Ketones Urine Blood Urine Nitrite Ur Leukocyte Esterase Urine RBC Urine WBC Ur Squamous Epith Cells Urine Bacteria Hyaline Casts Granular Casts COVID-19 ([place]) COVID-19 Clin Com 03/10/23 03/10/23 03/11/23 15:15 15:41 01:18 MCV MCH MCHC RDW Plt Count MPV Immature Gran % (Auto) Neut % (Auto) Lymph % (Auto) [place] % (Auto) Eos % (Auto) Baso % (Auto) Lymph # (Auto) [place] # (Auto) Eos # (Auto) Baso # (Auto) Abs Immat Gran (auto) Absolute Neuts (auto) Absolute Nucleated RBC Nucleated RBC % (auto) Smear Tech's Comments PT INR Anion Gap Estim Creat Clear Calc Estimated GFR Random Glucose Lactic Acid 2.0 Calcium Magnesium Total Bilirubin Direct Bilirubin AST ALT Alkaline Phosphatase Total Protein Albumin Urine Color Yellow Urine Appearance Clear Urine pH 5.5 Ur Specific [place] 1.015 Urine Protein Trace Urine Glucose (UA) Negative Urine Ketones Trace Urine Blood Negative Urine Nitrite Negative Ur Leukocyte Esterase Trace H Urine RBC 3-5 H Urine WBC 0-5 Ur Squamous Epith Cells 0-2 Urine Bacteria None Seen Hyaline Casts 6-10 Granular Casts Present COVID-19 ([place]) Negative COVID-19 Clin Com See Note 03/11/23 03/11/23 06:30 06:30 MCV 90.4 MCH 29.9 MCHC 33.1 RDW 13.2 Plt Count 213 MPV 10.9 Immature Gran % (Auto) 0.5 H Neut % (Auto) 82.6 H Lymph % (Auto) 6.7 L [place] % (Auto) 10.0 Eos % (Auto) 0.0 Baso % (Auto) 0.2 Lymph # (Auto) 1.1 L [place] # (Auto) 1.6 H Eos # (Auto) 0.0 Baso # (Auto) 0.0 Abs Immat Gran (auto) 0.08 H Absolute Neuts (auto) 13.2 H Absolute Nucleated RBC 0.000 Nucleated RBC % (auto) 0.0 Smear Tech's Comments VERIFIED PT INR Anion Gap 13 Estim Creat Clear Calc 46.8 Estimated GFR > 60 Random Glucose 79 Lactic Acid Calcium 9.1 D Magnesium Total Bilirubin Direct Bilirubin AST ALT Alkaline Phosphatase Total Protein Albumin Urine Color Urine Appearance Urine pH Ur Specific [place] Urine Protein Urine Glucose (UA) Urine Ketones Urine Blood Urine Nitrite Ur Leukocyte Esterase Urine RBC Urine WBC Ur Squamous Epith Cells Urine Bacteria Hyaline Casts Granular Casts COVID-19 ([place]) COVID-19 Clin Com Assessment and Plan (1) Right middle lobe pneumonia: Status: Acute Plan 78F PMH htn, dementia, presented with ams, found to have sepsis, pna sepsis due to RML pna compllicated by acute metabolic encephalopathy continue isabelle anderson follow up cultures hypokalemia replaced orthostatic hypotension resolved with fluids htn holding bp meds with soft bp dementia - likley alzheimers aricept, memantine moderate protein calorie malnutrition encourage po nutrition dvt prophlaxis - lovenox full code reason for continued hospitalization:awaiting cultures, defervesence Time Spent With Patient Time: Total time managing care of this patient today ____ minutes. Quality Stroke Does the patient have a stroke diagnosis?: No VTE Prior VTE?: No VTE Risk Level:: Medical - moderate - high VTE Device Contraindication: Treatment Not Indicated VTE Drug Contraindication: N/A - Med Ordered
--- NOTE | 2023-03-11 13:25 | MHC.CM.PN ---
met with pt and son pt lives with family do not currently have services ,but do have an appt with [facility] sept 8 ,pt has own ride home when dcd dc plan home w/family and [facility] in the near future
[2023-03-11] MEDS: cefTRIAXone sodium 1 GM in 0.9 % Sodium Chloride 50 ML IV (16:12)
[2023-03-11] MEDS: Enoxaparin Sodium 40 MG/0.4 ML SYRINGE SUBCUT (17:06)
[2023-03-11] MEDS: Azithromycin 500 MG in 0.9 % Sodium Chloride 250 ML 125 MG IV (17:11)
[2023-03-11] MEDS: Donepezil HCl 10 MG TABLET PO (20:05)
[2023-03-11] MEDS: OLANZapine 10 MG VIAL 5 MG IM (22:09)
--- NOTE | 2023-03-11 22:52 | PC.NURSE ---
Pt AO to self only. became increasingly aggitated as the evening progressed and didn't know she was at the hospital trying to get up as if she was home. Pt able to get out of bed after several attempts of redirection from SAND SYSTEM OPERATOR, Nurse, Camera. 1 time dose of Zyprexa given to pt and sitter order placed since pt forgets redirection. pt currently safe and comfortable in bed.
[2023-03-12] VITALS (7 sets, daily range): BP systolic 125–148; BP diastolic 50–89; PULSE 58–86; RESP 18–20; TEMP 36.3–37.7; O2SAT 95–97; BMI 17.4
[2023-03-12 07:04] LABS: Hematocrit 35.3 % (37.0-47.0); Hemoglobin 11.7 g/dl (12.0-16.0); Mean Corpuscular HGB Conc 33.1 g/dl (31.0-35.0); Mean Corpuscular Hemoglobin 29.8 pg (27.0-33.0); Mean Corpuscular Volume 90.1 fL (80.0-98.0); Mean Platelet Volume 10.6 fL (9.4-12.3); Platelet Count 273 X10*3/uL (160-400); Red Blood Count 3.92 X10*6/uL (4.20-5.50); Red Cell Distribution Width 13.2 % (11.0-16.0); White Blood Count 14.3 X10*3/uL (4.8-10.8)
[2023-03-12 07:25] LABS: Anion Gap 12 (12-20); Blood Urea Nitrogen 6 mg/dL (9-16); Calcium 9.4 mg/dL (8.4-10.2); Carbon Dioxide 27 mmol/L (22-29); Chloride 110 mmol/L (96-108); Creatinine Clr Calc Pharmacy 52.6; Estimated Glomerular Filt Rate > 60; Glucose Fasting 109 mg/dL (60-99); Potassium 2.7 mmol/L (3.3-5.1); Sodium 146 mmol/L (135-145)
[2023-03-12 08:49] LABS: Adenovirus PCR Not Detected (Not Detect.); Bordetella parapertussis PCR Not Detected (Not Detect.); Bordetella pertussis PCR Not Detected (Not Detect.); Chlamydia pneumoniae PCR Not Detected (Not Detect.); Coronavirus 229E PCR Not Detected (Not Detect.); Coronavirus HKU1 PCR Not Detected (Not Detect.); Coronavirus NL63 PCR Not Detected (Not Detect.); Coronavirus OC43 PCR Not Detected (Not Detect.); Human metapneumovirus PCR Not Detected (Not Detect.); Influenza A PCR Not Detected (Not Detect.); Influenza B PCR Not Detected (Not Detect.); Mycoplasma pneumoniae PCR Not Detected (Not Detect.); Parainfluenza 1 PCR Not Detected (Not Detect.); Parainfluenza 2 PCR Not Detected (Not Detect.); Parainfluenza 3 PCR Not Detected (Not Detect.); Parainfluenza 4 PCR Not Detected (Not Detect.); RSV PCR Not Detected (Not Detect.); Rhino/Enterovirus PCR Detected (Not Detect.); SARS-CoV-2 PCR Not Detected (Not Detect.)
[2023-03-12] MEDS: Multivitamin TABLET 1 TAB PO (09:04)
[2023-03-12] MEDS: Cholecalciferol (Vitamin D3) 25 MCG TABLET PO (09:04)
[2023-03-12] MEDS: Potassium Chloride ER 20 MEQ TAB.ER.PRT PO ×3 (09:04→21:31)
[2023-03-12] MEDS: 0.9 % Sodium Chloride 1,000 ML 80 ML IVCONT (09:04)
[2023-03-12] MEDS: Memantine HCl 5 MG TABLET PO ×2 (09:04→21:30)
[2023-03-12] MEDS: Sertraline HCL 25 MG TABLET PO (09:04)
--- NOTE | 2023-03-12 09:26 | P.PNIM_ITS ---
Subjective Subjective Date of Service: 03/12/23 Interval History: confused, no complaints Physical Exam Vital Signs: Vital Signs: Last Vital Signs Temp 97.3 F 03/12/23 07:54 Pulse 86 03/12/23 07:57 Resp 18 03/12/23 07:54 BP 144/68 H 03/12/23 07:57 Pulse Ox 97 03/12/23 07:54 O2 Del Method Room Air 03/12/23 07:54 O2 Flow Rate 3 03/10/23 15:24 Oxygen Flow Rate 2 03/10/23 14:17 BMI result Body Mass Index 17.4 General: AO X 1, frail appearing Resp: CTA bilateral, no accessory muscles used CVS: S1,S2,RRR GI: soft, non tender, non distended Neuro: motor grossly intact, alert Psych: appropriate affect, impaired insight Objective Data Active Medications Acetaminophen (Acetaminophen 325 Mg Tablet) 650 mg PO Q6H PRN PRN Reason: Pain, Mild (Pain Scale 1-3) Docusate Sodium (Docusate Sodium 100 Mg Capsule) 100 mg PO DAILY PRN PRN Reason: Constipation Donepezil HCl (Donepezil Hcl 10 Mg Tablet) 10 mg PO BEDTIME [facility] Last Admin: 03/11/23 20:05 Dose: 10 mg Documented By: DARYL Enoxaparin Sodium (Enoxaparin Sodium 40 Mg/0.4 Ml Syringe) 40 mg SUBCUT Q24H [facility] Last Admin: 03/11/23 17:06 Dose: 40 mg Documented By: MATI Guaifenesin (Guaifenesin 200 Mg/10 Ml 10 Ml Liquid) 10 ml PO Q6H PRN PRN Reason: Cough Azithromycin 500 mg/ Sodium (Chloride) 250 mls @ 125 mls/hr IV Q24H [facility] Last Infusion: 03/11/23 19:27 Dose: 0 mls/hr Documented By: DARYL Ceftriaxone Sodium 1 gm/ (Sodium Chloride) 50 mls @ 100 mls/hr IV Q24H [facility] Last Infusion: 03/11/23 16:45 Dose: 0 mls/hr Documented By: MATI Sodium Chloride (Ns) 1,000 mls @ 80 mls/hr IVCONT .[id number] [facility] Last Admin: 03/12/23 09:04 Dose: 80 mls/hr Documented By: SAUL Memantine (Memantine Hcl 5 Mg Tablet) 5 mg PO BID [facility] Last Admin: 03/12/23 09:04 Dose: 5 mg Documented By: SAUL Multivitamins/Vitamin C (Multivitamin Tablet) 1 tab PO DAILY [facility] Last Admin: 03/12/23 09:04 Dose: 1 tab Documented By: SAUL Non-Formulary Medication (Ursodiol) 500 mg PO DAILY [facility] Ondansetron HCl (Ondansetron Hcl 4 Mg/2 Ml Vial) 4 mg IVPUSH Q8H PRN PRN Reason: Nausea and Vomiting Potassium Chloride (Potassium Chloride Er 20 Meq Tab.Er.Prt) 20 meq PO BID [facility] Last Admin: 03/12/23 09:04 Dose: 20 meq Documented By: SAUL Sertraline HCl (Sertraline Hcl 25 Mg Tablet) 25 mg PO DAILY [facility] Last Admin: 03/12/23 09:04 Dose: 25 mg Documented By: SAUL Sodium Chloride (0.9 % Sodium Chloride Flush 3 Ml Syringe) 3 ml IVFLUSH QSHIFT [facility] Last Admin: 03/12/23 07:27 Dose: Not Given Documented By: SAUL Non-Admin Reason: See Note Vitamin D (Cholecalciferol (Vitamin D3) 25 Mcg Tablet) 25 mcg PO DAILY [facility] Last Admin: 03/12/23 09:04 Dose: 25 mcg Documented By: SAUL Labs 03/12/23 06:47 03/12/23 06:47 Labs: Laboratory Results - last 24 hr 03/11/23 03/12/23 03/12/23 19:37 06:47 06:47 MCV 90.1 MCH 29.8 MCHC 33.1 RDW 13.2 Plt Count 273 D MPV 10.6 Absolute Nucleated RBC 0.000 Nucleated RBC % (auto) 0.0 Anion Gap 12 Estim Creat Clear Calc 52.6 Estimated GFR > 60 Fasting Glucose 109 H Calcium 9.4 Respiratory Panel [place] See Note Adenovirus (Rapid PCR) Not Detected B.pert (TEM-PCR) Not Detected B.parapertussis DNA PCR Not Detected C. pneumoniae DNA (PCR) Not Detected Coronavirus OC43 (PCR) Not Detected Coronavirus HKU1 (PCR) Not Detected Coronavirus 229E (PCR) Not Detected Coronavirus NL63 (PCR) Not Detected Human Metapneumovir PCR Not Detected Influenza A (RT-PCR) Not Detected Influenza B (RT-PCR) Not Detected M. pneumoniae (PCR) Not Detected Parainfluenza 1 (PCR) Not Detected Parainfluenza 2 (PCR) Not Detected Parainfluenza 3 (PCR) Not Detected Parainfluenza 4 (PCR) Not Detected RSV (PCR) Not Detected Entero/Rhino (PCR) Detected A SARS-CoV-2 RNA (RT-PCR) Not Detected Microbiology Microbiology Results: Microbiology 03/10/23 15:41 Blood Culture - Preliminary Blood - Venous No growth after 24 hours. 03/10/23 15:15 Blood Culture - Preliminary Blood - Venous No growth after 24 hours. Assessment and Plan (1) Right middle lobe pneumonia: Status: Acute Plan 78F PMH htn, dementia, presented with ams, found to have sepsis, pna sepsis due to RML pna compllicated by acute metabolic encephalopathy continue rocephin, azithro negative cultures hypokalemia replace monitor hypernatremia d5w, monitor orthostatic hypotension resolved with fluids htn holding bp meds with soft bp dementia - irvingley alzheimers aricept, memantine moderate protein calorie malnutrition encourage po nutrition dvt prophlaxis - lovenox full code reason for continued hospitalization:electrolyte abnormalities Time Spent With Patient Time: Total time managing care of this patient today ____ minutes. Quality Stroke Does the patient have a stroke diagnosis?: No VTE Prior VTE?: No VTE Risk Level:: Medical - moderate - high VTE Device Contraindication: Treatment Not Indicated VTE Drug Contraindication: N/A - Med Ordered
[2023-03-12] MEDS: Potassium Chloride ER 20 MEQ TAB.ER.PRT 40 MEQ PO (10:15)
[2023-03-12] MEDS: Dextrose 5 % 1,000 ML 75 ML IVCONT ×2 (10:15→22:30)
[2023-03-12] MEDS: cefTRIAXone sodium 1 GM in 0.9 % Sodium Chloride 50 ML IV (15:52)
--- NOTE | 2023-03-12 16:13 | MHC.CLN ---
NUTRITION DIET=REGULAR. ADDING ENSURE TID TO PROMOTE NUTRITIONAL INTAKE. PROVIDES 1050 KCALS, 60 G PROTEIN. INTAKE 0-50%. SIGNIFICANT WEIGHT LOSS X 6 MONTHS. NON SEVERE MALNUTRITION IN THE CONTEXT OF CHRONIC ILLNESS. MILD DEPLETION OF BODY FAT AND MODERATE DEPLETION OF MUSCLE MASS NOTED. SKIN WITH REDNESS TO BUTTOCKS. FOLLOW FOR INTAKE AND DIET TOLERANCE. SEE CLINICAL NUTRITION ASSESSMENT 03/12/23.
[2023-03-12] MEDS: Azithromycin 500 MG in 0.9 % Sodium Chloride 250 ML 125 MG IV (17:02)
[2023-03-12] MEDS: Enoxaparin Sodium 40 MG/0.4 ML SYRINGE SUBCUT (17:02)
[2023-03-12] MEDS: Donepezil HCl 10 MG TABLET PO (21:30)
[2023-03-12] MEDS: 0.9 % Sodium Chloride Flush 3 ML SYRINGE IVFLUSH (23:55)
[2023-03-13 03:44] VITALS: BP 126/60; PULSE 79; RESP 18; TEMP 36.6; O2SAT 98
--- NOTE | 2023-03-13 04:26 | PC.NURSE ---
CARE ASSUMED 23:15...AWAKE...CONVERSES AND JAEGER BUT ORIENTED TO PERSON ONLY..RE-ORIENTED W/O EFFECT...RESPIRATIONS EASY....D5W 75 CC/HR...PURWIK EXTERNAL CATHETER WITH SMALL AMOUNT YELLOW URINE BUT PATIENT DISLODGES CATHETER AND INCONTINANT YELLOW URINE...DENIED DISCOMFORT
[2023-03-13 07:07] VITALS: BP 141/62; PULSE 78; RESP 15; TEMP 36.5; O2SAT 92
[2023-03-13 07:10] LABS: Hematocrit 33.1 % (37.0-47.0); Hemoglobin 10.9 g/dl (12.0-16.0); Mean Corpuscular HGB Conc 32.9 g/dl (31.0-35.0); Mean Corpuscular Hemoglobin 29.8 pg (27.0-33.0); Mean Corpuscular Volume 90.4 fL (80.0-98.0); Mean Platelet Volume 10.9 fL (9.4-12.3); Platelet Count 304 X10*3/uL (160-400); Red Blood Count 3.66 X10*6/uL (4.20-5.50); Red Cell Distribution Width 13.1 % (11.0-16.0); White Blood Count 11.5 X10*3/uL (4.8-10.8)
[2023-03-13 07:27] LABS: Anion Gap 9 (12-20); Blood Urea Nitrogen 4 mg/dL (9-16); Calcium 9.5 mg/dL (8.4-10.2); Carbon Dioxide 27 mmol/L (22-29); Chloride 109 mmol/L (96-108); Creatinine Clr Calc Pharmacy 53.4; Estimated Glomerular Filt Rate > 60; Glucose Fasting 109 mg/dL (60-99); Magnesium 1.6 mg/dL (1.6-2.6); Potassium 3.3 mmol/L (3.3-5.1); Sodium 142 mmol/L (135-145)
[2023-03-13] MEDS: Sertraline HCL 25 MG TABLET PO (08:59)
[2023-03-13] MEDS: Multivitamin TABLET 1 TAB PO (08:59)
[2023-03-13] MEDS: 0.9 % Sodium Chloride Flush 3 ML SYRINGE IVFLUSH ×3 (09:00→22:48)
[2023-03-13] MEDS: Memantine HCl 5 MG TABLET PO ×2 (09:00→22:45)
[2023-03-13] MEDS: Potassium Chloride ER 20 MEQ TAB.ER.PRT PO ×2 (09:00→22:45)
[2023-03-13] MEDS: Cholecalciferol (Vitamin D3) 25 MCG TABLET PO (09:00)
[2023-03-13] MEDS: Magnesium Oxide 400 MG TABLET 800 MG PO (09:00)
--- NOTE | 2023-03-13 10:09 | P.PNIM_ITS ---
Subjective Subjective Date of Service: 03/13/23 Review of Systems Review of Systems: Yes Unobtainable due to mental condition Physical Exam Vital Signs: Vital Signs: Last Vital Signs Temp 97.7 F 03/13/23 07:07 Pulse 78 03/13/23 07:07 Resp 15 03/13/23 07:07 BP 141/62 H 03/13/23 07:07 Pulse Ox 92 03/13/23 07:07 O2 Del Method Room Air 03/13/23 07:07 O2 Flow Rate 3 03/10/23 15:24 Oxygen Flow Rate 2 03/10/23 14:17 BMI result Body Mass Index 17.4 General: obtunded, frail appearing Resp: CTA bilateral, no accessory muscles used CVS: S1,S2,RRR GI: soft, non tender, non distended Neuro: motor grossly intact, alert Psych: appropriate affect, impaired insight Objective Data Active Medications Acetaminophen (Acetaminophen 325 Mg Tablet) 650 mg PO Q6H PRN PRN Reason: Pain, Mild (Pain Scale 1-3) Docusate Sodium (Docusate Sodium 100 Mg Capsule) 100 mg PO DAILY PRN PRN Reason: Constipation Donepezil HCl (Donepezil Hcl 10 Mg Tablet) 10 mg PO BEDTIME [facility] Last Admin: 03/12/23 21:30 Dose: 10 mg Documented By: DARYL Enoxaparin Sodium (Enoxaparin Sodium 40 Mg/0.4 Ml Syringe) 40 mg SUBCUT Q24H [facility] Last Admin: 03/12/23 17:02 Dose: 40 mg Documented By: SAUL Guaifenesin (Guaifenesin 200 Mg/10 Ml 10 Ml Liquid) 10 ml PO Q6H PRN PRN Reason: Cough Azithromycin 500 mg/ Sodium (Chloride) 250 mls @ 125 mls/hr IV Q24H [facility] Last Infusion: 03/12/23 21:10 Dose: 0 mls/hr Documented By: DARYL Ceftriaxone Sodium 1 gm/ (Sodium Chloride) 50 mls @ 100 mls/hr IV Q24H [facility] Last Infusion: 03/12/23 16:25 Dose: 0 mls/hr Documented By: SAUL Dextrose (D5w) 1,000 mls @ 75 mls/hr IVCONT .[id number] [facility] Last Admin: 03/12/23 22:30 Dose: 75 mls/hr Documented By: PERLA Memantine (Memantine Hcl 5 Mg Tablet) 5 mg PO BID [facility] Last Admin: 03/13/23 09:00 Dose: 5 mg Documented By: JENNIFER Multivitamins/Vitamin C (Multivitamin Tablet) 1 tab PO DAILY [facility] Last Admin: 03/13/23 08:59 Dose: 1 tab Documented By: JENNIFER Non-Formulary Medication (Ursodiol) 500 mg PO DAILY [facility] Ondansetron HCl (Ondansetron Hcl 4 Mg/2 Ml Vial) 4 mg IVPUSH Q8H PRN PRN Reason: Nausea and Vomiting Potassium Chloride (Potassium Chloride Er 20 Meq Tab.Er.Prt) 20 meq PO BID [facility] Last Admin: 03/13/23 09:00 Dose: 20 meq Documented By: JENNIFER Sertraline HCl (Sertraline Hcl 25 Mg Tablet) 25 mg PO DAILY [facility] Last Admin: 03/13/23 08:59 Dose: 25 mg Documented By: JENNIFER Sodium Chloride (0.9 % Sodium Chloride Flush 3 Ml Syringe) 3 ml IVFLUSH QSHIFT [facility] Last Admin: 03/13/23 09:00 Dose: 3 ml Documented By: JENNIFER Vitamin D (Cholecalciferol (Vitamin D3) 25 Mcg Tablet) 25 mcg PO DAILY [facility] Last Admin: 03/13/23 09:00 Dose: 25 mcg Documented By: JENNIFER Labs 03/13/23 06:36 03/13/23 06:36 Labs: Laboratory Results - last 24 hr 03/13/23 03/13/23 06:36 06:36 MCV 90.4 MCH 29.8 MCHC 32.9 RDW 13.1 Plt Count 304 MPV 10.9 Absolute Nucleated RBC 0.000 Nucleated RBC % (auto) 0.0 Anion Gap 9 L Estim Creat Clear Calc 53.4 Estimated GFR > 60 Fasting Glucose 109 H Calcium 9.5 Magnesium 1.6 Microbiology Microbiology Results: Microbiology 03/10/23 15:41 Blood Culture - Preliminary Blood - Venous No growth after 48 hours. 03/10/23 15:15 Blood Culture - Preliminary Blood - Venous No growth after 48 hours. Assessment and Plan (1) Right middle lobe pneumonia: Status: Acute Plan 78F PMH htn, dementia, presented with ams, found to have sepsis, pna sepsis due to RML pna compllicated by acute metabolic encephalopathy continue rocephin, azithro negative cultures hypokalemia replace monitor hypomagnesemia replace and monitor hypernatremia resolved orthostatic hypotension resolved with fluids htn holding bp meds with soft bp dementia - likley alzheimers aricept, memantine moderate protein calorie malnutrition encourage po nutrition dvt prophlaxis - lovenox full code reason for continued hospitalization:worsening encephalopathy Time Spent With Patient Time: Total time managing care of this patient today ____ minutes. Quality Stroke Does the patient have a stroke diagnosis?: No VTE Prior VTE?: No VTE Risk Level:: Medical - moderate - high VTE Device Contraindication: Treatment Not Indicated VTE Drug Contraindication: N/A - Med Ordered
[2023-03-13 14:59] VITALS: BP 159/74; PULSE 94; RESP 24; TEMP 37.1; O2SAT 98
--- NOTE | 2023-03-13 14:59 | MHC.CM.PN ---
EMR reviewed and per MD rounds, pt is not medically cleared for D/C due to worsening encephalopathy. CM will continue to follow.
[2023-03-13] MEDS: Enoxaparin Sodium 40 MG/0.4 ML SYRINGE SUBCUT (17:16)
[2023-03-13] MEDS: cefTRIAXone sodium 1 GM in 0.9 % Sodium Chloride 50 ML IV (17:17)
[2023-03-13] MEDS: Azithromycin 500 MG in 0.9 % Sodium Chloride 250 ML 125 MG IV (17:17)
[2023-03-13 19:07] VITALS: BP 119/56; PULSE 87; RESP 24; TEMP 36.8; O2SAT 95
[2023-03-13] MEDS: Donepezil HCl 10 MG TABLET PO (22:45)
[2023-03-14] VITALS (10 sets, daily range): BP systolic 118–144; BP diastolic 58–67; PULSE 72–102; RESP 18–28; TEMP 36.1–37.9; O2SAT 93–97
[2023-03-14 06:59] LABS: Hematocrit 34.3 % (37.0-47.0); Hemoglobin 11.2 g/dl (12.0-16.0); Mean Corpuscular HGB Conc 32.7 g/dl (31.0-35.0); Mean Corpuscular Hemoglobin 29.3 pg (27.0-33.0); Mean Corpuscular Volume 89.8 fL (80.0-98.0); Mean Platelet Volume 10.3 fL (9.4-12.3); Platelet Count 339 X10*3/uL (160-400); Red Blood Count 3.82 X10*6/uL (4.20-5.50); Red Cell Distribution Width 13.3 % (11.0-16.0); White Blood Count 13.8 X10*3/uL (4.8-10.8)
[2023-03-14 07:21] LABS: Blood Urea Nitrogen 10 mg/dL (9-16); Calcium 9.5 mg/dL (8.4-10.2); Creatinine Clr Calc Pharmacy 48.1; Estimated Glomerular Filt Rate > 60; Glucose Fasting 101 mg/dL (60-99)
[2023-03-14 07:37] LABS: Anion Gap 10 (12-20); Carbon Dioxide 25 mmol/L (22-29); Chloride 111 mmol/L (96-108); Potassium 4.1 mmol/L (3.3-5.1); Sodium 142 mmol/L (135-145)
[2023-03-14] MEDS: Cholecalciferol (Vitamin D3) 25 MCG TABLET PO (09:23)
[2023-03-14] MEDS: Memantine HCl 5 MG TABLET PO ×2 (09:23→21:29)
[2023-03-14] MEDS: Multivitamin TABLET 1 TAB PO (09:23)
[2023-03-14] MEDS: Sertraline HCL 25 MG TABLET PO (09:23)
[2023-03-14] MEDS: 0.9 % Sodium Chloride Flush 3 ML SYRINGE IVFLUSH ×3 (09:24→21:29)
[2023-03-14] MEDS: Potassium Chloride ER 20 MEQ TAB.ER.PRT PO ×2 (09:24→21:29)
--- NOTE | 2023-03-14 11:59 | MHC.CM.PN ---
Addendum entered by Elisha Fisher 03/14/23 14:24: This CM spoke with pts son Felice, he states [facility]nd preference for [facility], and [facility] is #3, referral updated accordingly. Addendum entered by Elisha Fisher 03/14/23 13:09: [facility] unable to offer pt a bed as they do not have one available. Message left for eileen Viveros at [phone] to relay this information and discuss next choices for facilities. Awaiting return phone call. Original Note: EMR reviewed and per MD rounds, pt is not medically cleared for D/C today, will likely D/C tomorrow. PT recommends pt go to STR. This CM spoke with pts son Felice who states that [facility] their #1 preference in [facility]. Referral place and [facility] is reviewing. CM will continue to follow.
--- NOTE | 2023-03-14 13:44 | HO.PM.IMPN ---
Subjective Subjective Date of Service: 03/14/23 Interval History: Seen and evaluated this morning More alert and interactive son at the bedside, concerned about her safety at home Patient denies fever or chills Review of Systems Review of Systems: Yes all other systems are reviewed and are negative Physical Exam Vital Signs: Vital Signs: Last Vital Signs Temp 96.9 F 03/14/23 07:32 Pulse 94 03/14/23 10:31 Resp 18 03/14/23 07:32 BP 134/64 03/14/23 10:31 Pulse Ox 97 03/14/23 07:32 O2 Del Method Room Air 03/14/23 07:32 O2 Flow Rate 3 03/10/23 15:24 Oxygen Flow Rate 2 03/10/23 14:17 BMI result Body Mass Index 17.4 Const: Other: Constitutional : Awake, interactive, not in distress Neck : Normal inspection, Supple Cardiovascular : RRR, no JVP, no lower extremity edema Respiratory : good bilateral air entry, basal fine crackles Gastrointestinal: soft, lax, Normal bowel sounds, Non tender Skin : Warm, Dry Neurological : Alert & oriented to self and time, No focal deficit Objective Data Active Medications Acetaminophen (Acetaminophen 325 Mg Tablet) 650 mg PO Q6H PRN PRN Reason: Pain, Mild (Pain Scale 1-3) Docusate Sodium (Docusate Sodium 100 Mg Capsule) 100 mg PO DAILY PRN PRN Reason: Constipation Donepezil HCl (Donepezil Hcl 10 Mg Tablet) 10 mg PO BEDTIME [facility] Last Admin: 03/13/23 22:45 Dose: 10 mg Documented By: DEVORA Enoxaparin Sodium (Enoxaparin Sodium 40 Mg/0.4 Ml Syringe) 40 mg SUBCUT Q24H [facility] Last Admin: 03/13/23 17:16 Dose: 40 mg Documented By: JENNIFER Guaifenesin (Guaifenesin 200 Mg/10 Ml 10 Ml Liquid) 10 ml PO Q6H PRN PRN Reason: Cough Azithromycin 500 mg/ Sodium (Chloride) 250 mls @ 125 mls/hr IV Q24H [facility] Last Infusion: 03/13/23 19:25 Dose: 0 mls/hr Documented By: DEVORA Ceftriaxone Sodium 1 gm/ (Sodium Chloride) 50 mls @ 100 mls/hr IV Q24H [facility] Last Infusion: 03/13/23 17:50 Dose: 0 mls/hr Documented By: JENNIFER Memantine (Memantine Hcl 5 Mg Tablet) 5 mg PO BID [facility] Last Admin: 03/14/23 09:23 Dose: 5 mg Documented By: JOSTIN Multivitamins/Vitamin C (Multivitamin Tablet) 1 tab PO DAILY [facility] Last Admin: 03/14/23 09:23 Dose: 1 tab Documented By: JOSTIN Non-Formulary Medication (Ursodiol) 500 mg PO DAILY [facility] Ondansetron HCl (Ondansetron Hcl 4 Mg/2 Ml Vial) 4 mg IVPUSH Q8H PRN PRN Reason: Nausea and Vomiting Potassium Chloride (Potassium Chloride Er 20 Meq Tab.Er.Prt) 20 meq PO BID [facility] Last Admin: 03/14/23 09:24 Dose: 20 meq Documented By: JOSTIN Sertraline HCl (Sertraline Hcl 25 Mg Tablet) 25 mg PO DAILY [facility] Last Admin: 03/14/23 09:23 Dose: 25 mg Documented By: JOSTIN Sodium Chloride (0.9 % Sodium Chloride Flush 3 Ml Syringe) 3 ml IVFLUSH QSHIFT [facility] Last Admin: 03/14/23 09:24 Dose: 3 ml Documented By: JOSTIN Vitamin D (Cholecalciferol (Vitamin D3) 25 Mcg Tablet) 25 mcg PO DAILY [facility] Last Admin: 03/14/23 09:23 Dose: 25 mcg Documented By: JOSTIN Labs 03/14/23 06:37 03/14/23 06:37 Labs: Laboratory Results - last 24 hr 03/14/23 03/14/23 06:37 06:37 MCV 89.8 MCH 29.3 MCHC 32.7 RDW 13.3 Plt Count 339 MPV 10.3 Absolute Nucleated RBC 0.000 Nucleated RBC % (auto) 0.0 Anion Gap 10 L Estim Creat Clear Calc 48.1 Estimated GFR > 60 Fasting Glucose 101 H Calcium 9.5 Assessment and Plan (1) Right middle lobe pneumonia: Status: Acute (2) Acute metabolic encephalopathy: Status: Acute (3) Sepsis: Status: Acute (4) Physical deconditioning: Status: Acute Plan 78F PMH htn, dementia, presented with ams, found to have sepsis, pna sepsis due to RML pna compllicated by acute metabolic encephalopathy negative cultures recurrent reorientation continue silverepisabelle najera Physical deconditioning PT rec SNF placement hypokalemia replaced hypomagnesemia replaced hypernatremia resolved orthostatic hypotension resolved with fluids htn holding bp meds with soft bp dementia - likley alzheimers aricept, memantine moderate protein calorie malnutrition encourage po nutrition dvt prophlaxis - lovenox full code reason for continued hospitalization: pending safe DC plan to SNF Time Spent With Patient Time: Total time managing care of this patient today ____ minutes. Quality Stroke Does the patient have a stroke diagnosis?: No VTE Prior VTE?: No VTE Risk Level:: Medical - moderate - high VTE Device Contraindication: Treatment Not Indicated VTE Drug Contraindication: N/A - Med Ordered
--- NOTE | 2023-03-14 13:49 | MHC.CLN ---
F/U PT IS MODERATELY MALNOURISHED SEE CLINICAL NUTRITION ASSESSMENT 03/12/23 PO INTAKE POOR DIET RX:REGULAR -APPROPRIATE PT RECEIVING ENSURE TID TO PROMOTE NUTRITIONAL INTAKE PROVIDES 1050 KCALS, 60 G PROTEIN PT IS NOT DRINKING SUPPLEMENT WILL REDUCE TO BID AND ADD THRIVE FORTIFIED ICE CREAM TO INCREASE KCALS SKIN WITH REDNESS TO BUTTOCKS FOLLOW FOR INTAKE AND ENCOURAGE NUTRITION SUPPLEMENTS
[2023-03-14] MEDS: Azithromycin 500 MG in 0.9 % Sodium Chloride 250 ML 125 MG IV (16:50)
[2023-03-14] MEDS: Acetaminophen 325 MG TABLET 650 MG PO (16:50)
[2023-03-14] MEDS: Enoxaparin Sodium 40 MG/0.4 ML SYRINGE SUBCUT (16:50)
[2023-03-14] MEDS: cefTRIAXone sodium 1 GM in 0.9 % Sodium Chloride 50 ML IV (16:51)
[2023-03-14] MEDS: Donepezil HCl 10 MG TABLET PO (21:29)
[2023-03-15] VITALS: BP 142/73; PULSE 87; RESP 14; TEMP 37.1; O2SAT 96
--- NOTE | 2023-03-15 03:18 | PC.NURSE ---
Patient alert, awake last evening and oriented to self only. Pt. with Tmasx of 99.6 oral at 1900 last evening and afebrile remainder of the night thus far. Pt. rambling nonsensical about people not present in room. Reoriented pt. to her surroundings frequently. Bed exit alarm in use and Carera in use as well Purposeful hourly rounding performed. Pt. redirectable. Purewick in place for voiding. Droplet precautions maintained.
[2023-03-15 03:48] VITALS: BP 155/69; PULSE 95; RESP 15; TEMP 36.6; O2SAT 96
[2023-03-15 07:29] VITALS: BP 133/63; PULSE 75; RESP 18; TEMP 36.2; O2SAT 97
[2023-03-15 08:00] VITALS: BP 130/55; PULSE 88
[2023-03-15 09:26] VITALS: BP 121/62; BP 141/69; PULSE 97; PULSE 98
[2023-03-15] MEDS: Cholecalciferol (Vitamin D3) 25 MCG TABLET PO (09:39)
[2023-03-15] MEDS: Sertraline HCL 25 MG TABLET PO (09:39)
[2023-03-15] MEDS: Potassium Chloride ER 20 MEQ TAB.ER.PRT PO (09:39)
[2023-03-15] MEDS: Multivitamin TABLET 1 TAB PO (09:39)
[2023-03-15] MEDS: 0.9 % Sodium Chloride Flush 3 ML SYRINGE IVFLUSH (09:39)
[2023-03-15] MEDS: Memantine HCl 5 MG TABLET PO (09:39)
--- NOTE | 2023-03-15 11:28 | PM.DS ---
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 She reports for the last week, she has had cough, congestion, anorexia, sweats, fatigue. Her son also reports she has been disoriented from baseline. She also had an episode of vomiting and diarrhea this morning. Denies any fevers or chills. No sick contacts known. This morning she also had an episode of near syncope while sitting on her bed and she fell backwards onto the pillows. There is no loss of consciousness. He states these near syncopal episodes have happened in the past. On arrival, blood pressure soft, but otherwise stable. Felice developed mild tachycardia to 106 tachypnea to 25. Orthostatic vital signs were positive. She has a leukocytosis of 17.0. Renal function baseline, electrolyte levels normal except for mild hypokalemia of 3.2. Initial troponin 54.4. Repeat pending. Negative for COVID-19. Head CT negative for any acute intracranial pathology. Chest x-ray shows right middle lobe consolidation. In the ED given 1 L IVF, 1 g IV ceftriaxone, and 40 mEq potassium chloride. Her son, Hollis, is present in the exam room and assists with history. Hospital course Admitted for # sepsis due to RML pna compllicated by acute metabolic encephalopathy Treated with IV antibiotics of Azithromycin and Ceftriaxone with good response as blood cultures remained negative and she was weaned off Oxygen supplement. Mental status improved back to baseline with recurrent reorientation. # Physical deconditioning PT recommended SNF placement # Electrolytes imbalance. hypokalemia, hypomagnesemia and hypernatremia. All replaced and corrected. Sodium level improved with IV fluids. replaced. # orthostatic hypotension Noted on admission. resolved with fluids as she was able to participate with PT with no reported lightheadedness or dizziness. Continue antibiotics as prescribed increase physical activity as tolerated with physical therapy Time Spent with Patient Time attestation: Total time managing care of this patient today ____ minutes. Discharge coordination time: Greater than 30 minutes Quality: Safe Use of Opioids Does Pt have an Active Cancer Diagnosis on the Problem List?: No Quality: Stroke Does the patient have a stroke diagnosis?: No Physical Exam Vital Signs: Vital Signs: Last Vital Signs Temp 97.1 F 03/15/23 07:29 Pulse 98 03/15/23 09:26 Resp 18 03/15/23 07:29 BP 141/69 H 03/15/23 09:26 Pulse Ox 97 03/15/23 07:29 O2 Del Method Room Air 03/15/23 07:29 O2 Flow Rate 3 03/10/23 15:24 Oxygen Flow Rate 2 03/10/23 14:17 BMI result Body Mass Index 17.4 Const: Other: Constitutional : Awake, interactive, not in distress Neck : Normal inspection, Supple Cardiovascular : RRR, no JVP, no lower extremity edema Respiratory : good bilateral air entry, no significant crackles Gastrointestinal: soft, lax, Normal bowel sounds, Non tender Skin : Warm, Dry Neurological : Alert & oriented to self and time, No focal deficit DS: Data Data Completed and Pending Labs on day of discharge: Preliminary micro results at discharge 03/10/23 15:41 Blood Culture - Preliminary Blood - Venous No growth after 48 hours. 03/10/23 15:15 Blood Culture - Preliminary Blood - Venous No growth after 48 hours. Imaging Chest x-ray: Radiologist's impression: ITS Impressions Head CT 03/10/23 14:55 IMPRESSION: No acute intracranial pathology. Chest X-Ray 03/10/23 14:58 IMPRESSION: Right middle lobe consolidation. Discharge Plan Discharge Anticipated Discharge Date/Time: 03/15/23 11:12 Patient Disposition: [facility] Discharge Diagnosis: Sepsis from Pneumonia Altered mental status physical deconditioning Referrals: Juma Gong MD [Primary Care Provider] - 1 Week Discharge Medications: New azithromycin 500 mg tablet 500 mg PO DAILY 5 Days Qty: 5 0RF cefuroxime axetil 500 mg tablet 500 mg PO BID Qty: 10 0RF Continued multivitamin Tablet 1 tab PO DAILY acetaminophen 500 mg Tablet 1,000 mg PO Q6H PRN (Reason: Headache) donepezil 10 mg tablet 10 mg PO BEDTIME sertraline 25 mg tablet 25 mg PO DAILY Rx Instructions: administer with food ursodiol 500 mg tablet 500 mg PO DAILY cholecalciferol (vitamin D3) 25 mcg (1,000 unit) capsule 25 mcg PO DAILY chlorthalidone 25 mg tablet 25 mg PO DAILY potassium chloride [Klor-Con M20] 20 mEq tablet,ER particles/crystals 20 meq PO BID memantine 5 mg tablet 5 mg PO BID Discharge Orders: Discharge Order (Routine); Ordered 03/15/23 Ordered By: Tao Caamrena Diet: Advance to usual diet Activity on Discharge: As tolerated Stand Alone Forms: Patient Portal Discharge page Care Plan Goals: Read below Health Concerns: Read below Plan of Treatment: Read below Assessment: You were admitted for treatment of altered mentation, difficulties breathing and electrolytes imbalance with evidence of sepsis from pneumonia. Responded well to IV antibiotics, electrolytes replacement and IV fluids with good response over the course of hospital stay as you were weaned down O2 to room air and improved your mental status back to baseline. Participated with physical therapy team who recommended rehablitation. Continue antibiotics as prescribed increase physical activity as tolerated with physical therapy
--- NOTE | 2023-03-15 11:52 | MHC.CM.PN ---
Addendum entered by Elisha Fisher 03/15/23 13:13: Second IMM 03/15 given verbally to pts son Felice via telephone call. Copy sent via certified mail to pts home. Original Note: Pt is medically cleared for D/C to [facility], pt and son have accepted bed offer at [facility]. Transport set up for 1:30pm today via BLS/[facility].
== END 2023-03-15 13:12 | disposition skilled nursing facility (03) | DRG 871 ==
LOC: HO.ED 15:56 → HO.EDOVER 18:15 → HO.IMC 19:43
PROVIDERS: Internal Medicine; Nurse Practitioner Family; Physician Assistant; Admitting Provider Physician Assistant; Emergency Provider Emergency Medicine; PCP Internal Medicine; Visit Provider Student in an Organized Health Care Education/Training Program
DX: A41.9 Sepsis, unspecified organism (principal); G93.41 Metabolic encephalopathy; J18.9 Pneumonia, unspecified organism; E87.0 Hyperosmolality and hypernatremia; E44.0 Moderate protein-calorie malnutrition; Z68.1 Body mass index [BMI] 19.9 or less, adult; I10 Essential (primary) hypertension; G30.9 Alzheimer's disease, unspecified; I95.1 Orthostatic hypotension; E83.42 Hypomagnesemia; E87.6 Hypokalemia; F02.80 Dementia in other diseases classified elsewhere, unspecified severity, without behavioral disturbance, psychotic disturbance, mood disturbance, and anxiety; E06.3 Autoimmune thyroiditis; Z20.822 Contact with and (suspected) exposure to COVID-19; Z87.891 Personal history of nicotine dependence; Z79.899 Other long term (current) drug therapy
CPT/HCPCS: 36415; 70450; 71045; 80048; 80076; 81001; 83605; 83735; 84484; 85025; 85027; 85610; 87040; 87633; 87635; 93005; 97162; 99285; J0456; J0696; J1650

== ENCOUNTER → 2023-03-10 17:56 | Outpatient (BNV) | payer MEDICARE, SELFPAY | PROVIDERS: Admitting Provider Physician Assistant; Emergency Provider Emergency Medicine; Visit Provider Physician Assistant | DX: J18.9 Pneumonia, unspecified organism (principal); G93.41 Metabolic encephalopathy; A41.9 Sepsis, unspecified organism; R53.81 Other malaise; I95.1 Orthostatic hypotension; D72.829 Elevated white blood cell count, unspecified | CPT/HCPCS: 99223; 99232; 99239 ==

== ENCOUNTER 2023-04-11 08:18 | Outpatient (REF) | payer MEDICARE, SELFPAY ==
[2023-04-11 08:46] LABS: MANUAL DIFF FLAG NO
[2023-04-11 08:55] LABS: Basophils Percent Auto 0.6 % (0-2); Eosinophils Absolute Auto 0.2 X10*3/uL (0.0-0.4); Eosinophils Percent Auto 3.9 % (0-4); Hematocrit 35.7 % (37.0-47.0); Hemoglobin 11.4 g/dl (12.0-16.0); Lymphocytes Absolute Auto 1.4 X10*3/uL (1.2-4.9); Lymphocytes Percent Auto 29.4 % (20-40); Mean Corpuscular HGB Conc 31.9 g/dl (31.0-35.0); Mean Corpuscular Hemoglobin 29.8 pg (27.0-33.0); Mean Corpuscular Volume 93.2 fL (80.0-98.0); Mean Platelet Volume 10.7 fL (9.4-12.3); Monocytes Absolute Auto 0.4 X10*3/uL (0.1-1.2); Monocytes Percent Auto 9.1 % (2-11); Neutrophils Absolute Auto 2.8 x10*3/uL (2.0-8.3); Platelet Count 216 X10*3/uL (160-400); Red Blood Count 3.83 X10*6/uL (4.20-5.50); Red Cell Distribution Width 14.6 % (11.0-16.0); White Blood Count 4.9 X10*3/uL (4.8-10.8)
[2023-04-11 09:09] LABS: Estimated Average Glucose 94 mg/dL; Hemoglobin A1c % 4.9 % (<6.0)
[2023-04-11 09:28] LABS: Alanine Aminotransferase 6 U/L (0-31); Albumin Level 3.9 g/dL (3.5-5.0); Alkaline Phosphatase 85 U/L (39-117); Anion Gap 11 (12-20); Aspartate Amino Transferase 18 U/L (5-31); Bilirubin Total 0.6 mg/dL (0.0-1.0); Blood Urea Nitrogen 16 mg/dL (9-16); Calcium 9.7 mg/dL (8.4-10.2); Carbon Dioxide 30 mmol/L (22-29); Chloride 106 mmol/L (96-108); Estimated Glomerular Filt Rate > 60; Glucose Random 90 mg/dL (60-115); Magnesium 2.2 mg/dL (1.6-2.6); Potassium 3.8 mmol/L (3.3-5.1); Sodium 143 mmol/L (135-145); Total Protein 6.8 g/dL (6.5-8.0)
[2023-04-11 09:51] LABS: Vitamin B12 1390 pg/mL (200-900)
[2023-04-11 09:56] LABS: TSH reflex Free T4 1.34 uIU/mL (0.32-4.0)
== END 2023-04-11 08:19 | disposition home or self-care (01) ==
LOC: HO.LAB 08:18
PROVIDERS: PCP Internal Medicine; Visit Provider Internal Medicine
DX: J18.8 Other pneumonia, unspecified organism (principal); I10 Essential (primary) hypertension; R73.01 Impaired fasting glucose; R41.3 Other amnesia
CPT/HCPCS: 36415; 80053; 82607; 83036; 83735; 84443; 85025

== ENCOUNTER 2023-04-26 11:46 | Outpatient (REF) | payer MEDICARE, SELFPAY ==
--- NOTE | ~2023-04-26 | XR_ITS ---
EXAMINATION: XR CHEST CLINICAL INFORMATION: Pneumonia follow-up COMPARISON: 03/10/2023 TECHNIQUE: 2 views of the chest were obtained. FINDINGS: Lungs are well-inflated. Heart size is normal. Stable cardiomediastinal silhouette. There is no gross pneumothorax. No pleural effusion. Decreased right middle lobe opacity. XR/XR chest 2V IMPRESSION: Decreased right middle lobe opacity. Recommend follow-up to resolution.
== END 2023-04-26 11:47 | disposition home or self-care (01) ==
LOC: HO.XRAY 11:46
PROVIDERS: PCP Internal Medicine; Visit Provider Internal Medicine
DX: J18.8 Other pneumonia, unspecified organism (principal)
CPT/HCPCS: 71046

== ENCOUNTER 2023-06-14 12:45 | Outpatient (REF) | payer MEDICARE, SELFPAY ==
--- NOTE | ~2023-06-14 | XR_ITS ---
EXAMINATION: XR CHEST CLINICAL INFORMATION: Pneumonia. COMPARISON: 04/26/2023, 03/10/2023, 02/19/2023 TECHNIQUE: 2 views of the chest were obtained. FINDINGS: The lungs remain well-inflated. There is no gross pneumothorax. Redemonstration of biapical pleural thickening and hyperinflated lungs. Degenerative changes in the thoracic spine. No pleural effusion. No new focal consolidation to suggest pneumonia. XR/XR chest 2V IMPRESSION: No new focal consolidation to suggest pneumonia.
== END 2023-06-14 12:46 | disposition home or self-care (01) ==
LOC: HO.XRAY 12:45
PROVIDERS: PCP Internal Medicine; Visit Provider Internal Medicine
DX: J18.8 Other pneumonia, unspecified organism (principal)
CPT/HCPCS: 71046

== ENCOUNTER 2023-06-21 12:54 | Outpatient (AMB) | payer MEDICARE, SELFPAY ==
[2023-06-21 12:57] VITALS: BP 114/62; PULSE 60; BMI 18.5
--- NOTE | 2023-06-21 12:57 | A.OFFVIS_ITS ---
Intake Vital Signs 06/21/23 12:57 Height 5 ft 5 in Weight 111 lb 1.808 oz BMI 18.5 BP 114/62 Pulse 60 Pulse Source Pulse Oximeter Intake Visit Reasons: 6 mth f/up Painter Decorator Required: No Tmr Teacher: Tmr Teacher Present Allergies celecoxib [From CELEBREX] Allergy (Intermediate, Verified 06/21/23 13:00) RASH Sulfa (Sulfonamide Antibiotics) Allergy (Intermediate, Verified 06/21/23 13:00) RASH tomato Allergy (Verified 06/21/23 13:00) Rash From PERCOCET Allergy (Intermediate, Uncoded 02/19/23 09:46) RASH Medication List - Last Reconciled 06/21/23 by LOIS Peter acetaminophen 1,000 mg PO Q6H PRN chlorthalidone 25 mg PO DAILY cholecalciferol (vitamin D3) 25 mcg PO DAILY donepezil 10 mg PO BEDTIME memantine 5 mg PO BID multivitamin 1 tab PO DAILY potassium chloride ER (Klor-Con M) 20 mEq PO BID sertraline 25 mg PO DAILY ursodiol 500 mg PO DAILY HPI 6 mth f/up HPI Details Whit is a 77-year-old female with past medical history of hypertension, remote history of syncope who was admitted to [facility]22 after having a syncopal episode in pentecostalism.? She did test positive to COVID however had no clinical symptoms.? She was noted to have hypokalemia with potassium down to 2.8.? She was given supplement.? No other acute findings identified.? Her syncope was thought to be vasovagal in nature. Today she reports that she had been admitted to [facility] with pneumonia back in March. During her admission her Lasix was stopped. Then following her discharge she developed swelling in her body and was readmitted to [facility]. She was restarted on Lasix. Upon discharge she was sent to rehab where she spent 20 days. She now continues to recover and has home PT and OT. She has some mild generalized weakness but states she is almost back to her normal state of health. No concerning shortness of breath, palpitations, presyncope, falls. No recurrent syncopal events. No chest discomfort at rest or with activity. Has been doing only light activities. Takes all meds as directed. Daughter is present. 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 Mother No problems noted. Social History Household Members: Family Housing: House Do you presently have visiting nurse or other home services: No Alcohol intake: former Patient Tobacco Use Status: Former Tobacco user service: No Review of Systems Const All systems reviewed & are unremarkable except as noted in HPI and below ENT Denies dizziness Card Denies chest pain, Denies chest pain at rest, Denies chest pain with activity, Denies rapid heart rate, Denies pedal edema, Denies edema, Denies leg edema, Denies lightheadedness, Denies palpitations, Denies dyspnea, Denies dyspnea on exertion and Denies orthopnea Resp Denies cough, Denies dyspnea and Denies dyspnea on exertion GI Denies hematochezia and Denies change in stool character Musc Denies abnormal gait, Denies limited range of motion, Denies muscle cramps, Denies muscle weakness, Denies numbness, Denies radiating pain into limb, Denies stiffness and Denies tingling Neuro Denies abnormal gait, Denies dizziness, Denies numbness and Denies tingling Endo Denies palpitations Physical Exam Vital Signs: Last Vital Signs Pulse 60 06/21/23 12:57 BP 114/62 06/21/23 12:57 BMI result Body Mass Index 18.5 Const Other: frail elderly General: cooperative, healthy appearing, comfortable and no acute distress Orientation/consciousness: patient oriented x3 Neck Neck: Yes normal visual inspection Resp Effort & Inspection: normal respiratory effort Auscultation: clear to auscultation bilaterally, no crackles, no rales, no rhonchi and no wheezes Cardio Jugular venous distension: no JVD Rate: regular rate Rhythm: regular rhythm Heart sounds: S1 normal heart sound present, S2 normal heart sound present, no murmurs and no rubs Neuro General: patient oriented x3 Extrem General: Yes normal to inspection Psych Appearance: grossly normal Mental Status: mental status grossly normal Speech and movement: Normal speech and movement present Assessment & Plan Assessment & Plan (1) Syncope and collapse: Code(s): R55 - Syncope and collapse Plan: [facility] admission on 07/08/2022 after having syncopal event while in pentecostalism. She described feeling hot then became lightheaded. Daughter was present and describes brief loss of consciousness. ED evaluation positive for COVID and hypokalemia, with potassium as low as 2.8. She did receive supplement. EKG showed sinus rhythm with first-degree AV block, rate 81. She was monitored on telemetry without any noted arrhythmia. She has a history of having syncope remotely. She tells me it was usually in setting of hypokalemia and she takes a potassium supplement. She did have a recurrent syncopal episode back in December 2022 which had the same scenario as described in June 2022. She became hot then had brief loss of consciousness. She continues to take a daily potassium supplement. Echocardiogram done 07/27/2022 shows EF 60-65%, mild aortic regurgitation, normal RV. Holter monitor done on 07/27/2022 for 7 days showed sinus rhythm with average heart rate 76, heart rate range 51 to 124, occasional PVCs and PACs. Her syncope sounds like vasovagal syncope. On last visit I discussed further testing options including cardiac event monitor, tilt-table test and she declined. Her daughter is in agreement. Now she has had no recurrent episodes since December. She will continue to work on good hydration and recognizes the symptoms prior to her events. Daughter will call if she has concerns and would like further tests. Signs of presyncope reviewed and instructed on sitting or laying down if she becomes symptomatic. If she continues to have recurrent events in the future then she mayconsider further cardiac testing. Cardiology follow-up as needed. (2) Hypokalemia: Code(s): E87.6 - Hypokalemia Plan: Labs 03/12/2023 showed potassium 2.7. She is on potassium supplement, dose increased. Rechecks showed potassium in the normal range. Last labs 04/11/2023 showed potassium 3.8. (3) Hospital discharge follow-up: Code(s): Z09 - Encounter for follow-up examination after completed treatment for conditions other than malignant neoplasm Plan: As above Patient Instructions: Time spent on chart review, documentation, interview and assessment Coding Level of Care Code Est Pt Level 3 (81888) Diagnoses Syncope and collapse R55 Hypokalemia E87.6 Hospital discharge follow-up Z09 Time Spent (min) 24
== END 2023-06-21 13:38 | disposition home or self-care (01) ==
PROVIDERS: PCP Internal Medicine; Visit Provider Nurse Practitioner Family
DX: R55 Syncope and collapse (principal); E87.6 Hypokalemia; Z09 Encounter for follow-up examination after completed treatment for conditions other than malignant neoplasm
CPT/HCPCS: 99213

== ENCOUNTER → 2023-06-21 12:54 | Outpatient (BNVA) | payer MEDICARE, SELFPAY | PROVIDERS: PCP Internal Medicine; Visit Provider Nurse Practitioner Family | DX: Z09 Encounter for follow-up examination after completed treatment for conditions other than malignant neoplasm (principal); R55 Syncope and collapse; E87.6 Hypokalemia | CPT/HCPCS: 99212 ==

== ENCOUNTER 2023-09-10 13:20 | Outpatient (REF) | payer MEDICARE, SELFPAY ==
[2023-09-10 14:18] LABS: MANUAL DIFF FLAG NO
[2023-09-10 14:53] LABS: Basophils Percent Auto 0.7 % (0-2); Eosinophils Absolute Auto 0.3 X10*3/uL (0.0-0.4); Eosinophils Percent Auto 5.5 % (0-4); Hematocrit 35.1 % (37.0-47.0); Hemoglobin 11.2 g/dl (12.0-16.0); Imm Gran Abs Auto 0.02 X10*3/uL (0.00-0.03); Imm Gran Pct Auto 0.3 % (0.0-0.4); Lymphocytes Absolute Auto 1.7 X10*3/uL (1.2-4.9); Lymphocytes Percent Auto 28.8 % (20-40); Mean Corpuscular HGB Conc 31.9 g/dl (31.0-35.0); Mean Corpuscular Hemoglobin 29.3 pg (27.0-33.0); Mean Corpuscular Volume 91.9 fL (80.0-98.0); Mean Platelet Volume 10.4 fL (9.4-12.3); Monocytes Absolute Auto 0.8 X10*3/uL (0.1-1.2); Monocytes Percent Auto 14.4 % (2-11); Neutrophils Absolute Auto 2.9 x10*3/uL (2.0-8.3); Neutrophils Percent Auto 50.3 % (45-73); Platelet Count 267 X10*3/uL (160-400); Red Blood Count 3.82 X10*6/uL (4.20-5.50); White Blood Count 5.8 X10*3/uL (4.8-10.8)
[2023-09-10 15:58] LABS: Alanine Aminotransferase 8 U/L (0-31); Alkaline Phosphatase 118 U/L (39-117); Anion Gap 9 (12-20); Aspartate Amino Transferase 16 U/L (5-31); Bilirubin Total 0.5 mg/dL (0.0-1.0); Blood Urea Nitrogen 18 mg/dL (9-16); Calcium 9.8 mg/dL (8.4-10.2); Carbon Dioxide 31 mmol/L (22-29); Chloride 107 mmol/L (96-108); Estimated Glomerular Filt Rate 56; Glucose Random 83 mg/dL (60-115); Potassium 4.2 mmol/L (3.3-5.1); Sodium 143 mmol/L (135-145); TSH reflex Free T4 0.63 uIU/mL (0.32-4.0); Total Protein 7.2 g/dL (6.5-8.0)
== END 2023-09-10 13:21 | disposition home or self-care (01) ==
LOC: HO.LAB 13:20
PROVIDERS: PCP Internal Medicine; Visit Provider Internal Medicine Gastroenterology
DX: R63.4 Abnormal weight loss (principal); K80.10 Calculus of gallbladder with chronic cholecystitis without obstruction; R94.5 Abnormal results of liver function studies; I10 Essential (primary) hypertension; K75.81 Nonalcoholic steatohepatitis (NASH); R11.0 Nausea
CPT/HCPCS: 36415; 80053; 84443; 85025; 99212

== ENCOUNTER 2023-09-10 13:20 | Outpatient (AMB) | payer MEDICARE, SELFPAY ==
--- NOTE | 2023-09-10 13:22 | A.OFFVIS_ITS ---
Intake Vital Signs 09/10/23 13:27 Height 5 ft 5 in Weight 108 lb 0.424 oz BMI 18.0 BP 136/64 Blood Pressure Location Lt brachial Position Sitting Pulse 79 Intake Visit Reasons: 3 month follow up Intake Note: Whit presents in the office as a 3 month follow up. CC: Raker Buffing Wheel Required: No Allergies celecoxib [From CELEBREX] Allergy (Intermediate, Verified 09/10/23 13:28) RASH Sulfa (Sulfonamide Antibiotics) Allergy (Intermediate, Verified 09/10/23 13:28) RASH tomato Allergy (Verified 09/10/23 13:28) Rash From PERCOCET Allergy (Intermediate, Uncoded 09/10/23 13:28) RASH HPI 3 month follow up HPI Details 78 yr old f with goiter and HTN being se en for f/u RECAP--seen index visit 07/2019 she had good appetite but felt her weight was down unintentionally, 150-->142--->132 --->128#(thinks she was more active as well) denied dysphagia don;t know what heartburn feels like denied abdominal pain did have sudden onset ches tpain last year after dinner, was checked out and cardiac eval was neg incl stress test does come on with food every so often, and takes tums which helps can get attacks once a month now, lasts until tums kicks in joint pain from OA she had colonoscopy with pleet, ?5 yrs not sure if anything found she has left breast nodule and being followed she was referred to Dr Briggs for consideration for cholecystectomy, but she held off as she was feeling better I gave her urosdiol and miralax for her complaints TESTS: CT 2016--spinal degen, thyroid nodules US; 10/2019--stones, sludge GB, liver nml, she was tender over GB GES: 01/[address] 02/2020--uterin efibroids, moderate constipation, spondylosis, Gb unremarkable, liver ok EGD: 09/2019-mild gastritis, bile refluxate colonoscopy 12/2019--adenoma removed US 10/29-- gallstones, nml appearing liver LABS: 12/2019-02/2020 cbc--nml mild raised eos BMP nml LFT--nml TSH--nml CALE- pos 1:320, AMa--pos 1:80 (checked due to intermittent high alk phos) SLa, SMA, neg LKm-neg igG--nml hep serologies--neg alk phos minimally elevated to 130 ---12/2020 labs 09/27--- nml LFt, nml HGB INTERIM: she is compliant with ursodiol 500 mg only once daily, she has been having weight gain but still poor appetite denies nausea or vomiting no abdominal pain no skin rash no fevers or chills no rectal bleeding, or melena EXAM: GENERAL: The patient is thin and nontoxic. VITAL SIGNS:see workflow HEENT: Nonicteric sclerae, PERRLA, EOMI. Oropharynx clear. Moist mucous membranes. Conjunctivae appear well perfused. No thyroid mass. CHEST: Chest wall is nontender. HEART: Regular rate and rhythm without murmurs. LUNGS: Clear to auscultation bilaterally. ABDOMEN: Soft, positive bowel sounds, nontender, no organomegaly.no flank tenderness SKIN: No rash, no excessive bruising, petechiae, or purpura. NEUROLOGIC: Cranial nerves II-XII intact without motor/sensory deficit. PSYCH: normal affect MS: slight kyphotic spine Assessments 1. pos AMA, may have PBC- on urosdiol, l ow level AMA, ursodiol also being used to reduce gallstone formation 2. 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 Mother No problems noted. Social History Household Members: Family Housing: House Do you presently have visiting nurse or other home services: No Alcohol intake: former Patient Tobacco Use Status: Former Tobacco user service: No Physical Exam Vital Signs: Last Vital Signs Pulse 79 09/10/23 13:27 BP 136/64 09/10/23 13:27 BMI result Body Mass Index 18.0 Assessment & Plan Assessment & Plan (1) Abnormal LFTs: Code(s): R94.5 - Abnormal results of liver function studies Plan: 1. pos AMA, may have PBC- on urosdiol, low level AMA, ursodiol also being used to reduce gallstone formation 2. unintended weight loss, but seems to be improving PLAN: 1/ cont ursodiol-- 2/ cont with Vit D medciation and take a multi vitamin 3/ CT A/P liver protocol 4/ labs, incl TSH as before 5/ if neg then EGD and maybe GES (2) Chronic cholecystitis: Code(s): K81.1 - Chronic cholecystitis Plan: 1. pos AMA, may have PBC- on urosdiol, low level AMA, ursodiol also being used to reduce gallstone formation 2. unintended weight loss, but seems to be improving PLAN: 1/ cont ursodiol-- 2/ cont with Vit D medciation and take a multi vitamin 3/ CT A/P liver protocol 4/ labs, incl TSH as before 5/ if neg then EGD and maybe GES Orders: Orders CT abdomen pelvis wo/w IV con Today K81.1 - Chronic cholecystitis, R63.4 - Abnormal weight loss, R94.5 - Abnormal results of liver function studies Coding Level of Care Code Est Pt Level 4 (88425) Diagnoses Abnormal LFTs R94.5 Chronic cholecystitis K81.1
[2023-09-10 13:27] VITALS: BP 136/64; PULSE 79; BMI 18.0
== END 2023-09-10 13:47 | disposition home or self-care (01) ==
PROVIDERS: PCP Internal Medicine; Visit Provider Internal Medicine Gastroenterology
DX: R94.5 Abnormal results of liver function studies (principal); K81.1 Chronic cholecystitis
CPT/HCPCS: 99214

== ENCOUNTER 2023-11-06 15:18 | Outpatient (REF) | payer MEDICARE, SELFPAY ==
--- NOTE | ~2023-11-06 | CT_ITS ---
EXAMINATION: CT ABDOMEN AND PELVIS WITHOUT AND WITH CONTRAST CLINICAL INFORMATION: Abnormal weight loss; malaise; rule out malignancy. COMPARISON: Abdominal ultrasound dated 03/08/2020; CT abdomen and pelvis dated 02/09/2020. TECHNIQUE: Multidetector volumetric imaging was performed of the abdomen and pelvis before and after the IV administration of mL of Omnipaque 300 intravenous contrast. Sagittal and coronal reformatted images were obtained on the technologist's workstation. This CT examination was performed using dose optimization techniques as appropriate, variously including the following: *Automated exposure control *Adjustment of mA and/or kV according to patient size (this includes techniques or standardized protocols for targeted exams where dose is matched to indication/reason for exam; i.e. extremities or head) *Use of iterative reconstruction technique DLP: 501.00 mGy-cm FINDINGS: LUNG BASES: The visualized lung bases are unremarkable. LIVER, GALLBLADDER, AND BILIARY TREE: The liver is normal in size, shape, and generally diminished in attenuation. No focal hepatic lesion or biliary ductal dilatation is present. There are small layering gallstones, without gallbladder wall thickening, or obvious pericholecystic inflammatory changes. PANCREAS: Unremarkable SPLEEN: Unremarkable ADRENAL GLANDS: Unremarkable KIDNEYS AND URETERS: The kidneys are normal in size, shape, and attenuation. No hydronephrosis, hydroureter, or calculi seen. At the lower pole of the right kidney (4:53), a small benign, simple cyst is redemonstrated, for which no imaging follow-up is recommended. No perinephric stranding. BLADDER: Unremarkable GASTROINTESTINAL TRACT: The small and large bowel are unremarkable. There is mild diverticulosis, without acute diverticulitis. No obstruction, free intraperitoneal air or abscess is seen. There is no focal bowel wall thickening. The vermiform appendix is not identified with certainty; however, there is no finding to suggest appendicitis. ABDOMINAL WALL: No significant hernia is appreciated. LYMPH NODES: Normal VASCULAR: There is moderate aortoiliac atherosclerotic calcification. No abdominal aortic aneurysm or dissection is seen. PELVIC VISCERA: Calcified fundal fibroids are noted. The uterus and adnexa are otherwise unremarkable. OSSEOUS STRUCTURES: There is multi-level marked thoracolumbar degenerative disc disease, with vacuum disc phenomenon and endplate arthropathy. No acute or aggressive osseous finding is noted. CT/CT abdomen pelvis wo/w IV con IMPRESSION: 1. There is hepatic steatosis. 2. There is cholelithiasis. 3. There is mild diverticulosis, without acute diverticulitis. 4. No abdominopelvic mass, free fluid lymphadenopathy is seen. 5. No urinary calculus or obstruction is seen. 6. There is uterine fibroid disease. 7. There are multi-level degenerative changes of the spine. No acute or aggressive osseous finding is noted. Fleischner guidelines were followed.
[2023-11-08 09:07] LABS: Creatinine POC 0.7 mg/dL (0.5-1.4); GFR POC > 60
== END 2023-11-06 15:19 | disposition home or self-care (01) ==
LOC: HO.CT 15:18
PROVIDERS: PCP Internal Medicine; Visit Provider Internal Medicine Gastroenterology
DX: R63.4 Abnormal weight loss (principal); R94.5 Abnormal results of liver function studies; K81.1 Chronic cholecystitis
CPT/HCPCS: 74178; 82565

== ENCOUNTER 2023-11-28 14:45 | Inpatient (IN) | payer MEDICARE, SELFPAY ==
--- NOTE | ~2023-11-28 | XR_ITS ---
EXAMINATION: XR CHEST CLINICAL INFORMATION: Fever and altered mental status COMPARISON: Chest radiograph 06/14/2023 CT chest 09/12/2021 TECHNIQUE: Frontal view of the chest was obtained. FINDINGS: Biapical pleural-parenchymal scarring is again seen, best seen on the prior CT. No other significant abnormality is noted involving the heart, lungs, mediastinum, bony thorax or soft tissues. Heart size normal. No CHF. XR/XR chest 1V IMPRESSION: No acute intrathoracic disease. Biapical pleural-parenchymal scarring.
--- NOTE | ~2023-11-28 | CT_ITS ---
EXAMINATION: CT HEAD WITHOUT CONTRAST CLINICAL INFORMATION: Altered mental status. COMPARISON: CT head 03/10/2023 TECHNIQUE: Contiguous axial imaging was performed from the skull base to vertex without intravenous administration of contrast. This CT examination was performed using dose optimization techniques as appropriate, variously including the following: *Automated exposure control *Adjustment of mA and/or kV according to patient size (this includes techniques or standardized protocols for targeted exams where dose is matched to indication/reason for exam; i.e. extremities or head) *Use of iterative reconstruction technique DLP: 904 mGy-cm FINDINGS: Moderate diffuse commensurate prominence of ventricles and sulci is noted with qualitative focal prominence of the temporal horns of the lateral ventricles. Prominent hyperostosis frontalis interna visualized. Mild subcortical and periventricular white matter patchy hypodensities visualized. Bilateral ocular senescent calcifications noted. A mucosal retention cyst is noted posteriorly within the right maxillary sinus similar to findings present 03/10/2023. No mastoid or middle ear cavity effusions visualized. CT/CT head/brain wo IV con IMPRESSION: *No acute intracranial abnormalities. *Moderate diffuse parenchymal volume loss the brain and additional qualitative disproportionate additional volume loss the temporal horns the lateral ventricles which may indicate prominent hippocampal volume loss. *Mild chronic microangiopathic ischemic changes.
[2023-11-28 14:52] VITALS: BP 120/70; PULSE 80; O2SAT 96
[2023-11-28 14:55] VITALS: BP 134/56; PULSE 69; RESP 14; TEMP 36.9; O2SAT 96; BMI 21.7
[2023-11-28 15:15] VITALS: TEMP 38.3
[2023-11-28] MEDS: 0.9 % Sodium Chloride 1,000 ML 250 ML IVCONT (15:19)
[2023-11-28] MEDS: Ibuprofen 800 MG TABLET PO (15:34)
[2023-11-28 15:50] LABS: Appearance Urine Cloudy; Color Urine Yellow; Glucose Urine UA Negative (Negative); Leukocyte Esterase Urine Moderate (2+) (Negative); Nitrite Urine Negative (Negative); PH 6.5 (5.0-9.0); Specific Gravity - Urine 1.015 (1.005-1.025); UMIC TRIGGER UACC YES; Urine Blood Negative (Negative); Urine Ketones Negative (Negative); Urine Protein Negative (Neg-Trace)
--- NOTE | 2023-11-28 15:58 | ED_ITS ---
HPI - Altered Mental Status General Chief Complaint: Altered Mental Status Stated Complaint: Increased confusion over a day, per ems Time Seen by Provider: 11/28/23 14:50 Source: EMS Mode of arrival: EMS Limitations: altered mental status History of Present Illness ED Provider: Dr. Horvath HPI narrative: Patient with decrease in mental status, she has dementia at baseline MD complaint: altered mental status and confusion Onset (ago): day(s) Related Data Home Medications ?Medication ?Instructions ?Recorded ?Confirmed cholecalciferol (vitamin D3) 25 25 mcg PO DAILY 04/10/20 06/21/23 mcg (1,000 unit) capsule acetaminophen 500 mg tablet 1,000 mg PO Q6H PRN Headache 07/09/22 06/21/23 multivitamin 1 tab PO DAILY 07/09/22 06/21/23 donepezil 10 mg tablet 10 mg PO BEDTIME 08/17/22 06/21/23 sertraline 25 mg tablet 25 mg PO DAILY 08/17/22 06/21/23 chlorthalidone 25 mg tablet 25 mg PO DAILY 09/11/22 06/21/23 potassium chloride 20 mEq 20 meq PO BID 09/11/22 06/21/23 tablet,extended release(part/cryst) (Klor-Con M) memantine 5 mg tablet 5 mg PO BID 02/19/23 06/21/23 olanzapine 2.5 mg tablet 2.5 mg PO BEDTIME 09/10/23 Previous Rx's ?Medication ?Instructions ?Recorded ursodiol 500 mg tablet 500 mg PO BID #180 tabs 06/28/23 Allergies Allergy/AdvReac Type Severity Reaction Status Date / Time celecoxib [From CELEBREX] Allergy Intermediate RASH Verified 11/28/23 14:57 Sulfa (Sulfonamide Allergy Intermediate RASH Verified 11/28/23 14:57 Antibiotics) tomato Allergy Rash Verified 11/28/23 14:57 From PERCOCET Allergy Intermediate RASH Uncoded 09/10/23 13:28 Review of Systems 2 Review of Systems: Yes all other systems are reviewed and are negative Neurologic: Denies Sensory deficit (Neuro) PMFSH Past Medical History Medical History Orthostatic hypotension Dementia UTI (urinary tract infection) Chronic cholecystitis Essential hypertension 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 Mother No problems noted. Social History Social History Household Members: Family Housing: House Do you presently have visiting nurse or other home services: No Alcohol intake: former Patient Tobacco Use Status: Former Tobacco user Advance Directives: Yes Advance Directives on File: Yes Advance Directives Date on File: 09/15/21 Do you have a plan to hurt others: No Plan service: No Physical Exam ED Vital Signs: Vital Signs - 24 hr 11/28/23 14:55 Temperature 98.4 F Pulse Rate 69 Respiratory Rate 14 Blood Pressure 134/56 L Pulse Oximetry 96 Oxygen Delivery Method Room Air BMI result Body Mass Index 21.7 Const Other: thin frail, chronically ill female General: healthy appearing Orientation/consciousness: oriented to person Limitations: altered mental status HENMT Head: Yes normal to inspection Ears: external ears normal General nose exam: Normal external nose present Mouth: Normal oral and palatal mucosa present and oropharynx normal Throat: Yes posterior oropharynx normal Eyes General: appearance normal, both eyes and all related structures Neck Neck: Yes normal visual inspection Chest Chest palpation & inspection: normal inspection of the chest Resp Auscultation: clear to auscultation bilaterally Cardio Jugular venous distension: no JVD Rate: regular rate Rhythm: regular rhythm Heart sounds: S1 normal heart sound present and S2 normal heart sound present GI Inspection: Yes normal to inspection Palpation (GI): Soft to palpation, nontender and No hepatosplenomegaly present Auscultation: normal bowel sounds General: Yes no CVA tenderness Back/Spine/Pelvis Back: no CVA tenderness Skin General skin exam: no rashes or lesions noted Neuro General: oriented to person Cranial nerves: Yes CN's II-XII intact bilaterally Motor exam (neuro): 5/5 motor strength present throughout Sensory Exam: No Sensory deficit (Neuro) Extrem General: Yes normal to inspection Psych Other: flat affect Medications Administered Generic Name Dose Route Start Last Admin Trade Name Keyonq PRN Reason Stop Dose Admin Sodium Chloride 1,000 mls @ 250 mls/hr 11/28/23 15:15 11/28/23 15:19 Ns IVCONT 11/28/23 19:14 250 mls/hr .Q4H MOSHE Administration Discontinued Medications Generic Name Dose Route Start Last Admin Trade Name Keyonq PRN Reason Stop Dose Admin Ibuprofen 800 mg 11/28/23 15:12 11/28/23 15:34 Ibuprofen 800 Mg Tablet PO 11/28/23 15:13 800 mg ONCE ONE Administration Medical Decision Making Differential Diagnosis Differential Diagnoses: The differential diagnosis associated with the presentation includes (fever, UTI, electrolyte abnormality, pneumonia were all considered) Admission/Observation Consideration of admission/observation: Escalation of care including admission/observation considered (upon arrival admission was considered) Lab Data 11/28/23 15:55 11/28/23 15:55 Labs: Lab Results 11/28/23 Range/Units 15:41 Urine Color Yellow Urine Appearance Cloudy Urine pH 6.5 (5.0-9.0) Ur Specific [place] 1.015 (1.005-1.025) Urine Protein Negative (Neg-Trace) mg/dL Urine Glucose (UA) Negative (Negative) mg/dL Urine Ketones Negative (Negative) mg/dL Urine Blood Negative (Negative) Urine Nitrite Negative (Negative) Ur Leukocyte Esterase Moderate (2+) H (Negative) Independent Historian Clinical information obtained from an independent historian. History obtained from or confirmed by: EMS Tests considered The following testing was considered but not selected: CT of brain considered but this is likely due to fever and infection Chronic Conditions Patient?s care impacted by: Other (dementia) Discharge Plan Discharge Clinical Impression: Altered mental status, Fever Patient Disposition: Still a Patient Prescriptions: No Action ursodiol 500 mg tablet 500 mg PO BID Qty: 180 2RF multivitamin Tablet 1 tab PO DAILY acetaminophen 500 mg Tablet 1,000 mg PO Q6H PRN (Reason: Headache) donepezil 10 mg tablet 10 mg PO BEDTIME sertraline 25 mg tablet 25 mg PO DAILY Rx Instructions: administer with food cholecalciferol (vitamin D3) 25 mcg (1,000 unit) capsule 25 mcg PO DAILY chlorthalidone 25 mg tablet 25 mg PO DAILY potassium chloride [Klor-Con M20] 20 mEq tablet,ER particles/crystals 20 meq PO BID memantine 5 mg tablet 5 mg PO BID olanzapine 2.5 mg tablet 2.5 mg PO BEDTIME Print Language: [place]
--- NOTE | 2023-11-28 16:42 | PC.NURSE ---
Labs not resulted yet, called lab to see if there was an issue with the specimen, lab is having interface issues, unable to upload results to [facility], nurse charge rn & provider made aware.
[2023-11-28 16:46] LABS: Red Blood Count 3.57 X10*6/uL (4.20-5.50); White Blood Count 5.2 X10*3/uL (4.8-10.8)
[2023-11-28 16:47] LABS: Hematocrit 33.2 % (37.0-47.0); Hemoglobin 10.7 g/dl (12.0-16.0); Mean Corpuscular HGB Conc 32.2 g/dl (31.0-35.0); Mean Platelet Volume 10.5 fL (9.4-12.3); Platelet Count 189 X10*3/uL (160-400); Red Cell Distribution Width 13.9 % (11.0-16.0)
[2023-11-28 17:25] LABS: Alanine Aminotransferase 11 U/L (0-31); Aspartate Amino Transferase 21 U/L (5-31); Potassium 3.7 mmol/L (3.3-5.1); Sodium 138 mmol/L (135-145)
[2023-11-28 17:26] LABS: Alkaline Phosphatase 107 U/L (39-117); Blood Urea Nitrogen 14 mg/dL (9-16); Estimated Glomerular Filt Rate > 60
[2023-11-28 17:27] LABS: Anion Gap 14 (12-20); Bilirubin Total 0.3 mg/dL (0.0-1.0); Carbon Dioxide 23 mmol/L (22-29); Glucose Random 93 mg/dL (60-115); Total Protein 6.5 g/dL (6.5-8.0)
[2023-11-28 17:28] LABS: Albumin Level 3.7 g/dL (3.5-5.0); Calcium 8.7 mg/dL (8.4-10.2); Chloride 105 mmol/L (96-108)
[2023-11-28 17:32] VITALS: BP 122/59; PULSE 79; RESP 15; TEMP 37.2; O2SAT 98
[2023-11-28 17:48] LABS: Lactic Acid 1.1 mmol/L (0.5-2.0)
[2023-11-28 18:08] LABS: Bacteria Urine 4+ (None Seen); Hyaline Casts Urine 0-2 /LPF (0-2); RBC Urine 0-2 /HPF (0-2); Squamous Epithelial Cell Urine 0-2 /HPF (0-2); UACC Culture Trigger YES; WBC Urine 21-50 /HPF (0-5)
[2023-11-28 18:11] LABS: SLIDE REVIEW MANUAL DIFF
[2023-11-28 18:29] LABS: Baso%MD 0.6 %; IG%MD 0.2 %; Lymph%MD 13.8 %; Neut%MD 61.4 %
--- OUTSIDE RECORDS SUMMARY | 2023-11-28 18:29 | XMS_ITS | Continuity of Care Document ---
Author Organization [facility] Address [address] [place] [id number]- Care Team Providers Care Tire Builder Name Role Phone Juma Gong MD Primary Care Physician [phone] [place] [facility] [place] 03/23/23 - 04/22/[address] [address]- Attending Physician: Not on Staff, Attending MD Admitting Physician: Not on Staff, Admitting MD Referring Physician: Not on Staff, Referring MD Immunizations Given and Recorded Vaccine Date Status Refusal Reason SARS-CoV-2 (COVID-19) mRNA BNT-162b2 vac 09/03/20 Given Patient Care team information Care Team Personnel Name: Juma Gong MD Position: [facility] Outreach Member Role: PCP Address: Address: [address] [facility] [place] [address]- Care Team Related Persons Name: MANINDER BROWN Address: home [address] [place] [address]
--- OUTSIDE RECORDS SUMMARY | 2023-11-28 18:29 | XMS_ITS | Continuity of Care Document ---
Author Organization [facility] Address [address] [place] [address]- Care Team Providers Care Sound Technician Supervisor Name Role Phone Juma Gong MD Primary Care Physician Encounter 03/24/23 - 04/24/23 [facility] [address] [place] [address]- Discharge Disposition: CLIENT NO LONGER REQUIRES SKILLED CARE Immunizations Given and Recorded Vaccine Date Status Refusal Reason SARS-CoV-2 (COVID-19) mRNA BNT-162b2 vac 09/03/20 Given Patient Care team information Care Team Personnel Name: Juma Gong MD Position: [facility] Outreach Member Role: PCP Address: Address: [address] [facility] [place] [address]- Care Team Related Persons Name: MANINDER BROWN Address: home [address] [place] [address]
--- OUTSIDE RECORDS SUMMARY | 2023-11-28 18:29 | XMS_ITS | Patient Health Record ---
[facility] Organization [facility] [place] Address [address] [place] [address] Care Team Providers Care Spinning Bath Person Name Role Phone Juma Gong MD Primary Care Provider Ambrocio Chino Unavailable [phone] ALLERGIES Allergen (clinical drug ingredient) Drug/Non Drug Allergy documented on EMR Reaction Allergy Type Onset Date Status sulfamethoxazole / trimethoprim Bactrim rash Drug Allergy Active peanut allergenic extract Peanut (Diagnostic) ichtyness Drug Allergy Active Tomatoes ichtyness Allergy Active REASON FOR REFERRAL No Information MEDICATIONS Medication SIG (Take, Route, Frequency, Duration) Notes Start Date End Date Status Potassium 75 MG 1 tablet Orally Once a day Not-Taking Ibuprofen 200 MG 1 tablet as needed Orally every 6 hrs Not-Taking Aleve Not-Taking Vitamin D Active Ursodiol 500 MG TAKE 1 TABLET BY SCOTT TH TWICE DAILY Oral for 30 Active Triamcinolone Acetonide 0.1 % External for 14 Active Potassium Chloride Shakira ER 20 MEQ TAKE 1 TABLET BY MOUTH TWICE DAILY Oral for 90 Active Mupirocin 2 % APPLY TO BIOPSY SITE TWICE DAILY UNTIL HEALED External for 10 Active Ivermectin 3 MG Oral for 2 Act kelly Klor-Con Active Chlorthalidone 100 MG 1 tablet in the morning Orally Once a day for 30 day(s) Active IMMUNIZATIONS Vaccine Route Administration Date Status Comme nts COVID-19 Pfizer BioNTech Vaccine Unknown 05/09/2021 Administered 1st 08/13/2020 2nd 09/03/2020 Influenza Unknown 05/13/2021 Administered SOCIAL HISTORY Tobacco Use: Social History Observation Description Date Details (start date - stop date) Former Smoker NA - NA Sex Assigned At : Social History Observation Description Sex Assigned At Unknown Tobacco Use/Smoking Question Answer Notes Are you a: former smoker Additional Findings: Tobacco Non-User Current no n-smoker Alcohol Screen Question Answer Notes Did you have a drink containing alcohol in the p ast year? No Points 0 Interpretation Negative Tobacco use other than smoking: Question Answer Notes Are you an other tobacco user? 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, with unspecified presence of clinical manifestation (I70.203) Active confirmed Atherosclerosis of benton arteries of the extremities (529972522844776) VITAL SIGNS Height 5 ft 6 in in 08/17/2023 Weight 114 lbs 08/17/2023 BMI 18.4 kg/m2 08/17/2023 PROCEDURES Procedure Date Ordered Date Performed Result Body Sit e 04980-HUPPXBS NAIL, 6 OR MORE 12/15/2022 N/A 67986-DDFHFZN NAIL, 6 OR MORE 04/20/2023 N/A 21343-TXGFXHM NAIL, 6 OR MORE 08/17/2023 N/A 50867-OQMS SKIN LESIONS, 2 TO 4 08/17/2023 N/A Encounters Encounter Location Date Provider Diagnosis [address] [address] 12/15/2022 Ambrocio Weaver Tinea unguium B35.1 ; Pain in right toe(s) M79.674 and Pain in left toe(s) M79.[address] [address] 03/20/2023 [facility] [address] 03/20/2023 Ambrocio Weaver [address] [address] 04/20/2023 Ambrocio Weaver Tinea unguium B35.1 ; Pain in right toe(s) M79.674 and Pain in left toe(s) M79.[address] [address] 07/06/2023 Ambrocio Weaver [address] [address] 07/20/2023 Ambrocio Weaver [address] [address] 08/17/2023 Ambrocio Weaver 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, with unspecified presence of clinical manifestation I70.203 ; Tinea unguium B35.1 ; Pain in right toe(s) M79.674 and Pain in left toe(s) M79.[address] [address] 11/23/2023 Ambrocio Weaver ASSESSMENTS Encounter Date Diagnosis Assessment Notes Treatment Notes Treatment Clinical Notes 12/15/2022 Tinea unguium (ICD-1 0 - B35.1) 12/15/2022 Pain in right toe(s) (ICD-10 - M79.674) 04/20/2023 Tinea unguium (ICD-1 0 - B35.1) 04/20/2023 Pain in right toe(s) (ICD-10 - M79.674) 08/17/2023 Tinea unguium (ICD-1 0 - B35.1) 08/17/2023 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, with unspecified presence of clinical manifestation (ICD-10 - I70.203) 08/17/2023 Pain in right toe(s) (ICD-10 - M79.674) 04/20/2023 Pain in left toe(s) (ICD-10 - M79.675) 12/15/2022 Pain in left toe(s) (ICD-10 - M79.675) 08/17/2023 Pain in left toe(s) (ICD-10 - M79.675) PLAN OF TREATMENT Pending Test Test Name Order Date X ray : Foot, right 3V 11/17/2011 09049-RLSLFOU NAIL, 6 OR MORE 02/20/2012 65300-ODUOIQQ NAIL, 6 OR MORE 05/21/2012 79009-FRSQRRE NAIL, 6 OR MORE 11/01/2012 96033-HRPFMIV NAIL, 6 OR MORE 01/31/2013 82559-SPTFEXB NAIL, 6 OR MORE 05/30/2013 48783-BXPEAGO NAIL, 6 OR MORE 09/05/2013 50318-YFHDLZY NAIL, 6 OR MORE 12/12/2013 71090-VSIGTHZ NAIL, 6 OR MORE 03/24/2014 49919-XMQTGKF NAIL, 6 OR MORE 05/19/2011 66487-BBLEAAP NAIL, 6 OR MORE 08/18/2011 08445-VKKXDQA NAIL, 6 OR MORE 11/17/2011 16100-NBNQGSM NAIL, 6 OR MORE 07/30/2012 92289-TSYIOTN NAIL, 6 OR MORE 06/23/2014 10814-VQYVXII NAIL, 6 OR MORE 11/27/2014 38905-EQOOVBD NAIL, 6 OR MORE 2015 28155-ZSBGVGG NAIL, 6 OR MORE 08/17/2015 97922-ZITCRKU NAIL, 6 OR MORE 12/07/2015 70514-WRYIAKV NAIL, 6 OR MORE 03/17/2016 98929-UAATGIA NAIL, 6 OR MORE 06/16/2016 69595-LOJIAET NAIL, 6 OR MORE 09/22/2016 93166-CSAYFWK NAIL, 6 OR MORE 12/22/2016 38829-SMUEUPX NAIL, 6 OR MORE 03/30/2017 03489-QDZCZNN NAIL, 6 OR MORE 08/21/2017 20074-PIUDJEL NAIL, 6 OR MORE 11/20/2017 73526-WVSCLOZ NAIL, 6 OR MORE 02/12/2018 49614-YGIERGZ NAIL, 6 OR MORE 05/17/2018 49047-ETMKJEL NAIL, 6 OR MORE 08/23/2018 52478-VIWMOEX NAIL, 6 OR MORE 11/29/2018 17978-WWEIWGL NAIL, 6 OR MORE 04/29/2019 76793-NHVARVB NAIL, 6 OR MORE 08/05/2019 51341-KHRJKJK NAIL, 6 OR MORE 10/26/2020 73080-USXHZVY NAIL, 6 OR MORE 01/28/2021 37597-UXHDNUD NAIL, 6 OR MORE 06/17/2021 97456-SUPAEFA NAIL, 6 OR MORE 10/07/2021 16367-FHQOBGM NAIL, 6 OR MORE 01/13/2022 35278-LXKLKDS NAIL, 6 OR MORE 07/21/2022 77181-BRCVBCX NAIL, 6 OR MORE 12/15/2022 74905-PHSVHON NAIL, 6 OR MORE 04/20/2023 88724-JJPJJVF NAIL, 6 OR MORE 08/17/2023 39495-CQJFMQX NAIL, 6 OR MORE 04/14/2022 65522-Qoyq Destruction, 1-14 04/14/2022 87842-Mjde Destruction, 1-14 01/13/2022 75305-Fiat Destruction, 1-14 10/07/2021 32603-Nbwz Destruction, 1-14 06/17/2021 61376-Nwty Destruction, 1-14 08/17/2015 16669-Gfmesdan Plate 07/30/2012 46440-Pifjbimb Plate 03/24/2014 01322-Ujuladqe Plate 05/21/2012 71993-Blzddsnw Plate 11/20/2017 52461-NOOV SKIN LESIONS, 2 TO 4 08/17/19 24 Next Appt Details Provider Name:Ambrocio Flores Meg , 12/28/2023 11:30:00 AM, [address] [place], [address], Insurance Providers Payer Name Payer Address Payer Phone Subscriber Number Group Number Insured Name Patient Relationship to Insured Coverage Start Date Coverage End Date Medicare National [facility] [address] [facility] [address] [id number] [employer] Self - patient is the insured [employer] [address] [place] [address] [id number] [employer] Self - patient is the insured MEDICAL (GENERAL) HISTORY Medical History History ICD Code chicken pox sciatica hypertension back, hip, knee pain Arthritis reflux Surgical History Surgery Date(Month/Year) thyroidectomy tonsillectomy back surgery 1990 bunionectomy 1991 right knee arthroscopy 2006 left knee arthroscopy 2008 endoscopy 2020 colonoscopy 2020 Hospitalization History Reason Date(Month/Year) [facility] [place]23 [facility] potassium, fainted, overnight s charity 06/2022 [facility] [place] Fainted - infection/Back pain 3 da ys 08/2021 [facility] chest pain 07/2018 [facility] [place] Fell stitches on chin 02/21/2017 [facility] fractured wrist 08/2015 [facility], passed out due to low potass ium 10/2014
[2023-11-28 18:57] LABS: Band Neutrophils Percent 6 % (3-5); Eosinophils Absolute Manual 0.1 X10*3/uL (0.0-0.4); Eosinophils Percent Manual 1 % (0-4); Lymphocytes Absolute Manual 0.6 X10*3/uL (1.2-4.9); Lymphocytes Percent Manual 11 % (20-40); Monocytes Absolute Manual 0.7 X10*3/uL (0.1-1.2); Monocytes Percent Manual 13 % (2-11); Neutrophils Absolute Manual 3.9 X10*3/uL (2.0-8.3); Neutrophils Percent Manual 69 % (45-73)
[2023-11-28 18:58] LABS: Platelet Estimate NORMAL (NORMAL); Platelet Morphology Comment NORMAL; RBC Morphology NORMAL
--- NOTE | 2023-11-28 19:16 | PM.IMHP ---
History of Present Illness Date of Service: 11/28/23 Chief Complaint: AMS This is a 78-year-old female with pertinent history of Alzheimer's dementia, hypertension, mood disorder, chronic cholecystitis, 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 Patient has Alzheimer's dementia and is a poor historian. Unable to obtain history from the patient. Patient does not know why she is in the hospital. She is only oriented to self and place. History obtained with the help of daughter at bedside. As per the daughter, patient was found to be lethargic on the day of presentation. She was very sleepy and with poor p.o. intake. Unclear if any change in urinary habits. Patient was also found to be febrile as per the daughter. She last had a urinary infection about 1 year ago. No cough, nausea, vomiting or complaints of abdominal discomfort. Unable to obtain complete review of systems. In the emergency department, patient was found to be febrile with temperature 101 degrees and urine concerning for UTI. Review of Systems Review of Systems: Yes Unobtainable due to mental condition and Unobtainable due to mental status COUNTS INCLUDE 234 BEDS AT THE [facility] Medical History Orthostatic hypotension Dementia UTI (urinary tract infection) Chronic cholecystitis Essential hypertension Rika's disease Primary osteoarthritis of left knee Nontoxic multinodular goiter Family History Father No problems noted. Mother No problems noted. Surgical History History of esophagogastroduodenoscopy (EGD) History of colonoscopy History of back surgery History of thyroid surgery History of tonsillectomy History of bilateral knee arthroplasty Social History Household Members: Family Housing: House Do you presently have visiting nurse or other home services: No Alcohol intake: former Patient Tobacco Use Status: Former Tobacco user Smoked in Last 30 Days: No Use of substances other than those prescribed or required for medical reasons: No Advance Directives: Yes Advance Directives on File: Yes Advance Directives Date on File: 09/15/21 Do you have a plan to hurt others: No Plan service: No Meds Allergies Allergy/AdvReac Type Severity Reaction Status Date / Time celecoxib [From CELEBREX] Allergy Intermediate RASH Verified 11/28/23 14:57 Sulfa (Sulfonamide Allergy Intermediate RASH Verified 11/28/23 14:57 Antibiotics) tomato Allergy Rash Verified 11/28/23 14:57 From PERCOCET Allergy Intermediate RASH Uncoded 09/10/23 13:28 Home Medications ?Medication ?Instructions ?Recorded ?Confirmed ?Last Taken ?Type cholecalciferol (vitamin D3) 25 25 mcg PO DAILY 04/10/20 06/21/23 07/08/22 History mcg (1,000 unit) capsule acetaminophen 500 mg tablet 1,000 mg PO Q6H PRN Headache 07/09/22 06/21/23 Unknown History multivitamin 1 tab PO DAILY 07/09/22 06/21/23 07/08/22 History donepezil 10 mg tablet 10 mg PO BEDTIME 08/17/22 06/21/23 Unknown History sertraline 25 mg tablet 25 mg PO DAILY 08/17/22 06/21/23 Unknown History chlorthalidone 25 mg tablet 25 mg PO DAILY 09/11/22 06/21/23 Unknown History potassium chloride 20 mEq 20 meq PO BID 09/11/22 06/21/23 Unknown History tablet,extended release(part/cryst) (Klor-Con M) memantine 5 mg tablet 5 mg PO BID 02/19/23 06/21/23 Unknown History olanzapine 2.5 mg tablet 2.5 mg PO BEDTIME 09/10/23 Unknown History Physical Exam Vital Signs and Narrative: Vital Signs: Last Vital Signs Temp 99.0 F 11/28/23 17:32 Pulse 79 11/28/23 17:32 Resp 15 11/28/23 17:32 BP 122/59 L 11/28/23 17:32 Pulse Ox 98 11/28/23 17:32 O2 Del Method Room Air 11/28/23 17:32 BMI result Body Mass Index 21.7 Elderly female lying in bed in no distress Neck supple, no JVD Regular rate and rhythm, S1-S2 heard Regular breath sounds bilaterally, no wheezing or crackles appreciated Abdomen soft nontender, no guarding, no rigidity, no CVA tenderness Patient is awake, alert and oriented to self, place, disoriented to time, no focal motor weakness Psych: Normal mood No pedal edema Results Labs 11/28/23 15:55 11/28/23 15:55 Labs: Laboratory Results - last 24 hr 11/28/23 11/28/23 11/28/23 15:41 15:55 16:30 MCV 93.0 MCH 30.0 MCHC 32.2 RDW 13.9 Plt Count 189 D MPV 10.5 Immature Gran % (Auto) Cancelled Neut % (Auto) Cancelled Lymph % (Auto) Cancelled [place] % (Auto) Cancelled Eos % (Auto) Cancelled Baso % (Auto) Cancelled Lymph # (Auto) Cancelled [place] # (Auto) Cancelled Eos # (Auto) Cancelled Baso # (Auto) Cancelled Abs Immat Gran (auto) Cancelled Absolute Neuts (auto) Cancelled Absolute Nucleated RBC 0.000 Nucleated RBC % (auto) 0.0 Neutrophils % (Manual) 69 Band Neutrophils % 6 H Lymphocytes % (Manual) 11 L Monocytes % (Manual) 13 H Eosinophils % (Manual) 1 Abs Neuts (Manual) 3.9 Lymphocytes # (Manual) 0.6 L Monocytes # (Manual) 0.7 Eosinophils # (Manual) 0.1 Platelet Estimate NORMAL Plt Morphology Comment NORMAL RBC Morphology NORMAL Smear Tech's Comments MANUAL DIFF Anion Gap 14 Estim Creat Clear Calc 46.0 Estimated GFR > 60 Random Glucose 93 Lactic Acid 1.1 Calcium 8.7 D Total Bilirubin 0.3 AST 21 ALT 11 Alkaline Phosphatase 107 Total Protein 6.5 Albumin 3.7 Urine Color Yellow Urine Appearance Cloudy Urine pH 6.5 Ur Specific [place] 1.015 Urine Protein Negative Urine Glucose (UA) Negative Urine Ketones Negative Urine Blood Negative Urine Nitrite Negative Ur Leukocyte Esterase Moderate (2+) H Urine RBC 0-2 Urine WBC 21-50 H Ur Squamous Epith Cells 0-2 Urine Bacteria 4+ Hyaline Casts 0-2 Assessment and Plan (1) UTI (urinary tract infection): Status: Acute (2) Altered mental status: Status: Acute Plan This is a 78-year-old female with pertinent history of Alzheimer's dementia, hypertension, mood disorder, chronic cholecystitis, 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 #. Acute metabolic encephalopathy due to acute UTI: Will admit patient and initiate empiric IV antibiotics. Follow blood culture and urine culture. Monitor mentation #. Alzheimer's dementia with behavioral disturbance: Continue home mood stabilizers and maintain sleep-wake cycle #. Hypertension: Continue home antihypertensives Med rec pending DVT prophylaxis: Lovenox Full code. Discussed with daughter at bedside Admit as inpatient and will require two night minimum hospital stay for IV antibiotics, monitoring of mentation (as above), which is not possible in a lesser acute setting. Quality Stroke Does the patient have a stroke diagnosis?: No VTE Prior VTE?: No VTE Risk Level:: Medical - moderate - high VTE Device Contraindication: Treatment Not Indicated VTE Drug Contraindication: N/A - Med Ordered
--- NOTE | 2023-11-28 19:24 | PHA.MEDREC ---
Pharmacy Consult ? Medication Reconciliation Pharmacy has completed the medication reconciliation.
[2023-11-28] MEDS: cefTRIAXone sodium 1 GM in 0.9 % Sodium Chloride 50 ML IV (19:37)
[2023-11-28] MEDS: Enoxaparin Sodium 40 MG/0.4 ML SYRINGE SUBCUT (19:37)
[2023-11-28 22:59] VITALS: BP 123/57; PULSE 54; RESP 14; TEMP 36.5; O2SAT 96
[2023-11-29] MEDS: 0.9 % Sodium Chloride Flush 3 ML SYRINGE IVFLUSH ×4 (00:20→19:20)
--- NOTE | 2023-11-29 01:26 | PC.NURSE ---
Patient is alert to self, familiar person, confused at times. VSS. Pure wick in place, patent. Patient offers no complaints at this time, call owens in reach, plan of care ongoing.
[2023-11-29 05:23] VITALS: BP 123/57; PULSE 64; RESP 12; TEMP 36.7; O2SAT 100
--- NOTE | 2023-11-29 05:52 | MHC.EDTECH ---
Pt changed into a clean hospital gown and hospital socks. Clean linen put on stretcher and warm blankets given to pt
[2023-11-29 06:16] LABS: MANUAL DIFF FLAG NO
[2023-11-29 06:18] LABS: Basophils Percent Auto 0.4 % (0-2); Eosinophils Percent Auto 0.3 % (0-4); Hematocrit 35.4 % (37.0-47.0); Hemoglobin 11.6 g/dl (12.0-16.0); Imm Gran Abs Auto 0.02 X10*3/uL (0.00-0.03); Imm Gran Pct Auto 0.3 % (0.0-0.4); Lymphocytes Percent Auto 28.8 % (20-40); Mean Corpuscular HGB Conc 32.8 g/dl (31.0-35.0); Mean Corpuscular Hemoglobin 30.3 pg (27.0-33.0); Mean Corpuscular Volume 92.4 fL (80.0-98.0); Mean Platelet Volume 10.8 fL (9.4-12.3); Monocytes Absolute Auto 1.3 X10*3/uL (0.1-1.2); Monocytes Percent Auto 18.9 % (2-11); Neutrophils Absolute Auto 3.5 x10*3/uL (2.0-8.3); Neutrophils Percent Auto 51.3 % (45-73); Platelet Count 190 X10*3/uL (160-400); Red Blood Count 3.83 X10*6/uL (4.20-5.50); Red Cell Distribution Width 13.9 % (11.0-16.0); White Blood Count 6.8 X10*3/uL (4.8-10.8)
--- NOTE | 2023-11-29 06:25 | PC.NURSE ---
Patient is alert and oriented to self only, VSS, patient denies pain at this time. Yanet care provided to hal gustafson re applied. Call owens in place, plan of care ongoing
[2023-11-29 06:40] LABS: Anion Gap 15 (12-20); Blood Urea Nitrogen 15 mg/dL (9-16); Calcium 9.1 mg/dL (8.4-10.2); Carbon Dioxide 23 mmol/L (22-29); Chloride 105 mmol/L (96-108); Creatinine Clr Calc Pharmacy 50.9; Estimated Glomerular Filt Rate > 60; Glucose Random 73 mg/dL (60-115); Potassium 3.1 mmol/L (3.3-5.1); Sodium 140 mmol/L (135-145)
[2023-11-29 08:00] VITALS: BP 149/71; PULSE 65; RESP 14; TEMP 36.6; O2SAT 98
[2023-11-29] MEDS: Potassium Chloride ER 20 MEQ TAB.ER.PRT PO ×2 (10:37→20:13)
[2023-11-29] MEDS: Cholecalciferol (Vitamin D3) 25 MCG TABLET PO (10:37)
[2023-11-29] MEDS: Acetaminophen 325 MG TABLET 650 MG PO (10:37)
[2023-11-29] MEDS: Memantine HCl 5 MG TABLET PO ×2 (10:38→20:13)
[2023-11-29] MEDS: Sertraline HCL 25 MG TABLET PO (10:38)
[2023-11-29] MEDS: Multivitamin TABLET 1 TAB PO (10:38)
--- NOTE | 2023-11-29 11:38 | MHC.CM.PN ---
IMM DELIVERED. DAUGHTER/HCP AT BEDSIDE TO ASSIST WITH INTAKE. PT LIVES WITH SPOUSE AND IS INDEPENDENT WITH MOBILITY AT BASELINE. DAUGHTER/HCP IS ALSO PRESS WORKER HELPER THROUGH [employer]. +HCP ON FILE. PCP DR. LINK. DP: PER DAUGHTER, OPEN TO WHATEVER P.T. RECOMMENDS. IF HOME WITH SERVICES, FIRST CHOICE IS [facility], [facility]. IF REHAB REC, FIRST CHOICE IS [facility]. CM WILL CONTINUE TO FOLLOW FOR DC PLAN. IF HOME, DAUGHTER WILL TRANSPORT.
--- NOTE | 2023-11-29 12:37 | HO.PM.IMPN ---
Subjective Subjective Date of Service: 11/29/23 Interval History: Unable to obtain meaningful history due to dementia/now with acute encephalopathy Daughter at bedside feels mom is not at baseline, appears confused verbalizing but not making sense. Review of Systems All other system reviewed and negative Physical Exam Vital Signs: Vital Signs: Last Vital Signs Temp 97.8 F 11/29/23 08:00 Pulse 65 11/29/23 08:00 Resp 14 11/29/23 08:00 BP 149/71 H 11/29/23 08:00 Pulse Ox 98 11/29/23 08:00 O2 Del Method Room Air 11/29/23 08:00 BMI result Body Mass Index 21.7 Const: Other: General resting comfortably in no acute distress. Neck supple no JVD. CVS regular rate rhythm, Respiratory lungs clear to auscultation, no respiratory distress, no wheeze, no rhonchi. Gastrointestinal abdomen soft, non tender, bowel sounds audible Extremities no edema. Neuro moving all 4 extremity, speech clear. Skin no rash Poor insight Objective Data Active Medications Acetaminophen (Acetaminophen 325 Mg Tablet) 650 mg PO Q6H PRN PRN Reason: Pain, Mild (Pain Scale 1-3) Last Admin: 11/29/23 10:37 Dose: 650 mg Documented By: CHAVA Donepezil HCl (Donepezil Hcl 10 Mg Tablet) 10 mg PO BEDTIME [facility] Enoxaparin Sodium (Enoxaparin Sodium 40 Mg/0.4 Ml Syringe) 40 mg SUBCUT Q24H [facility] Last Admin: 11/28/23 19:37 Dose: 40 mg Documented By: TATIANNA Ceftriaxone Sodium 1 gm/ (Sodium Chloride) 50 mls @ 100 mls/hr IV Q24H [facility] Last Infusion: 11/28/23 20:10 Dose: Infused Documented By: TATIANNA Melatonin (Melatonin 3 Mg Tablet) 6 mg PO BEDTIME PRN PRN Reason: Insomnia Memantine (Memantine Hcl 5 Mg Tablet) 5 mg PO BID [facility] Last Admin: 11/29/23 10:38 Dose: 5 mg Documented By: CHAVA Multivitamins/Vitamin C (Multivitamin Tablet) 1 tab PO DAILY [facility] Last Admin: 11/29/23 10:38 Dose: 1 tab Documented By: CHAVA Olanzapine (Olanzapine 2.5 Mg Tablet) 2.5 mg PO BEDTIME [facility] Ondansetron HCl (Ondansetron Hcl 4 Mg/2 Ml Vial) 4 mg IVPUSH Q8H PRN PRN Reason: Nausea and Vomiting Potassium Chloride (Potassium Chloride Er 20 Meq Tab.Er.Prt) 20 meq PO BID [facility] Last Admin: 11/29/23 10:37 Dose: 20 meq Documented By: CHAVA Sertraline HCl (Sertraline Hcl 25 Mg Tablet) 25 mg PO DAILY [facility] Last Admin: 11/29/23 10:38 Dose: 25 mg Documented By: CHAVA Sodium Chloride (0.9 % Sodium Chloride Flush 3 Ml Syringe) 3 ml IVFLUSH QSHIFT [facility] Last Admin: 11/29/23 10:36 Dose: 3 ml Documented By: CHAVA Vitamin D (Cholecalciferol (Vitamin D3) 25 Mcg Tablet) 25 mcg PO DAILY [facility] Last Admin: 11/29/23 10:37 Dose: 25 mcg Documented By: CHAVA Labs 11/29/23 04:16 11/29/23 04:16 Labs: Laboratory Results - last 24 hr 11/28/23 11/28/23 11/28/23 15:41 15:55 16:30 MCV 93.0 MCH 30.0 MCHC 32.2 RDW 13.9 Plt Count 189 D MPV 10.5 Immature Gran % (Auto) Cancelled Neut % (Auto) Cancelled Lymph % (Auto) Cancelled Brule % (Auto) Cancelled Eos % (Auto) Cancelled Baso % (Auto) Cancelled Lymph # (Auto) Cancelled Brule # (Auto) Cancelled Eos # (Auto) Cancelled Baso # (Auto) Cancelled Abs Immat Gran (auto) Cancelled Absolute Neuts (auto) Cancelled Absolute Nucleated RBC 0.000 Nucleated RBC % (auto) 0.0 Neutrophils % (Manual) 69 Band Neutrophils % 6 H Lymphocytes % (Manual) 11 L Monocytes % (Manual) 13 H Eosinophils % (Manual) 1 Abs Neuts (Manual) 3.9 Lymphocytes # (Manual) 0.6 L Monocytes # (Manual) 0.7 Eosinophils # (Manual) 0.1 Platelet Estimate NORMAL Plt Morphology Comment NORMAL RBC Morphology NORMAL Smear Tech's Comments MANUAL DIFF Anion Gap 14 Estim Creat Clear Calc 46.0 Estimated GFR > 60 Random Glucose 93 Lactic Acid 1.1 Calcium 8.7 D Total Bilirubin 0.3 AST 21 ALT 11 Alkaline Phosphatase 107 Total Protein 6.5 Albumin 3.7 Urine Color Yellow Urine Appearance Cloudy Urine pH 6.5 Ur Specific [place] 1.015 Urine Protein Negative Urine Glucose (UA) Negative Urine Ketones Negative Urine Blood Negative Urine Nitrite Negative Ur Leukocyte Esterase Moderate (2+) H Urine RBC 0-2 Urine WBC 21-50 H Ur Squamous Epith Cells 0-2 Urine Bacteria 4+ Hyaline Casts 0-2 11/29/23 04:16 MCV 92.4 MCH 30.3 MCHC 32.8 RDW 13.9 Plt Count 190 MPV 10.8 Immature Gran % (Auto) 0.3 Neut % (Auto) 51.3 Lymph % (Auto) 28.8 Brule % (Auto) 18.9 H Eos % (Auto) 0.3 Baso % (Auto) 0.4 Lymph # (Auto) 2.0 Brule # (Auto) 1.3 H Eos # (Auto) 0.0 Baso # (Auto) 0.0 Abs Immat Gran (auto) 0.02 Absolute Neuts (auto) 3.5 Absolute Nucleated RBC 0.000 Nucleated RBC % (auto) 0.0 Neutrophils % (Manual) Band Neutrophils % Lymphocytes % (Manual) Monocytes % (Manual) Eosinophils % (Manual) Abs Neuts (Manual) Lymphocytes # (Manual) Monocytes # (Manual) Eosinophils # (Manual) Platelet Estimate Plt Morphology Comment RBC Morphology Smear Tech's Comments Anion Gap 15 Estim Creat Clear Calc 50.9 Estimated GFR > 60 Random Glucose 73 Lactic Acid Calcium 9.1 Total Bilirubin AST ALT Alkaline Phosphatase Total Protein Albumin Urine Color Urine Appearance Urine pH Ur Specific [place] Urine Protein Urine Glucose (UA) Urine Ketones Urine Blood Urine Nitrite Ur Leukocyte Esterase Urine RBC Urine WBC Ur Squamous Epith Cells Urine Bacteria Hyaline Casts Microbiology Microbiology Results: Microbiology 11/28/23 18:09 Urine Culture - Preliminary Urine clean catch - Urine valencia top Culture in progress. 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 #. Acute toxic/metabolic encephalopathy due to acute UTI: Afebrile, normal WBC, Continue IV ceftriaxone started on 11/27, follow urine and blood cultures #. Alzheimer's dementia with behavioral disturbance: Continue home mood stabilizers including Namenda 5 mg b.i.d., Zyprexa 2.5 mg bedtime and Zoloft 25 mg daily and maintain sleep-wake cycle #. Hypertension: BP stable hold chlorthalidone # hypokalemia likely due to chlorthalidone will replace and follow labs. DVT prophylaxis: Lovenox subQ Full code. Patient will require continued inpatient hospitalization for acute encephalopathy, requiring IV antibiotics for UTI treatment can not be provided in less acute setting. Quality Stroke Does the patient have a stroke diagnosis?: No VTE Prior VTE?: No VTE Risk Level:: Medical - moderate - high VTE Device Contraindication: Treatment Not Indicated VTE Drug Contraindication: N/A - Med Ordered
[2023-11-29 15:35] VITALS: BP 144/67; PULSE 53; RESP 18; TEMP 36.2; O2SAT 99
[2023-11-29] MEDS: cefTRIAXone sodium 1 GM in 0.9 % Sodium Chloride 50 ML IV (19:20)
[2023-11-29] MEDS: Enoxaparin Sodium 40 MG/0.4 ML SYRINGE SUBCUT (19:20)
[2023-11-29 19:48] VITALS: BP 155/64; PULSE 67; RESP 18; TEMP 37; O2SAT 98
[2023-11-29] MEDS: Donepezil HCl 10 MG TABLET PO (20:13)
[2023-11-29] MEDS: OLANZapine 2.5 MG TABLET PO (20:13)
[2023-11-30 03:59] VITALS: BP 142/65; PULSE 60; RESP 16; TEMP 36.7; O2SAT 93
[2023-11-30 07:22] LABS: Anion Gap 13 (12-20); Blood Urea Nitrogen 13 mg/dL (9-16); Calcium 9.2 mg/dL (8.4-10.2); Carbon Dioxide 26 mmol/L (22-29); Chloride 105 mmol/L (96-108); Creatinine Clr Calc Pharmacy 53.9; Estimated Glomerular Filt Rate > 60; Glucose Random 74 mg/dL (60-115); Sodium 141 mmol/L (135-145)
[2023-11-30 07:40] VITALS: BP 156/68; PULSE 69; RESP 16; TEMP 36.3; O2SAT 96
[2023-11-30] MEDS: Cholecalciferol (Vitamin D3) 25 MCG TABLET PO (07:52)
[2023-11-30] MEDS: Memantine HCl 5 MG TABLET PO ×2 (07:52→19:28)
[2023-11-30] MEDS: Potassium Chloride ER 20 MEQ TAB.ER.PRT PO (07:52)
[2023-11-30] MEDS: Sertraline HCL 25 MG TABLET PO (07:52)
[2023-11-30] MEDS: 0.9 % Sodium Chloride Flush 3 ML SYRINGE IVFLUSH ×2 (07:52→19:28)
[2023-11-30] MEDS: Multivitamin TABLET 1 TAB PO (07:52)
[2023-11-30 09:07] VITALS: BP 175/75
[2023-11-30] MEDS: amLODIPine Besylate 2.5 MG TABLET PO (09:07)
[2023-11-30] MEDS: Potassium Chloride ER 20 MEQ TAB.ER.PRT 40 MEQ PO (09:08)
--- NOTE | 2023-11-30 10:27 | MHC.CM.PN ---
EMR REVIEWED AND PE MD ROUNDS, PT IS NOT MEDICALLY CLEARED FOR DC. PT REMAINS CONFUSED, CULTURES PENDING. CM WILL CONTINUE TO FOLLOW FOR ANY CHANGE TO DC PLAN.
--- NOTE | 2023-11-30 12:43 | P.PNIM_ITS ---
Subjective Subjective Date of Service: 11/30/23 Interval History: Daughter at bedside feels patient is not yet back to baseline. At baseline patient is able to feed herself, toxin make sense. Today patient is mumbling but not making sense, daughter feeding breakfast patient tolerating without coughing, no nausea, no vomiting, no fevers noted, no other acute issues overnight. Review of Systems All other system reviewed and negative Physical Exam 2 Vital Signs: Vital Signs: Last Vital Signs Temp 97.3 F 11/30/23 07:40 Pulse 69 11/30/23 07:40 Resp 16 11/30/23 07:40 BP 175/75 H 11/30/23 09:07 Pulse Ox 96 11/30/23 07:40 O2 Del Method Room Air 11/30/23 07:40 BMI result Body Mass Index 21.7 Const: Other: General resting comfortably in no acute distress. Neck supple no JVD. CVS regular rate rhythm, Respiratory lungs clear to auscultation, no respiratory distress, no wheeze, no rhonchi. Gastrointestinal abdomen soft, non tender, bowel sounds audible Extremities no edema. Neuro moving all 4 extremity, speech clear, verbalizing not making sense. Skin no rash Poor insight Objective Data Active Medications Acetaminophen (Acetaminophen 325 Mg Tablet) 650 mg PO Q6H PRN PRN Reason: Pain, Mild (Pain Scale 1-3) Last Admin: 11/29/23 10:37 Dose: 650 mg Documented By: CHAVA Amlodipine Besylate (Amlodipine Besylate 2.5 Mg Tablet) 2.5 mg PO DAILY [facility]; Protocol Last Admin: 11/30/23 09:07 Dose: 2.5 mg Documented By: SURESH Donepezil HCl (Donepezil Hcl 10 Mg Tablet) 10 mg PO BEDTIME [facility] Last Admin: 11/29/23 20:13 Dose: 10 mg Documented By: GIANCARLO Enoxaparin Sodium (Enoxaparin Sodium 40 Mg/0.4 Ml Syringe) 40 mg SUBCUT Q24H [facility] Last Admin: 11/29/23 19:20 Dose: 40 mg Documented By: GIANCARLO Ceftriaxone Sodium 1 gm/ (Sodium Chloride) 50 mls @ 100 mls/hr IV Q24H [facility] Last Infusion: 11/29/23 19:50 Dose: Infused Documented By: GIANCARLO Melatonin (Melatonin 3 Mg Tablet) 6 mg PO BEDTIME PRN PRN Reason: Insomnia Memantine (Memantine Hcl 5 Mg Tablet) 5 mg PO BID [facility] Last Admin: 11/30/23 07:52 Dose: 5 mg Documented By: SURESH Multivitamins/Vitamin C (Multivitamin Tablet) 1 tab PO DAILY [facility] Last Admin: 11/30/23 07:52 Dose: 1 tab Documented By: SURESH Olanzapine (Olanzapine 2.5 Mg Tablet) 2.5 mg PO BEDTIME [facility] Last Admin: 11/29/23 20:13 Dose: 2.5 mg Documented By: GIANCARLO Ondansetron HCl (Ondansetron Hcl 4 Mg/2 Ml Vial) 4 mg IVPUSH Q8H PRN PRN Reason: Nausea and Vomiting Sertraline HCl (Sertraline Hcl 25 Mg Tablet) 25 mg PO DAILY [facility] Last Admin: 11/30/23 07:52 Dose: 25 mg Documented By: SURESH Sodium Chloride (0.9 % Sodium Chloride Flush 3 Ml Syringe) 3 ml IVFLUSH QSHIFT [facility] Last Admin: 11/30/23 07:52 Dose: 3 ml Documented By: SURESH Vitamin D (Cholecalciferol (Vitamin D3) 25 Mcg Tablet) 25 mcg PO DAILY [facility] Last Admin: 11/30/23 07:52 Dose: 25 mcg Documented By: SURESH Labs 11/29/23 04:16 11/30/23 05:52 Labs: Laboratory Results - last 24 hr 11/30/23 05:52 Hold Purple Top SEE NOTE Anion Gap 13 Estim Creat Clear Calc 53.9 Estimated GFR > 60 Random Glucose 74 Calcium 9.2 Microbiology Microbiology Results: Microbiology 11/28/23 18:09 Urine Culture - Final Urine clean catch - Urine valencia top 11/28/23 15:54 Blood Culture - Preliminary Blood - Venous No growth after 24 hours. 11/28/23 15:55 Blood Culture - Preliminary Blood - Venous No growth after 24 hours. 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 #. Acute toxic/metabolic encephalopathy Question due to electrolyte abnormality, progression of dementia, initially felt to have acute UTI: Afebrile, normal WBC, on IV ceftriaxone started on 11/27, urine culture grew greater than 100,000 mixed bacterial ata and blood cultures showed no growth, will DC IV antibiotics follow clinical course. #. Alzheimer's dementia with behavioral disturbance: Continue home mood stabilizers including Namenda 5 mg b.i.d., Zyprexa 2.5 mg bedtime and Zoloft 25 mg daily and maintain sleep-wake cycle #. Hypertension: Will DC chlorthalidone patient placed on Norvasc 2.5 mg daily, will adjust dose as per BP # hypokalemia likely due to chlorthalidone will replace and follow labs. DVT prophylaxis: Lovenox subQ Full code. Patient will require continued inpatient hospitalization for acute encephalopathy, requiring IV antibiotics for UTI treatment can not be provided in less acute setting. Quality Stroke Does the patient have a stroke diagnosis?: No VTE Prior VTE?: No VTE Risk Level:: Medical - moderate - high VTE Device Contraindication: Treatment Not Indicated VTE Drug Contraindication: N/A - Med Ordered
[2023-11-30 13:11] VITALS: BP 170/76; PULSE 63
[2023-11-30] MEDS: Dextrose 5 % and Lactated Ring 1,000 ML 80 ML IVCONT (14:57)
[2023-11-30 15:42] VITALS: BP 165/70; PULSE 60; RESP 16; TEMP 36.4; O2SAT 97
[2023-11-30] MEDS: OLANZapine 2.5 MG TABLET PO (19:28)
[2023-11-30] MEDS: Enoxaparin Sodium 40 MG/0.4 ML SYRINGE SUBCUT (19:28)
[2023-11-30] MEDS: Donepezil HCl 10 MG TABLET PO (19:28)
[2023-11-30 20:00] VITALS: BP 142/67; PULSE 66; RESP 18; TEMP 36.4; O2SAT 96
[2023-12-01 03:50] VITALS: BP 175/84; PULSE 56; RESP 16; TEMP 36.3; O2SAT 98
[2023-12-01 06:51] LABS: Anion Gap 14 (12-20); Blood Urea Nitrogen 9 mg/dL (9-16); Calcium 9.3 mg/dL (8.4-10.2); Carbon Dioxide 27 mmol/L (22-29); Chloride 105 mmol/L (96-108); Creatinine Clr Calc Pharmacy 55.4; Estimated Glomerular Filt Rate > 60; Glucose Random 90 mg/dL (60-115); Potassium 3.5 mmol/L (3.3-5.1); Sodium 142 mmol/L (135-145)
[2023-12-01 07:31] VITALS: BP 161/70; PULSE 56; RESP 18; TEMP 36.3; O2SAT 100
[2023-12-01 08:47] LABS: Thyroid Stimulating Hormone 1.91 uIU/mL (0.32-4.0)
[2023-12-01 08:50] VITALS: BP 161/70
[2023-12-01] MEDS: Memantine HCl 5 MG TABLET PO ×2 (08:50→19:20)
[2023-12-01] MEDS: Sertraline HCL 25 MG TABLET PO (08:50)
[2023-12-01] MEDS: Multivitamin TABLET 1 TAB PO (08:50)
[2023-12-01] MEDS: Cholecalciferol (Vitamin D3) 25 MCG TABLET PO (08:50)
[2023-12-01] MEDS: amLODIPine Besylate 2.5 MG TABLET PO (08:50)
[2023-12-01] MEDS: 0.9 % Sodium Chloride Flush 3 ML SYRINGE IVFLUSH ×3 (08:50→19:25)
--- NOTE | 2023-12-01 13:22 | P.PNIM_ITS ---
Subjective Subjective Date of Service: 12/01/23 Interval History: improved PO intake no complaints but history limited by dementia Review of Systems Review of Systems: Yes Unobtainable due to mental status Physical Exam 2 Vital Signs: Vital Signs: Last Vital Signs Temp 97.3 F 12/01/23 07:31 Pulse 56 12/01/23 07:31 Resp 18 12/01/23 07:31 BP 161/70 H 12/01/23 08:50 Pulse Ox 100 12/01/23 07:31 O2 Del Method Room Air 12/01/23 07:31 BMI result Body Mass Index 21.7 Gen: in no acute distress HEENT: sclera anicteric, moist mucus membranes Neck: supple Lungs: clear to auscultation bilaterally Heart: regular rate and rhythm, no murmurs Abd: soft, non-tender, non-distended Ext: no edema Skin: warm/well-perfused Neuro: alert, disoriented, moving all extremities Psych: impaired insight Objective Data Active Medications Acetaminophen (Acetaminophen 325 Mg Tablet) 650 mg PO Q6H PRN PRN Reason: Pain, Mild (Pain Scale 1-3) Last Admin: 11/29/23 10:37 Dose: 650 mg Documented By: CHAVA Amlodipine Besylate (Amlodipine Besylate 2.5 Mg Tablet) 2.5 mg PO DAILY [facility]; Protocol Last Admin: 12/01/23 08:50 Dose: 2.5 mg Documented By: WINSTON Donepezil HCl (Donepezil Hcl 10 Mg Tablet) 10 mg PO BEDTIME [facility] Last Admin: 11/30/23 19:28 Dose: 10 mg Documented By: BO Enoxaparin Sodium (Enoxaparin Sodium 40 Mg/0.4 Ml Syringe) 40 mg SUBCUT Q24H [facility] Last Admin: 11/30/23 19:28 Dose: 40 mg Documented By: BO Guaifenesin/Dextromethorphan (Guaifenesin Dm 100/10/5 Ml 5 Ml Syrup) 10 ml PO Q6H PRN PRN Reason: cough Melatonin (Melatonin 3 Mg Tablet) 6 mg PO BEDTIME PRN PRN Reason: Insomnia Memantine (Memantine Hcl 5 Mg Tablet) 5 mg PO BID [facility] Last Admin: 12/01/23 08:50 Dose: 5 mg Documented By: WINSTON Multivitamins/Vitamin C (Multivitamin Tablet) 1 tab PO DAILY [facility] Last Admin: 12/01/23 08:50 Dose: 1 tab Documented By: WINSTON Olanzapine (Olanzapine 2.5 Mg Tablet) 2.5 mg PO BEDTIME [facility] Last Admin: 11/30/23 19:28 Dose: 2.5 mg Documented By: BO Ondansetron HCl (Ondansetron Hcl 4 Mg/2 Ml Vial) 4 mg IVPUSH Q8H PRN PRN Reason: Nausea and Vomiting Sertraline HCl (Sertraline Hcl 25 Mg Tablet) 25 mg PO DAILY [facility] Last Admin: 12/01/23 08:50 Dose: 25 mg Documented By: WINSTON Sodium Chloride (0.9 % Sodium Chloride Flush 3 Ml Syringe) 3 ml IVFLUSH QSHIFT [facility] Last Admin: 12/01/23 08:50 Dose: 3 ml Documented By: WINSTON Vitamin D (Cholecalciferol (Vitamin D3) 25 Mcg Tablet) 25 mcg PO DAILY [facility] Last Admin: 12/01/23 08:50 Dose: 25 mcg Documented By: WINSTON Labs 11/29/23 04:16 12/01/23 06:03 Labs: Laboratory Results - last 24 hr 12/01/23 06:03 Hold Purple Top SEE NOTE Anion Gap 14 Estim Creat Clear Calc 55.4 Estimated GFR > 60 Random Glucose 90 Calcium 9.3 TSH 1.91 Microbiology Microbiology Results: Microbiology 11/28/23 15:54 Blood Culture - Preliminary Blood - Venous No growth after 48 hours. 11/28/23 15:55 Blood Culture - Preliminary Blood - Venous No growth after 48 hours. 11/28/23 18:09 Urine Culture - Final Urine clean catch - Urine valencia top Assessment and Plan (1) UTI (urinary tract infection): Status: Acute Plan d4 78yo F with Alzheimer's dementia, hypertension, mood disorder, chronic cholecystitis, and 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 for evaluation of altered mentation acute toxic/metabolic encephalopathy vs progression of dementia - initially felt to have acute UTI and started on ceftriaxone 11/27-11/29; UCx grew mixed bacterial ata and blood cultures had no growth - K repleted - continue memantine + donepezil + olanzapine + sertraline hypoK - d/c'ed chlorthalidone, repleted HTN - replaced chlorthalidone with amlodipine VTE ppx - LMWH dispo - PT eval pending In my clinical judgment, the patient requires continued inpatient hospitalization for the following reasons: placement evaluation Total time managing care of this patient today: 35 minutes. Quality Stroke Does the patient have a stroke diagnosis?: No VTE Prior VTE?: No VTE Risk Level:: Medical - moderate - high VTE Device Contraindication: Treatment Not Indicated VTE Drug Contraindication: N/A - Med Ordered
[2023-12-01 15:37] VITALS: BP 136/64; PULSE 65; RESP 12; TEMP 36.3; O2SAT 96
[2023-12-01] MEDS: Donepezil HCl 10 MG TABLET PO (19:20)
[2023-12-01] MEDS: OLANZapine 2.5 MG TABLET PO (19:21)
[2023-12-01] MEDS: Enoxaparin Sodium 40 MG/0.4 ML SYRINGE SUBCUT (19:21)
[2023-12-01 19:23] VITALS: BP 133/60; PULSE 78; RESP 17; TEMP 36.9; O2SAT 98
[2023-12-02 03:18] VITALS: BP 118/57; PULSE 69; RESP 18; TEMP 36.2; O2SAT 96
[2023-12-02 06:50] VITALS: BP 148/67; PULSE 75; RESP 15; TEMP 36.6; O2SAT 96
[2023-12-02 08:59] VITALS: BP 148/67
[2023-12-02] MEDS: Memantine HCl 5 MG TABLET PO ×2 (08:59→21:04)
[2023-12-02] MEDS: 0.9 % Sodium Chloride Flush 3 ML SYRINGE IVFLUSH ×3 (08:59→21:28)
[2023-12-02] MEDS: Sertraline HCL 25 MG TABLET PO (08:59)
[2023-12-02] MEDS: Cholecalciferol (Vitamin D3) 25 MCG TABLET PO (08:59)
[2023-12-02] MEDS: amLODIPine Besylate 2.5 MG TABLET PO (08:59)
[2023-12-02] MEDS: Multivitamin TABLET 1 TAB PO (08:59)
--- NOTE | 2023-12-02 10:49 | P.PNIM_ITS ---
Subjective Subjective Date of Service: 12/02/23 Interval History: confused; denies any complaints, though per family significantly improved from admission though not quite at baseline yet Review of Systems Review of Systems: Yes all other systems are reviewed and are negative Physical Exam 2 Vital Signs: Vital Signs: Last Vital Signs Temp 98 F 12/02/23 06:50 Pulse 75 12/02/23 06:50 Resp 15 12/02/23 06:50 BP 148/67 H 12/02/23 08:59 Pulse Ox 96 12/02/23 06:50 O2 Del Method Room Air 12/02/23 06:50 BMI result Body Mass Index 21.7 Gen: in no acute distress HEENT: sclera anicteric, moist mucus membranes Neck: supple Lungs: clear to auscultation bilaterally Heart: regular rate and rhythm, no murmurs Abd: soft, non-tender, non-distended Ext: no edema Skin: warm/well-perfused Neuro: alert, disoriented, moving all extremities, speaking in short comprehensible sentences Psych: impaired insight Objective Data Active Medications Acetaminophen (Acetaminophen 325 Mg Tablet) 650 mg PO Q6H PRN PRN Reason: Pain, Mild (Pain Scale 1-3) Last Admin: 11/29/23 10:37 Dose: 650 mg Documented By: CHAVA Amlodipine Besylate (Amlodipine Besylate 2.5 Mg Tablet) 2.5 mg PO DAILY [facility]; Protocol Last Admin: 12/02/23 08:59 Dose: 2.5 mg Documented By: WINSTON Donepezil HCl (Donepezil Hcl 10 Mg Tablet) 10 mg PO BEDTIME [facility] Last Admin: 12/01/23 19:20 Dose: 10 mg Documented By: BO Enoxaparin Sodium (Enoxaparin Sodium 40 Mg/0.4 Ml Syringe) 40 mg SUBCUT Q24H [facility] Last Admin: 12/01/23 19:21 Dose: 40 mg Documented By: BO Guaifenesin/Dextromethorphan (Guaifenesin Dm 100/10/5 Ml 5 Ml Syrup) 10 ml PO Q6H PRN PRN Reason: cough Melatonin (Melatonin 3 Mg Tablet) 6 mg PO BEDTIME PRN PRN Reason: Insomnia Memantine (Memantine Hcl 5 Mg Tablet) 5 mg PO BID [facility] Last Admin: 12/02/23 08:59 Dose: 5 mg Documented By: WINSTON Multivitamins/Vitamin C (Multivitamin Tablet) 1 tab PO DAILY [facility] Last Admin: 12/02/23 08:59 Dose: 1 tab Documented By: WINSTON Olanzapine (Olanzapine 2.5 Mg Tablet) 2.5 mg PO BEDTIME [facility] Last Admin: 12/01/23 19:21 Dose: 2.5 mg Documented By: BO Ondansetron HCl (Ondansetron Hcl 4 Mg/2 Ml Vial) 4 mg IVPUSH Q8H PRN PRN Reason: Nausea and Vomiting Sertraline HCl (Sertraline Hcl 25 Mg Tablet) 25 mg PO DAILY [facility] Last Admin: 12/02/23 08:59 Dose: 25 mg Documented By: WINSTON Sodium Chloride (0.9 % Sodium Chloride Flush 3 Ml Syringe) 3 ml IVFLUSH QSHIFT [facility] Last Admin: 12/02/23 08:59 Dose: 3 ml Documented By: WINSTON Vitamin D (Cholecalciferol (Vitamin D3) 25 Mcg Tablet) 25 mcg PO DAILY [facility] Last Admin: 12/02/23 08:59 Dose: 25 mcg Documented By: WINSTON Labs 11/29/23 04:16 12/01/23 06:03 Assessment and Plan (1) UTI (urinary tract infection): Status: Acute Plan d5 78yo F with Alzheimer's dementia, hypertension, mood disorder, chronic cholecystitis, and 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 for evaluation of altered mentation and found to have fever acute toxic/metabolic encephalopathy vs progression of dementia - initially felt to have acute UTI and started on ceftriaxone 11/27-11/29; UCx grew mixed bacterial ata and blood cultures had no growth, so antibiotic was stopped - K repleted - continue memantine + donepezil + olanzapine + sertraline - complete workup with CT head, B12 level hypoK - d/c'ed chlorthalidone, repleted HTN - replaced chlorthalidone with amlodipine VTE ppx - LMWH dispo - PT eval pending In my clinical judgment, the patient requires continued inpatient hospitalization for the following reasons: placement evaluation Total time managing care of this patient today: 35 minutes. Quality Stroke Does the patient have a stroke diagnosis?: No VTE Prior VTE?: No VTE Risk Level:: Medical - moderate - high VTE Device Contraindication: Treatment Not Indicated VTE Drug Contraindication: N/A - Med Ordered
--- NOTE | 2023-12-02 10:52 | MHC.CM.PN ---
CM MET WITH PTS SON AND AT BEDSIDE PTS SON EXPRESSED CONCERN THAT PT IS MORE CONFUSED THAN USUAL AND HE IS UNSURE IF HIS FATHER CAN CARE FOR HER SAFELY HE REPORTS AT BASELINE THE PT IS MOBILE AND HAS NO TROUBLE GETTING AROUND THE HOME ON HER OWN HE SAYS HIS SISTER IS PTS COMPENSATED CAREGIVER, BUT HE IS UNSURE HOW IT IS COVERED CM CALLED PTS DAUGHTER/STUDENT ACCOUNTS COORDINATORCRISTINA [phone] SHE REPORTS SHE GETS 9 HOURS A WEEK FOR EACH OF HER PARENTS PER WEEK SHE SAYS USUALLY SHE HAS NO CONCERNS ABOUT PT BEING HOME HOWEVER SHE [CRISTINA] HAS BEEN ILL AND UNABLE TO ASSIST THEM SHE SAYS SHE EXPECTS SHE WILL BE FINE IN A COUPLE OF DAYS AND THINKS THEY WILL LIKELY BE FINE FOR PT TO RETURN HOME HOWEVER SHE IS ALSO UNSURE IF THE PT HAS DECOMPENSATED DUE TO BEING IN THE HOSPITAL SHE WOULD LIKE A PT EVAL IF PT STAYS UNTIL SUNDAY DCP: HOME, RESUME STUDENT ACCOUNTS COORDINATOR SERVICES VS STR IF PT IS ABLE TO PARTICIPATE WITH PT AND IT IS INDICATED PTS HAS BEEN TO [facility], THAT WOULD BE PREFERRED TRANSPORT TBD BY DISPO
[2023-12-02 11:40] LABS: C Reactive Protein 2.24 mg/dL (< or = 0.50)
[2023-12-02 12:16] LABS: Folate 16.6 ng/mL (> or = 4.0); Vitamin B12 > 2000 pg/mL (200-900)
[2023-12-02 15:16] VITALS: BP 157/69; PULSE 74; RESP 18; TEMP 37; O2SAT 96
[2023-12-02 19:08] VITALS: BP 170/72; PULSE 71; RESP 18; TEMP 37; O2SAT 96
[2023-12-02 20:52] VITALS: BP 162/72; PULSE 73; RESP 18; O2SAT 96
[2023-12-02] MEDS: Enoxaparin Sodium 40 MG/0.4 ML SYRINGE SUBCUT (21:02)
[2023-12-02] MEDS: OLANZapine 2.5 MG TABLET PO (21:03)
[2023-12-02] MEDS: Donepezil HCl 10 MG TABLET PO (21:03)
[2023-12-02] MEDS: UrsodioL 300 MG CAPSULE PO (21:03)
[2023-12-03 03:34] VITALS: BP 144/67; PULSE 73; RESP 16; TEMP 36.2; O2SAT 96
[2023-12-03 07:58] VITALS: BP 154/70; PULSE 64; RESP 16; TEMP 36.7; O2SAT 96
[2023-12-03 08:23] VITALS: BP 154/70
[2023-12-03] MEDS: Multivitamin TABLET 1 TAB PO (08:23)
[2023-12-03] MEDS: Memantine HCl 5 MG TABLET PO ×2 (08:23→21:13)
[2023-12-03] MEDS: UrsodioL 300 MG CAPSULE PO ×2 (08:23→21:12)
[2023-12-03] MEDS: Cholecalciferol (Vitamin D3) 25 MCG TABLET PO (08:23)
[2023-12-03] MEDS: amLODIPine Besylate 2.5 MG TABLET PO (08:23)
[2023-12-03] MEDS: Sertraline HCL 25 MG TABLET PO (08:23)
[2023-12-03] MEDS: 0.9 % Sodium Chloride Flush 3 ML SYRINGE IVFLUSH ×3 (08:23→19:18)
[2023-12-03 10:25] VITALS: BP 154/70
--- NOTE | 2023-12-03 11:51 | HO.PM.IMPN ---
Subjective Subjective Date of Service: 12/03/23 Interval History: no complaints though confused worked with PT today Review of Systems Review of Systems: Yes all other systems are reviewed and are negative Physical Exam Vital Signs: Vital Signs: Last Vital Signs Temp 98.1 F 12/03/23 07:58 Pulse 64 12/03/23 07:58 Resp 16 12/03/23 07:58 BP 154/70 H 12/03/23 10:25 Pulse Ox 96 12/03/23 07:58 O2 Del Method Room Air 12/03/23 07:58 BMI result Body Mass Index 21.7 Gen: in no acute distress HEENT: sclera anicteric, moist mucus membranes Neck: supple Lungs: clear to auscultation bilaterally Heart: regular rate and rhythm, no murmurs Abd: soft, non-tender, non-distended Ext: no edema Skin: warm/well-perfused Neuro: alert, disoriented, moving all extremities, speaking in short comprehensible sentences Psych: impaired insight Objective Data Active Medications Acetaminophen (Acetaminophen 325 Mg Tablet) 650 mg PO Q6H PRN PRN Reason: Pain, Mild (Pain Scale 1-3) Last Admin: 11/29/23 10:37 Dose: 650 mg Documented By: CHAVA Amlodipine Besylate (Amlodipine Besylate 2.5 Mg Tablet) 2.5 mg PO DAILY [facility]; Protocol Last Admin: 12/03/23 08:23 Dose: 2.5 mg Documented By: BERT Donepezil HCl (Donepezil Hcl 10 Mg Tablet) 10 mg PO BEDTIME [facility] Last Admin: 12/02/23 21:03 Dose: 10 mg Documented By: BO Enoxaparin Sodium (Enoxaparin Sodium 40 Mg/0.4 Ml Syringe) 40 mg SUBCUT Q24H [facility] Last Admin: 12/02/23 21:02 Dose: 40 mg Documented By: BO Guaifenesin/Dextromethorphan (Guaifenesin Dm 100/10/5 Ml 5 Ml Syrup) 10 ml PO Q6H PRN PRN Reason: cough Melatonin (Melatonin 3 Mg Tablet) 6 mg PO BEDTIME PRN PRN Reason: Insomnia Memantine (Memantine Hcl 5 Mg Tablet) 5 mg PO BID [facility] Last Admin: 12/03/23 08:23 Dose: 5 mg Documented By: BERT Multivitamins/Vitamin C (Multivitamin Tablet) 1 tab PO DAILY [facility] Last Admin: 12/03/23 08:23 Dose: 1 tab Documented By: BERT Olanzapine (Olanzapine 2.5 Mg Tablet) 2.5 mg PO BEDTIME [facility] Last Admin: 12/02/23 21:03 Dose: 2.5 mg Documented By: BO Ondansetron HCl (Ondansetron Hcl 4 Mg/2 Ml Vial) 4 mg IVPUSH Q8H PRN PRN Reason: Nausea and Vomiting Sertraline HCl (Sertraline Hcl 25 Mg Tablet) 25 mg PO DAILY [facility] Last Admin: 12/03/23 08:23 Dose: 25 mg Documented By: BERT Sodium Chloride (0.9 % Sodium Chloride Flush 3 Ml Syringe) 3 ml IVFLUSH QSHIFT [facility] Last Admin: 12/03/23 08:23 Dose: 3 ml Documented By: BERT Ursodiol (Ursodiol 300 Mg Capsule) 300 mg PO BID [facility] Last Admin: 12/03/23 08:23 Dose: 300 mg Documented By: BERT Vitamin D (Cholecalciferol (Vitamin D3) 25 Mcg Tablet) 25 mcg PO DAILY [facility] Last Admin: 12/03/23 08:23 Dose: 25 mcg Documented By: BERT Labs 11/29/23 04:16 12/01/23 06:03 Labs: Laboratory Results - last 24 hr 12/02/23 11:05 Vitamin B12 > 2000 H Folate 16.6 Assessment and Plan (1) UTI (urinary tract infection): Status: Acute Plan d6 78yo F with Alzheimer's dementia, hypertension, mood disorder, chronic cholecystitis, and 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 for evaluation of altered mentation and found to have fever acute toxic/metabolic encephalopathy vs progression of dementia - initially felt to have acute UTI and started on ceftriaxone 11/27-11/29; UCx grew mixed bacterial ata and blood cultures had no growth, so antibiotic was stopped - K repleted - continue memantine + donepezil + olanzapine + sertraline - complete workup with CT head, B12 level hypoK - d/c'ed chlorthalidone, repleted HTN - replaced chlorthalidone with amlodipine VTE ppx - LMWH dispo - PT eval: STR placement In my clinical judgment, the patient requires continued inpatient hospitalization for the following reasons: placementSTR Total time managing care of this patient today: 35 minutes. Quality Stroke Does the patient have a stroke diagnosis?: No VTE Prior VTE?: No VTE Risk Level:: Medical - moderate - high VTE Device Contraindication: Treatment Not Indicated VTE Drug Contraindication: N/A - Med Ordered
--- NOTE | 2023-12-03 13:59 | MHC.CM.PN ---
PT SEEN BY PT AND HOME WITH SERVICES VS STR WAS RECOMMENDED CM CALLED PTS DAUGHTER, CRISTINA [phone] SHE REPORTS SHE DOES NOT HAVE A PREFERENCE BUT FEELS PT SHOULD RETURN HOME IF THERE IS A CHANCE A NEW ENVIRONMENT MAY INCREASE CONFUSION. SHE SAYS SHE IS STARTING TO FEEL BETTER AND BELIEVES IT WOULD BE SAFE TO PLAN A DISCHARGE TO HOME TOMORROW WITH [facility]. PT WILL DC HOME TOMORROW WITH [facility]UMPTION OF [facility] AND NEW [facility] WILL TRANSPORT
[2023-12-03 16:00] VITALS: BP 158/74; PULSE 88; RESP 16; TEMP 36.7; O2SAT 94
[2023-12-03] MEDS: Enoxaparin Sodium 40 MG/0.4 ML SYRINGE SUBCUT (19:18)
[2023-12-03 19:24] VITALS: BP 158/69; PULSE 77; RESP 18; TEMP 37.4; O2SAT 97
[2023-12-03] MEDS: Donepezil HCl 10 MG TABLET PO (21:13)
[2023-12-03] MEDS: OLANZapine 2.5 MG TABLET PO (21:13)
[2023-12-04 03:56] VITALS: BP 155/69; PULSE 74; RESP 18; TEMP 36.8; O2SAT 97
[2023-12-04 06:55] VITALS: BP 132/62; PULSE 73; RESP 16; TEMP 36.6; O2SAT 97
[2023-12-04] MEDS: Memantine HCl 5 MG TABLET PO (07:24)
[2023-12-04] MEDS: Multivitamin TABLET 1 TAB PO (07:24)
[2023-12-04] MEDS: 0.9 % Sodium Chloride Flush 3 ML SYRINGE IVFLUSH (07:24)
[2023-12-04] MEDS: Sertraline HCL 25 MG TABLET PO (07:24)
[2023-12-04] MEDS: UrsodioL 300 MG CAPSULE PO (07:24)
[2023-12-04] MEDS: amLODIPine Besylate 2.5 MG TABLET PO (07:24)
[2023-12-04] MEDS: Cholecalciferol (Vitamin D3) 25 MCG TABLET PO (07:24)
--- NOTE | 2023-12-04 11:38 | MHC.CM.PN ---
Addendum entered by iLcha Celeste 12/04/23 11:45: IMM 12/04/23 10am filed in chart. Original given to patients daughter. Original Note: Per MD rounds discharge today. PT rec STR vs home with services. The family has decided on STR. Preferences obtained and [facility] A bed offer [facility] from [facility]. Pts dtr accepts the bed. Transport is scheduled for 2pm pick up driver today.
--- NOTE | 2023-12-04 12:08 | PM.DS ---
DS: Providers Provider Date of Service: 12/04/23 Date of admission: 11/28/23 19:15 Date of discharge: 12/04/23 Primary care physician: Juma Gong MD DS: Diagnosis Discharge Diagnosis (1) Weakness: Status: Acute (2) Fever: Status: Acute (3) Altered mental status: Status: Acute (4) Toxic metabolic encephalopathy: Status: Acute (5) Alzheimer's dementia: Status: Acute (6) Hypokalemia: Status: Resolved DS: Summary Hospital Course Hospital Course: From the history and physical by the admitting hospitalist, Sakshi Ayoub, 11/28/23: This is a 78-year-old female with pertinent history of Alzheimer's dementia, hypertension, mood disorder, chronic cholecystitis, 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 Patient has Alzheimer's dementia and is a poor historian. Unable to obtain history from the patient. Patient does not know why she is in the hospital. She is only oriented to self and place. History obtained with the help of daughter at bedside. As per the daughter, patient was found to be lethargic on the day of presentation. She was very sleepy and with poor p.o. intake. Unclear if any change in urinary habits. Patient was also found to be febrile as per the daughter. She last had a urinary infection about 1 year ago. No cough, nausea, vomiting or complaints of abdominal discomfort. Unable to obtain complete review of systems. In the emergency department, patient was found to be febrile with temperature 101 degrees and urine concerning for UTI. 78yo F with Alzheimer's dementia, hypertension, mood disorder, chronic cholecystitis, and 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 for evaluation of altered mentation and found to have fever. Initially felt to have acute UTI and started on ceftriaxone 11/27-11/29; UCx grew mixed bacterial ata and blood cultures had no growth, so antibiotic was stopped. Fever did not recur. Her usual regimen of memantine + donepezil + olanzapine + sertraline was continued. TSH and B12 normal. CT head showed diffuse volume loss with disproportionate atrophy of the hippocampi. Due to hypokalemia, chlorthalidone was stopped and replaced with amlodipine. She was seen by PT and STR was recommended. She was discharged to [facility] for short-term rehabilitation. Time Attestation Discharge Coordination Time (in mins): 35 Quality: Safe Use of Opioids Does Pt have an Active Cancer Diagnosis on the Problem List?: No Quality: Stroke Does the patient have a stroke diagnosis?: No Physical Exam Vital Signs: Vital Signs: Last Vital Signs Temp 97.8 F 12/04/23 06:55 Pulse 73 12/04/23 06:55 Resp 16 12/04/23 06:55 BP 132/62 12/04/23 06:55 Pulse Ox 97 12/04/23 06:55 O2 Del Method Room Air 12/04/23 06:55 BMI result Body Mass Index 21.7 Gen: in no acute distress HEENT: sclera anicteric, moist mucus membranes Neck: supple Lungs: clear to auscultation bilaterally Heart: regular rate and rhythm, no murmurs Abd: soft, non-tender, non-distended Ext: no edema Skin: warm/well-perfused Neuro: alert, disoriented, ambulatory, speaking in short comprehensible sentences Psych: impaired insight DS: Data Data Completed and Pending Completed studies during hospitalization [Text1]: Laboratory Results WBC 6.8 X10*3/uL (4.8-10.8) 11/29/23 04:16 RBC 3.83 X10*6/uL (4.20-5.50) L 11/29/23 04:16 Hgb 11.6 g/dl (12.0-16.0) L 11/29/23 04:16 Hct 35.4 % (37.0-47.0) L 11/29/23 04:16 MCV 92.4 fL (80.0-98.0) 11/29/23 04:16 MCH 30.3 pg (27.0-33.0) 11/29/23 04:16 MCHC 32.8 g/dl (31.0-35.0) 11/29/23 04:16 RDW 13.9 % (11.0-16.0) 11/29/23 04:16 Plt Count 190 X10*3/uL (160-400) 11/29/23 04:16 MPV 10.8 fL (9.4-12.3) 11/29/23 04:16 Immature Gran % (Auto) 0.3 % (0.0-0.4) 11/29/23 04:16 Neut % (Auto) 51.3 % (45-73) 11/29/23 04:16 Lymph % (Auto) 28.8 % (20-40) 11/29/23 04:16 Traill % (Auto) 18.9 % (2-11) H 11/29/23 04:16 Eos % (Auto) 0.3 % (0-4) 11/29/23 04:16 Baso % (Auto) 0.4 % (0-2) 11/29/23 04:16 Lymph # (Auto) 2.0 X10*3/uL (1.2-4.9) 11/29/23 04:16 [place] # (Auto) 1.3 X10*3/uL (0.1-1.2) H 11/29/23 04:16 Eos # (Auto) 0.0 X10*3/uL (0.0-0.4) 11/29/23 04:16 Baso # (Auto) 0.0 X10*3/uL (0.0-0.2) 11/29/23 04:16 Abs Immat Gran (auto) 0.02 X10*3/uL (0.00-0.03) 11/29/23 04:16 Absolute Neuts (auto) 3.5 x10*3/uL (2.0-8.3) 11/29/23 04:16 Absolute Nucleated RBC 0.000 X10*3/uL (0.0-0.012) 11/29/23 04:16 Nucleated RBC % (auto) 0.0 /100WBC (0.0-0.2) 11/29/23 04:16 Neutrophils % (Manual) 69 % (45-73) 11/28/23 15:55 Band Neutrophils % 6 % (3-5) H 11/28/23 15:55 Lymphocytes % (Manual) 11 % (20-40) L 11/28/23 15:55 Monocytes % (Manual) 13 % (2-11) H 11/28/23 15:55 Eosinophils % (Manual) 1 % (0-4) 11/28/23 15:55 Abs Neuts (Manual) 3.9 X10*3/uL (2.0-8.3) 11/28/23 15:55 Lymphocytes # (Manual) 0.6 X10*3/uL (1.2-4.9) L 11/28/23 15:55 Monocytes # (Manual) 0.7 X10*3/uL (0.1-1.2) 11/28/23 15:55 Eosinophils # (Manual) 0.1 X10*3/uL (0.0-0.4) 11/28/23 15:55 Platelet Estimate NORMAL (NORMAL) 11/28/23 15:55 Plt Morphology Comment NORMAL 11/28/23 15:55 RBC Morphology NORMAL 11/28/23 15:55 Smear Tech's Comments MANUAL DIFF 11/28/23 15:55 Hold Purple Top SEE NOTE 12/01/23 06:03 Sodium 142 mmol/L (135-145) 12/01/23 06:03 Potassium 3.5 mmol/L (3.3-5.1) 12/01/23 06:03 Chloride 105 mmol/L (96-108) 12/01/23 06:03 Carbon Dioxide 27 mmol/L (22-29) 12/01/23 06:03 Anion Gap 14 (12-20) 12/01/23 06:03 BUN 9 mg/dL (9-16) 12/01/23 06:03 Creatinine 0.68 mg/dL (0.5-1.4) 12/01/23 06:03 Estim Creat Clear Calc 55.4 12/01/23 06:03 Estimated GFR > 60 12/01/23 06:03 Random Glucose 90 mg/dL (60-115) 12/01/23 06:03 Lactic Acid 1.1 mmol/L (0.5-2.0) 11/28/23 16:30 Calcium 9.3 mg/dL (8.4-10.2) 12/01/23 06:03 Total Bilirubin 0.3 mg/dL (0.0-1.0) 11/28/23 15:55 AST 21 U/L (5-31) 11/28/23 15:55 ALT 11 U/L (0-31) 11/28/23 15:55 Alkaline Phosphatase 107 U/L (39-117) 11/28/23 15:55 C-Reactive Protein 2.24 mg/dL (< or = 0.50) H 12/02/23 11:05 Total Protein 6.5 g/dL (6.5-8.0) 11/28/23 15:55 Albumin 3.7 g/dL (3.5-5.0) 11/28/23 15:55 Vitamin B12 > 2000 pg/mL (200-900) H 12/02/23 11:05 Folate 16.6 ng/mL (> or = 4.0) 12/02/23 11:05 TSH 1.91 uIU/mL (0.32-4.0) 12/01/23 06:03 Urine Color Yellow 11/28/23 15:41 Urine Appearance Cloudy 11/28/23 15:41 Urine pH 6.5 (5.0-9.0) 11/28/23 15:41 Ur Specific [place] 1.015 (1.005-1.025) 11/28/23 15:41 Urine Protein Negative mg/dL (Neg-Trace) 11/28/23 15:41 Urine Glucose (UA) Negative mg/dL (Negative) 11/28/23 15:41 Urine Ketones Negative mg/dL (Negative) 11/28/23 15:41 Urine Blood Negative (Negative) 11/28/23 15:41 Urine Nitrite Negative (Negative) 11/28/23 15:41 Ur Leukocyte Esterase Moderate (2+) (Negative) H 11/28/23 15:41 Urine RBC 0-2 /HPF (0-2) 11/28/23 15:41 Urine WBC 21-50 /HPF (0-5) H 11/28/23 15:41 Ur Squamous Epith Cells 0-2 /HPF (0-2) 11/28/23 15:41 Urine Bacteria 4+ (None Seen) 11/28/23 15:41 Hyaline Casts 0-2 /LPF (0-2) 11/28/23 15:41 Impressions Chest X-Ray 11/28/23 15:43 IMPRESSION: No acute intrathoracic disease. Biapical pleural-parenchymal scarring. Head CT 12/02/23 12:13 IMPRESSION: *No acute intracranial abnormalities. *Moderate diffuse parenchymal volume loss the brain and additional qualitative disproportionate additional volume loss the temporal horns the lateral ventricles which may indicate prominent hippocampal volume loss. *Mild chronic microangiopathic ischemic changes. Discharge Plan Discharge Anticipated Discharge Date/Time: 12/04/23 12:05 Patient Disposition: Xfer SNF Discharge Diagnosis: encephalopathy, dementia, hypokalemia Referrals: Juma Gong MD [Primary Care Provider] - 1 Week Discharge Medications: New amlodipine 2.5 mg Tablet 2.5 mg PO DAILY Qty: 30 0RF Protocol: Hold for SBP< HOLD for SBP < : 90 Continued ursodiol 500 mg tablet 500 mg PO BID Qty: 180 2RF multivitamin Tablet 1 tab PO DAILY donepezil 10 mg tablet 10 mg PO BEDTIME sertraline 25 mg tablet 25 mg PO DAILY Rx Instructions: administer with food cholecalciferol (vitamin D3) 25 mcg (1,000 unit) capsule 25 mcg PO DAILY memantine 5 mg tablet 5 mg PO BID olanzapine 2.5 mg tablet 2.5 mg PO BEDTIME Discontinued chlorthalidone 25 mg tablet 25 mg PO DAILY potassium chloride [Klor-Con M20] 20 mEq tablet,ER particles/crystals 20 meq PO BID Discharge Orders: Discharge Order (Routine); Ordered 12/04/23 Ordered By: Kae Small Diet: Advance to usual diet Activity on Discharge: As tolerated Stand Alone Forms: Patient Portal Discharge page Print Language: French Care Plan Goals: fall prevention Health Concerns: encephalopathy, dementia, hypokalemia Plan of Treatment: transfer to [facility] for short-term rehabilitation stop chlorthalidone; take amlodipine instead Please follow up with your primary care doctor within 1 week of discharge from rehab. Return to the hospital if you experience recurrent or worsening symptoms. Assessment: See Discharge Summary.
== END 2023-12-04 14:38 | disposition skilled nursing facility (03) | DRG 640 ==
LOC: HO.ED 16:21 → HO.EDOVER 19:22 → HO.S3 11-29 07:41
PROVIDERS: Emergency Medicine; Hospitalist; Admitting Provider Student in an Organized Health Care Education/Training Program; Emergency Provider Emergency Medicine; PCP Internal Medicine; Visit Provider Family Medicine
DX: E87.6 Hypokalemia (principal); G92.8 Other toxic encephalopathy; G30.9 Alzheimer's disease, unspecified; F02.80 Dementia in other diseases classified elsewhere, unspecified severity, without behavioral disturbance, psychotic disturbance, mood disturbance, and anxiety; E06.3 Autoimmune thyroiditis; I10 Essential (primary) hypertension; K81.1 Chronic cholecystitis; Z87.891 Personal history of nicotine dependence; Z79.899 Other long term (current) drug therapy
CPT/HCPCS: 36415; 70450; 71045; 80048; 80053; 81001; 81003; 82607; 82746; 83605; 84443; 85007; 85025; 85027; 86140; 87040; 87086; 97162; 99285; J0696; J1650

== ENCOUNTER → 2023-11-28 19:15 | Outpatient (BNV) | payer MEDICARE, SELFPAY | PROVIDERS: Admitting Provider Student in an Organized Health Care Education/Training Program; Emergency Provider Emergency Medicine; Visit Provider Student in an Organized Health Care Education/Training Program | DX: G30.9 Alzheimer's disease, unspecified (principal); F02.83 Dementia in other diseases classified elsewhere, unspecified severity, with mood disturbance; R53.1 Weakness; R50.9 Fever, unspecified; R41.82 Altered mental status, unspecified; G92.8 Other toxic encephalopathy; E87.6 Hypokalemia | CPT/HCPCS: 99222; 99232; 99233; 99239 ==

== ENCOUNTER 2024-03-29 13:52 | Emergency (ER) | payer MEDICARE, SELFPAY ==
--- NOTE | ~2024-03-29 | XR_ITS ---
EXAMINATION: XR HIP, RIGHT CLINICAL INFORMATION: Pain status post fall COMPARISON: None available. TECHNIQUE: Two views of the right hip. FINDINGS: No fracture. Alignment is anatomic. Hip joint space is maintained. Soft tissues are unremarkable. XR/XR hip RT w PEL1V IMPRESSION: Normal right hip. Electronically signed by: Adam Marrero MD 03/29/2024 05:55 PM EDT
[2024-03-29 14:05] VITALS: BP 152/90; BP 161/65; PULSE 75; PULSE 80; RESP 14; TEMP 36.8; O2SAT 98; O2SAT 99; BMI 22.5
--- OUTSIDE RECORDS SUMMARY | 2024-03-29 14:20 | XMS_ITS ---
Author Organization [facility] [place] Address [address] [place] [address] Care Team Providers Care Shipping Point Inspector Name Role Phone Juma Gong MD Primary Care Provider Ambrocio Chino Unavailable [phone] ALLERGIES Allergen (clinical drug ingredient) Drug/Non Drug Allergy documented on EMR Reaction Allergy Type Onset Date Status sulfamethoxazole / trimethoprim Bactrim rash Drug Allergy Active peanut allergenic extract Peanut (Diagnostic) ichtyness Drug Allergy Active Tomatoes ichtyness Allergy Active REASON FOR VISIT At Risk Footcare, Painful Nail(s) aggrevated by shoes and causing difficulty standing/walking. MEDICATIONS Medication SIG (Take, Route, Frequency, Duration) Notes Start Date End Date Status Potassium 75 MG 1 tablet Orally Once a day Not-Taking Mupirocin 2 % APPLY TO BIOPSY SITE TWICE DAILY UNTIL HEALED External for 10 Active Ivermectin 3 MG Oral for 2 Act kelly Klor-Con Active Chlorthalidone 100 MG 1 tablet in the morning Orally Once a day for 30 day(s) Active Ibuprofen 200 MG 1 tablet as needed Orally every 6 hrs Not-Taking Aleve Not-Taking Vitamin D Active Ursodiol 500 MG TAKE 1 TABLET BY TWICE DAILY Oral for 30 Active Triamcinolone Acetonide 0.1 % External for 14 Active Potassium Chloride Shakira ER 20 MEQ TAKE 1 TABLET BY MOUTH TWICE DAILY Oral for 90 Active SOCIAL HISTORY Tobacco Use: Social History Observation [...] Risk SNOMED Code Notes Problem Atherosclerosis of [place] artery of both lower extremities, with unspecified presence of clinical manifestation (I70.203) Active confirmed Atherosclerosis of [place] arteries of the extremities ([id number]) VITAL SIGNS Height 5 ft 6 in in 08/17/2023 Weight 114 lbs 08/17/2023 BMI 18.4 kg/m2 08/17/2023 PROCEDURES Procedure Date Ordered Date Performed Result Body Sit e 84784-RFNCFKF NAIL, 6 OR MORE 08/17/2023 N/A 66735-WJVC SKIN LESIONS, 2 TO 4 08/17/2023 N/A Encounters Encounter Location Date Provider Diagnosis [facility] [address] [address] 08/17/2023 Ambrocio Meg Atherosclerosis of [place] artery of both lower extremities, with unspecified presence of clinical manifestation I70.203 ; Tinea unguium B35.1 ; Pain in right toe(s) M79.674 and Pain in left toe(s) M79.675 ASSESSMENTS Encounter Date Diagnosis Assessment Notes Treatment Notes Treatment Clinical Notes 08/17/2023 Atherosclerosis of [place] artery of both lower extremities, with unspecified presence of clinical manifestation (ICD-10 - I70.203) 08/17/2023 Tinea unguium (ICD-1 0 - B35.1) 08/17/2023 Pain in right toe(s) (ICD-10 - M79.674) 08/17/2023 Pain in left toe(s) (ICD-10 - M79.675) PLAN OF TREATMENT Pending Test Test Name Order Date [id number] NAIL, 6 OR MORE 08/17/2023 61830-JIIS SKIN LESIONS, 2 TO 4 08/17/19 24 Next Appt Details Follow Up: prn, Reason: Provider Name:Ambrocio Weaver , 04/04/2024 12:30:00 PM, [address] [place], [address], Procedure Notes * Category Sub-Category Detail Notes Debride Nail 6-10 Nail debridement Nail debridem ent performed extensively to reduce/remove overall nail length, girth, thickness, subungual debris, and necrotic tissue, by manual and electrical means through the use of a nail nipper and/or dremel, to more viable healthy nail plate or bed tissue 1-5. Silver nitrate used for any petechial bleeding as necessary. Patient chooses, no pharmaceutical tx (79908) Keratoma Treatment Parring or Cutting o f Benign Hyperkeratotic Lesion(s) 81982 ( 2-4 Lesions ) - The Benign hyperkeratotic lesions, as described above were pared, and/or cut utilizing a sterile 15 blade, tissue nippers, and/or dremel , Q8 Progress Notes * Examination Category Sub-Category Detail Notes Dermatologic SKIN FINDINGS: Skin exam reveal s Keratotic lesion(s) located at , Medial plantar , SUB MTH (s) , 1 , B/L Vascular DP PULSES(B): 1/4, B/L PT PULSES(B): 0/4 , LEFT , 1/4 , R IGHT CAPILLARY FILL TIME: delayed, all digits , B/L TEMPERTURE GRADIENT(C): decreased, cool to cool, proximal to distal, B/L TROPHIC CONDITION-TEXTURE/ELASTICITY/TURGOR/HAIR GROWTH(B): decreased, B/L EDEMA(C): absent, B/L CLAUDICATION(C): denies, B/L REST PAIN: denies, B/L PIGMENTATION: mottled, B/L Nails NAILS are: Elongated, overg rown, dystrophic, lytic, greater than 3mm thick, discolored and friable with crumbly malodorous subungual debris, with pain on palpation, TA, T2, T4, T5, T7, T8, T9 History and Physical Notes * HPI (History of Present Illness) Category Sub-Category Detail Notes At Risk footcare Pt States Last PCP Visit: Date: 08/06
--- OUTSIDE RECORDS SUMMARY | 2024-03-29 14:20 | XMS_ITS ---
Author Organization [facility] Address [address] [place] [address] Care Team Providers Care Employee Representative Name Role Phone Juma Gong MD Primary Care Provider Ambrocio Chino Unavailable [phone] ALLERGIES Allergen (clinical drug ingredient) Drug/Non Drug [...] Duration) Notes Start Date End Date Status Klor-Con Not-Taking Potassium Chloride Shakira ER 20 MEQ TAKE 1 TABLET BY MOUTH TWICE DAILY Oral for 90 Not-Taking Aleve Not-Taking Ibuprofen 200 MG 1 tablet as needed Orally every 6 hrs Not-Taking Vitamin D Active Chlorthalidone 100 MG 1 tablet in the morning Orally Once a day for 30 day(s) Active Triamcinolone Acetonide 0.1 % External for 14 Active Ursodiol 500 MG TAKE 1 TABLET BY SCOTT TH TWICE DAILY Oral for 30 Active Ivermectin 3 MG Oral for 2 Act kelly Mupirocin 2 % APPLY TO BIOPSY SITE TWICE DAILY UNTIL HEALED External for 10 Active amLODIPine-Atorvastatin 2.5-10 MG 1 tablet Orally Once a day for 30 day(s) Active Potassium 75 MG 1 tablet Orally Once a day Not-Taking SOCIAL HISTORY Tobacco Use: Social History Observation [...] Are you an other tobacco user? No VITAL SIGNS Height 5 ft 6 in in 12/28/2023 Weight 116 lbs 12/28/2023 BMI 18.72 kg/m2 12/28/2023 PROCEDURES Procedure Date Ordered Date Performed Result Body Sit e 06963-HLZCCLE NAIL, 6 OR MORE 12/28/2023 N/A [id number] SKIN LESIONS, 2 TO 4 12/28/2023 N/A Encounters Encounter Location Date Provider Diagnosis [facility] [address] [address] 12/28/2023 Ambrocio Weaver Atherosclerosis of [place] artery of both lower extremities, with unspecified presence of clinical manifestation I70.203 ; Tinea unguium B35.1 ; Pain in right toe(s) M79.674 and Pain in left toe(s) M79.675 ASSESSMENTS Encounter Date Diagnosis Assessment Notes Treatment Notes Treatment Clinical Notes 12/28/2023 Atherosclerosis of [place] artery of both lower extremities, with unspecified presence of clinical manifestation (ICD-10 - I70.203) 12/28/2023 Tinea unguium (ICD-1 0 - B35.1) 12/28/2023 Pain in right toe(s) (ICD-10 - M79.674) 12/28/2023 Pain in left toe(s) (ICD-10 - M79.675) PLAN OF TREATMENT Pending Test Test Name Order Date [id number] NAIL, 6 OR MORE 12/28/2023 [id number] SKIN LESIONS, 2 TO 4 12/28/19 24 Next Appt Details Follow Up: prn, Reason: Provider Name:Ambrocio Weaver , 04/04/2024 12:30:00 PM, [address] [place] [address], [phone], Procedure Notes * Category Sub-Category Detail Notes [...] as necessary. Patient chooses, no pharmaceutical tx (67838) Keratoma Treatment Parring or Cutting o f Benign Hyperkeratotic Lesion(s) 80879 ( 2-4 Lesions ) - The Benign hyperkeratotic lesions, as described above were pared, and/or cut utilizing a sterile 15 blade, tissue nippers, and/or dremel , Q8 Progress Notes * Examination Category Sub-Category Detail Notes Dermatologic SKIN FINDINGS: Skin exam reveal s Keratotic lesion(s) located at , Medial plantar , MTH (s) , 1 , B/L Vascular [...]
--- OUTSIDE RECORDS SUMMARY | 2024-03-29 14:20 | XMS_ITS ---
Author Organization [facility] Address [address] [place] [address] Care Team Providers Care Psychiatric Orderly Name Role Phone Juma Gong MD Primary Care Provider Ambrocio Chino Unavailable [phone] Encounters Encounter Location Date Provider Diagnosis [facility] [address] [place] [address] 11/23/2023 Ambrocio Weaver PLAN OF TREATMENT Next Appt Details Provider Name:Ambrocio Weaver , 04/04/2024 12:30:00 PM, [address] [place], [address],
--- OUTSIDE RECORDS SUMMARY | 2024-03-29 14:20 | XMS_ITS | Patient Health Record ---
Author Organization [facility] [place] Address [address] [place] [address] Care Team Providers Care Signals Intelligence Analyst Name Role Phone Juma Gong MD Primary Care Provider Ambrocio Chino Unavailable [phone] ALLERGIES Allergen (clinical drug ingredient) Drug/Non Drug [...] MOUTH TWICE DAILY Oral for 90 Not-Taking amLODIPine-Atorvastatin 2.5-10 MG 1 tablet Orally Once a day for 30 day(s) Active Potassium 75 MG 1 tablet Orally Once a day Not-Taking Chlorthalidone 100 MG 1 tablet in the morning Orally Once a day for 30 day(s) Active Aleve Not-Taking Ibuprofen 200 MG 1 tablet as needed Orally every 6 hrs Not-Taking Triamcinolone Acetonide 0.1 % External for 14 Active Ursodiol 500 MG TAKE 1 TABLET BY SCOTT TH TWICE DAILY Oral for 30 Active Ivermectin 3 MG Oral for 2 Act kelly Mupirocin 2 % APPLY TO BIOPSY SITE TWICE DAILY UNTIL HEALED External for 10 Active Vitamin D Active IMMUNIZATIONS Vaccine Route Administration Date Status [...] Risk SNOMED Code Notes Problem Atherosclerosis of [place] artery of both lower extremities, with unspecified presence of clinical manifestation (I70.203) Active confirmed Atherosclerosis of [place] arteries of the extremities ([id number]) VITAL SIGNS Height 5 ft 6 in in 12/28/2023 Weight 116 lbs 12/28/2023 BMI 18.72 kg/m2 12/28/2023 PROCEDURES Procedure Date Ordered Date Performed Result Body Sit e 11670-UQZAPPU NAIL, 6 OR MORE 04/20/2023 N/A 99650-NBFFCMD NAIL, 6 OR MORE 08/17/2023 N/A 58243-CWCY SKIN LESIONS, 2 TO 4 08/17/2023 N/A 48543-ITONDRV NAIL, 6 OR MORE 12/28/2023 N/A 15801-RXTY SKIN LESIONS, 2 TO 4 12/28/2023 N/A Encounters Encounter Location Date Provider Diagnosis [address] [address] 04/20/2023 Ambrocio Weaver Tinea unguium B35.1 ; Pain in right toe(s) M79.674 and Pain in left toe(s) M79.[address] [address] 07/06/2023 Ambrocio Weaver [address] [address] 07/20/2023 Ambrocio Weaver [address] [address] 08/17/2023 Ambrocio Weaver Atherosclerosis of [place] artery of both lower extremities, with unspecified presence of clinical manifestation I70.203 ; Tinea unguium B35.1 ; Pain in right toe(s) M79.674 and Pain in left toe(s) M79.675 [facility] [address] [place] [address] 11/23/[facility] [address] 12/28/2023 Ambrocio Moralezunier Atherosclerosis of [place] artery of both lower extremities, with unspecified presence of clinical manifestation I70.203 ; Tinea unguium B35.1 ; Pain in right toe(s) M79.674 and Pain in left toe(s) M79.675 ASSESSMENTS Encounter Date Diagnosis Assessment Notes Treatment Notes Treatment Clinical Notes 04/20/2023 Tinea unguium (ICD-1 0 - B35.1) 04/20/2023 Pain in right toe(s) (ICD-10 - M79.674) 08/17/2023 Tinea unguium (ICD-1 0 - B35.1) 08/17/2023 Atherosclerosis of [place] artery of both lower extremities, with unspecified presence of clinical manifestation (ICD-10 - I70.203) 12/28/2023 Tinea unguium (ICD-1 0 - B35.1) 12/28/2023 Atherosclerosis of [place] artery of both lower extremities, with unspecified presence of clinical manifestation (ICD-10 - I70.203) 08/17/2023 Pain in right toe(s) (ICD-10 - M79.674) 12/28/2023 Pain in right toe(s) (ICD-10 - M79.674) 04/20/2023 Pain in left toe(s) (ICD-10 - M79.675) 12/28/2023 Pain in left toe(s) (ICD-10 - M79.675) 08/17/2023 Pain in left toe(s) (ICD-10 - M79.675) PLAN OF TREATMENT Pending Test Test Name Order Date X ray : Foot, right 3V 11/17/2011 18480-GBCHSYY NAIL, 6 OR MORE 02/20/2012 18451-NPUGXGL NAIL, 6 OR MORE 05/21/2012 08491-SVLGYIK NAIL, 6 OR MORE 11/01/2012 40749-JPBPNCA NAIL, 6 OR MORE 01/31/2013 50558-AMEMRVA NAIL, 6 OR MORE 05/30/2013 16437-FVJCKXH NAIL, 6 OR MORE 09/05/2013 09980-RMWAIPF NAIL, 6 OR MORE 12/12/2013 62650-SQXZULT NAIL, 6 OR MORE 03/24/2014 38860-QLPNOON NAIL, 6 OR MORE 05/19/2011 33622-ESGCYPO NAIL, 6 OR MORE 08/18/2011 91351-WNDTZHY NAIL, 6 OR MORE 11/17/2011 33971-LEAKTYD NAIL, 6 OR MORE 07/30/2012 97751-VBBSPVA NAIL, 6 OR MORE 06/23/2014 17630-RYAYDUI NAIL, 6 OR MORE 11/27/2014 74550-JJYIGEC NAIL, 6 OR MORE 2015 20204-QEGHNQM NAIL, 6 OR MORE 08/17/2015 91055-HGICJUB NAIL, 6 OR MORE 12/07/2015 34646-WGOLBUL NAIL, 6 OR MORE 03/17/2016 78769-YVHKAJI NAIL, 6 OR MORE 06/16/2016 92824-TGMAPDD NAIL, 6 OR MORE 09/22/2016 88894-OXWIUNC NAIL, 6 OR MORE 12/22/2016 41468-RMQZXRD NAIL, 6 OR MORE 03/30/2017 54755-LDWKMDQ NAIL, 6 OR MORE 08/21/2017 65735-AULKDPC NAIL, 6 OR MORE 11/20/2017 61135-OLBVROV NAIL, 6 OR MORE 02/12/2018 84759-ATAHZKM NAIL, 6 OR MORE 05/17/2018 17857-ZJZDZRL NAIL, 6 OR MORE 08/23/2018 66776-MWSTHND NAIL, 6 OR MORE 11/29/2018 31175-XEFNZBI NAIL, 6 OR MORE 04/29/2019 20596-AJOZAWL NAIL, 6 OR MORE 08/05/2019 37670-IEDKDYF NAIL, 6 OR MORE 10/26/2020 28743-VCXLCCJ NAIL, 6 OR MORE 01/28/2021 92341-IMVVREZ NAIL, 6 OR MORE 06/17/2021 25746-SDDXGUQ NAIL, 6 OR MORE 10/07/2021 56708-WXJDKID NAIL, 6 OR MORE 01/13/2022 70679-NCNIJBS NAIL, 6 OR MORE 07/21/2022 50757-MHITLRV NAIL, 6 OR MORE 12/15/2022 39714-IJBEVGH NAIL, 6 OR MORE 04/20/2023 89708-OHPFKPQ NAIL, 6 OR MORE 08/17/2023 72919-TAYLYHI NAIL, 6 OR MORE 04/14/2022 25709-JLSGOSZ NAIL, 6 OR MORE 12/28/2023 56330-Bwjc Destruction, 1-14 04/14/2022 36879-Talr Destruction, 1-14 01/13/2022 14149-Sizl Destruction, 1-14 10/07/2021 41864-Fmrx Destruction, 1-14 06/17/2021 83888-Xgaw Destruction, 1-14 08/17/2015 33155-Uxksxpon Plate 07/30/2012 18348-Dxmcecju Plate 03/24/2014 81104-Bhwsmhht Plate 05/21/2012 16020-Vqethvbm Plate 11/20/2017 10242-DVBN SKIN LESIONS, 2 TO 4 08/17/19 24 33092-YJLN SKIN LESIONS, 2 TO 4 12/28/19 24 Next Appt Details Provider Name:Ambrocio Mark Weaver , 04/04/2024 12:30:00 PM, [address] [facility], [place], [address], Insurance Providers Payer Name Payer Address Payer Phone Subscriber Number Group Number Insured Name Patient Relationship to Insured Coverage Start Date Coverage End Date Medicare National [employer] [address] [facility] [place] [address] [id number] Whit Fish Self - patient is the insured [facility] [address] [place] [address] [phone] [id number] Whit Fish Self - patient is the insured MEDICAL (GENERAL) HISTORY Medical History History ICD Code chicken pox sciatica hypertension back, hip, knee pain Arthritis reflux Surgical History Surgery Date(Month/Year) thyroidectomy tonsillectomy back surgery 1990 bunionectomy 1991 right knee arthroscopy 2006 left knee arthroscopy 2008 endoscopy 2020 colonoscopy 2020 Hospitalization History Reason Date(Month/Year) [facility], passed out due to low potass ium 10[place] [facility] [place] 08/2015 [facility] [place] on chin 02/21/2017 [facility] [place] pain 07/2018 [facility] [place] Fainted - infection/Back pain 3 da ys 08/2021 [facility] [place] low potassium, fainted, overnight s charity 06/2022 [facility] [place] Cold 02/2023
[2024-03-29 14:40] VITALS: BP 155/60; PULSE 78; RESP 14; TEMP 36.7; O2SAT 98
--- NOTE | 2024-03-29 14:49 | PC.NURSE ---
Pt presents to ED today from home by EMS for c/o LLE pain. Per EMS, Pt fell 1 week ago and has increasing L leg pain causing her to use a cane and walkers. Pt with Alzheimer and is confused at baseline. Pt is poor historian d/t this and is unable to articulate details surrounding her LLE. Pt states she doesn't think she fell, rather she went down quite some time ago. Pt denies pain but reports the L does not feel the same as the right. No family present at this time. Awaiting provider.
[2024-03-29 15:51] LABS: Basophils Percent Auto 0.4 % (0-2); Eosinophils Absolute Auto 0.1 X10*3/uL (0.0-0.4); Eosinophils Percent Auto 1.9 % (0-4); Hematocrit 35.8 % (37.0-47.0); Hemoglobin 11.6 g/dl (12.0-16.0); Imm Gran Abs Auto 0.01 X10*3/uL (0.00-0.03); Imm Gran Pct Auto 0.1 % (0.0-0.4); Lymphocytes Absolute Auto 1.8 X10*3/uL (1.2-4.9); Lymphocytes Percent Auto 24.4 % (20-40); MANUAL DIFF FLAG NO; Mean Corpuscular HGB Conc 32.4 g/dl (31.0-35.0); Mean Corpuscular Hemoglobin 29.6 pg (27.0-33.0); Mean Corpuscular Volume 91.3 fL (80.0-98.0); Mean Platelet Volume 10.7 fL (9.4-12.3); Monocytes Absolute Auto 0.8 X10*3/uL (0.1-1.2); Neutrophils Absolute Auto 4.7 x10*3/uL (2.0-8.3); Neutrophils Percent Auto 62.2 % (45-73); Platelet Count 233 X10*3/uL (160-400); Red Blood Count 3.92 X10*6/uL (4.20-5.50); Red Cell Distribution Width 13.3 % (11.0-16.0); White Blood Count 7.5 X10*3/uL (4.8-10.8)
[2024-03-29 16:04] LABS: Alanine Aminotransferase 6 U/L (0-31); Albumin Level 3.9 g/dL (3.5-5.0); Alkaline Phosphatase 118 U/L (39-117); Anion Gap 12 (12-20); Aspartate Amino Transferase 14 U/L (5-31); Bilirubin Total 0.2 mg/dL (0.0-1.0); Blood Urea Nitrogen 21 mg/dL (9-16); Calcium 9.8 mg/dL (8.4-10.2); Carbon Dioxide 29 mmol/L (22-29); Chloride 107 mmol/L (96-108); Creatinine Clr Calc Pharmacy 36.4; Estimated Glomerular Filt Rate 52; Glucose Random 95 mg/dL (60-115); Potassium 3.9 mmol/L (3.3-5.1); Sodium 144 mmol/L (135-145)
[2024-03-29 16:20] LABS: INTERNATIONAL NORM RATIO 0.9 (0.9-1.1); Prothrombin Time 10.9 SEC (10.9-12.4)
[2024-03-29 16:21] VITALS: BP 169/66; PULSE 74; RESP 16; O2SAT 98
--- NOTE | 2024-03-29 16:54 | ED_ITS ---
HPI - Extremity Injury (Lower) General Chief Complaint: Extremity Injury, Lower Stated Complaint: R LEG PAIN X2DAYS POST FALL PER EMS Time Seen by Provider: 03/29/24 16:53 Source: patient Mode of arrival: ambulatory Limitations: no limitations History of Present Illness ED Provider: ave HPI Narrative: Patient apparently had a near fall 10 days ago while picking up some drink from the ground fell on the right without hitting the head was ambulatory for last 2 3 days having more pain to use watery does have a dementia because of Alzheimer's, no back no head injury Related Data Home Medications ?Medication ?Instructions ?Recorded ?Confirmed cholecalciferol (vitamin D3) 25 25 mcg PO DAILY 04/10/20 11/28/23 mcg (1,000 unit) capsule multivitamin 1 tab PO DAILY 07/09/22 11/28/23 donepezil 10 mg tablet 10 mg PO BEDTIME 08/17/22 11/28/23 sertraline 25 mg tablet 25 mg PO DAILY 08/17/22 11/28/23 memantine 5 mg tablet 5 mg PO BID 02/19/23 11/28/23 olanzapine 2.5 mg tablet 2.5 mg PO BEDTIME 09/10/23 11/28/23 Previous Rx's ?Medication ?Instructions ?Recorded ursodiol 500 mg tablet 500 mg PO BID #180 tabs 06/28/23 amlodipine 2.5 mg tablet 2.5 mg PO DAILY #30 tabs 12/04/23 ibuprofen 600 mg tablet 600 mg PO Q8-10H PRN fever or pain 03/29/24 #30 tabs lidocaine 4 % topical patch 1 patch topical DAILY PRN pain #30 03/29/24 (Salonpas (lidocaine)) ea Allergies Allergy/AdvReac Type Severity Reaction Status Date / Time celecoxib [From CELEBREX] Allergy Intermediate RASH Verified 03/29/24 14:08 Sulfa (Sulfonamide Allergy Intermediate RASH Verified 03/29/24 14:08 Antibiotics) tomato Allergy Rash Verified 03/29/24 14:08 From PERCOCET Allergy Intermediate RASH Uncoded 03/29/24 14:08 Review of Systems 2 Review of Systems: Yes all other systems are reviewed and are negative PMFSH Past Medical History Medical History Orthostatic hypotension Dementia UTI (urinary tract infection) Chronic cholecystitis Essential hypertension 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 Mother No problems noted. Social History Social History Household Members: Unknown / Unable to assess Housing: Unknown / Unable to assess Alcohol intake: former Patient Tobacco Use Status: Former Tobacco user Smoked in Last 30 Days: No Use of substances other than those prescribed or required for medical reasons: No Advance Directives: Yes Advance Directives on File: Yes Advance Directives Date on File: 09/15/21 service: No Physical Exam 2 Vital Signs: Vital Signs: Last Vital Signs Temp 97.7 F 03/29/24 22:04 Pulse 70 03/29/24 22:04 Resp 18 03/29/24 22:04 BP 172/64 H 03/29/24 22:04 Pulse Ox 97 03/29/24 22:04 O2 Del Method Room Air 03/29/24 22:04 BMI result Body Mass Index 22.5 Appearance: Alert. Oriented X2-3. No acute distress. Eyes: PERRLA, No Nystagmus ENT: Pharynx normal. Oral Mucosa moist Neck: Normal inspection. Neck supple. CVS: Normal heart rate and rhythm. Pulses normal. Respiratory: No respiratory distress. Equal air entry bilateral, no wheezing/rales/rhonchi Abdomen: Soft and nontender. Bowel sounds are present, no mass palpable, no CVA tenderness Skin: Skin warm and dry. Normal skin color. Normal skin turgor. Extremities: No lower extremity edema. No calf tenderness tenderness right greater trochanteric area no groin tenderness good range of movement Neuro: Oriented X 2-. No motor deficit. No sensory deficit.No cerebellar signs , cranial nerves II-XII intact Medications Administered Discontinued Medications Generic Name Dose Route Start Last Admin Trade Name Freq PRN Reason Stop Dose Admin Ibuprofen 600 mg 03/29/24 21:49 03/29/24 21:56 Ibuprofen 600 Mg Tablet PO 03/29/24 21:50 600 mg ONCE ONE Administration Lidocaine 1 patch 03/29/24 21:49 03/29/24 21:57 Lidocaine 4 % Patch Adh..Patch TRANSDERMA 03/29/24 21:50 1 patch ONCE ONE Administration Protocol Medical Decision Making Medical Decision Making [facility] Narrative: Patient is status post mechanical fall with right lateral hip tenderness walked in the ER with slight pain has not take any pain medication yet x-ray of the hip negative. Will prescribe patient Lidoderm patch and ibuprofen for pain Differential Diagnosis Differential Diagnoses: The differential diagnosis associated with the presentation includes Hip fracture/right groin strain Lab Data [facility] Lab Attestation statement: I reviewed the patient's lab results. 03/29/24 15:46 03/29/24 15:46 Labs: Lab Results 03/29/24 03/29/24 Range/Units 15:46 20:43 WBC 7.5 (4.8-10.8) X10*3/uL RBC 3.92 L (4.20-5.50) X10*6/uL Hgb 11.6 L (12.0-16.0) g/dl Hct 35.8 L (37.0-47.0) % MCV 91.3 (80.0-98.0) fL MCH 29.6 (27.0-33.0) pg MCHC 32.4 (31.0-35.0) g/dl RDW 13.3 (11.0-16.0) % Plt Count 233 (160-400) X10*3/uL MPV 10.7 (9.4-12.3) fL Immature Gran % (Auto) 0.1 (0.0-0.4) % Neut % (Auto) 62.2 (45-73) % Lymph % (Auto) 24.4 (20-40) % [place] % (Auto) 11.0 (2-11) % Eos % (Auto) 1.9 (0-4) % Baso % (Auto) 0.4 (0-2) % Lymph # (Auto) 1.8 (1.2-4.9) X10*3/uL [place] # (Auto) 0.8 (0.1-1.2) X10*3/uL Eos # (Auto) 0.1 (0.0-0.4) X10*3/uL Baso # (Auto) 0.0 (0.0-0.2) X10*3/uL Abs Immat Gran (auto) 0.01 (0.00-0.03) X10*3/uL Absolute Neuts (auto) 4.7 (2.0-8.3) x10*3/uL Absolute Nucleated RBC 0.000 (0.0-0.012) X10*3/uL Nucleated RBC % (auto) 0.0 (0.0-0.2) /100WBC PT 10.9 (10.9-12.4) SEC INR 0.9 (0.9-1.1) Sodium 144 (135-145) mmol/L Potassium 3.9 (3.3-5.1) mmol/L Chloride 107 (96-108) mmol/L Carbon Dioxide 29 (22-29) mmol/L Anion Gap 12 (12-20) BUN 21 H (9-16) mg/dL Creatinine 1.02 (0.5-1.4) mg/dL Estim Creat Clear Calc 36.4 Estimated GFR 52 Random Glucose 95 (60-115) mg/dL Calcium 9.8 (8.4-10.2) mg/dL Total Bilirubin 0.2 (0.0-1.0) mg/dL AST 14 (5-31) U/L ALT 6 (0-31) U/L Alkaline Phosphatase 118 H (39-117) U/L Total Protein 7.0 (6.5-8.0) g/dL Albumin 3.9 (3.5-5.0) g/dL Urine Color Yellow Urine Appearance Clear Urine pH 7.5 (5.0-9.0) Ur Specific [place] 1.010 (1.005-1.025) Urine Protein Negative (Neg-Trace) mg/dL Urine Glucose (UA) Negative (Negative) mg/dL Urine Ketones Negative (Negative) mg/dL Urine Blood Negative (Negative) Urine Nitrite Negative (Negative) Ur Leukocyte Esterase Small (1+) H (Negative) Urine RBC 0-2 (0-2) /HPF Urine WBC 6-10 H (0-5) /HPF Ur Squamous Epith Cells 0-2 (0-2) /HPF Urine Bacteria 4+ (None Seen) Hyaline Casts 0-2 (0-2) /LPF Independent Interpretation I performed an independent interpretation of an: Plain X-Ray Radiology Impression Discussion of test interpretation with radiology: I have reviewed the radiologist's reading. Discharge Plan Discharge Clinical Impression: Strain of muscle of right hip Patient Disposition: Home, Self-Care Instructions: Groin Strain (ED) Additional Instructions: Take pain medication as prescribed Apply Lidoderm patch daily for pain Ambulate with walker Follow with your PCP if pain not better in next 10 days Your x-ray of the right hip negative for acute fracture Prescriptions: New ibuprofen 600 mg tablet 600 mg PO Q8-10H PRN (Reason: fever or pain) Qty: 30 0RF lidocaine [Salonpas (lidocaine)] 4 % adhesive patch,medicated 1 patch topical DAILY PRN (Reason: pain) Qty: 30 0RF No Action ursodiol 500 mg tablet 500 mg PO BID Qty: 180 2RF multivitamin Tablet 1 tab PO DAILY donepezil 10 mg tablet 10 mg PO BEDTIME sertraline 25 mg tablet 25 mg PO DAILY Rx Instructions: administer with food amlodipine 2.5 mg Tablet 2.5 mg PO DAILY Qty: 30 0RF Protocol: Hold for SBP< HOLD for SBP < : 90 cholecalciferol (vitamin D3) 25 mcg (1,000 unit) capsule 25 mcg PO DAILY memantine 5 mg tablet 5 mg PO BID olanzapine 2.5 mg tablet 2.5 mg PO BEDTIME Interventions: ED Discharge Assessment Last Done: 03/29/24 22:04 Print Language: Persian
[2024-03-29 18:33] VITALS: BP 152/62; PULSE 69; RESP 16; O2SAT 98
[2024-03-29 20:04] VITALS: BP 163/67; PULSE 66; RESP 16; TEMP 36.8; O2SAT 98
[2024-03-29 20:53] LABS: Appearance Urine Clear; Color Urine Yellow; Glucose Urine UA Negative (Negative); Leukocyte Esterase Urine Small (1+) (Negative); Nitrite Urine Negative (Negative); PH 7.5 (5.0-9.0); UMIC TRIGGER UACC YES; Urine Blood Negative (Negative); Urine Ketones Negative (Negative); Urine Protein Negative (Neg-Trace)
[2024-03-29 20:58] LABS: Bacteria Urine 4+ (None Seen); Hyaline Casts Urine 0-2 /LPF (0-2); RBC Urine 0-2 /HPF (0-2); Squamous Epithelial Cell Urine 0-2 /HPF (0-2); UACC Culture Trigger YES
[2024-03-29] MEDS: Ibuprofen 600 MG TABLET PO (21:56)
[2024-03-29] MEDS: Lidocaine 4 % Patch ADH..PATCH 1 PATCH TRANSDERMA (21:57)
[2024-03-29 22:04] VITALS: BP 172/64; PULSE 70; RESP 18; TEMP 36.5; O2SAT 97
== END 2024-03-29 22:18 | disposition home or self-care (01) ==
PROVIDERS: Physician Assistant; Emergency Provider Internal Medicine
DX: S76.011A Strain of muscle, fascia and tendon of right hip, initial encounter (principal); W19.XXXA Unspecified fall, initial encounter; Y93.9 Activity, unspecified; Y92.9 Unspecified place or not applicable; Y99.9 Unspecified external cause status; M79.604 Pain in right leg; F03.90 Unspecified dementia, unspecified severity, without behavioral disturbance, psychotic disturbance, mood disturbance, and anxiety; M25.551 Pain in right hip; Z87.440 Personal history of urinary (tract) infections; Z79.899 Other long term (current) drug therapy
CPT/HCPCS: 36415; 51701; 73502; 80053; 81001; 85025; 85610; 87086; 87088; 87186; 99283; 99284

== ENCOUNTER 2024-07-22 10:44 | Emergency (ER) | payer MEDICARE, SELFPAY ==
--- NOTE | 2024-07-22 | ECG_ITS ---
Test Reason : ams Blood Pressure : */* mmHG Vent. Rate : 70 BPM Atrial Rate : 70 BPM P-R Int : 166 ms QRS Dur : 98 ms QT Int : 428 ms P-R-T Axes : 102 12 55 degrees QTcB Int : 462 ms Normal sinus rhythm Normal ECG When compared with ECG of 10-Mar-2023 14:42, Aberrant conduction is no longer Present Vent. rate has decreased by 39 bpm Referred By: Generic ED Physician Electronically Signed By: Kaleb Cardoza
--- NOTE | ~2024-07-22 | CT_ITS ---
EXAMINATION: CT HEAD WITHOUT CONTRAST CLINICAL INFORMATION: Mental status changes. COMPARISON: Numerous priors, most recently 12/02/2023. TECHNIQUE: Contiguous axial imaging was performed from the skull base to vertex without intravenous administration of contrast. This CT examination was performed using dose optimization techniques as appropriate, variously including the following: *Automated exposure control *Adjustment of mA and/or kV according to patient size (this includes techniques or standardized protocols for targeted exams where dose is matched to indication/reason for exam; i.e. extremities or head) *Use of iterative reconstruction technique FINDINGS: There is no evidence of intracranial hemorrhage or extra-axial fluid collection. There is no mass effect, or edema. No CT evidence of acute territorial infarct. Ventricles, sulci, and cisterns are mildly diffusely prominent, in keeping with age-related cerebral and cerebellar involutional changes. No hydrocephalus. No midline shift. Negative hyperdense MCA sign. Negative insular ribbon sign. 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 There are mild to moderate low attenuating supratentorial white matter foci, in keeping with small vessel ischemic changes. There is artifact noted in the posterior fossa, secondary to streak artifact from dental amalgam. This is secondary to suboptimal patient positioning during the scan. Mild atheromatous calcification of the bilateral carotid siphons and V4 segments vertebral arteries bilaterally. Globes and orbital contents image normally. No extracranial soft tissue abnormalities. Mucous retention cyst in the posterior right maxillary antrum. The paranasal sinuses, mastoid air cells, and tympanic cavities are otherwise normally aerated. No suspicious bony abnormalities. Mild hyperostosis frontalis internus. Degenerative changes in the left greater than right TM joints. CT/CT head/brain wo IV con IMPRESSION: 1. No acute intracranial abnormalities. 2. Chronic findings as discussed. Electronically signed by: Matthew Kaye MD 07/22/2024 12:[address] [facility]
--- NOTE | ~2024-07-22 | XR_ITS ---
EXAMINATION: XR CHEST CLINICAL INFORMATION: ams COMPARISON: 11/26/2023, 06/14/2023. TECHNIQUE: AP portable view of the chest was obtained. FINDINGS: The cardiac, hilar, and mediastinal contours are normal. The aorta is mildly calcified. There is diffuse pulmonary hyperaeration with flattened hemidiaphragms suggesting COPD. There is biapical pleural-parenchymal thickening. Lungs otherwise clear without focal consolidation, pneumothorax, or effusion. There is no focal osseous or soft tissue abnormality. XR/XR chest 1V IMPRESSION: 1. COPD. No active superimposed disease. No significant interval change. Electronically signed by: Matthew Kaye MD 07/22/2024 12:17 PM [facility] [place]
[2024-07-22 10:48] VITALS: BP 160/79; PULSE 72; O2SAT 99; BMI 22.3
[2024-07-22 11:00] VITALS: BP 161/60; PULSE 70; RESP 16; TEMP 36.5; O2SAT 99
--- NOTE | 2024-07-22 11:06 | MHC.EDTECH ---
pt changed into hospital attire, cardiac exercise specialist in place, vitals taken, blood drawn and EKG obtained and given to provider. pt remains comfortable at this time
--- NOTE | 2024-07-22 11:13 | ED_ITS ---
HPI - Altered Mental Status General Chief Complaint: Altered Mental Status Stated Complaint: FAM STS NOT ACTING NORMAL SINCE LAST NOC,DEMENTIA Time Seen by Provider: 07/22/24 11:06 Source: patient Mode of arrival: ambulatory Limitations: no limitations History of Present Illness HPI narrative: 79-year-old female with baseline dementia, at baseline does minimal ADL's at home with family ambulates brushes teeth and hair. Today more restless not doing any ADL family is concerned about an abrupt change. Want to know if she has a UTI sent in via EMS MD complaint: altered mental status Related Data Home Medications ?Medication ?Instructions ?Recorded ?Confirmed cholecalciferol (vitamin D3) 25 25 mcg PO DAILY 04/10/20 11/28/23 mcg (1,000 unit) capsule multivitamin 1 tab PO DAILY 07/09/22 11/28/23 donepezil 10 mg tablet 10 mg PO BEDTIME 08/17/22 11/28/23 sertraline 25 mg tablet 25 mg PO DAILY 08/17/22 11/28/23 memantine 5 mg tablet 5 mg PO BID 02/19/23 11/28/23 olanzapine 2.5 mg tablet 2.5 mg PO BEDTIME 09/10/23 11/28/23 Previous Rx's ?Medication ?Instructions ?Recorded ursodiol 500 mg tablet 500 mg PO BID #180 tabs 06/28/23 amlodipine 2.5 mg tablet 2.5 mg PO DAILY #30 tabs 12/04/23 ibuprofen 600 mg tablet 600 mg PO Q8-10H PRN fever or pain 03/29/24 #30 tabs lidocaine 4 % topical patch 1 patch topical DAILY PRN pain #30 03/29/24 (Salonpas (lidocaine)) ea cefuroxime axetil 250 mg tablet 250 mg PO BID 7 days #14 tabs 04/02/24 Allergies Allergy/AdvReac Type Severity Reaction Status Date / Time celecoxib [From CELEBREX] Allergy Intermediate RASH Verified 07/22/24 10:50 Sulfa (Sulfonamide Allergy Intermediate RASH Verified 07/22/24 10:50 Antibiotics) tomato Allergy Rash Verified 07/22/24 10:50 From PERCOCET Allergy Intermediate RASH Uncoded 07/22/24 10:50 Review of Systems 2 Review of Systems: Review of systems: General: Patient denies any fever chills recent illness or falls Musculoskeletal: Denies back pain or body aches or other injuries HEENT: denies headache, runny nose, ear pain Respiratory: denies shortness of breath, cough Cardiovascular: no chest pain or palpitations : denies dysuria, frequency Abdomen: no nausea vomiting denies abdominal pain Extremities: no swelling, no pain Skin: no diaphoresis limited due to her dementia Yes all other systems are reviewed and are negative PMFSH Past Medical History Medical History Orthostatic hypotension Dementia UTI (urinary tract infection) Chronic cholecystitis Essential hypertension 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 Mother No problems noted. Social History Social History Household Members: Unknown / Unable to assess Housing: Unknown / Unable to assess Alcohol intake: former Patient Tobacco Use Status: Former Tobacco user Advance Directives: Yes Advance Directives on File: Yes Advance Directives Date on File: 09/15/21 Do you have a plan to hurt others: No Plan service: No Physical Exam ED Vital Signs: Vital Signs - 24 hr 07/22/24 11:00 Temperature 97.7 F Pulse Rate 70 Respiratory Rate 16 Blood Pressure 161/60 H Pulse Oximetry 99 Oxygen Delivery Method Room Air BMI result Body Mass Index 22.3 Neurological exam: CN II- XII tested. Patient is alert and oriented to person place and time. Patient has no dysphagia or dysarthia, denies good vision in all four vision dc no nystagmus on exam, good strength to upper and lower extremities with normal reflexes to brachioradialis, wrist, patella and achilles. Negative romberg, good finger to nose and heel to aragon. General: Well-appearing well-nourished in no signs of distress HEENT: Normocephalic atraumatic Neck: No signs of JVD, no masses no tenderness or lymphadenopathy Cardiovascular: Regular rate and rhythm Respiratory: Clear to auscultation bilaterally Abdomen: Soft nontender no masses Extremities: Normal pedal pulses no signs of edema Skin: Dry warm no rashes Back: No tenderness full ROM Course Course Course Narrative: X-ray labs urine are all negative we have got a CT scan to make sure there was no acute intracranial injury per the son who I spoke to she has been declining for several weeks per the daughter who is at the bedside who does not live with her she lives with her she noticed the change yesterday. Patient goes to a daycare program and was just not able to get into bed last night very well and was not doing well with the health aide who comes to the house every day. I explained options including taking home to get outpatient help with more options at home to help as well as placement physical therapy and how the process works here at [place] with the patient staying in the ER sometimes for days. She opted physical therapy and case management talked to her. I did go into detail on how long can take as some patients do weight days and that since she does not have admission diagnosis can be expensive Medical Decision Making Medical Decision Making [facility] Narrative: The patient for CT scan I will check labs including urinalysis and reassess. Differential Diagnosis Differential Diagnoses: The differential diagnosis associated with the presentation includes Concern for bladder infection altered mental status fall head injury which was not mentioned Admission/Observation Consideration of admission/observation: Escalation of care including admission/observation considered Lab Data [facility] Lab Attestation statement: I reviewed the patient's lab results. 07/22/24 11:02 07/22/24 11:02 Labs: Lab Results 07/22/24 07/22/24 Range/Units 11:02 11:15 WBC 9.3 (4.8-10.8) X10*3/uL RBC 3.74 L (4.20-5.50) X10*6/uL Hgb 11.1 L (12.0-16.0) g/dl Hct 34.2 L (37.0-47.0) % MCV 91.4 (80.0-98.0) fL MCH 29.7 (27.0-33.0) pg MCHC 32.5 (31.0-35.0) g/dl RDW 13.5 (11.0-16.0) % Plt Count 277 (160-400) X10*3/uL MPV 9.9 (9.4-12.3) fL Immature Gran % (Auto) 0.4 (0.0-0.4) % Neut % (Auto) 65.5 (45-73) % Lymph % (Auto) 21.1 (20-40) % [place] % (Auto) 9.9 (2-11) % Eos % (Auto) 2.5 (0-4) % Baso % (Auto) 0.6 (0-2) % Lymph # (Auto) 2.0 (1.2-4.9) X10*3/uL [place] # (Auto) 0.9 (0.1-1.2) X10*3/uL Eos # (Auto) 0.2 (0.0-0.4) X10*3/uL Baso # (Auto) 0.1 (0.0-0.2) X10*3/uL Abs Immat Gran (auto) 0.04 H (0.00-0.03) X10*3/uL Absolute Neuts (auto) 6.1 (2.0-8.3) x10*3/uL Absolute Nucleated RBC 0.000 (0.0-0.012) X10*3/uL Nucleated RBC % (auto) 0.0 (0.0-0.2) /100WBC Sodium 143 (135-145) mmol/L Potassium 4.0 (3.3-5.1) mmol/L Chloride 108 (96-108) mmol/L Carbon Dioxide 31 H (22-29) mmol/L Anion Gap 8 L (12-20) BUN 13 (9-16) mg/dL Creatinine 0.89 (0.5-1.4) mg/dL Estim Creat Clear Calc 43.5 Estimated GFR > 60 Random Glucose 74 (60-115) mg/dL Calcium 9.5 (8.4-10.2) mg/dL Magnesium 2.2 (1.6-2.6) mg/dL Total Bilirubin 0.3 (0.0-1.0) mg/dL Direct Bilirubin 0.1 (0.0-0.5) mg/dL AST 22 (5-31) U/L ALT 11 (0-31) U/L Alkaline Phosphatase 140 H (39-117) U/L Total Protein 6.9 (6.5-8.0) g/dL Albumin 3.7 (3.5-5.0) g/dL Urine Color Yellow Urine Appearance Clear Urine pH 6.5 (5.0-9.0) Ur Specific [place] 1.010 (1.005-1.025) Urine Protein Negative (Neg-Trace) mg/dL Urine Glucose (UA) Negative (Negative) mg/dL Urine Ketones Negative (Negative) mg/dL Urine Blood Negative (Negative) Urine Nitrite Positive H (Negative) Ur Leukocyte Esterase Negative (Negative) Urine RBC 0-2 (0-2) /HPF Urine WBC 0-5 (0-5) /HPF Ur Squamous Epith Cells 0-2 (0-2) /HPF Urine Bacteria 4+ (None Seen) Hyaline Casts 0-2 (0-2) /LPF Influenza Type A (PCR) NEGATIVE (Negative) Influenza Type B (PCR) NEGATIVE (Negative) RSV RNA Qual (PCR) NEGATIVE (Negative) SARS-CoV-2 RNA (RT-PCR) NEGATIVE (Negative) Independent Interpretation I performed an independent interpretation of an: EKG, Plain X-Ray and CT Scan Discharge Plan Discharge Clinical Impression: Weakness, Alzheimer's dementia Patient Disposition: Still a Patient Instructions: Alzheimer Disease (DC) Additional Instructions: You were seen in the emergency department for concern for UTI there was no bladder infection found. We did labs x-ray swabs for COVID flu and RSV everything was negative we will have you seen by Physical therapy and our case hardener Prescriptions: No Action ursodiol 500 mg tablet 500 mg PO BID Qty: 180 2RF multivitamin Tablet 1 tab PO DAILY donepezil 10 mg tablet 10 mg PO BEDTIME sertraline 25 mg tablet 25 mg PO DAILY Rx Instructions: administer with food amlodipine 2.5 mg Tablet 2.5 mg PO DAILY Qty: 30 0RF Protocol: Hold for SBP< HOLD for SBP < : 90 ibuprofen 600 mg tablet 600 mg PO Q8-10H PRN (Reason: fever or pain) Qty: 30 0RF lidocaine [Salonpas (lidocaine)] 4 % adhesive patch,medicated 1 patch topical DAILY PRN (Reason: pain) Qty: 30 0RF cefuroxime axetil 250 mg tablet 250 mg PO BID 7 Days Qty: 14 0RF cholecalciferol (vitamin D3) 25 mcg (1,000 unit) capsule 25 mcg PO DAILY memantine 5 mg tablet 5 mg PO BID olanzapine 2.5 mg tablet 2.5 mg PO BEDTIME Referrals: Keith Boland MD [Primary Care Provider] - Print Language: Albanian
[2024-07-22 11:14] LABS: MANUAL DIFF FLAG NO
[2024-07-22 11:15] LABS: Basophils Absolute Auto 0.1 X10*3/uL (0.0-0.2); Basophils Percent Auto 0.6 % (0-2); Eosinophils Absolute Auto 0.2 X10*3/uL (0.0-0.4); Eosinophils Percent Auto 2.5 % (0-4); Hematocrit 34.2 % (37.0-47.0); Hemoglobin 11.1 g/dl (12.0-16.0); Imm Gran Abs Auto 0.04 X10*3/uL (0.00-0.03); Imm Gran Pct Auto 0.4 % (0.0-0.4); Lymphocytes Percent Auto 21.1 % (20-40); Mean Corpuscular HGB Conc 32.5 g/dl (31.0-35.0); Mean Corpuscular Hemoglobin 29.7 pg (27.0-33.0); Mean Corpuscular Volume 91.4 fL (80.0-98.0); Mean Platelet Volume 9.9 fL (9.4-12.3); Monocytes Absolute Auto 0.9 X10*3/uL (0.1-1.2); Monocytes Percent Auto 9.9 % (2-11); Neutrophils Absolute Auto 6.1 x10*3/uL (2.0-8.3); Neutrophils Percent Auto 65.5 % (45-73); Platelet Count 277 X10*3/uL (160-400); Red Blood Count 3.74 X10*6/uL (4.20-5.50); Red Cell Distribution Width 13.5 % (11.0-16.0); White Blood Count 9.3 X10*3/uL (4.8-10.8)
[2024-07-22 11:20] LABS: Appearance Urine Clear; Color Urine Yellow; Glucose Urine UA Negative (Negative); Leukocyte Esterase Urine Negative (Negative); Nitrite Urine Positive (Negative); PH 6.5 (5.0-9.0); UMIC TRIGGER UACC YES; Urine Blood Negative (Negative); Urine Ketones Negative (Negative); Urine Protein Negative (Neg-Trace)
[2024-07-22 11:29] LABS: Bacteria Urine 4+ (None Seen); Hyaline Casts Urine 0-2 /LPF (0-2); RBC Urine 0-2 /HPF (0-2); Squamous Epithelial Cell Urine 0-2 /HPF (0-2); UACC Culture Trigger YES; WBC Urine 0-5 /HPF (0-5)
[2024-07-22 11:34] LABS: Alanine Aminotransferase 11 U/L (0-31); Albumin Level 3.7 g/dL (3.5-5.0); Alkaline Phosphatase 140 U/L (39-117); Anion Gap 8 (12-20); Aspartate Amino Transferase 22 U/L (5-31); Bilirubin Direct 0.1 mg/dL (0.0-0.5); Bilirubin Total 0.3 mg/dL (0.0-1.0); Blood Urea Nitrogen 13 mg/dL (9-16); Calcium 9.5 mg/dL (8.4-10.2); Carbon Dioxide 31 mmol/L (22-29); Chloride 108 mmol/L (96-108); Creatinine Clr Calc Pharmacy 43.5; Estimated Glomerular Filt Rate > 60; Glucose Random 74 mg/dL (60-115); Magnesium 2.2 mg/dL (1.6-2.6); Sodium 143 mmol/L (135-145); Total Protein 6.9 g/dL (6.5-8.0)
[2024-07-22 12:14] LABS: Influenza A PCR NEGATIVE (Negative); Influenza B PCR NEGATIVE (Negative); Resp Syncy Virus RNA Qual PCR NEGATIVE (Negative); SARS COV2 PCR INHOUSE NEGATIVE (Negative)
--- OUTSIDE RECORDS SUMMARY | 2024-07-22 13:57 | XMS_ITS ---
Author Organization [facility] Address [address] [place] [address] Care Team Providers Care Bee Breeder Name Role Phone Juma Gong MD Primary Care Provider Ambrocio Chino Unavailable [phone] Allergies Allergen (clinical drug ingredient) Drug/Non Drug Allergy documented on EMR Reaction Allergy Type Onset Date Status sulfamethoxazole / trimethoprim Bactrim rash Drug Allergy Active peanut allergenic extract Peanut (Diagnostic) ichtyness Drug Allergy Active Tomatoes ichtyness Allergy Active Medications Medication SIG (Take, Route, Frequency, Duration) Notes Start Date End Date Status Potassium 75 MG 1 tablet Orally Once a day Not-Taking Ibuprofen 200 MG 1 tablet as needed Orally every 6 hrs Not-Taking Klor-Con Not-Taking Aleve Not-Taking Potassium Chloride Shakira ER 20 MEQ TAKE 1 TABLET BY MOUTH TWICE DAILY Oral for 90 Not-Taking Triamcinolone Acetonide 0.1 % External for 14 Not-Taking Vitamin D Active Ursodiol 500 MG TAKE 1 TABLET BY TWICE DAILY Oral for 30 Active Mupirocin 2 % APPLY TO BIOPSY SITE TWICE DAILY UNTIL HEALED External for 10 Not-Takin g Ivermectin 3 MG Oral for 2 Not -Taking amLODIPine-Atorvastatin 2.5-10 MG 1 tablet Orally Once a day for 30 day(s) Active Sertraline HCl Activ e Chlorthalidone 100 MG 1 tablet in the morning Orally Once a day for 30 day(s) Active Encounters Encounter Location Date Provider Diagnosis [facility] [address] [place] [address] 07/08/2024 Ambrocio Weaver Plan Of Treatment No Information Progress Notes * Whit FISHDOB:1945 (79 yo F)Acc No.[id number]:07/08/2024 Progress Note Patient:Whit SANCHES Provider:?Ambrocio Weaver DPM :1945???Age:79 Y???Sex:Female D ate:07/08/2024 Address:[address] [place] [address], [place] [id number] Pcp:Juma Gong MD Subjective: * Chief Complaints: * ??? * Medical History:?Chicken pox , Sciatica, Hypertension, Back, hip, knee pain, Arthritis, Reflux. * Medications:?Taking Sertrali ne HCl , Taking amLODIPine-Atorvastatin 2.5-10 MG Tablet 1 tablet Orally Once a day , Taking Chlorthalidone 100 MG Tablet 1 tablet in the morning Orally Once a day , Taking Ursodiol 500 MG Tablet TAKE 1 TABLET BY MOUTH TWICE DAILY Oral , Taking Vitamin D , Not-Taking/PRN Ivermectin 3 MG Tablet Oral , Not-Taking/PRN Mupirocin 2 % Ointment APPLY TO BIOPSY SITE TWICE DAILY UNTIL HEALED External , Not-Taking/PRN Triamcinolone Acetonide 0.1 % Cream External , Not-Taking/PRN Klor-Con , Not-Taking/PRN Potassium Chloride Shakira ER 20 MEQ Tablet Extended Release TAKE 1 TABLET BY MOUTH TWICE DAILY Oral , Not-Taking/PRN Aleve , Not-Taking/PRN Ibuprofen 200 MG Tablet 1 tablet as needed Orally every 6 hrs , Not-Taking/PRN Potassium 75 MG Tablet 1 tablet Orally Once a day * Allergies:?Bactrim: rash, To matoes: ichtyness, Peanut (Diagnostic): ichtyness. Objective: * Vitals:? Assessment: Plan: * Treatment: * Images: * The named appointment provid er may or may not be the originator of this progress note, and it is not deemed complete until electronically signed by the appointment provider. Sign off status: Pending * Provider:?Ambrocio Weaver DPM Date:?2023 Generated for Desirae peraza/Rozina/Lyudmila on:?07/22/2024 01:57 PM EST
--- OUTSIDE RECORDS SUMMARY | 2024-07-22 13:57 | XMS_ITS ---
Author Organization [facility] Address [address] [place] [address] Care Team Providers Care Minister Name Role Phone Juma Gong MD Primary Care Provider Ambrocio Chino [phone] REASON FOR VISIT SD cx 07/08 Encounters Encounter Location Date Provider Diagnosis [facility] [address] [place] [address] 07/08/2024 Ambrocio Weaver Plan Of Treatment No Information Progress Notes * Whit FISHDOB:1945 (79 yo F)Acc No.[id number]:07/08/2024 Patient:?Whit FISH :1945???Age:79 Y???Sex:Female Address:[address], [place], [address] * true * Date:? Generated for Printi karmen/Rozina/eTransmitting on:?07/22/2024 01:57 PM EST
--- OUTSIDE RECORDS SUMMARY | 2024-07-22 13:58 | XMS_ITS | Continuity of Care Document ---
Author Organization [facility] Address [address] [address] Phone Care Team Providers Care Help Desk Representative Name Role Phone Steffi LEVERS LACE MACHINE OPERATORKaren Unavailable Unavailable Allergies, Adverse Reactions, Alerts Substance Reaction Status Criticality tomato Rash Active Low Medications Medication Instructions Dosage Effective Dates (start - stop) Status Comments fluconazole 200 mg tablet take 1 tablet by oral route every day 200 MG - Active ferrous sulfate 325 mg (65 mg iron) tablet,delayed release Take 1 tablet every other day - Active Procedures Procedure Date OT EVAL LOW COMPLEX 30 MIN MEDICAL NUTRITION INDIV IN OFFICE/OUTPATIENT VISIT NEW OT EVAL LOW COMPLEX 30 MIN PT EVAL LOW COMPLEX 20 MIN Advance Directives Directive Yes / No Effective Date File Name No Information Encounters Encounter Description Practice Location Reason(s) For Visit Diagnoses Date Provider Providers Copied on Encounter [facility], [address] [place] [address], [id number], tel:[phone] [place] No Information 5 Steffi Jones. [address] [place], [id number] , [place]. tel:[phone] [facility], [address], [id number], [place] tel:[phone] [place] Encounter for rehabilitation evaluation 5 Brandon Michelle. [address] [place], [id number] , [place]. tel:[phone] [facility], [address] [facility] [address] [facility], [place], [place], [id number], [place] tel:[phone] [place] No Information 4 Steffi Jones. [address] [place], [id number] , [place]. tel: [phone] [facility], [address] [facility], [place], [place], [id number], [place] tel:[phone] [place] No Information 4 Steffi Jones. [address] [place], [id number] , [place]. tel: [phone] [facility], [address] [facility], [place], [place], [id number], [place] tel:[phone] [place] Encounter for nutritional assessmentAt risk for inadequate oral intakeInadequat e fluid intake 4 Normile Amber. [address] [place], [id number] , [place]. tel: [phone] OFFICE/OUTPA TIENT VISIT [facility], [address] [place] [address], [place], [place], [id number], [place] [phone] [place] Post Enrollment Evaluation (chief complaint) Cerebrovascular diseaseModerate mixed vascular and neurodegenerati ve dementia with mood disturbanceMDD (major depressive disorder), recurrent episode, moderateHyperte nsive chronic kidney disease with stage 1 through stage 4 chronic kidney disease, or unspecified chronic kidney diseasePVD (peripheral vascular disease)Chronic cholecystitisSt age 3a chronic kidney diseaseRecurren t UTIIron deficiency anemia, unspecified iron deficiency anemia typeCandiduria 4 Steffi Jones. [address] [place], [id number] , [place]. tel:[phone] [facility], [address] [facility], [place], [place], [id number], [place] [phone] [place] Encounter for rehabilitation evaluation 4 Brandon Michelle. [address] [place], [id number] , [place]. tel:[phone] [facility], [address] [facility] [address], [place], [place], [id number], [place] tel:[phone] [place] Encounter for rehabilitation evaluation 4 Krishna Mahnoey. [address] [place], [address]. tel:[phone] [facility], [address], [place], [place], [id number], [place] tel:[phone] [place] No Information 4 Justin Hensley. [address] [place], [id number] , [place]. tel:[phone] Family History Family Member Type Diagnosis Age At Onset No Information Payers Payer name Insurance type Covered green party ID Brenda rausch(s) [facility] 16 [id number] Social History Type Description Quantity Date Captured Comments Sex Female Smoking Status No Information Chief Complaint And Reason For Visit No Information Reason For Referral Reason For Referral No Information History Of Present Illness Encounter Date Complaint History Of Lynn price Illness Post Enrollment Evaluation Michelle price is here with her daughter and son for initial visit. Patient is a 79 y/o with advanced dementia, essential hypertension, major depressive disorder, urinary incontinence and recurrent UTI. Patient lives at home with her daughter. Due to her dementia, patient is not able to provide information. Unfortunately her children do not sound insightful into the patient's problems. They deny any significant health issues, they deny recent ED visits. Daughter states the reason for the patient to become a PACE patient was her dementia care has become a burden to the family but again does not explain what are her challenges. We agreed with having a follow up visit in a couple of weeks when her lab result and old records are reviewed. Functional Status Date Functional Assessmen t No Information Instructions Date Instruction Additional Infor mation Noted on UA. medicat ion was prescribed. Family was educated to administer Fluconazole after she completed a course of antibiotic. Related to Candiduria With Hgb 11 and Iron sat 35%. Given her age and advanced dementia, her HCP is refusing GI workup for etiology. Will prescribe ferrous sulfate Related to Iron deficiency anemia, unspecified iron deficiency anemia type With long Hx of recu rrent UTI. She is currently having (+) UA for cystitis. Will prescribe antibiotic Related to Recurrent UTI With EGFR 54, Cr 1.1 and MALB/CR < 30. BP at goal. Related to Stage 3a chronic kidney disease With palpable varico se veins of lower extremitates, mild hyperpigmentation and skin thickening. Compression socks were ordered. Related to PVD (peripheral vascular disease) Per old record. On Ursodail. Rel ated to Chronic cholecystitis ONSET and medication s she took in the past not clear. Currently on Sertraline 25mg Related to MDD (major depressive disorder), recurrent episode, moderate BP at goal of < 140/ 90. Continue with Amlodipine Related to Hypertensive chronic kidney disease with stage 1 through stage 4 chronic kidney disease, or unspecified chronic kidney disease Her last CT head in early 2023 showed chronic microangiopathy and diffuse volume loss with disproportionate atrophy of the hippocampi. Has been on memantine for less than a year. Her family thinks the medication didnt bring about a meaningful improvement and aggress with discontinuation. 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 Currently with dementia. Related to Cerebrovascular disease Assessments Type Assessment Date No Information Goals Health Concern Goal Type Priority Status Date Whit is at risk for inadequate intake and weight loss related to cognitive impairment, history of reported variable intakes. Weight will be > 129 lbs without significant gains. Patient Goal New Whit Hector is at risk for elopement secondary to history of same, confusion- dementia . Tawny will remain safe in current living situation through next review Patient Goal New Whit Hector is at risk for further functional decline r/t confusion, dementia. Tawny will remain at current level of ADL care- assist for bathing and dressing and inc care. Patient Goal New Alteration in thought process related to Cognitive Impairment r/t recurrent UTIs, dx of Alzheimer's/Dementia AEB MOCA 11/05 Whit Hector will remain living safely in the community through the next review. Patient Goal Whit Hector is at risk for falls due to cognitive impairment, recurrent UTIS, recurrent falls AEB >3 falls in the last 6 months Whit Hector will not experience any falls or fall related injuries for 6 months. Patient Goal Whit Hector is at risk for skin breakdown related to incontinence, recurrent falls, poor safety awareness. Skin will remain free from breakdown for 6 months. Patient Goal Patient Care Teams Name Effective Dates (start - stop) Status Members No Information
--- OUTSIDE RECORDS SUMMARY | 2024-07-22 13:58 | XMS_ITS | Patient Health Record ---
Author Organization [facility] [place] Address [address] [facility] [place] [address] Care Team Providers Care Medicare Biller Name Role Phone Juma Gong MD Primary Care Provider Ambrocio Chino Unavailable [phone] Allergies Allergen (clinical drug ingredient) Drug/Non Drug Allergy documented on EMR Reaction Allergy Type Onset Date Status sulfamethoxazole / trimethoprim Bactrim rash Drug Allergy Active peanut allergenic extract Peanut (Diagnostic) ichtyness Drug Allergy Active Tomatoes ichtyness Allergy Active Reason For Referral No Information Medications Medication SIG (Take, Route, Frequency, Duration) Notes Start Date End Date Status amLODIPine-Atorvastatin 2.5-10 MG 1 tablet Orally Once a day for 30 day(s) Active Potassium 75 MG 1 tablet Orally Once a day Not-Taking Sertraline HCl Activ e Ibuprofen 200 MG 1 tablet as needed Orally every 6 hrs Not-Taking Chlorthalidone 100 MG 1 tablet in the morning Orally Once a day for 30 day(s) Active Klor-Con Not-Taking Triamcinolone Acetonide 0.1 % External for 14 Not-Taking Aleve Not-Taking Potassium Chloride Shakira ER 20 MEQ TAKE 1 TABLET BY MOUTH TWICE DAILY Oral for 90 Not-Taking Vitamin D Active Ursodiol 500 MG TAKE 1 TABLET BY TWICE DAILY Oral for 30 Active Mupirocin 2 % APPLY TO BIOPSY SITE TWICE DAILY UNTIL HEALED External for 10 Not-Takin g Ivermectin 3 MG Oral for 2 Not -Taking Immunizations Vaccine Route Administration Date Status Comme nts COVID-19 Pfizer BioNTech Vaccine Unknown 05/09/2021 Administered 1st 08/13/2020 2nd 09/03/2020 Influenza Unknown 05/13/2021 Administered Social History Tobacco Use: Social History Observation Description Date Details (start date - stop date) Former Smoker NA - NA Tobacco Use/Smoking Question Answer Notes Are you a: former smoker Additional Findings: Tobacco Non-User Current no n-smoker Alcohol Screen Question Answer Notes Did you have a drink containing alcohol in the p ast year? No Points 0 Interpretation Negative Tobacco use other than smoking: Question Answer Notes Are you an other tobacco user? No Problems Problem Type SNOMED Code ICD Code Onset Dates Problem Status W/U Status Risk Notes Problem Atherosclerosis of naknek arteries of the extremities ([id number]) Atherosclerosis of naknek artery of both lower extremities, with unspecified presence of clinical manifestation (I70.203) Active confirmed Vital Signs Height 5 ft 6 in in 04/04/2024 Weight 123 lbs 04/04/2024 BMI 19.85 kg/m2 04/04/2024 Procedures Procedure Date Ordered Date Performed Result Body Sit e 16812-HJNAAIF NAIL, 6 OR MORE 08/17/2023 N/A 00754-YEFW SKIN LESIONS, 2 TO 4 08/17/2023 N/A 94387-WRDWKTZ NAIL, 6 OR MORE 12/28/2023 N/A 85627-RLIT SKIN LESIONS, 2 TO 4 12/28/2023 N/A 54933-HFYVQXV NAIL, 6 OR MORE 04/04/2024 N/A 90048-VZYD SKIN LESIONS, 2 TO 4 04/04/2024 N/A Encounters Encounter Location Date Provider Diagnosis [address] [address] 08/17/2023 Ambrocio Weaver Atherosclerosis of naknek artery of both lower extremities, with unspecified presence of clinical manifestation I70.203 ; Tinea unguium B35.1 ; Pain in right toe(s) M79.674 and Pain in left toe(s) M79.[address] [address] 12/28/2023 Ambrocio Meg Atherosclerosis of naknek artery of both lower extremities, with unspecified presence of clinical manifestation I70.203 ; Tinea unguium B35.1 ; Pain in right toe(s) M79.674 and Pain in left toe(s) M79.[address] [address] 04/04/2024 Ambrocio Weaver Atherosclerosis of naknek artery of both lower extremities, with unspecified presence of clinical manifestation I70.203 ; Tinea unguium B35.1 ; Pain in right toe(s) M79.674 and Pain in left toe(s) M79.675 [facility] [place] [address] [place] [address] 07/08/2024 Ambrocio Weaver Assessments Encounter Date Diagnosis (ICD Code) Assessment Notes Treatment Notes Treatment Clinical Notes Section Notes 08/17/2023 Tinea unguium (ICD-10 - B35.1) 08/17/2023 Atherosclerosis of naknek artery of both lower extremities, with unspecified presence of clinical manifestation (ICD-10 - I70.203) 12/28/2023 Tinea unguium (ICD-10 - B35.1) 12/28/2023 Atherosclerosis of naknek artery of both lower extremities, with unspecified presence of clinical manifestation (ICD-10 - I70.203) 04/04/2024 Tinea unguium (ICD-10 - B35.1) 04/04/2024 Atherosclerosis of naknek artery of both lower extremities, with unspecified presence of clinical manifestation (ICD-10 - I70.203) 04/04/2024 Pain in right toe(s) (ICD-10 - M79.674) 08/17/2023 Pain in right toe(s) (ICD-10 - M79.674) 12/28/2023 Pain in right toe(s) (ICD-10 - M79.674) 12/28/2023 Pain in left toe(s) (ICD-10 - M79.675) 08/17/2023 Pain in left toe(s) (ICD-10 - M79.675) 04/04/2024 Pain in left toe(s) (ICD-10 - M79.675) Plan Of Treatment Pending Test Test Name Order Date X ray : Foot, right 3V 11/17/2011 59301-ADRGYLJ NAIL, 6 OR MORE 02/20/2012 77962-HXUWBBT NAIL, 6 OR MORE 05/21/2012 00726-LNEEETZ NAIL, 6 OR MORE 05/19/2011 92567-QSSKBAA NAIL, 6 OR MORE 08/18/2011 53693-PLSNJNV NAIL, 6 OR MORE 11/17/2011 31500-WVCMDKM NAIL, 6 OR MORE 07/30/2012 34972-GMKXLVD NAIL, 6 OR MORE 11/01/2012 50854-DWWLJGF NAIL, 6 OR MORE 01/31/2013 57031-ZNAQWFH NAIL, 6 OR MORE 05/30/2013 46316-WFHSDLE NAIL, 6 OR MORE 09/05/2013 12701-PZTKRSM NAIL, 6 OR MORE 12/12/2013 72988-VSXGJJI NAIL, 6 OR MORE 03/24/2014 71744-PCMWPCI NAIL, 6 OR MORE 06/23/2014 83199-FWQGKWW NAIL, 6 OR MORE 11/27/2014 69684-NZGHDFJ NAIL, 6 OR MORE 2015 15004-ZWGALCD NAIL, 6 OR MORE 08/17/2015 61910-YGLEIQP NAIL, 6 OR MORE 12/07/2015 32854-RHHOMVS NAIL, 6 OR MORE 03/17/2016 07542-FFQNGPU NAIL, 6 OR MORE 06/16/2016 67725-UOBNOFU NAIL, 6 OR MORE 09/22/2016 64264-VPYDRNZ NAIL, 6 OR MORE 12/22/2016 82457-IGDLAVR NAIL, 6 OR MORE 03/30/2017 11922-WAFNCVK NAIL, 6 OR MORE 08/21/2017 53251-VBNXIDD NAIL, 6 OR MORE 11/20/2017 30651-SMHZARQ NAIL, 6 OR MORE 02/12/2018 32745-LRWDDZG NAIL, 6 OR MORE 05/17/2018 95787-UVOKZNR NAIL, 6 OR MORE 08/23/2018 02568-NEBOXYK NAIL, 6 OR MORE 11/29/2018 99755-YYJDHCK NAIL, 6 OR MORE 04/29/2019 94861-BHLSRHA NAIL, 6 OR MORE 08/05/2019 17461-RGQCAIM NAIL, 6 OR MORE 10/26/2020 19082-BBNGWOI NAIL, 6 OR MORE 01/28/2021 87183-XFXKTSR NAIL, 6 OR MORE 06/17/2021 93315-HKROTGB NAIL, 6 OR MORE 10/07/2021 74666-PEWWYZH NAIL, 6 OR MORE 01/13/2022 69076-JRJGLCU NAIL, 6 OR MORE 07/21/2022 04110-NCVDJAP NAIL, 6 OR MORE 12/15/2022 79257-KWHZQEX NAIL, 6 OR MORE 04/20/2023 92002-OINPZDJ NAIL, 6 OR MORE 08/17/2023 56893-NYGZXPG NAIL, 6 OR MORE 04/14/2022 03446-YEHQADG NAIL, 6 OR MORE 12/28/2023 23226-ZGNBHIJ NAIL, 6 OR MORE 04/04/2024 60827-Efkn Destruction, 1-14 04/14/2022 92409-Yxfn Destruction, 1-14 01/13/2022 61221-Itmi Destruction, 1-14 10/07/2021 37184-Eipl Destruction, 1-14 06/17/2021 06786-Vcvs Destruction, 1-14 08/17/2015 81879-Nwauevdq Plate 03/24/2014 86280-Cjzdimjt Plate 07/30/2012 60171-Imlxirpp Plate 05/21/2012 06696-Rbwnidec Plate 11/20/2017 20946-NQKS SKIN LESIONS, 2 TO 4 08/17/19 24 35635-SCEK SKIN LESIONS, 2 TO 4 12/28/19 24 00887-ABVD SKIN LESIONS, 2 TO 4 04/04/20 24 Insurance Providers Payer Name Payer Address Payer Phone Subscriber Number Group Number Insured Name Patient Relationship to Insured Coverage Start Date Coverage End Date Medicare National [employer] [address] [place] [address] [id number] Whit Fish Self - patient is the insured [employer] [facility] [address] [place] [address] [id number] Whit Fish Self - patient is the insured Medical (General) History Medical History History ICD Code chicken pox sciatica hypertension back, hip, knee pain Arthritis reflux Surgical History Surgery Date(Month/Year) thyroidectomy tonsillectomy back surgery 1990 bunionectomy 1991 right knee arthroscopy 2006 left knee arthroscopy 2008 endoscopy 2020 colonoscopy 2020 Hospitalization History Reason Date(Month/Year) [facility] - Cold 02/2023 [facility]- low potassium, fainted, overnight s charity 06/2022 [facility] - Fainted - infection/Back pain 3 da ys 08/2021 [facility] chest pain 07/2018 [facility] - Fell stitches on chin 02/21/2017 [facility] fractured wrist 08/2015 Maile LEE, passed out due to low potass ium 10/2014
--- OUTSIDE RECORDS SUMMARY | 2024-07-22 13:58 | XMS_ITS ---
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 Medications Medication SIG (Take, Route, Frequency, Duration) Notes Start Date End Date Status Potassium 75 MG 1 tablet Orally Once a day Not-Taking Sertraline HCl Activ e Ibuprofen 200 MG 1 tablet as needed Orally every 6 hrs Not-Taking Aleve Not-Taking Potassium Chloride Shakira ER 20 MEQ TAKE 1 TABLET BY MOUTH TWICE DAILY Oral for 90 Not-Taking Triamcinolone Acetonide 0.1 % External for 14 Not-Taking Mupirocin 2 % APPLY TO BIOPSY SITE TWICE DAILY UNTIL HEALED External for 10 Not-Takin g Ivermectin 3 MG Oral for 2 Not -Taking Vitamin D Active Klor-Con Not-Taking Ursodiol 500 MG TAKE 1 TABLET BY TWICE DAILY Oral for 30 Active Chlorthalidone 100 MG 1 tablet in the morning Orally Once a day for 30 day(s) Active amLODIPine-Atorvastatin 2.5-10 MG 1 tablet Orally Once a day for 30 day(s) Active Social History Tobacco Use: Social History Observation [...] Are you an other tobacco user? No Vital Signs Height 5 ft 6 in in 04/04/2024 Weight 123 lbs 04/04/2024 BMI 19.85 kg/m2 04/04/2024 Procedures Procedure Date Ordered Date Performed Result Body Sit e 73169-RXSUGHN NAIL, 6 OR MORE 04/04/2024 N/A 36985-KYWW SKIN LESIONS, 2 TO 4 04/04/2024 N/A Encounters Encounter Location Date Provider Diagnosis [facility] [address] [place] [address] 04/04/2024 Ambrocio Weaver Atherosclerosis of redding artery of both lower extremities, with unspecified presence of clinical manifestation I70.203 ; Tinea unguium B35.1 ; Pain in right toe(s) M79.674 and Pain in left toe(s) M79.675 Assessments Encounter Date Diagnosis (ICD Code) Assessment Notes Treatment Notes Treatment Clinical Notes Section Notes 04/04/2024 Atherosclerosis of redding artery of both lower extremities, with unspecified presence of clinical manifestation (ICD-10 - I70.203) 04/04/2024 Tinea unguium (ICD-10 - B35.1) 04/04/2024 Pain in right toe(s) (ICD-10 - M79.674) 04/04/2024 Pain in left toe(s) (ICD-10 - M79.675) Plan Of Treatment Pending Test Test Name Order Date 07329-QAJXGZI NAIL, 6 OR MORE 04/04/2024 97763-JTCR SKIN LESIONS, 2 TO 4 04/04/20 24 Next Appt Details Follow Up: prn, Reason: Procedure Notes * Category Sub-Category Detail Notes Debride Nail 6-10 Nail debridement Performance o f this nail treatment by a nonprofessional would put this patients foot and overall health at risk. Therefore, nail debridement was performed extensively to reduce/remove overall nail length, girth, thickness, subungual debris, and necrotic tissue, by manual and/or electrical means through the use of a nail nipper and/or dremel-type napper grinder, to a more viable healthy nail plate or bed tissue 6-10. Silver nitrate used for any petechial bleeding as necessary. Definitive antifungal treatment options have been reviewed and discussed with the patient. The patient chooses, no pharmaceutical tx - 91221 Keratoma Treatment Parring or Cutting o f Benign Hyperkeratotic Lesion(s) (-56) 2-4 Lesions - The Benign hyperkeratotic lesions, as described above were pared, and/or cut utilizing a sterile 15 blade, tissue nippers, and/or dremel - 38389 , Q8 Progress Notes * Whit FISHDOB:1945 (79 yo F)Acc No.[id number]:04/04/2024 Progress Note Patient:?Whit Fish Provider:?Ambrocio Weaver DPM :1945???Age:79 Y???Sex:Female D ate:04/04/2024 Address:[address] [place] [address] [facility] Pcp:Juma Gong MD Subjective: * Chief Complaints: * ???At Risk FootcarePainful N ail(s) aggrevated by shoes and causing difficulty standing/walking. * HPI: ???At Risk footcare:?Pt States Last PCP Visit:?Date?01/07/2024 * ROS:?General/Constitutional:?Nausea?denies.?Vomiting?denies.?Hunger Thirst?denies.?Loss appetite?denies.?Chills?denies.?Fatigue?denies.?Fever?denies.?Night Sweats?denies.?Unexplained weight loss?denies.?Ophthalmologic:?Blurred vision?denies.?Red eye?denies.?HEENTM:?Dentures?denies.?Dizziness?denies.?Glasses/contacts?admits.?Retinopathy?de nies.?Blurred/double vision?denies.?TMJ?denies.?Discharge/drainage?denies.?Implants?denies.?Hard of hearing denies.?Difficulty chewing/swallowing/speaking?denies.?Nose bleeds?denies.?Sore mouth?denies.?Swollen glands?denies.?Respiratory:?On Oxygen?denies.?Pneumonia/pleurisy?denies.?Bronchitis?denies.?Emphysema?denies.?C oughing?denies.?Cough blood?denies.?Shortness of breath?denies.?Wheezing?denies.?Cardiovascular:?Pacemaker?denies.?MVP?denies.?WPW?denies.?CHF?denies.?Heart attack?denies.?Septal defect?denies.?Rapid beat?denies.?Chest pain ?denies.?Atrial Fib.?denies.?Murmur/Palpitations?denies.?Gastrointestinal:?Hemorrhoids?denies.?Stomach/Abdominal pain?denies.?Dark blood stool?denies.?Irritable bowel ?denies.?Constipation?denies.?Diarrhea?denies.?Vomiting?denies.?Hematology:?Swelling?admits.?Bruising?denies.?Bleeding problem?denies.?Genitourinary:?Blood urine?denies.?Frequent/Painfu/urination/bladder control?denies.?Kidney stones?denies.?Infection (UTI)?denies.?Nephropathy?denies.?Musculoskeletal:?Hammertoes?denies.?Bunions?admits.?Scoliosis/kyphosis?denies.?Muscle cramps / walking?denies.?Generalized aches and pains?denies.?Weakness?denies.?Integ.:?Trevino?denies.?Scars?denies.?Corns/calluses?admits.?Ingrown nails?admits.?Painful nails?admits.?Rashes?denies.?Neurologic:?Difficulty sleeping?denies.?Bipolar?denies.?Brain disorder?denies.?Balance trouble?denies.?Confusion?denies.?Fainting/blackouts?denies.?Headache?denies.?Tr emors?denies.? * Medical History:? * Surgical History:?thyroidect brittany tonsillectomy back surgery 1991bunionectomy 1992right knee arthroscopy 2007left knee arthroscopy 2009endoscopy olonoscopy 2020 * Hospitalization/Major Diagno stic Procedure:?[facility], passed out due to low potassium 10/2014[facility] fractured wrist 08/2015[facility] - Fell stitches on chin 02/21/2017[facility] chest pain 07/2018[facility] - Fainted - infection/Back pain 3 days 08/2021[facility]- low potassium, fainted, overnight stay 06/2022[facility] - Cold 02/2023 * Family History:?Mother: dece ased.?Father: , diagnosed with Unspecified heart disease.?Siblings: diabetes mellitus.? * Social History:?Tobacco Use:?Tobacco Use/Smoking?Are you a:?former smoker ?Additional Findings: Tobacco Non-User?Current non-smoker ?Tobacco use other than smoking?Are you an other tobacco user??No ???Drugs/Alcohol:?Drugs?Have you used drugs other than those for medical reasons in the past 12 months??No ?Alcohol Screen?Did you have a drink containing alcohol in the past year??No ?Points?0 ?Interpretation?Negative ???Miscellaneous:?no Caffeine. ?Exercise: yes, walking. ?Marital status: . 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 * Medications:?TakingSertralin e HCl amLODIPine-Atorvastatin 2.5-10 MG Tablet 1 tablet Orally Once a dayChlorthalidone 100 MG Tablet 1 tablet in the morning Orally Once a dayUrsodiol 500 MG Tablet TAKE 1 TABLET BY MOUTH TWICE DAILY Oral Vitamin D Taking Sertraline HCl Taking amLODIPine-Atorvastatin 2.5-10 MG Tablet 1 tablet Orally Once a dayTaking Chlorthalidone 100 MG Tablet 1 tablet in the morning Orally Once a dayTaking Ursodiol 500 MG Tablet TAKE 1 TABLET BY MOUTH TWICE DAILY Oral Taking Vitamin D Not-Taking/PRNIvermectin 3 MG Tablet Oral Mupirocin 2 % Ointment APPLY TO BIOPSY SITE TWICE DAILY UNTIL HEALED External Triamcinolone Acetonide 0.1 % Cream External Klor-Con Potassium Chloride Shakira ER 20 MEQ Tablet Extended Release TAKE 1 TABLET BY MOUTH TWICE DAILY Oral Aleve Ibuprofen 200 MG Tablet 1 tablet as needed Orally every 6 hrsPotassium 75 MG Tablet 1 tablet Orally Once a dayMedication List reviewed and reconciled with the patientNot-Taking/PRN Ivermectin 3 MG Tablet Oral Not-Taking/PRN Mupirocin 2 % Ointment APPLY TO BIOPSY SITE TWICE DAILY UNTIL HEALED External Not-Taking/PRN Triamcinolone Acetonide 0.1 % Cream External Not- Taking/PRN Klor-Con Not-Taking/PRN Potassium Chloride Shakira ER 20 MEQ Tablet Extended Release TAKE 1 TABLET BY MOUTH TWICE DAILY Oral Not-Taking/PRN Aleve Not-Taking/PRN Ibuprofen 200 MG Tablet 1 tablet as needed Orally every 6 hrsNot-Taking/PRN Potassium 75 MG Tablet 1 tablet Orally Once a dayMedication List reviewed and reconciled with the patient * Allergies:?Bactrim: rashToma toes: ichtynessPeanut (Diagnostic): ichtynessyes[Allergies Verified] Objective: * Vitals:?Ht: 5 ft 6 in, Wt: 1 23, BMI: 19.85, Shoe size: 9, Wt-k.79 kg. * Examination: ???Vascular: ?DP PULSES(B):?1/4, B/L.?PT PULSES(B):?0/4 , LEFT , 1/4 , RIGHT.?CAPILLARY FILL TIME:? delayed, all digits, B/L.?TROPHIC CONDITION-TEXTURE/ELASTICITY/TURGOR/HAIR GROWTH(B):? decreased, with sparse to absent hair growth, B/L.?TEMPERTURE GRADIENT(C):? decreased, cool to cool, proximal to distal, B/L.?PIGMENTATION:?mottled, B/L.?EDEMA(C):?absent, B/L.?CLAUDICATION(C):?denies, B/L.?REST PAIN:?denies, B/L.?Nails: ?NAILS are:?Elongated, overgrown, dystrophic, lytic, greater than 3mm thick, discolored and friable with crumbly malodorous subungual debris, with pain on palpation, TA, T2, T4, T5, T7, T8, T9.?Dermatologic: ?SKIN FINDINGS:?Skin exam reveals Keratotic lesion(s) located at , Medial plantar ,?MTH (s) , 1 , B/L.? Assessment: * Assessment: 1.?Tinea unguium - B35.1?2.? Atherosclerosis of redding artery of both lower extremities, with unspecified presence of clinical manifestation - I70.203?3.?Pain in right toe(s) - M79.674?4.?Pain in left toe(s) - M79.675? Plan: * Treatment: 2.?Atherosclerosis of redding artery of both lower extremities, with unspecified presence of clinical manifestation?Procedure: 55844-CMGD SKIN LESIONS, 2 TO 4 * Procedures:?Debride Nail 6-10:?Nail debridement?Performance of this nail treatment by a nonprofessional would put this patients foot and overall health at risk. Therefore, nail debridement was performed extensively to reduce/remove overall nail length, girth, thickness, subungual debris, and necrotic tissue, by manual and/or electrical means through the use of a nail nipper and/or dremel-type napper grinder, to a more viable healthy nail plate or bed tissue 6-10. Silver nitrate used for any petechial bleeding as necessary. Definitive antifungal treatment options have been reviewed and discussed with the patient. The patient chooses, no pharmaceutical tx - 71934.?Keratoma Treatment:?Parring or Cutting of Benign Hyperkeratotic Lesion(s)?(-56) 2-4 Lesions - The Benign hyperkeratotic lesions, as described above were pared, and/or cut utilizing a sterile 15 blade, tissue nippers, and/or dremel - 45202 , Q8.? * Procedure Codes:?25313 DEBRI DE NAIL, 6 OR MORE, Modifiers: XS 28733 TRIM SKIN LESIONS, 2 TO 4, Modifiers: XS , Q8 * Follow Up:?prn * Images: * Sign off status: Completed true * Provider:?Ambrocio Weaver DPM Date:?2023 Generated for Desirae peraza/Rozina/Lyudmila on:?07/22/2024 01:57 PM EST History and Physical Notes * HPI (History of Present Illness) Category Sub-Category Detail Notes Category Not es At Risk footcare Pt States Last PCP Visit: Date: Examination Category Sub-Category Detail Notes Category Not es Dermatologic SKIN FINDINGS: Skin exam reveal s Keratotic lesion(s) located at , Medial plantar , MTH (s) , 1 , B/L Vascular DP PULSES (B): 1/4, B/L PT PULSES (B): 0/4 , LEFT , 1/4 , R IGHT CAPILLARY FILL TIME: delayed, all digits , B/L TEMPERTURE GRADIENT (C): decreased, cool to cool, proximal to distal, B/L TROPHIC CONDITION-TEXTURE/ELASTICITY/TURGOR/HAIR GROWTH (B): decreased, with sparse to absent hair gr owth, B/L EDEMA (C): absent, B/L CLAUDICATION (C): denies, B/L REST PAIN: denies, B/L PIGMENTATION: mottled, B/L Nails NAILS are: Elongated, overg rown, dystrophic, lytic, greater than 3mm thick, discolored and friable with crumbly malodorous subungual debris, with pain on palpation, TA, T2, T4, T5, T7, T8, T9
[2024-07-22 14:00] VITALS: BP 152/60; PULSE 62; RESP 18; TEMP 36.7; O2SAT 97
--- NOTE | 2024-07-22 14:22 | MHC.CM.ED ---
Received case management consult from Dr Marrero. Physical therapy eval was pending. Received notification that patient will be d/c'd home. Patient is active with [facility] and goes to a day program. Dr Marrero spoke with provider at Day Program. They can provide PT and OT at day program. Patient will be d/c'd home. Case management consult deferred at this time.
--- NOTE | 2024-07-22 14:36 | MHC.EDTECH ---
PO trial successful, pt tolerated pudding and applesauce, 100% eaten, awaiting d/c
[2024-07-22 16:18] VITALS: BP 152/60; PULSE 62; RESP 18; TEMP 36.7; O2SAT 98
== END 2024-07-22 16:19 | disposition home or self-care (01) ==
PROVIDERS: Emergency Provider Student in an Organized Health Care Education/Training Program; PCP Family Medicine
DX: R41.82 Altered mental status, unspecified (principal); R53.1 Weakness; G30.9 Alzheimer's disease, unspecified; F02.80 Dementia in other diseases classified elsewhere, unspecified severity, without behavioral disturbance, psychotic disturbance, mood disturbance, and anxiety; I10 Essential (primary) hypertension; E06.3 Autoimmune thyroiditis; Z03.818 Encounter for observation for suspected exposure to other biological agents ruled out; Z87.891 Personal history of nicotine dependence
CPT/HCPCS: 0241U; 70450; 71045; 80053; 81001; 82248; 83735; 85025; 87086; 87088; 87186; 93005; 99285

== ENCOUNTER → 2024-07-22 11:01 | Outpatient (BNV) | payer MEDICARE, SELFPAY | PROVIDERS: Emergency Provider Student in an Organized Health Care Education/Training Program; PCP Family Medicine; Visit Provider Internal Medicine Cardiovascular Disease | DX: R41.82 Altered mental status, unspecified (principal) | CPT/HCPCS: 93010 ==

== ENCOUNTER → 2024-07-22 11:22 | Outpatient (BNV) | payer MEDICARE, SELFPAY | PROVIDERS: Emergency Provider Student in an Organized Health Care Education/Training Program; PCP Family Medicine; Visit Provider Radiology Diagnostic Radiology | DX: R41.82 Altered mental status, unspecified (principal) | CPT/HCPCS: 70450; 71045 ==